=== PATIENT | female | born 1955 | race Caucasian/White ===

== ENCOUNTER → 2017-11-12 12:29 | Outpatient (CLI) | payer OTHER, SELFPAY ==
[2017-11-12 14:08] LABS: Absolute Lymphocyte Count 1.79 X10^3/ul (0.83-4.51); Absolute Neutrophil Count 2.6 X10^3/uL (2.0-7.7); Basophil# 0.02 X10^3/uL; Basophil% 0.4 % (0-1); Eosinophil# 0.19 X10^3/uL; Eosinophils% 3.8 % (0-5); Hematocrit 42.3 % (37-47); Lymphocyte # 1.79 X10^3/ul (4.0); Lymphocyte % 35.4 % (19-41); Mean Corp Hgb Conc 33.1 g/gl (32-36); Mean Corpuscular Hgb 29.4 pg (27.0-32.0); Mean Corpuscular Volume 88.9 fL (81-99); Mean Platelet Vol. 10.3 fl (6.2-12.0); Monocyte# 0.42 X10^3/uL; Monocyte% 8.3 % (0-10); Neutrophil # 2.63 X10^3/uL (2.7-7.7); Neutrophil % 51.9 % (47-70); Platelet Count 243 K/mm3 (150-450); RBC Distribution Width CV 13.2 % (11.6-14.6); RBC Distribution Width SD 42.7 fl (35.1-43.9); Red Blood Count 4.76 M/mm3 (4.2-5.4); White Blood Count 5.1 K/mm3 (4.4-11.0)
[2017-11-12 14:09] LABS: POSITIVE COUNT NO; POSITIVE DIFFERENTIAL NO; POSITIVE MORPHOLOGY NO
[2017-11-12 14:49] LABS: Vitamin B12 1153 pg/mL (211-911); Vitamin D,25 Hydroxy 43.6 ng/mL (29.95-100.01)
[2017-11-12 14:52] LABS: ALB/GLOB Ratio 0.9 RATIO (0.9-2.4); AST(SGOT) 24 U/L (15-37); Alanine Aminotransfer ALT/SGPT 39 U/L (13-56); Albumin, Serum 3.5 g/dL (3.2-5.0); Alkaline Phosphatase 79 U/L (45-117); Anion Gap 7 (5-15); BUN 12 mg/dL (7-18); BUN/Creat Ratio 19.6 RATIO (10-20); Calcium,Total 8.7 mg/dL (8.5-10.1); Chloride 105 mmol/L (98-107); Creatinine, Serum 0.61 mg/dL (0.55-1.02); EST Glomerular Filtration Rate 105 mL/min (>60); Est Glom Filt Rate - Afr Amer 127 mL/min (>60); Ferritin 27 ng/mL (8-252); Glucose 91 mg/dL (74-106); Iron 78 ug/dL (50-170); Protein, Total 7.5 g/dL (6.4-8.2); Sodium Level 140 mmol/L (136-145)
== END ==
PROVIDERS: Family Provider Family Medicine; PCP Family Medicine; Visit Provider Family Medicine
DX: R25.1 Tremor, unspecified (principal); E78.5 Hyperlipidemia, unspecified; E55.9 Vitamin D deficiency, unspecified; E53.8 Deficiency of other specified B group vitamins
CPT/HCPCS: 36415; 80053; 82306; 82607; 82728; 83540; 83735; 84443; 85025

== ENCOUNTER → 2018-02-25 13:51 | Outpatient (CLI) | payer OTHER, SELFPAY ==
[2018-02-25 15:14] LABS: Free T3 2.6 pg/mL (2.18-3.98); T4 Free Direct 0.87 ng/dL (0.76-1.46); T4 Total, Thyroxin 9.6 ug/dL (4.8-13.9); Thyroid Stim Hormone (TSH) 1.77 uIU/mL (0.358-3.74)
== END ==
PROVIDERS: Family Provider Family Medicine; PCP Family Medicine; Visit Provider Surgery
DX: R49.0 Dysphonia (principal); R68.89 Other general symptoms and signs
CPT/HCPCS: 36415; 84436; 84439; 84443; 84481

== ENCOUNTER 2018-03-16 10:18 | Day surgery (SDC) | payer OTHER, SELFPAY ==
[2018-03-16] VITALS (8 sets, daily range): BP systolic 130–156; BP diastolic 81–94; PULSE 58–76; RESP 16; TEMP 36.3–36.4; O2SAT 94–100; BMI 32.8
--- NOTE | 2018-03-16 | GASB_PTH ---
PATIENT: DOMINIC ARTEAGA LOC: EN U#:[id number] AGE/SX: 63/F ROOM: RE03/16/[address]: Dr. Yoni Shaw MD : 1955 BED: DIS: 03/16/2018 SPEC #: [id number] RECD: 03/16/18 14:21 STATUS: ANNETTE KAVITA #: [id number] CLAUDINE: 03/16/18 00:[address]: Yoni Shaw DEPT: SURGICAL PATHOLOGY RECD BY: Alexis Romero ENTERED: 03/16/18 14:21 SP TYPE: Gastric Bx OTHR DR: Dr. Demian Avila MD Tissues: A - Gastric mucous membrane B - Gastric mucous membrane Procedures: Special Stain Group II Surgery Specimen Level IV Alcian Blue/PAS (control) HEADER OPERATION: [place] DIAGNOSIS: History of esophagitis and voice hoarseness TISSUE SUBMITTED: A - Biopsy gastric antrum for H. pylori and path, B - Biopsy GE junction MICROSCOPIC DIAGNOSIS A. Gastric antrum, biopsy: Mild gastritis. B. GE junction, biopsy: Fragments of gastroesophageal mucosa with intestinal metaplasia (goblet cell metaplasia) consistent with Bhatti's esophagus. Indefinite for dysplasia. See comment. Chronic inflammation. SJ:rg 03/17/18 COMMENT A. The results of immunohistochemistry for Helicobacter pylori will be reported separately ([id number]). B. Alcian blue/PAS stain with matched control is used in the evaluation of the specimen. Immunohistochemistry ([id number]) supports the above diagnosis. Case has been reviewed in consultation with Dr. Albarado who concurs with the above diagnosis. IDC:AM MICROSCOPIC DESCRIPTION Slides are reviewed. A. The specimen shows fragments of gastric mucosa with chronic inflammatory cell infiltrates in the lamina propria consisting of lymphocytes and plasma cells, consistent with mild chronic gastritis. GROSS DESCRIPTION A - Received in fixative is one container labeled with the patient's name and designated gastric antrum. The specimen consists of two irregular fragments of light cruz soft tissue that in aggregate measure 0.5 x 0.3 x 0.1 cm. The specimen is totally submitted in one cassette. B - Received in fixative is one container labeled with the patient's name and designated [facility]. The specimen consists of two irregular fragments of light cruz soft tissue that in aggregate measure 0.6 x 0.6 x 0.1 cm. The specimen is totally submitted in one cassette. / AM:epi 03/16/18 TC:3 CPT: 80460 x2, 72435 ADDENDUM ADDENDUM ADDENDUM ADDENDUM ADDENDUM ADDENDUM ADDENDUM ADDENDUM ADDENDUM 03/26/2018 11:51 ADDENDUM 03/26/2018 11:51 ADDENDUM 03/26/2018 11:51 ADDENDUM 03/26/2018 11:51 ADDENDUM 03/26/2018 11:51 This addendum is added to incorporate a pathology consultation report. The case was examined at [facility] and the following diagnosis was rendered. B. Gastroesophageal junction biopsy: Bhatti's esophagus, negative for dysplasia. Please see complete above mentioned consultation report in EMR
--- NOTE | 2018-03-16 11:30 | IMM_PTH ---
PATIENT: DOMINIC ARTEAGA LOC: EN U#:[id number] AGE/SX: 63/F ROOM: RE03/16/[address]: Dr. Yoni Shaw MD : 1955 BED: DIS: 03/16/2018 SPEC #: [id number] RECD: 03/16/18 15:47 STATUS: ANNETTE REWhitney #: [id number] CLAUDINE: 03/16/18 11:[address]: Yoni Shaw DEPT: IMMUNOHISTOCHEMISTRY RECD BY: Aliyah Holder ENTERED: 03/16/18 15:47 SP TYPE: IMMUNO OTHR DR: Dr. Demian Avila MD Tissues: A - Stomach, NOS B - Esophageal mucous membrane Procedures: H Pylori (initial) P53 (initial) PHYSICIAN & INSTITUTION [place] [address] SPECIMEN INFORMATION: Tissue Source: A - Gastric antrum biopsy, B - GE junction biopsy Clinical Info: History of esophagitis and voice hoarseness Specimen Number: [id number] A & B CPT code: 43702 x2 METHODOLOGY: Deparaffinized sections of prefer/formalin-fixed tissue or PAP/DQ stained slides are incubated with monoclonal/polyclonal antibodies/oligonucleotide probes. Localization is made via biotin free immunoperoxidase method. Appropriate controls are performed and reacted as expected. Results on target cell population are indicated in the following table: RESULTS: ANTIBODY / CLONE RESULT Block A H Pylori (polyclonal) negative Block B P53 (DO-7) positive, rare cells, weak These tests were developed and their performance characteristics determined by [facility]. They may not have been cleared or approved by the U.S. Food and Drug Administration. The FDA has determined that such clearance or approval is not necessary. INTERPRETATION: A. Gastric antrum, biopsy: Negative for Helicobacter pylori organisms. B. GE junction, biopsy: Consistent with indefinite for dysplasia. SJ:epi 03/18/18 Case has been reviewed in consultation with Dr. Albarado who concurs with the above diagnosis. IDC:PINA
--- NOTE | 2018-03-16 11:44 | OP.ENDO_ITS ---
Patient Name: Jenn Paul Procedure Date: 03/16/2018 11:11 AM Date of : 1955 Age: 63 Procedure: Upper GI endoscopy Indications: Heartburn, Reflux esophagitis, voice hoarseness Providers: Yoni Shaw MD Referring MD: Yoni Shaw MD Medicines: Monitored Anesthesia Care Patient Profile: She is status post EGD three years ago. She had esophagitis, She is also having voice hoarseness. Complications: No immediate complications. Procedure: Pre-Anesthesia Assessment: - Prior to the procedure, a History and Physical was performed, and patient medications and allergies were reviewed. The patient's tolerance of previous anesthesia was also reviewed. The risks and benefits of the procedure and the sedation options and risks were discussed with the patient. All questions were answered, and informed consent was obtained. Prior Anticoagulants: The patient has taken no previous anticoagulant or antiplatelet agents. After reviewing the risks and benefits, the patient was deemed in satisfactory condition to undergo the procedure. After obtaining informed consent, the endoscope was passed under direct vision. Throughout the procedure, the patient's blood pressure, pulse, and oxygen saturations were monitored continuously. The gastroscope was introduced through the mouth, and advanced to the second part of duodenum. The upper GI endoscopy was accomplished without difficulty. The patient tolerated the procedure well. Scope In: 11:24:50 AM Scope Out: 11:31:06 AM Total Procedure Duration Time 0 hours 6 minutes 16 seconds Findings: Esophagitis with no bleeding was found. Biopsies were taken with a cold forceps for histology. Biopsies were taken with a cold forceps in the gastric antrum for Helicobacter pylori testing. The exam was otherwise without abnormality. The cardia and gastric fundus were normal on retroflexion. Impression: - Reflux esophagitis. Rule out Bhatti's esophagus. Biopsied. - The examination was otherwise normal. - Biopsies were taken with a cold forceps for Helicobacter pylori testing. Recommendation: - Await pathology results. - Continue present medications. Procedure Code(s): --- Professional --- 49187, Esophagogastroduodenoscopy, flexible, transoral; with biopsy, single or multiple Diagnosis Code(s): --- Professional --- K21.0, Gastro-esophageal reflux disease with esophagitis R12, Heartburn CPT copyright 2017 [employer]. All rights reserved. The codes documented in this report are preliminary and upon certified coder review may be revised to meet current compliance requirements. Yoni Shaw MD 03/16/2018 11:44:00 AM This report has been signed electronically. Number of Addenda: 0 Note Initiated On: 03/16/2018 11:11 AM
== END 2018-03-16 12:45 | disposition home or self-care (01) ==
LOC: EN 10:19 → AC 10:20
PROVIDERS: Family Provider Family Medicine; PCP Family Medicine; Visit Provider Surgery
PROC: 0DJ08ZZ Inspection of Upper Intestinal Tract, Via Natural or Artificial Opening Endoscopic (ICD-10-PCS; CPT 43235; principal; 2018-03-16 11:25)
DX: K21.0 Gastro-esophageal reflux disease with esophagitis (principal); K29.70 Gastritis, unspecified, without bleeding; R49.0 Dysphonia; E11.9 Type 2 diabetes mellitus without complications; H40.9 Unspecified glaucoma; F32.9 Major depressive disorder, single episode, unspecified; F41.9 Anxiety disorder, unspecified; Z79.84 Long term (current) use of oral hypoglycemic drugs; Z79.899 Other long term (current) drug therapy; Z78.0 Asymptomatic menopausal state
CPT/HCPCS: 43239; 88305; 88313; 88342; J7120

== ENCOUNTER → 2018-03-18 09:09 | Outpatient (CLI) | payer OTHER, SELFPAY ==
--- NOTE | 2018-03-18 09:12 | US_ITS ---
STUDY: THYROID ULTRASOUND REASON FOR EXAM: Female, 63 years old. Heat intolerance. TECHNIQUE: Ultrasound evaluation of the thyroid was performed with real-time and static jeronimo-scale imaging. COMPARISON: None. FINDINGS: RIGHT LOBE: The right lobe of the thyroid gland measures 4.9 x 1.6 x 1.3 cm. There is a homogeneous echotexture. There are no demonstrated solid, cystic or complex lesions. LEFT LOBE: The left lobe of the thyroid gland measures 4.2 x 1.7 x 1.3 cm. There is a homogeneous echotexture. There is a complex solid 7 mm nodule in the mid left lobe. ISTHMUS: The isthmus measures 3 mm . The regional lymph nodes are normal. US/Thyroid IMPRESSION: Subcentimeter nodule on the left. Otherwise negative. No definite follow-up or further evaluation indicated. Electronically Signed: Daryl Moser MD at 16:49 EDT , Service support ,
== END ==
PROVIDERS: Family Provider Family Medicine; PCP Family Medicine; Visit Provider Surgery
DX: R49.0 Dysphonia (principal); R68.89 Other general symptoms and signs
CPT/HCPCS: 76536

== ENCOUNTER 2018-05-12 06:54 | Day surgery (SDC) | payer OTHER, SELFPAY ==
[2018-05-12] VITALS (7 sets, daily range): BP systolic 128–152; BP diastolic 71–88; PULSE 63–77; RESP 14–16; TEMP 36.1–36.4; O2SAT 94–98; BMI 33.5
--- NOTE | 2018-05-12 | IMM_PTH ---
PATIENT: DOMINIC ARTEAGA LOC: EN U#:[id number] AGE/SX: 63/F ROOM: RE05/12/[address]: Dr. Yoni Shaw MD : 1955 BED: DIS: 05/12/2018 SPEC #: [id number] RECD: 05/13/18 14:26 STATUS: ANNETTE REWhitney #: [id number] CLAUDINE: 05/12/18 00:[address]: Yoni Shaw DEPT: IMMUNOHISTOCHEMISTRY RECD BY: Aliyah Holder ENTERED: 05/13/18 14:27 SP TYPE: IMMUNO OTHR DR: Dr. Demian Avila MD Tissues: Esophageal mucous membrane Procedures: P53 (initial) PHYSICIAN & INSTITUTION [place] [address] SPECIMEN INFORMATION: Tissue Source: Biopsy GE junction Clinical Info: Bhatti's esophagus Specimen Number: [id number] CPT code: 27478 METHODOLOGY: Deparaffinized sections of prefer/formalin-fixed tissue or PAP/DQ stained slides are incubated with monoclonal/polyclonal antibodies/oligonucleotide probes. Localization is made via biotin free immunoperoxidase method. Appropriate controls are performed and reacted as expected. Results on target cell population are indicated in the following table: RESULTS: ANTIBODY / CLONE RESULT P53 (DO-7) negative These tests were developed and their performance characteristics determined by [facility]. They may not have been cleared or approved by the U.S. Food and Drug Administration. The FDA has determined that such clearance or approval is not necessary. INTERPRETATION: GE junction, biopsy: Negative for dysplasia. SJ:epi 05/15/18
--- NOTE | 2018-05-12 07:57 | H&P.OPEN ---
History of Present Illness Date of Admission: 05/12/18 The patient is a 63 year old F who had an EGD back in February of this year. At that time the patient had Bhatti's esophagus with a diagnosis of indefinite for dysplasia. The patient reports that her GERD is controlled on her PPI. Past Medical/Surgical History - Planned Operation Planned Operative Procedure/s: EGD Date of Operative Procedure: 05/12/18 Permit Signed: No S.O.S: No Is This Patient Having a Total Joint: No - Previous Hospitalizations/Surgeries HX Hospitalizations: Yes HX of Surgeries: egd for foreign body 5 yrs ago. cervical fusion . appendectomy . right arm nerve and tendon repair . EGD 2018 Any Problems With Anesthesia: No You/Your Family Experience Fever (Hyperthermia) With Anes: No Cholinesterase deficiency: No - Cardiovascular Hx Chest Pain within Last 2 months: No Hx of Irregular Heartbeat and/or Afib: No Hx Heart Attack: No Hx Congestive Heart Failure: No Hx Rheumatic Fever: No Hx Hypertension: No Hx Internal Defibrillator: No Hx Pacemaker: No Hx Cardiac Catheterization: No Hx Cardiac Surgery/Stents/Etc.: No Hx Stress Test: Yes - 2017 and echo 2017 Hx Pain in Legs when Walking/Leg Cramps: No - Respiratory Chronic Cough: No HX of Shortness of Breath: No Hoarseness: No Hx Chronic Obstructive Pulmonary Disease (COPD): No Hx Asthma: No Hx Emphysema: No Hx Sleep Apnea: No Hx Respiratory Tract Infection/Cold (presently): No Do You Snore Loudly (louder than talking or can be heard): No Do You Often Feel Tired/ Fatigued/ Sleepy Dring Daytime?: No Has Anyone Observed You Stop Breathing During Sleep?: No Result (for STOP score): Negative Hx Smoking: No Smoking Status: Never smoker - Gastrointestinal Hx Gastroesophageal Reflux: Yes Controlled With Meds: No - better with prilosec Hx Gastrointestinal Disorders: No Hx Gastrointestinal Bleed: No Hx Ulcer: No Hx Hiatal Hernia: No Difficulty Chewing/Swallowing: No Special diet followed at home: No - . Hx Unplanned Weight Loss of 20#: No HX Unplanned Weight Gain of 20#: No - Neurological Hx Seizures: No HX Syncope/Blackout Spells/Unconsciousness: No Hx CVA/Stroke: No Hx Transient Ischemic Attacks (TIA): No Hx Multiple Sclerosis: No Hx Parkinson's Disease: No Hx Head/Neck Injury: Yes - cervical fusion Hx Headaches: No Hx Back Injury/Pain: No Recent Onset of Speech Difficulty: No Restless Legs: No Does patient have nerve stimulator: No - Blood Disorder Hx Leukemia: No Bleeding Tendencies: No Hx Deep Vein Thrombosis: No Hx High Cholesterol: No Blood Transmitted Disease: No Hx Hepatitis: No Hx Cirrhosis: No Hx Anemia: No Hx Blood Disorders: No - Reproduction Is Patient Lactating: No Hx Hysterectomy: No Hx Tubal Ligation: No Are You Post Menopause: Yes - Genitourinary Hx Renal Disease: No - Musculoskeletal Hx Arthritis: No Hx Rheumatoid Arthritis: No Hx Gout: No Recent Onset of an Orthopedic Problem: No - Endocrine Hx Diabetes: No Thyroid Disease: No Hx Steroid Therapy: No - Psycho/Social Hx Substance Use: No Hx Alcohol Use: No Hx Anxiety: Yes - on med Hx Depression: Yes - on med Mental Illness: No Hx Dementia: No - Miscellaneous Hx Cancer: No Recent Exposure to Contagious Disease: No Active MRSA: No Hx of C-Diff: No Any Loose Teeth: No Allergies No Known Allergies Allergy (Unverified 03/12/18 09:00) - Discharge Is Pt Admitted From a Custodial, or a Half-Way: No Who Depends On You At Home: lives - From the PAT History Number of Risk Factors: 2 - Physical Exam General: Alert, Oriented x3, Cooperative Neck: No JVD Lungs: Normal air movement Cardiovascular: Regular rate, Regular Rhythm Abdomen: Soft, Non Tender, Non-Distended Vital Signs Temp Pulse Resp BP Pulse Ox 97 F L 63 14 147/88 H 95 05/12/18 07:16 05/12/18 07:16 05/12/18 07:16 05/12/18 07:16 05/12/18 07:16 Oxygen Delivery Method Room Air Weight: 195 lb 12.328 oz Body Mass Index (BMI) 33.5 Assessment/Plan 63-year-old female with Bhatti's esophagus 1. Because the patient was indefinite for dysplasia I believe that this warrants more extensive biopsies of the GE junction. If the patient has any dysplasia I will refer her for ablation. 2. I explained endoscopy in detail to the patient. I explained the risks including but not limited to stroke or heart attack with anesthesia, perforation of the GI tract, bleeding, infection. I explained that any of these could necessitate further emergency surgery. The patient understands and all questions were answered sufficiently. The patient wishes to proceed with procedure. Yoni Shaw MD Pager: [facility] [address] [place] [address] [address] [place] [phone] Office: Surgery Risks - Colonoscopy Risks Include but are not Limited To: Risks include but are not limited to: Bleeding, perforation requiring further surgery, inability to complete colonoscopy requiring barium enema.
--- NOTE | 2018-05-12 08:00 | GASB_PTH ---
PATIENT: DOMINIC ARTEAGA LOC: EN U#:[id number] AGE/SX: 63/F ROOM: RE05/12/[address]: Dr. Yoni Shaw MD : 1955 BED: DIS: 05/12/2018 SPEC #: [id number] RECD: 05/12/18 11:40 STATUS: ANNETTE KAVITA #: [id number] CLAUDINE: 05/12/18 08:[address]: Yoni Shaw DEPT: SURGICAL PATHOLOGY RECD BY: Bertrand Em ENTERED: 05/12/18 12:35 SP TYPE: Gastric Bx OTHR DR: Dr. Demian Avila MD Tissues: Gastric mucous membrane Procedures: Special Stain Group II Surgery Specimen Level IV Alcian Blue/PAS (control) HEADER OPERATION: EGD ([facility] [place]) PRE-OP DIAGNOSIS: History Bhatti's esophagus TISSUE SUBMITTED: Biopsy GE junction MICROSCOPIC DIAGNOSIS GE junction, biopsy: Fragments of gastroesophageal mucosa with focal intestinal metaplasia (goblet cell metaplasia) consistent with Bhatti's esophagus. Negative for dysplasia. Chronic inflammation. See comment. SJ:epi 05/13/18 COMMENT Alcian blue/PAS stain with matched control is used in the evaluation of the specimen. Immunohistochemistry ([id number]) supports the above diagnosis. MICROSCOPIC DESCRIPTION Slides are reviewed. GROSS DESCRIPTION Received in fixative is one container labeled with the patient's name and designated GE junction. The specimen consists of multiple irregular fragments of light cruz soft tissue that in aggregate measure 2 x 0.5 x 0.1 cm. The specimen is totally submitted in one cassette. / GAIL:epi 05/12/18 TC:3 CPT: 33390, 35649
--- NOTE | 2018-05-12 08:15 | OP.ENDO_ITS ---
Patient Name: Jenn Paul Procedure Date: 05/12/2018 7:41 AM Date of : 1955 Age: 63 Procedure: Upper GI endoscopy Indications: Follow-up of Bhatti's esophagus Providers: Yoni Shaw MD Referring MD: Yoni Shaw MD Medicines: Monitored Anesthesia Care Patient Profile: This is a 63 year old female. Refer to note in patient chart for documentation of history and physical. Complications: No immediate complications. Estimated blood loss: Minimal. Procedure: Pre-Anesthesia Assessment: - Prior to the procedure, a History and Physical was performed, and patient medications and allergies were reviewed. The patient's tolerance of previous anesthesia was also reviewed. The risks and benefits of the procedure and the sedation options and risks were discussed with the patient. All questions were answered, and informed consent was obtained. Prior Anticoagulants: The patient has taken no previous anticoagulant or antiplatelet agents. After reviewing the risks and benefits, the patient was deemed in satisfactory condition to undergo the procedure. After obtaining informed consent, the endoscope was passed under direct vision. Throughout the procedure, the patient's blood pressure, pulse, and oxygen saturations were monitored continuously. The gastroscope was introduced through the mouth, and advanced to the second part of duodenum. The upper GI endoscopy was accomplished without difficulty. The patient tolerated the procedure well. Scope In: 8:05:13 AM Scope Out: 8:11:07 AM Total Procedure Duration Time 0 hours 5 minutes 54 seconds Findings: There were esophageal mucosal changes secondary to established short-segment Bhatti's disease present at the gastroesophageal junction. Mucosa was biopsied with a cold forceps for histology in 4 quadrants at intervals of 1 cm at the gastroesophageal junction. The exam was otherwise without abnormality. Impression: - Esophageal mucosal changes secondary to established short-segment Bhatti's disease. Biopsied. - The examination was otherwise normal. Recommendation: - Await pathology results. - Patient has a contact number available for emergencies. The signs and symptoms of potential delayed complications were discussed with the patient. Return to normal activities tomorrow. Written discharge instructions were provided to the patient. - Resume previous diet. - Continue present medications. - Repeat upper endoscopy in 3 years for surveillance. Procedure Code(s): --- Professional --- 95509, Esophagogastroduodenoscopy, flexible, transoral; with biopsy, single or multiple Diagnosis Code(s): --- Professional --- K22.70, Bhatti's esophagus without dysplasia CPT copyright 2017 [employer] [employer]. All rights reserved. The codes documented in this report are preliminary and upon senior quality engineer review may be revised to meet current compliance requirements. Yoni Shaw MD 05/12/2018 8:15:05 AM This report has been signed electronically. Number of Addenda: 0 Note Initiated On: 05/12/2018 7:41 AM
== END 2018-05-12 09:45 | disposition home or self-care (01) ==
LOC: EN 06:55 → AC 06:57
PROVIDERS: Family Provider Family Medicine; PCP Family Medicine; Referring Provider Surgery; Visit Provider Surgery
PROC: 0DJ08ZZ Inspection of Upper Intestinal Tract, Via Natural or Artificial Opening Endoscopic (ICD-10-PCS; CPT 43235; principal; 2018-05-12 07:55)
DX: K21.0 Gastro-esophageal reflux disease with esophagitis (principal); F32.9 Major depressive disorder, single episode, unspecified; F41.9 Anxiety disorder, unspecified; Z78.0 Asymptomatic menopausal state; Z79.899 Other long term (current) drug therapy
CPT/HCPCS: 43239; 88305; 88313; 88342; J7120

== ENCOUNTER → 2018-05-18 09:58 | Outpatient (CLI) | payer OTHER, SELFPAY ==
[2018-05-12 07:16] VITALS: BMI 33.5
[2018-05-18 12:10] LABS: Hematocrit 42.5 % (37-47); Hemoglobin 13.9 g/dl (12.0-15.0); Mean Corp Hgb Conc 32.7 g/gl (32-36); Mean Corpuscular Hgb 29.6 pg (27.0-32.0); Mean Corpuscular Volume 90.4 fL (81-99); Mean Platelet Vol. 10.4 fl (6.2-12.0); Platelet Count 226 K/mm3 (150-450); RBC Distribution Width CV 13.3 % (11.6-14.6); RBC Distribution Width SD 43.3 fl (35.1-43.9); White Blood Count 4.1 K/mm3 (4.4-11.0)
[2018-05-18 12:20] LABS: Scan Indicated on CBC? Y/N NO
[2018-05-18 12:45] LABS: Vitamin B12 1695 pg/mL (211-911); Vitamin D,25 Hydroxy 41.1 ng/mL (29.95-100.01)
[2018-05-18 12:58] LABS: ALB/GLOB Ratio 0.9 RATIO (0.9-2.4); AST(SGOT) 20 U/L (15-37); Alanine Aminotransfer ALT/SGPT 32 U/L (13-56); Albumin, Serum 3.5 g/dL (3.2-5.0); Alkaline Phosphatase 79 U/L (45-117); Anion Gap 8 (5-15); BUN 9 mg/dL (7-18); BUN/Creat Ratio 13.9 RATIO (10-20); Calcium,Total 8.5 mg/dL (8.5-10.1); Chloride 104 mmol/L (98-107); Cholesterol 210 mg/dL (200); Creatinine, Serum 0.65 mg/dL (0.55-1.02); EST Glomerular Filtration Rate 98 mL/min (>60); Est Glom Filt Rate - Afr Amer 119 mL/min (>60); Glucose 105 mg/dL (74-106); High Density Lipoprotein 40 mg/dL; Iron 102 ug/dL (50-170); Potassium 3.7 mmol/L (3.5-5.1); Protein, Total 7.5 g/dL (6.4-8.2); Sodium Level 137 mmol/L (136-145); T3 Uptake 32 % (30-39); T4 Free Direct 0.93 ng/dL (0.76-1.46); Thyroid Stim Hormone (TSH) 2.05 uIU/mL (0.358-3.74); Triglycerides 196 mg/dL; Very Low Density Lipoprotein 39 mg/dL (5-40)
== END ==
PROVIDERS: Family Provider Family Medicine; PCP Family Medicine; Visit Provider Family Medicine
DX: E78.5 Hyperlipidemia, unspecified (principal); R53.83 Other fatigue
CPT/HCPCS: 36415; 80053; 80061; 82306; 82607; 83540; 84439; 84443; 84479; 84481; 85027

== ENCOUNTER → 2018-11-11 11:03 | Outpatient (CLI) | payer OTHER, SELFPAY ==
[2018-05-12 07:16] VITALS: BMI 33.5
[2018-11-11 12:37] LABS: BUN 13 mg/dL (7-18); Creatinine, Serum 0.67 mg/dL (0.55-1.02); EST Glomerular Filtration Rate 95 mL/min (>60); Est Glom Filt Rate - Afr Amer 114 mL/min (>60)
== END ==
PROVIDERS: Family Provider Ophthalmology; PCP Family Medicine; Referring Provider Ophthalmology; Visit Provider Ophthalmology
DX: H53.483 Generalized contraction of visual field, bilateral (principal)
CPT/HCPCS: 36415; 82565; 84520

== ENCOUNTER → 2018-11-13 11:24 | Outpatient (CLI) | payer OTHER, SELFPAY ==
[2018-05-12 07:16] VITALS: BMI 33.5
[2018-11-13 14:02] LABS: Erythrocyte Sedimentation Rate 7 mm/hr (0-30)
[2018-11-13 14:06] LABS: Hematocrit 43.2 % (37-47); Mean Corp Hgb Conc 32.4 g/gl (32-36); Mean Corpuscular Hgb 28.7 pg (27.0-32.0); Mean Corpuscular Volume 88.7 fL (81-99); Mean Platelet Vol. 10.2 fl (6.2-12.0); Platelet Count 245 K/mm3 (150-450); RBC Distribution Width CV 13.2 % (11.6-14.6); RBC Distribution Width SD 42.6 fl (35.1-43.9); Red Blood Count 4.87 M/mm3 (4.2-5.4); Scan Indicated on CBC? Y/N NO; White Blood Count 5.5 K/mm3 (4.4-11.0)
[2018-11-13 14:21] LABS: ALB/GLOB Ratio 1.1 RATIO (0.9-2.4); AST(SGOT) 19 U/L (15-37); Alanine Aminotransfer ALT/SGPT 27 U/L (13-56); Albumin, Serum 3.7 g/dL (3.2-5.0); Alkaline Phosphatase 75 U/L (45-117); Anion Gap 6 (5-15); BUN 14 mg/dL (7-18); BUN/Creat Ratio 21.2 RATIO (10-20); Calcium,Total 8.6 mg/dL (8.5-10.1); Chloride 106 mmol/L (98-107); Creatinine, Serum 0.66 mg/dL (0.55-1.02); EST Glomerular Filtration Rate 96 mL/min (>60); Est Glom Filt Rate - Afr Amer 116 mL/min (>60); Globulin 3.3 g/dL (2.2-4.2); Glucose 95 mg/dL (74-106); Potassium 4.1 mmol/L (3.5-5.1); Sodium Level 139 mmol/L (136-145); Thyroid Stim Hormone (TSH) 1.35 uIU/mL (0.358-3.74)
[2018-11-13 14:29] LABS: Vitamin B12 439 pg/mL (211-911); Vitamin D,25 Hydroxy 55.4 ng/mL (29.95-100.01)
== END ==
PROVIDERS: Family Provider Family Medicine; PCP Family Medicine; Referring Provider Family Medicine; Visit Provider Family Medicine
DX: I10 Essential (primary) hypertension (principal); E53.8 Deficiency of other specified B group vitamins; R53.83 Other fatigue
CPT/HCPCS: 36415; 80053; 82306; 82607; 84443; 85027; 85652

== ENCOUNTER → 2018-12-01 09:39 | Outpatient (CLI) | payer OTHER, SELFPAY ==
[2018-05-12 07:16] VITALS: BMI 33.5
--- NOTE | 2018-12-01 09:42 | MRI_ITS ---
STUDY: MRI BRAIN WITH AND WITHOUT CONTRAST REASON FOR EXAM: Female, 63 years old. Vision loss TECHNIQUE: Standardized multiplanar fat and water weighted pulse sequences were obtained. 17 IV Dotarem was administered for the contrast portion of the examination. COMPARISON: None. FINDINGS: Normal size of the ventricles and extra-axial spaces for the patient's age. Normal white matter tracts of the supratentorial brain. There is no evidence for recent intracranial ischemia or other cause of cytotoxic edema on diffusion weighted imaging (DWI). Normal T2* images of the brain without demonstrated susceptibility artifact. There is no demonstrated hemosiderin stain. Normal bilateral basal ganglia. Normal thalami. There is no extra-axial fluid accumulation. Normal flow voids within the major intracranial circulation suggesting patency by spin echo criteria. Normal venous enhancement. There is no enhancing intra-axial or extra-axial abnormality. Normal sella turcica, pituitary gland, infundibular stalk, optic chiasm and hypothalamus. Normal tectal plate and pineal gland. Normal midbrain, koffi and medulla. Normal cerebellum. Normal basal cisterns. Normal bilateral temporal bones. Normal bilateral internal auditory canals. No demonstrated orbital abnormality, within the constraints of a routine brain study. Normal visualized paranasal sinuses. Normal calvarium and skull base. Normal visualized soft tissue structures. Normal visualized upper cervical spine. MRI/Brain W/WO Contrast IMPRESSION: Normal unenhanced and enhanced MRI of the brain. Electronically Signed: Bertrand Mccloud MD at 12:38 EDT Tel , Service support ,
== END ==
PROVIDERS: Family Provider Family Medicine; PCP Family Medicine; Referring Provider Ophthalmology; Visit Provider Ophthalmology
DX: H53.40 Unspecified visual field defects (principal)
CPT/HCPCS: 70553; A9575

== ENCOUNTER → 2019-02-18 14:14 | Outpatient (CLI) | payer MEDICARE, OTHER, SELFPAY ==
[2018-05-12 07:16] VITALS: BMI 33.5
--- NOTE | 2019-02-18 14:17 | RAD_ITS ---
STUDY: X-RAY - RIGHT SHOULDER REASON FOR EXAM: Female, 63 years old. right shoulder pain, no injury TECHNIQUE: For view(s) of the shoulder. COMPARISON: July 03, 2017 FINDINGS: Normal glenohumeral articulation. Normal acromioclavicular joint. Normal acromion. Normal humeral head and visualized proximal humerus. There is a object that projects superior to the humerus on the AP internal and external views but not seen on the Y view. This object appears man-made measuring approximately 7 mm in length by 3 mm in width. In the absence of the surgical intervention where this might represent a loose tack, it may relate to patient's clothing. It does appear that a bra is present. Normal visualized pulmonary apex. RAD/Shoulder min 2 Views IMPRESSION: No change in the appearance of the glenohumeral joint. There does appear small focal radiodensity as described above which may be outside of the patient but if there was intervening surgery, a loose tack cannot be excluded. Removal of the patient's bra may be helpful to further evaluate if the answer to this question is not clearly noted clinically. Electronically Signed: Dona Santiago MD at 15:06 EDT , Service support ,
--- NOTE | 2019-02-18 14:18 | RAD_ITS ---
STUDY: X-RAY - CERVICAL SPINE REASON FOR EXAM: Female, 63 years old. right shoulder pain neck surgery 30 years ago TECHNIQUE: 5 view(s) of the cervical spine were obtained. COMPARISON: None FINDINGS: There are degenerative changes of the anterior atlantoaxial articulation. Normal odontoid process. There is mild reversal the normal cervical lordosis. There is solid fusion of C5-C6 across the disc space. Disc height loss is noted at C4-5 and C6-7 and to a lesser extent at C3-4. At these levels there are anterior marginal osteophytes and there also appears posterior facet arthropathy. There is no evidence of significant neural foraminal osseous encroachment. The soft tissue structures are unremarkable. RAD/Cerv Spine 4 or 5 Views IMPRESSION: C5-6 fusion which I suspect is likely postsurgical. There is a mild reversal the normal cervical lordosis. There is diffuse degenerative spondylosis as described. Electronically Signed: Dona Santiago MD at 15:08 EDT , Service support ,
== END ==
PROVIDERS: Family Provider Family Medicine; PCP Family Medicine; Referring Provider Family Medicine; Visit Provider Family Medicine
DX: M25.511 Pain in right shoulder (principal); G89.29 Other chronic pain; M54.9 Dorsalgia, unspecified
CPT/HCPCS: 72050; 73030

== ENCOUNTER 2019-03-02 21:20 | Emergency (ER) | payer MEDICARE, OTHER, SELFPAY ==
[2018-05-12 07:16] VITALS: BMI 33.5
[2019-03-02 21:21] VITALS: BP 140/95; PULSE 80; PULSE 85; RESP 17; RESP 20; TEMP 37; O2SAT 95; O2SAT 99; BMI 33.7
--- NOTE | 2019-03-02 21:23 | ED.RN ---
CALLED FOR EKG PER RN REQUEST, NO OLD EKGS IN MUSE
--- NOTE | 2019-03-02 21:26 | EKG12_ITS ---
Test Reason : CP Blood Pressure : / mmHG Vent. Rate : 080 BPM Atrial Rate : 080 BPM P-R Int : 138 ms QRS Dur : 070 ms QT Int : 356 ms P-R-T Axes : 056 002 052 degrees QTc Int : 410 ms Normal sinus rhythm Nonspecific ST and T wave abnormality Abnormal ECG Confirmed by BREONNA ROSENTHAL ([id number]), image editor JOSHUA HEDRICK ([id number]) on 03/08/2019 2:10:23 PM Referred By: ARVIND Confirmed By:BREONNA ROSENTHAL
--- NOTE | 2019-03-02 21:35 | RAD_ITS ---
STUDY: X-RAY CHEST REASON FOR EXAM: Female, 64 years old. Chest pain TECHNIQUE: AP COMPARISON: None. FINDINGS: The lungs are clear and expanded. There is no demonstrated pleural abnormality. Normal size heart. Normal mediastinum and mary. Normal visualized pulmonary arteries. Normal visualized aortic arch and descending thoracic aorta. Dorsal spine demonstrates moderate spondylosis.. Normal visualized ribs, clavicles, and shoulders. There is no demonstrated abnormality of the visualized soft tissue structures of the upper abdomen. RAD/Chest 1 View (Portable) IMPRESSION: No acute cardiopulmonary pathology Electronically Signed: Edmund Rivera MD at 21:58 EDT , Service support ,
[2019-03-02 21:48] LABS: Absolute Lymphocyte Count 1.97 X10^3/uL (0.83-4.51); Absolute Neutrophil Count 3.4 X10^3/uL (2.0-7.7); Basophil# 0.05 X10^3/uL; Basophil% 0.8 % (0-1); Eosinophil# 0.24 X10^3/uL; Eosinophils% 3.7 % (0-5); Hematocrit 41.4 % (37-47); Hemoglobin 13.3 g/dL (12.0-15.0); Lymphocyte # 1.97 X10^3/ul (4.0); Lymphocyte % 30.6 % (19-41); Mean Corp Hgb Conc 32.1 g/dL (32-36); Mean Corpuscular Hgb 29.4 pg (27.0-32.0); Mean Corpuscular Volume 91.4 fL (81-99); Mean Platelet Vol. 9.6 fl (6.2-12.0); Monocyte# 0.72 X10^3/uL; Monocyte% 11.2 % (0-10); NRBC Flagged by Analyzer 0 % (0-5); Neutrophil # 3.44 X10^3/uL (2.7-7.7); Neutrophil % 53.4 % (47-70); Platelet Count 222 K/mm3 (150-450); RBC Distribution Width CV 13.2 % (11.6-14.6); RBC Distribution Width SD 44.8 fl (35.1-43.9); Red Blood Count 4.53 M/mm3 (4.2-5.4); White Blood Count 6.4 K/mm3 (4.4-11.0)
[2019-03-02 21:55] LABS: Anion Gap 6 (5-15); BUN 13 mg/dL (7-18); BUN/Creat Ratio 16.7 RATIO (10-20); Calcium,Total 8.8 mg/dL (8.5-10.1); Chloride 107 mmol/L (98-107); Creatinine, Serum 0.78 mg/dL (0.55-1.02); EST Glomerular Filtration Rate 79 mL/min (>60); Est Glom Filt Rate - Afr Amer 96 mL/min (>60); Estimated Creatinine Clearance 62.09 ml/min; Glucose 96 mg/dL (74-106); Potassium 4.1 mmol/L (3.5-5.1); Sodium Level 141 mmol/L (136-145)
[2019-03-02] MEDS: 0.9% Normal Saline 1,000 ML 999 ML IV (22:18)
[2019-03-02 22:20] VITALS: BP 138/92; PULSE 69; RESP 16; O2SAT 97
[2019-03-02 23:00] VITALS: BP 144/81; PULSE 65; RESP 20; O2SAT 99
[2019-03-02 23:18] LABS: Bacteria 0 SEEN /hpf (None Seen); Mucous, Urine 0 SEEN /hpf (<or=2+); Red Blood Cells-Urine 0 SEEN /hpf (0-5); White Blood Cells 0 SEEN /hpf (0-5)
[2019-03-02 23:21] LABS: Color, Urine Yellow (Yellow); Glucose, Dipstick Normal (Normal); Ketone-Dipstick Negative (Negative); Leukocyte Esterase-Dipstick Negative /ul (Negative); Nitrite-Dipstick Negative (Negative); Occult Blood-Urine Negative /ul (Negative); Protein-Dipstick Negative (Negative); Urine Bilirubin Dipstick Negative (Negative); Urine Clarity Sl. Cloudy (Clear); Urine Urobilinogen Normal (Normal)
[2019-03-02 23:28] LABS: Squamous Epithelial Cells - UA 0-5 SEEN /hpf (5-10)
--- NOTE | 2019-03-02 23:46 | ED.DCSUM_ITS ---
History of Present Illness Chief Complaint: Chest Pain Informant: Patient Onset: Days - 3 Context: Gradual Onset Timing: Continuous Current Severity: Mild Maximum Severity: Moderate Narrative: Patient is a 64-year-old female presenting from home with multiple complaints. Patient states she has been having chest pain across the center of her chest for the past 3 days. She denies any associated shortness of breath or difficulty breathing. She denies any aggravating or alleviating factors. She states that more mild right now but still present. It does not radiate. In addition while patient was mowing the lawn today on a riding lawnmower she was feeling unsteady. Patient states that both her arms and legs felt floppy. Patient's friend was also concerned because she was so tired and just lying in the bed. Her friend felt that she had a droop of her right lip earlier that is now resolved. Patient did not have any speech changes. Patient denies any numbness or tingling. In addition patient states that she is been feeling lightheaded for the past few weeks but not today. Patient denies any leg swelling. She did recently return from the [facility] which was a [address] Denies any history of blood clots, pulmonary embolism or DVT. She denies any swelling of her legs. She denies any GI or symptoms. Past Medical History - Allergies and Home Meds Allergies/Adverse Reactions: Allergies No Known Allergies Allergy (Verified 03/02/19 21:20) Past Medical History: - - Hypertension, depression, diabetes Surgical History: appendectomy, tonsillectomy Smoking Status: Never smoker Review of Systems All systems negative except as indicated General: Reports: Malaise. Denies: Sweats Cardiovascular: Reports: Chest pain Neurological: Reports: Weakness - In all extremities Physical Exam Vital Signs/Narrative: Vital Signs Temp Pulse Resp BP Pulse Ox 03/02/19 23:00 65 20 H 144/81 H 99 03/02/19 22:20 69 16 138/92 H 97 03/02/19 21:21 98.6 F 85 20 H 140/95 H 95 Inital Vital Signs reviewed: Yes General: Well nourished, Well developed, No Acute Distress Head: Normocephalic, Atraumatic Eyes: Perrl, EOMI ENT: Moist mucous membranes, No rhinorrhea Neck: Supple, Nontender Cardiovascular: Regular rate, Regular rhythm, No murmurs Respiratory: No distress, CTA bilaterally, Chest nontender Abdomen: Soft, Nontender, Nondistended, Normal bowel sounds Back: Nontender, Normal Inspection Extremities: Nontender, No edema. Negative for: Tenderness, Edema Skin: Normal color, No rash Neurological: Alert, Oriented x3, Cranial nerves II-XII grossly intact, Normal Strength, Normal Sensation, - - NIH 0 Psychological: Normal affect, Normal Mood Diagnostic/Tx/Re-eval Chest X-Ray - ED: 2 View, Read by ED Physician, Read by Radiologist, No Acute Disease Clinical Impression(s) from Imaging Studies Chest X-Ray 03/02/19 21:35 IMPRESSION: No acute cardiopulmonary pathology Electronically Signed: Edmund Rivera MD at 21:58 EDT , Service support , Laboratory Data 03/02/19 03/02/19 03/02/19 21:30 21:30 21:30 WBC 6.4 RBC 4.53 Hgb 13.3 Hct 41.4 MCV 91.4 MCH 29.4 MCHC 32.1 RDW Std Deviation 44.8 H RDW Coeff of Melissa 13.2 Plt Count 222 MPV 9.6 Immature Gran % (Auto) 0.300 Neut % (Auto) 53.4 Lymph % (Auto) 30.6 Karnes % (Auto) 11.2 H Eos % (Auto) 3.7 Baso % (Auto) 0.8 Absolute Neuts (auto) 3.4 Absolute Lymphs (auto) 1.97 Nucleated RBC % 0 D-Dimer Quant (PE/DVT) 0.30 Sodium 141 Potassium 4.1 Chloride 107 Carbon Dioxide 28.0 Anion Gap 6 BUN 13 Creatinine 0.78 Estim Creat Clear Calc 62.09 Est GFR (MDRD) Af Amer 96 Est GFR (MDRD) Non-Af 79 BUN/Creatinine Ratio 16.7 Glucose 96 Calcium 8.8 Troponin I < 0.015 Urine Color Urine Clarity Urine pH Ur Specific Buckeye Urine Protein Urine Glucose (UA) Urine Ketones Urine Occult Blood Urine Nitrite Urine Bilirubin Urine Urobilinogen Ur Leukocyte Esterase Urine RBC Urine WBC Ur Squamous Epith Cells Urine Bacteria Urine Mucus 03/02/19 23:12 WBC RBC Hgb Hct MCV MCH MCHC RDW Std Deviation RDW Coeff of Melissa Plt Count MPV Immature Gran % (Auto) Neut % (Auto) Lymph % (Auto) Karnes % (Auto) Eos % (Auto) Baso % (Auto) Absolute Neuts (auto) Absolute Lymphs (auto) Nucleated RBC % D-Dimer Quant (PE/DVT) Sodium Potassium Chloride Carbon Dioxide Anion Gap BUN Creatinine Estim Creat Clear Calc Est GFR (MDRD) Af Amer Est GFR (MDRD) Non-Af BUN/Creatinine Ratio Glucose Calcium Troponin I Urine Color Yellow Urine Clarity Sl. Cloudy Urine pH 7.0 Ur Specific Buckeye 1.010 Urine Protein Negative Urine Glucose (UA) Normal Urine Ketones Negative Urine Occult Blood Negative Urine Nitrite Negative Urine Bilirubin Negative Urine Urobilinogen Normal Ur Leukocyte Esterase Negative Urine RBC 0 SEEN Urine WBC 0 SEEN Ur Squamous Epith Cells 0-5 SEEN Urine Bacteria 0 SEEN Urine Mucus 0 SEEN Diagnostic Data Chest X-Ray 03/02/19 21:35 IMPRESSION: No acute cardiopulmonary pathology Electronically Signed: Edmund Rivera MD at 21:58 EDT , Service support , - Rhythm Strip Rhythm Strip: Sinus Rhythm Rate: 80 Ectopy: None - EKG Initial EKG Interpretation: Sinus Rhythm, - - Sinus rhythm at a rate of 80 AR interval 138 QRS 70 QT/QTc 356/[address] segments - Medical Decision Making Patient is evaluated for chest pain as well as unsteadiness and generalized weakness. She has normal neurologic exam. She is low risk per heart score. Troponin is negative and her EKG is normal. Patient's d-dimer is negative. Chest x-rays not show any acute process. The cause of her symptoms is not clear at this time. I suspect PE, ACS or other acute emergent process at this time. With patient's results and physical exam I feel like she is a good candidate for outpatient follow-up. I did talk to [facility] practice on-call, Dr. Duval, to arrange close follow-up. Patient is instructed to call her PCP tomorrow to set up an appointment. Patient is counseled on signs and symptoms requiring return to the emergency room. Patient verbalizes agreement and understand this plan. Patient discharged home in stable and improved condition. ED Disposition - Plan for ED Patient: Disposition: Home or Assisted Living Diagnosis: Chest pain, Weakness Instructions: CHEST PAIN, Uncertain Cause, WEAKNESS, Unk Cause Additional Instructions: Turn to the emergency room if you develop any worsening or new symptoms. It is very importantly follow-up with your primary care doctor.
[2019-03-02 23:50] VITALS: BP 154/88; PULSE 65; RESP 14; O2SAT 98
== END 2019-03-03 00:05 | disposition home or self-care (01) ==
PROVIDERS: Emergency Provider Emergency Medicine; Family Provider Family Medicine; PCP Family Medicine
DX: R07.9 Chest pain, unspecified (principal); R53.1 Weakness; E11.9 Type 2 diabetes mellitus without complications; I10 Essential (primary) hypertension; F32.9 Major depressive disorder, single episode, unspecified; Z79.84 Long term (current) use of oral hypoglycemic drugs; Z79.899 Other long term (current) drug therapy
CPT/HCPCS: 36415; 71045; 80048; 81001; 84484; 85025; 85379; 93005; 96360; 96361; 99284; J7030; A4216

== ENCOUNTER → 2019-08-09 09:59 | Outpatient (CLI) | payer MEDICARE, SELFPAY ==
[2019-08-09 12:44] LABS: Anion Gap 5 (5-15); BUN 14 mg/dL (7-18); BUN/Creat Ratio 16.8 RATIO (10-20); Chloride 108 mmol/L (98-107); Creatinine, Serum 0.83 mg/dL (0.55-1.02); EST Glomerular Filtration Rate 73 mL/min (>60); Est Glom Filt Rate - Afr Amer 88 mL/min (>60); Glucose 99 mg/dL (74-106); Sodium Level 141 mmol/L (136-145)
[2019-08-09 12:51] LABS: Vitamin D,25 Hydroxy 56.8 ng/mL (29.95-100.01)
[2019-08-09 13:17] LABS: Hemoglobin A1c 6.1 % (4.2-6.3)
== END ==
PROVIDERS: PCP Family Medicine; Referring Provider Family Medicine; Visit Provider Nurse Practitioner Family
DX: I10 Essential (primary) hypertension (principal); R73.01 Impaired fasting glucose; E55.9 Vitamin D deficiency, unspecified
CPT/HCPCS: 36415; 80048; 82306; 83036

== ENCOUNTER → 2019-12-09 12:39 | Outpatient (CLI) | payer MEDICARE, SELFPAY ==
[2019-12-09 15:23] LABS: Hematocrit 47.2 % (37-47); Hemoglobin 14.7 g/dL (12.0-15.0); Mean Corp Hgb Conc 31.1 g/dL (32-36); Mean Corpuscular Hgb 29.2 pg (27.0-32.0); Mean Corpuscular Volume 93.7 fL (81-99); Platelet Count 260 K/mm3 (150-450); RBC Distribution Width CV 14.2 % (11.6-14.6); RBC Distribution Width SD 48.3 fl (35.1-43.9); Red Blood Count 5.04 M/mm3 (4.2-5.4); White Blood Count 6.1 K/mm3 (4.4-11.0)
[2019-12-09 15:56] LABS: Erythrocyte Sedimentation Rate 19 mm/hr (0-30)
[2019-12-09 16:03] LABS: AST(SGOT) 23 U/L (15-37); Alanine Aminotransfer ALT/SGPT 37 U/L (13-56); Albumin, Serum 3.9 g/dL (3.2-5.0); Alkaline Phosphatase 82 U/L (45-117); Anion Gap 6 (5-15); BUN 11 mg/dL (7-18); BUN/Creat Ratio 16.1 RATIO (10-20); Calcium,Total 8.8 mg/dL (8.5-10.1); Chloride 103 mmol/L (98-107); Cholesterol 259 mg/dL (200); Creatinine, Serum 0.68 mg/dL (0.55-1.02); EST Glomerular Filtration Rate 92 mL/min (>60); Est Glom Filt Rate - Afr Amer 111 mL/min (>60); Glucose 101 mg/dL (74-106); High Density Lipoprotein 41 mg/dL; Iron 102 ug/dL (50-170); Magnesium 2.2 mg/dL (1.6-2.6); Potassium 3.6 mmol/L (3.5-5.1); Protein, Total 7.9 g/dL (6.4-8.2); Sodium Level 138 mmol/L (136-145); Thyroid Stim Hormone (TSH) 1.76 uIU/mL (0.358-3.74); Triglycerides 165 mg/dL; Very Low Density Lipoprotein 33 mg/dL (5-40); Vitamin B12 482 pg/mL (211-911)
== END ==
PROVIDERS: PCP Family Medicine; Referring Provider Family Medicine; Visit Provider Family Medicine
DX: I10 Essential (primary) hypertension (principal); R25.1 Tremor, unspecified; D50.9 Iron deficiency anemia, unspecified
CPT/HCPCS: 36415; 80053; 80061; 82607; 83540; 83735; 84443; 85027; 85652

== ENCOUNTER → 2020-01-26 16:44 | Outpatient (CLI) | payer MEDICARE, SELFPAY ==
--- NOTE | 2020-01-26 17:05 | EKG12_ITS ---
Test Reason : PRE OP Blood Pressure : / mmHG Vent. Rate : 085 BPM Atrial Rate : 085 BPM P-R Int : 134 ms QRS Dur : 066 ms QT Int : 354 ms P-R-T Axes : 053 -10 028 degrees QTc Int : 421 ms Normal sinus rhythm Normal ECG Confirmed by CHIVO KOCH, ISABELA ([id number]), editorial director FANY LIN ([id number]) on 01/31/2020 9:27:23 AM Referred By: Shaun Lynne Confirmed By:SIERRA WALDRON MD
--- NOTE | 2020-01-26 17:07 | CT_ITS ---
STUDY: CT ANKLE WITHOUT CONTRAST, LEFT REASON FOR EXAM: Female, 64 years old. F/U TO ANK FX, POSSIBLE PRE OP RADIATION DOSAGE (If Supplied By Facility): CTDIvol = ( 15.35 ) mGy, DLP = ( 395.98 ) mGycm. Individualized dose optimization techniques were used for this CT.? TECHNIQUE: Axial CT images of the [ left ] were performed without contrast followed by sagittal and coronal reconstructions. COMPARISON: None. FINDINGS: Comminuted nondisplaced fracture of the lateral malleolus. Small fracture of the posterior malleolus without displacement. Fracture of the tip of the medial malleolus without displacement. No ankle mortise widening. A 2 mm osteochondral defect is suspected along the medial aspect of the talar dome. Subtalar joints are intact. Diffuse soft tissue swelling without well-formed fluid collection or hematoma. CT/Extremity Lower without Contra IMPRESSION: Comminuted fracture of the lateral malleolus. Small fracture of the posterior malleolus. Fracture of the tip of the medial malleolus. Probable 2 mm osteochondral defect along the medial talar dome. Electronically Signed: Greg Celeste MD at 19:01 EDT Tel , Service support ,
[2020-01-26 17:14] LABS: Absolute Lymphocyte Count 1.96 X10^3/uL (0.83-4.51); Absolute Neutrophil Count 2.9 X10^3/uL (2.0-7.7); Basophil# 0.05 X10^3/uL; Basophil% 0.9 % (0-1); Eosinophil# 0.36 X10^3/uL; Eosinophils% 6.4 % (0-5); Hematocrit 42.9 % (37-47); Hemoglobin 13.8 g/dL (12.0-15.0); Lymphocyte # 1.96 X10^3/ul (4.0); Lymphocyte % 34.6 % (19-41); Mean Corp Hgb Conc 32.2 g/dL (32-36); Mean Corpuscular Hgb 29.6 pg (27.0-32.0); Mean Corpuscular Volume 91.9 fL (81-99); Mean Platelet Vol. 9.4 fl (6.2-12.0); Monocyte# 0.39 X10^3/uL; Monocyte% 6.9 % (0-10); NRBC Flagged by Analyzer 0 % (0-5); Neutrophil # 2.87 X10^3/uL (2.7-7.7); Neutrophil % 50.7 % (47-70); Platelet Count 259 K/mm3 (150-450); RBC Distribution Width CV 12.9 % (11.6-14.6); Red Blood Count 4.67 M/mm3 (4.2-5.4); White Blood Count 5.7 K/mm3 (4.4-11.0)
[2020-01-26 17:20] LABS: Prothrombin Time (Protime)PT. 12.5 SECONDS (11.7-14.9)
[2020-01-26 17:21] LABS: Partial Thromboplast Time 26.9 Seconds (24.1-36.2)
--- NOTE | 2020-01-26 17:25 | RAD_ITS ---
STUDY: X-RAY CHEST REASON FOR EXAM: Female, 64 years old. PRE OP TECHNIQUE: PA and lateral views of the chest. COMPARISON: 03/02/2019 FINDINGS: There is no new focal consolidation. Normal size heart. Normal mediastinum and mary. Normal visualized pulmonary arteries. Normal visualized aortic arch and descending thoracic aorta. There are diffuse degenerative changes of the visualized thoracic spine. Normal visualized ribs, clavicles, and shoulders. There is no demonstrated abnormality of the visualized soft tissue structures of the upper abdomen. RAD/Chest PA and Lateral IMPRESSION: No acute cardiopulmonary process. Electronically Signed: Fatimah Gray MD at 17:52 EDT Tel , Service support ,
[2020-01-26 17:27] LABS: Anion Gap 5 (5-15); BUN 13 mg/dL (7-18); BUN/Creat Ratio 18.2 RATIO (10-20); Calcium,Total 8.6 mg/dL (8.5-10.1); Chloride 103 mmol/L (98-107); Creatinine, Serum 0.71 mg/dL (0.55-1.02); EST Glomerular Filtration Rate 87 mL/min (>60); Est Glom Filt Rate - Afr Amer 105 mL/min (>60); Glucose 171 mg/dL (74-106); Potassium 4.2 mmol/L (3.5-5.1); Sodium Level 139 mmol/L (136-145)
[2020-01-26 17:29] LABS: Hemoglobin A1c 6.1 % (3.8-5.6)
== END ==
PROVIDERS: PCP Family Medicine; Referring Provider Podiatrist Foot & Ankle Surgery; Visit Provider Podiatrist Foot & Ankle Surgery
DX: Z01.818 Encounter for other preprocedural examination (principal); Z01.811 Encounter for preprocedural respiratory examination; E11.69 Type 2 diabetes mellitus with other specified complication; S82.852A Displaced trimalleolar fracture of left lower leg, initial encounter for closed fracture; X58.XXXA Exposure to other specified factors, initial encounter; Y93.9 Activity, unspecified; Y92.9 Unspecified place or not applicable; Y99.9 Unspecified external cause status; Z79.01 Long term (current) use of anticoagulants
CPT/HCPCS: 36415; 71046; 73700; 80048; 83036; 85025; 85610; 85730; 93005

== ENCOUNTER 2020-02-03 05:19 | Day surgery (SDC) | payer MEDICARE, SELFPAY ==
[2020-02-03] VITALS (15 sets, daily range): BP systolic 114–158; BP diastolic 68–105; PULSE 75–98; RESP 16–18; TEMP 36–37.3; O2SAT 91–99; BMI 34.0
[2020-02-03] MEDS: Lactated Ringers 1,000 ML 100 ML IV ×4 (06:00→14:45)
[2020-02-03] MEDS: Cefazolin 2 GM in 0.9% Normal Saline 100 ML IV (07:28)
--- NOTE | 2020-02-03 07:30 | RAD_ITS ---
STUDY: X-RAY - LEFT ANKLE REASON FOR EXAM: Female, 64 years old. ORIF ANKLE REPAIR TECHNIQUE: 3 view(s) of the ankle. COMPARISON: None. FINDINGS: Intraoperative imaging provided for open reduction and internal fixation of the distal fibular fracture utilizing screw and sideplate fixation device. RAD/Ankle min 3 Views IMPRESSION: Intraoperative imaging provided for open reduction and internal fixation of the distal fibular fracture utilizing screw and sideplate fixation device. Electronically Signed: Vaughn De Guzman, at 11:03 EDT , Service support ,
--- NOTE | 2020-02-03 09:55 | RAD_ITS ---
STUDY: X-RAY - LEFT ANKLE REASON FOR EXAM: Female, 64 years old. S/P ORIF LT ANKLE FX TECHNIQUE: 3 view(s) of the ankle. COMPARISON: Comparison is made with prior examination done earlier in the day. FINDINGS: The patient is status post open reduction and fixation of the distal fibula utilizing screw and sideplate fixation device. There is good alignment. Normal medial and lateral malleoli. Normal tibiotalar articulation and ankle mortise. Calcaneal spur. The visualized subtalar, talonavicular, calcaneocuboid and tarsal articulations are normal. Postoperative soft tissue changes. RAD/Ankle min 3 Views IMPRESSION: Status post open reduction internal fixation of the distal portion of the fibula. There is good alignment. Electronically Signed: Vaughn De Guzman, at 13:34 EDT , Service support ,
--- NOTE | 2020-02-03 09:58 | DCINST_ITS ---
Discharge Diet: No Restrictions Discharge Activity: May Not Drive, May Not Shower, Use Walker, Use Crutches Weight Bearing Status: No weight bearing Keep extremity elevated above heart level: Left Leg Additional Activity Instructions:: 1. Keep dressing to left foot/ankle/leg clean, dry, intact. Do not remove dressing. Do not get dressing wet. If get dressing wet, call office for further instruction. 2. Ice around the left knee 20 minutes on, 20 minutes off, every hour while you are awake until follow-up appointment. 3. Elevate left foot above the level of your heart as much as possible until further instructed. 4. No walking/standing/putting weight or pressure on left foot. Use crutches/knee scooter/walker/wheelchair for assistance. 5. Begin taking doxycycline (antibiotic) tomorrow, February 04, 2020 as instructed. 6. Begin taking aspirin tomorrow, February 04, 2020 as instructed. 7. Begin taking pain medication today, February 03, 2020 as needed. 8. Follow-up in 1 week at prescheduled appointment. 9. Call office with any questions or concerns. Call your doctor if your incision/area has: Sudden Increased Bleeding, Increased Pain/ Swelling Call your doctor if you observe: Fever of 101 or Higher, Shortness of breath, Chest pain, Increased palpitations (irregular heartbeat), Calf discomfort, Uncontrolled pain Cleanse incision/area with: Keep Dressing Clean & Dry Allergies/Adverse Reactions: Allergies No Known Allergies Allergy (Verified 02/03/20 05:47) Medications to take at Discharge venlafaxine 75 mg capsule,extended release 24 hr 225 mg PO DAILY 02/25/18 Ergocalciferol [Vitamin D] 50,000 unit PO Q7D 03/12/18 Latanoprost 0.005% [Xalatan Opthalmic] 1 drop EACH EYE QHS 03/12/18 Briscoe-3/Dha/Epa/Fish Oil [Fish Oil 1,400 mg Softgel] 4,200 mg PO TID 03/12/18 Protandim 1 tab PO DAILY 03/12/18 Omeprazole [Prilosec] 20 mg PO BID PRN 05/07/18 Aspirin E.C. [Ecotrin] 81 mg PO DAILY@0800 01/31/20 Oxycodone [Oxyir] 5 mg PO Q6H PRN 01/31/20 Primary Care Physician: Bakari Avila MD [Primary Care Provider] - Test Results: Test results from this visit will be discussed in further detail at your follow- up appointment, if applicable. Please Follow Up With: Elisa Talbert NP-C When: in one week at [place] Office at pre-scheduled appointment Proposed Discharge Date: 02/03/20
--- NOTE | 2020-02-03 10:01 | OP.PCM_ITS ---
Problem List (1) Fracture of ankle, trimalleolar, left, closed Status: Acute Qualifiers: Encounter type: initial encounter Qualified Code(s): S82.852A - Displaced trimalleolar fracture of left lower leg, initial encounter for closed fracture Report of Operation Date of Procedure: 02/03/20 Pre-Operative Diagnosis: 1. Left ankle trimalleolar fracture, closed, displaced. 2. Left ankle joint syndesmotic disruption. 3. Left talar osteochondral defect Post-Operative Diagnosis: Same as preoperative Surgery/Procedure Performed:: 1. Left ankle trimalleolar fracture and open reduction with internal fixation. 2. Left ankle syndesmosis open reduction with internal fixation. 3. Left ankle repair of osteochondral defect on talus. 4. Left ankle joint arthroscopy with arthroscopic debridement Description of Surgical Findings:: Consistent with diagnosis. Reduction of deformities achieved and held with internal fixation. Posterior malleoli are and medial malleoli are fractures were minute in nature and did not necessitate internal fixation. concrete inspector: Elisa Talbert Type of Anesthesia:: General Anesthesiologist: Tye Singh Special Medications: 2 grams ancef given preoperatively Specimen's removed: None Drains: None Estimated Blood Loss (mL): 40 Description of Procedure: Hemostasis: Pneumatic thigh tourniquet placed at the level of the left thigh at 300 mmHg for 20 minutes, deflated for a period of 10 minutes, and reinflated for another period of 80 minutes. Materials: #1. Arthrex tight rope. 2. Arthrex 5 hole left locking distal fibular plate. 3. Arthrex 3.5 x 12 mm cortical screw. 4. Arthrex 3.5 x 14 mm cortical screw x2. 5. Arthrex 3.5 x 22 mm cortical screw. 6. Arthrex 3.0 x 14 mm cancellus screw. 7. Arthrex 2.7 x 10 mm locking screw x2. 8. Arthrex 2.7 x 12 mm locking screw. 9. Arthrex 2.7 x 14 mm locking screw. 10. Size 2-0 Vicryl. 11. Size 3-0 Vicryl. 12. Size 3-0 nylon. Injectables: A popliteal and saphenous block will be given to the left lower extremity by anesthesia postoperatively. Complications: None Condition: Stable Indications: Patient is a 64-year-old female who presented to my office on January 26, 2020 with left ankle pain. After verbal questioning, patient relates that she was in [place], [place] for work on January 20, 2020. Unfortunately, patient fell down steps when she was walking. Patient suffered an ankle injury at that time. Patient presented to the local emergency department for further evaluation. She was diagnosed with a left ankle fracture. A closed reduction was performed in the emergency department at that time, and patient was placed in a posterior splint. She was instructed to remain nonweightbearing. Patient then presented to my office for further evaluation on January 26, 2020. At that time, patient had a disc for her post reduction x-rays. There was evidence of a lateral malleolus fracture along with medial gutter widening. Furthermore, I was suspicious of a posterior malleolar fracture. Patient did show me on her phone the prereduction x-rays, which showed a widening at the distal tibiofibular joint. I discussed with the patient at that time the significance of her injuries. I discussed the conservative and surgical interventions for this. Surgical intervention would include an open reduction with internal fix ation of the left ankle trimalleolar fracture. The risks and benefits of surgical intervention were discussed with the patient. Due to the nature of the injury that was present, I recommended surgical intervention. Patient was agreeable to surgical intervention. I did discuss with the patient that, due to the swelling, we would have to wait some time for the soft tissue edema to decrease. In the meantime, preoperative testing along with a CT scan of the left ankle was ordered. Patient then presented to my office after the CT scan for further evaluation of the swelling. Significant reduction of swelling was noted. Furthermore, a CT scan revealed the osteochondral defect in the medial shoulder of the talus. The CT scan also showed minimal avulsion fractures of the medial malleolus and the posterior malleolus. At that time, I discussed with the patient the surgery plan in detail, including open reduction with internal fixation of the lateral malleolus fracture, and of the syndesmosis. Furthermore, an ankle joint arthroscopy would be performed with repair of the osteochondral defect. I discussed all these terms in detail. I discussed the risks, benefits, possible outcomes, possible complications of the surgery. These include but not limited to delayed or nonhealing wounds, delayed or nonhealing bone, DVT, infection, decreased function of limb, continued pain, early onset arthritis, loss of limb, loss of life. All the patient's questions were answered to her satisfaction and all of her concerns were addressed. No guarantees were made as to the outcome of the procedure. Patient understood all aspects of the procedure, and was agreeable to surgical intervention. Surgical intervention was planned for today, February 03, 2020. Operative report: Before the patient was brought to the operating room, the risks, benefits, possible outcomes, possible complications of the procedure were discussed with the patient in detail once again. All the patient's questions were answered to her satisfaction and all of her concerns were addressed. No guarantees were made as to the outcome of the procedure. Patient understood all aspects of the procedure, and surgical consent was then signed by the patient. It was determined by the anesthesiology team that a popliteal and saphenous block would be given postoperatively. Patient was then brought to the operating room and placed on the operating table in a supine position. After timeout, general anesthesia was obtained by the anesthesia team and anesthesia to control the airway. Care was taken make sure that adequate padding was placed in all pressure points. Next, a well-padded pneumatic thigh tourniquet was placed the level of the left thigh. At this time, the left leg was then placed in the leg cheng for the arthroscopic debridement. Care was taken make sure that adequate padding was placed in the leg cheng to avoid any damage to the posterior musculature and neurovascular structures. The left foot, ankle, leg were then scrubbed, prepped, draped in the usual sterile manner. Attention was then directed the anterior aspect of the left ankle. At this time, the medial and lateral malleolus were identified and marked on the patient. Furthermore, the tibialis anterior tendon was marked on the patient as well, along with the ankle joint line. Next, the left foot, ankle, leg were then elevated and exsanguinated via Esmarch and inflation the pneumatic thigh tourniquet was performed to 300 mmHg. Attention was then directed to back to the anterior aspect of the left ankle. Next, 40 mL of normal sterile saline were injected into the ankle joint just medial to the tibialis anterior tendon. As the saline was passing into the ankle joint, dorsiflexion and eversion of the foot at the level of the ankle was noted. Once the syringe was removed, immediate backflow was noted as well. At this time, #15 blade was used to perform a stab incision at the medial aspect of the tibialis anterior tendon at the level of the ankle joint. Dissection was continued down deep utilizing blunt dissection to the level of the ankle joint capsule. Next, the trocar inserted into the cannula was placed into the anterior medial portal. The trocar was used to penetrate the ankle joint capsule. The trocar was then removed, and further backflow was noted through the cannula. The arthroscope was then inserted into the cannula, and visualization of the ankle joint was performed. At this time, hemorrhagic synovitic tissue was noted. Furthermore, the osteochondral defect on the medial shoulder of the talus was identified. Next, transillumination was then performed to determine the level of the anterior lateral portal. A stab incision was made at the anterior lateral aspect of the ankle at the level of the ankle joint line in the area void of neurovascular structures. Blunt dissection was continued down deep to the level of the ankle joint capsule, which was then penetrated. At this time, the arthroscopic shaver was placed into the anterior lateral portal. Triangulation was then performed, and debridement of the synovitic tissue was performed. Once adequate debridement was performed, the shaver and the arthroscope were removed from their portals and the arthroscope was then placed into the anterior lateral portal. A micro- pick was then placed in the anterior medial portal. Triangulation was then performed, and the osteochondral defect was identified. The osteochondral defect was then tested, the cartilage that was contained within the osteochondral defect was noted to be unstable. The cartilage was then removed from the site. At this time, micro-pick was used to drill underneath the cartilage to aid in the formation of fibrocartilage. The defect was noted to be approximately 2 mm, and it was determined that no synthetic bio cartilage would be used at this time. Once adequate picking of the osteochondral defect was performed, the micro-pick was then removed. Visualization of the ankle joint was then performed once again. The syndesmosis was visualized, and was noted to be disrupted. The deltoid ligament was visualized, and a minimal portion of the deep fibers were noted to be disrupted. The remaining deltoid ligament was noted to be intact. The arthroscope was then removed. At this time, the pneumatic thigh tourniquet was then released and a prompt hyperemic response was noted to the entirety of the left lower extremity. The leg was then removed from the leg cheng at this time. The subcutaneous tissues of the anterior medial and the anterior lateral surgical sites were reapproximated and coapted utilizing 3-0 Vicryl. The skin of the anterior medial and anterior lateral portal sites were reapproximated coapted utilizing 3-0 nylon in a simple interrupted fashion. At this time, radiograph evaluation was used to determine the level of the distal tip of the lateral malleolus, level of the fibular fracture, and lateral aspect of the distal one third of the fibula. These were then marked on the patient. Furthermore, the ankle joint line and a line approximately 1.5 cm proximal to the ankle joint line were marked on the patient as well. Next, the left foot, ankle, leg were then elevated and exsanguinated via Esmarch once again and inflation with pneumatic thigh tourniquet was performed to 300 mmHg. Attention was then directed back to the lateral aspect of the left ankle. At this time, #15 blade was used to perform a linear longitudinal incision starting on the distal aspect of the distal tip of the lateral malleolus extending proximally to the lateral aspect of the distal one third of the fibular shaft. This incision was deepened utilizing sharp and blunt dissection. Care was taken retract all vital neural and vascular structures. All bleeders were cauterized and ligated as necessary. Next, a linear periosteal incision was made in line with the original skin incision. The periosteal and capsular structures then reflected anteriorly and posteriorly, thus exposing the fibula and the fractures at the operative site. This time, the area connecting the AITFL to the fibula was noted to be avulsed off. It was determined that this would be fixated utilizing a screw after the fixation of the main fibular fracture. Next, a curette was used to remove any fibrous tissue contained within the fibular fracture site. The surgical site was irrigated with copious amounts normal sterile saline. The fibula fractures were reduced and held with temporary fixation. Radiographic evaluation was then performed. The fibula was noted to be out to length at this time. The ankle joint mortise was noted to be intact at this time. Next, an interfragmentary screw was inserted from a proximal anterior to distal posterior fashion as perpendicular to the main fibular fracture as possible. This was inserted in standard AO fixation. Of note during insertion of the screw was adequate compression of the fibular fracture. Furthermore, no shifting any of the fragments occurred during insertion of the screw. Once the screw was fully inserted, all temporary fixation was then removed. The interfragmentary screw was noted to hold the main fibula fracture in the corrected reduced position. At this time, the Arthrex 5 hole fibular plate was placed on the lateral aspect of the fibula and held via temporary fixation. Radiograph evaluation was then performed to determine the exact positioning of this plate. Once adequate positioning was had, this was held to the lateral aspect of the fibula via a mixture of locking and nonlocking screws. Of note during insertion of the screws was the adequate compression of the plate to the bone. Furthermore, no shifting any of the fragments occurred during insertion of the screws. Care was taken make sure that the screw hole for the syndesmosis fixation was left open. Once the other screws were fully inserted, radiograph evaluation was then performed. The fibula plate was noted to be in adequate position. The internal fixation was noted to hold the main fibular fracture in the corrected reduced position. At this time, temporary fixation was performed of the avulsed fragment on the anterior aspect of the fibula connected to the AITFL. At this time, an Arthrex cancellus screw was placed from anterior to posterior to hold this fracture in the reduced position. Of note during insertion of the screw was the adequate compression of the fracture fragment. Furthermore, no shifting of the fracture occurred during insertion of the screw. Once the screw was fully inserted, temporary fixation was then removed. Radiographic evaluation was then performed. All of the internal fixation was noted to hold all the fibular fractures in the corrected reduced position. The fibula was noted to be out the length at this time. The ankle joint mortise on the lateral aspect was noted to be back into a reduced position. At this time, a dental pick was used to perform the hook and cotton test under live radiographic evaluation. Widening of the syndesmosis and instability was noted. It was then determined that the Arthrex tight rope would be placed through the remaining hole in the fibula plate. This hole lined up to approximately 2 cm proximal to the ankle joint line. The most distal hole to the syndesmosis fixation hole was noted to pass through the interfragmentary screw. Thus, it was determined to go one hole proximal. At this time, the Arthrex tight rope was placed from lateral to medial and tightened down in standard fashion while a reduction of the syndesmosis was performed. Of note during tightening of the tight rope was the adequate reduction of the syndesmosis. Once the syndesmosis was adequately reduced, radiograph evaluation was then performed. There was an increase in the tibial fibular overlap noted when compared to preoperative assessment. Furthermore, the ankle joint mortise was noted to be back in anatomic position. At this time, live radiograph evaluation was used to assess the syndesmosis once again via the Hook and Cotton test. The syndesmosis was deemed intact at this time with no instability noted. Next, live radiograph evaluation was used to perform a forced eversion of the fibula to test the AITFL. The AITFL was deemed intact at this time with no instability noted. Radiograph evaluation was then performed once again. The fibula was noted to be out the length at this time and backed into to the reduced position. The syndesmosis was noted to be in the reduced position as well. The ankle joint mortise was noted to be intact. A decrease in the medial joint space clearing that was seen on preoperative assessment was reduced. The posterior and medial malleolar fractures are noted to be small and not dislocated, thus it was determined that internal fixation would not be needed. The surgical site on the lateral aspect of the leg was irrigated with copious amounts of normal sterile saline. The periosteal and capsular structures were reapproximated and coapted utilizing size 2-0 Vicryl. The subcutaneous tissue was reapproximated and coapted utilizing size 3-0 Vicryl. The skin was reapproximated and coapted utilizing size 3-0 nylon in a simple interrupted horizontal mattress fashion. The tourniquet was then released and a prompt hyperemic response noted to the entirety of the left lower extremity. Each surgical site was then dressed with Betadine soaked gauze, and a dry sterile dressing setting of 4 x 4 gauze, ABD pads, wrapped with Kerlix. The left foot and ankle were then wrapped with an Subhash bandage. Next a stockinette was placed over the left lower extremity. Cast padding was wrapped from the metatarsal heads extending proximally to the level just distal to the tibial tuberosity. Next, a posterior splint was fashioned to the left lower extremity and was adhered to the left lower extremity utilizing Subhash bandages. Care was taken make sure the foot and ankle were held in neutral position as the posterior splint dried. Neurovascular status was assessed at the end the application and deemed intact to left lower extremity. The patient tolerated the anesthesia and the procedure well and was transported to the PACU with vital signs stable and neurovascular status intact the left lower extremity. After period of postoperative monitoring, patient be disch arged home with written and oral instructions for wound care and follow-up. The electrician's assistant, the nurse practitioner, was utilized at the entire procedure. She helped with patient positioning, holding of limb, holding retractors. She helped with exposure throughout. She helped with bandage application, and cast application. Without the electrician's assistant, surgical time would have been increased and surgical outcome could have been less optimal. - Complications None - Admit VTE Documentation VTE Present on Admission: No VTE Mechan Device Prophylaxis: SCD's VTE Pharm Prophylaxis ordered?: Yes
[2020-02-03] MEDS: Bupivacaine Mpf 0.5% 30 ML VIAL (10:20)
[2020-02-03] MEDS: oxyCODONE 5 MG Tablet PO (15:40)
== END 2020-02-03 16:02 | disposition home or self-care (01) ==
LOC: SDC 05:20 → AC 05:22
PROVIDERS: PCP Family Medicine; Referring Provider Podiatrist Foot & Ankle Surgery; Visit Provider Podiatrist Foot & Ankle Surgery
PROC: (CPT 27792; principal; 2020-02-03 07:10)
DX: S82.852A Displaced trimalleolar fracture of left lower leg, initial encounter for closed fracture (principal); S93.432A Sprain of tibiofibular ligament of left ankle, initial encounter; M21.6X2 Other acquired deformities of left foot; W10.9XXA Fall (on) (from) unspecified stairs and steps, initial encounter; Y93.9 Activity, unspecified; Y92.9 Unspecified place or not applicable; Y99.9 Unspecified external cause status; I10 Essential (primary) hypertension; E78.00 Pure hypercholesterolemia, unspecified; K21.9 Gastro-esophageal reflux disease without esophagitis; F32.9 Major depressive disorder, single episode, unspecified; F41.9 Anxiety disorder, unspecified; E66.9 Obesity, unspecified; Z68.34 Body mass index [BMI] 34.0-34.9, adult; Z78.0 Asymptomatic menopausal state
CPT/HCPCS: 01480; 27792; 27829; 29897; 64445; 76942; 73610; 76000; C1713; J7120; J2310; J2405

== ENCOUNTER → 2020-03-23 11:57 | Outpatient (CLI) | payer MEDICARE, SELFPAY ==
[2020-02-03 05:49] VITALS: BMI 34.0
[2020-03-23 15:11] LABS: ALB/GLOB Ratio 0.9 RATIO (0.9-2.4); AST(SGOT) 21 U/L (15-37); Alanine Aminotransfer ALT/SGPT 43 U/L (13-56); Albumin, Serum 3.5 g/dL (3.2-5.0); Alkaline Phosphatase 91 U/L (45-117); Anion Gap 5 (5-15); BUN 11 mg/dL (7-18); BUN/Creat Ratio 16.5 RATIO (10-20); Chloride 106 mmol/L (98-107); Cholesterol 217 mg/dL (200); Creatinine, Serum 0.67 mg/dL (0.55-1.02); EST Glomerular Filtration Rate 94 mL/min (>60); Est Glom Filt Rate - Afr Amer 114 mL/min (>60); Globulin 3.9 g/dL (2.2-4.2); Glucose 113 mg/dL (74-106); High Density Lipoprotein 40 mg/dL; Potassium 3.8 mmol/L (3.5-5.1); Protein, Total 7.4 g/dL (6.4-8.2); Sodium Level 139 mmol/L (136-145); Triglycerides 250 mg/dL; Very Low Density Lipoprotein 50 mg/dL (5-40)
== END ==
PROVIDERS: PCP Family Medicine; Referring Provider Family Medicine; Visit Provider Family Medicine
DX: E78.5 Hyperlipidemia, unspecified (principal)
CPT/HCPCS: 36415; 80053; 80061

== ENCOUNTER → 2020-05-29 08:23 | Outpatient (CLI) | payer MEDICARE, SELFPAY ==
[2020-02-03 05:49] VITALS: BMI 34.0
--- NOTE | 2020-05-29 08:30 | US_ITS ---
STUDY: THYROID ULTRASOUND REASON FOR EXAM: Female, 65 years old. Thyroid nodule TECHNIQUE: Ultrasound evaluation of the thyroid was performed with real-time and static jeronimo-scale imaging. COMPARISON: Comparison is made with prior sonogram dated 03/18/2018. FINDINGS: RIGHT LOBE: The right lobe of the thyroid gland measures 4.9 cm x 1.7 cm x 1.2 cm. There is a homogeneous echotexture. There are no demonstrated solid, cystic or complex lesions. LEFT LOBE: The left lobe of the thyroid gland measures 3.7 cm x 1.5 cm x 1.5 cm. There is a homogeneous echotexture. There are no demonstrated solid, cystic or complex lesions. ISTHMUS: The isthmus measures 2 mm. 2 benign-appearing lymph nodes are seen in the right cervical region. The larger measures 0.6 cm x 0.5 cm x 0.5 cm. There is a 1.5 cm x 0.7 cm x 0.4 cm well-defined hypoechoic lymph node in the left cervical region. US/Thyroid IMPRESSION: Normal ultrasound examination of the thyroid. Benign appearing small bilateral cervical nodes. Electronically Signed: Vaughn De Guzman, at 12:43 EST , Service support ,
== END ==
PROVIDERS: PCP Family Medicine; Referring Provider Family Medicine; Visit Provider Family Medicine
DX: E04.1 Nontoxic single thyroid nodule (principal)
CPT/HCPCS: 76536

== ENCOUNTER → 2020-07-04 12:13 | Outpatient (CLI) | payer MEDICARE, SELFPAY ==
[2020-02-03 05:49] VITALS: BMI 34.0
[2020-07-04 16:52] LABS: Amylase 42 U/L (25-115); Anion Gap 7 (5-15); BUN 13 mg/dL (7-18); BUN/Creat Ratio 16.9 RATIO (10-20); Chloride 104 mmol/L (98-107); Creatinine, Serum 0.77 mg/dL (0.55-1.02); EST Glomerular Filtration Rate 80 mL/min (>60); Est Glom Filt Rate - Afr Amer 96 mL/min (>60); Glucose 94 mg/dL (74-106); Lipase 112 U/L (73-393); Sodium Level 138 mmol/L (136-145)
== END ==
PROVIDERS: PCP Family Medicine; Referring Provider Registered Nurse; Visit Provider Registered Nurse
DX: R10.9 Unspecified abdominal pain (principal)
CPT/HCPCS: 36415; 80048; 82150; 83690

== ENCOUNTER → 2020-07-10 08:26 | Outpatient (CLI) | payer MEDICARE, SELFPAY ==
[2020-02-03 05:49] VITALS: BMI 34.0
--- NOTE | 2020-07-10 08:28 | US_ITS ---
STUDY: ABDOMINAL ULTRASOUND REASON FOR EXAM: Female, 65 years old. INTERMITTENT N/V, DIARRHEA, BACK PAIN, RT TENDERNESS TECHNIQUE: Transabdominal ultrasound was performed with real-time and static jeronimo scale imaging. TECHNICAL QUALITY: Adequate. COMPARISON: None. FINDINGS: Liver: The liver measures 16.6 cm. There is increased echogenicity consistent with fatty infiltration. The bile ducts are within normal limits. There is hepatic color flow. The direction of portal flow is hepatopetal. There is no demonstrated mass lesion. Portal vein measurement: Gallbladder: Normal distended gallbladder. The gallbladder wall measures 2.3 mm. There is a negative sonographic Hampton''s sign. There is no pericholecystic fluid. There are no gallstones. Common Bile Duct (C.B.D.): The common bile duct measures 3.7 mm. Pancreas: Normal size of the head, body and tail of the pancreas. There is increased echogenicity of the pancreas. There is no demonstrated pancreatic mass or cyst. Spleen: Normal size of the spleen. The spleen measures 10.3 cm x 4.7 cm x 4.3 cm. Right Kidney: Normal size of the right kidney. The right kidney measures 10.4 cm x 4.7 cm x 5 cm. Normal renal cortex. The right cortex measures 1.4 cm. There is no demonstrated renal mass or cyst. There is no right hydronephrosis. Left Kidney: Normal size of the left kidney. The left kidney measures 11.4 cm x 5 cm x 5.5 cm. Normal renal cortex. The left cortex measures 1.5 cm. There is no demonstrated renal mass or cyst. There is no left hydronephrosis. Aorta: Unremarkable I.V.C.: The IVC is patent. There is no ascites. US/Abdomen Complete IMPRESSION: Fatty infiltration of the liver. Electronically Signed: Vaughn De Guzman MD at 10:47 EST , Service support ,
== END ==
PROVIDERS: PCP Family Medicine; Referring Provider Registered Nurse; Visit Provider Registered Nurse
DX: R10.9 Unspecified abdominal pain (principal); R19.7 Diarrhea, unspecified
CPT/HCPCS: 76700

== ENCOUNTER 2020-12-29 06:53 | Day surgery (SDC) | payer MEDICARE, OTHER, SELFPAY ==
[2020-11-15 09:10] VITALS: BMI 34.0
[2020-12-29] VITALS (10 sets, daily range): BP systolic 115–152; BP diastolic 64–102; PULSE 63–70; RESP 16–18; TEMP 35.9–36.3; O2SAT 95–100; BMI 32.0
[2020-12-29] MEDS: Lactated Ringers 1,000 ML 100 ML IV (07:10)
--- NOTE | 2020-12-29 07:33 | H&P.OPEN ---
HPI - General HPI Narrative DOMINIC ARTEAGA, is a 65 F who reports that she has been having some lower abdominal pain for the past month or 2. She says over the last 3 weeks she has had several episodes of blood in her stool. She says the blood is mixed in with her stool and it is bright red. She reports no pain with defecation. She has never had a GI bleed in the past. She does have a history of Bhatti's esophagus and her last EGD was 3 years ago and she is due this year for surveillance EGD. PENDING SALE TO [facility] Medical History (Updated 12/29/20 @ 07:[address] Yoni Shaw MD) Abdominal pain Anxiety Bhatti's esophagus without dysplasia Blood in stool Depression Diabetes Fatigue GERD (gastroesophageal reflux disease) Glaucoma History of stress test Hypertension Nausea Numbness and tingling Post-menopausal Wears glasses Wears partial dentures Home Medications venlafaxine 75 mg capsule,extended release 24 hr 225 mg PO DAILY 02/25/18 [History Last Taken 02/03/20 05:35] ergocalciferol (vitamin D2) [Vitamin D] 50,000 unit PO Q7D 03/12/18 [History Last Taken Unknown] omega 3-pnh-nuz-fish oil [Fish Oil 1,400 mg Softgel] 4,200 mg PO TID 03/12/18 [History Last Taken Unknown] Protandim 5 tab PO DAILY 11/15/20 [History Last Taken Unknown] losartan 100 mg tablet 100 mg PO DAILY tab 11/15/20 [History Last Taken 12/29/20 06:00] prazosin 2 mg capsule 2 mg PO QHS cap 11/15/20 [History Last Taken Unknown] Allergy/AdvReac Type Severity Reaction Status Date / Time lisinopril AdvReac Mild cough Verified 12/29/20 07:16 Family History (Updated 11/15/20 @ 09:03 by Homa Mueller) Mother Heart disease CVA (cerebral vascular accident) Skin cancer Hypertension Father Pancreatic cancer Heart disease Diabetes Surgical History (Updated 11/15/20 @ 09:01 by Homa Mueller) H/O neck surgery History of esophagogastroduodenoscopy (EGD) History of eye surgery History of foot surgery History of surgery on arm S/P appendectomy S/P colonoscopy Social History (Updated 05/26/21 @ 09:04 by Homa Mueller) Smoking Status: Never smoker second hand exposure: No alcohol intake: never substance use type: does not use caffeine: No what type of physical activity do you participate in: none frequency: does not exercise Past Medical/Surgical History Planned Operation Planned Operative Procedure/s: EGD, COLONOSCOPY S.O.S: No Previous Hospitalizations/Surgeries HX Hospitalizations: No HX of Surgeries: egd for foreign body 5 yrs ago cervical fusion appendectomy right arm nerve and tendon repair EGD 2018 Any Problems With Anesthesia: Yes (WAKES UP SLOW) You/Your Family Experience Fever (Hyperthermia) With Anes: No Cholinesterase deficiency: No Cardiovascular Hx Chest Pain within Last 2 months: Yes (stabbing pain 1-2 sec. 4 times in last 2 months) Hx of Irregular Heartbeat and/or Afib: No Hx Heart Attack: No Hx Congestive Heart Failure: No Hx Rheumatic Fever: No Hx Hypertension: Yes Hx Internal Defibrillator: No Hx Pacemaker: No Hx Cardiac Catheterization: No Hx Cardiac Surgery/Stents/Etc.: No Hx Stress Test: Yes (2017 and echo 2017) Hx Pain in Legs when Walking/Leg Cramps: No Respiratory Chronic Cough: No HX of Shortness of Breath: Yes (slightly sob with 2 flights of stairs) Hoarseness: No Hx Chronic Obstructive Pulmonary Disease (COPD): No Hx Asthma: No Hx Emphysema: No Hx Sleep Apnea: No Hx Respiratory Tract Infection/Cold (presently): No Do You Snore Loudly (louder than talking or can be heard): No Do You Often Feel Tired/ Fatigued/ Sleepy Dring Daytime?: No Has Anyone Observed You Stop Breathing During Sleep?: No Result (for STOP score): Negative Hx Smoking: No Smoking Status: Never smoker Gastrointestinal Hx Gastroesophageal Reflux: Yes Controlled With Meds: No (prn prilosec) Hx Gastrointestinal Disorders: No Hx Gastrointestinal Bleed: No Hx Ulcer: No Hx Hiatal Hernia: No Difficulty Chewing/Swallowing: No Special diet followed at home: No (.) Hx Unplanned Weight Loss of 20#: No HX Unplanned Weight Gain of 20#: No Neurological Hx Seizures: No HX Syncope/Blackout Spells/Unconsciousness: No Hx Transient Ischemic Attacks (TIA): No (.) Hx Multiple Sclerosis: No Hx Parkinson's Disease: No Hx Head/Neck Injury: Yes (cervical fusion/denies limited rom) Hx Headaches: Yes (recently having headaches) Hx Back Injury/Pain: No Recent Onset of Speech Difficulty: No Restless Legs: No Does patient have nerve stimulator: No Blood Disorder Hx Leukemia: No Bleeding Tendencies: No Hx Deep Vein Thrombosis: No Hx High Cholesterol: Yes (borderline) Blood Transmitted Disease: No Hx Hepatitis: No Hx Cirrhosis: No Hx Anemia: No Hx Blood Disorders: No Reproduction : No Is Patient Lactating: No Hx Hysterectomy: No Hx Tubal Ligation: No Are You Post Menopause: Yes Genitourinary Hx Renal Disease: No Musculoskeletal Hx Arthritis: No Hx Rheumatoid Arthritis: No Hx Gout: No Recent Onset of an Orthopedic Problem: Yes (left ankle fx) Endocrine Hx Diabetes: No Thyroid Disease: No Hx Steroid Therapy: No Psycho/Social Hx Substance Use: No Hx Alcohol Use: No Hx Anxiety: Yes (on med) Hx Depression: Yes (on med) Mental Illness: No Hx Dementia: No Miscellaneous Hx Cancer: No Recent Exposure to Contagious Disease: No Hx of C-Diff: No Any Loose Teeth: No Allergies lisinopril Adverse Reaction (Mild, Verified 12/29/20 07:16) cough Discharge Is Pt Admitted From a [facility], or a Long Term: No Who Could Help: After D/C, Where Do you Plan to Go: Return Home From the PAT History Number of Risk Factors: 2 Vital Signs Vital Signs Vital Signs: 12/29/20 07:10 Temperature 97.1 F L Temperature Source Temporal Pulse Rate 69 Respiratory Rate 18 Respiratory Pattern Normal Blood Pressure 152/75 H Blood Pressure Mean 100 Blood Pressure Source Monitor Blood Pressure Position Sitting Blood Pressure Location Left Arm Pulse Ox 95 Oxygen Delivery Method Room Air Weight Weight: 186 lb 11.704 oz Body Mass Index (BMI) 32.0 Physical Exam Const alert and oriented x3 Resp normal respiratory effort and normal air movement Cardio regular rate and regular rhythm GI soft to palpation, non-tender and non-distended Assessment & Plan Assessment/Plan (1) Barretts esophagus: QUALIFIERS: Bhatti's esophagus type: without dysplasia Qualified Code(s): K22.70 - Bhatti's esophagus without dysplasia (2) Blood in stool: (3) Abdominal pain: QUALIFIERS: Abdominal location: lower abdomen, unspecified Qualified Code(s): R10.30 - Lower abdominal pain, unspecified PLAN: Plan for EGD/colonoscopy I explained endoscopy in detail to the patient. I explained the risks including but not limited to stroke or heart attack with anesthesia, perforation of the GI tract, bleeding, infection. I explained that any of these could necessitate further emergency surgery. The patient understands and all questions were answered sufficiently. The patient wishes to proceed with procedure. Yoni Shaw MD Pager: [facility] [address] [place] [address] [address] [place] [address] Office: Surgery Risks - Colonoscopy Risks Include but are not Limited To: Risks include but are not limited to: Bleeding, perforation requiring further surgery, inability to complete colonoscopy requiring barium enema.
--- NOTE | 2020-12-29 08:00 | COLBX_PTH ---
PATIENT: DOMINIC ARTEAGA LOC: EN U#:[id number] AGE/SX: 65/F ROOM: RE12/29/[address]: Dr. Yoni Shaw MD : 1955 BED: DIS: 12/29/2020 SPEC #: [id number] RECD: 12/29/20 10:02 STATUS: ANNETTE OWENWhitney #: [id number] CLAUDINE: 12/29/20 08:[address]: Yoni Shaw DEPT: SURGICAL PATHOLOGY RECD BY: Emerita Camarillo ENTERED: 12/29/20 13:30 SP TYPE: COLON BX OTHR DR: Dr. Demian Avila MD Tissues: Gastric mucous membrane Procedures: Special Stain Group II Surgery Specimen Level IV Alcian Blue/PAS (control) HEADER OPERATION: Colonoscopy, EGD ([facility] [place]) PRE-OP DIAGNOSIS: Bhatti?s esophagus; blood in stool; abdominal pain TISSUE SUBMITTED: GE junction biopsy MICROSCOPIC DIAGNOSIS Gastroesophageal junction, biopsy: Focal changes consistent with reflux esophagitis. Gastroesophageal junction mucosa with mild chronic inflammation. No evidence of goblet cell metaplasia. See comment. AM:epi 01/01/2021 COMMENT Alcian blue/PAS stain with matched control supports the above diagnosis. MICROSCOPIC DESCRIPTION Slides are reviewed. GROSS DESCRIPTION Received in fixative is one container labeled with the patient's name and designated GE junction biopsy. The specimen consists of two irregular fragments of light cruz soft tissue that in aggregate measure 0.5 x 0.5 x 0.1 cm. The specimen is totally submitted in one cassette. / AM:epi 12/29/20 TC:3 CPT: 53322, 68578
--- NOTE | 2020-12-29 08:17 | OP.EGD_ITS ---
Patient Name: Jenn Paul Procedure Date: 12/29/2020 7:39 AM Date of : 1955 Age: 65 Procedure: Upper GI endoscopy Indications: Hematochezia, Follow-up of Bhatti's esophagus Providers: Yoni Shaw MD Referring MD: Bakari Avila Medicines: Monitored Anesthesia Care Patient Profile: This is a 65 year old female. Refer to note in patient chart for documentation of history and physical. Complications: No immediate complications. Estimated blood loss: Minimal. Procedure: Pre-Anesthesia Assessment: - Prior to the procedure, a History and Physical was performed, and patient medications and allergies were reviewed. The patient's tolerance of previous anesthesia was also reviewed. The risks and benefits of the procedure and the sedation options and risks were discussed with the patient. All questions were answered, and informed consent was obtained. Prior Anticoagulants: The patient has taken no previous anticoagulant or antiplatelet agents. After reviewing the risks and benefits, the patient was deemed in satisfactory condition to undergo the procedure. After obtaining informed consent, the endoscope was passed under direct vision. Throughout the procedure, the patient's blood pressure, pulse, and oxygen saturations were monitored continuously. The gastroscope was introduced through the mouth, and advanced to the third part of duodenum. The upper GI endoscopy was accomplished without difficulty. The patient tolerated the procedure well. Scope In: 7:50:01 AM Scope Out: 7:52:58 AM Total Procedure Duration Time 0 hours 2 minutes 57 seconds Findings: The esophagus was normal. The stomach was normal. The examined duodenum was normal. Mucosa was biopsied with a cold forceps for histology at the gastroesophageal junction. One specimen bottle was sent to pathology. Impression: - Normal esophagus. - Normal stomach. - Normal examined duodenum. - Mucosa was biopsied at the gastroesophageal junction for evaluation of Bhatti's esophagus. Recommendation: - Discharge patient to home. - Resume previous diet. - Continue present medications. Procedure Code(s): --- Professional --- 36665, Esophagogastroduodenoscopy, flexible, transoral; with biopsy, single or multiple Diagnosis Code(s): --- Professional --- K22.70, Bhatti's esophagus without dysplasia K92.1, Melena (includes Hematochezia) CPT copyright 2017 [employer]. All rights reserved. The codes documented in this report are preliminary and upon associate civil engineer review may be revised to meet current compliance requirements. Yoni Shaw MD 12/29/2020 8:17:25 AM This report has been signed electronically. Number of Addenda: 0 Note Initiated On: 12/29/2020 7:39 AM
--- NOTE | 2020-12-29 08:18 | OP.CCLET_ITS ---
12/29/2020 Bakari Avila [address] [place] [address] Re : Upper GI endoscopy procedure for Jenn Harpertt Dear Dr. Avila This procedure was performed on Tuesday, December 29, 2020. My impressions and recommendations are as follows: Impressions : - Normal esophagus. - Normal stomach. - Normal examined duodenum. - Mucosa was biopsied at the gastroesophageal junction for evaluation of Bhatti's esophagus. Recommendations : - Discharge patient to home. - Resume previous diet. - Continue present medications. My findings are described in the full procedure note, which is enclosed. If I can be of further assistance, please feel free to contact me at Doctor phone number(s): , Work: . Sincerely, Yoni Shaw MD 12/29/2020 8:17:25 AM This report has been signed electronically.
--- NOTE | 2020-12-29 08:22 | OP.CCLET_ITS ---
12/29/2020 Bakari Avila [address] [place] [address] Re : Colonoscopy procedure for Jenn Paul Dear Dr. Avila This procedure was performed on Tuesday, December 29, 2020. My impressions and recommendations are as follows: Impressions : - The entire examined colon is normal on direct and retroflexion views. - No specimens collected. Recommendations : - Discharge patient to home. - Resume previous diet. - Continue present medications. - Repeat colonoscopy in 10 years for screening purposes. - Refer to a flask handler at appointment to be scheduled. My findings are described in the full procedure note, which is enclosed. If I can be of further assistance, please feel free to contact me at Doctor phone number(s): , Work: . Sincerely, Yoni Shaw MD 12/29/2020 8:21:50 AM This report has been signed electronically.
--- NOTE | 2020-12-29 08:22 | OP.COLON_ITS ---
Patient Name: Jenn Paul Procedure Date: 12/29/2020 7:55 AM Date of : 1955 Age: 65 Procedure: Colonoscopy Indications: Hematochezia Providers: Yoni Shaw MD Referring MD: Bakari Avila Medicines: Monitored Anesthesia Care Patient Profile: This is a 65 year old female. Refer to note in patient chart for documentation of history and physical. Last Colonoscopy: several years ago. Complications: No immediate complications. Procedure: Pre-Anesthesia Assessment: - Prior to the procedure, a History and Physical was performed, and patient medications and allergies were reviewed. The patient's tolerance of previous anesthesia was also reviewed. The risks and benefits of the procedure and the sedation options and risks were discussed with the patient. All questions were answered, and informed consent was obtained. Prior Anticoagulants: The patient has taken no previous anticoagulant or antiplatelet agents. After reviewing the risks and benefits, the patient was deemed in satisfactory condition to undergo the procedure. After I obtained informed consent, the scope was passed under direct vision. Throughout the procedure, the patient's blood pressure, pulse, and oxygen saturations were monitored continuously. The colonoscope was introduced through the anus and advanced to the cecum, identified by appendiceal orifice and ileocecal valve. The colonoscopy was performed without difficulty. The patient tolerated the procedure well. The quality of the bowel preparation was good. Scope In: 7:56:06 AM Scope Withdrawal Time 0 hours 3 minutes 53 seconds Scope Out: 8:13:00 AM Total Procedure Duration Time 0 hours 16 minutes 54 seconds Findings: The entire examined colon appeared normal on direct and retroflexion views. Impression: - The entire examined colon is normal on direct and retroflexion views. - No specimens collected. Recommendation: - Discharge patient to home. - Resume previous diet. - Continue present medications. - Repeat colonoscopy in 10 years for screening purposes. - Refer to a flag signalman at appointment to be scheduled. Procedure Code(s): --- Professional --- 53103, Colonoscopy, flexible; diagnostic, including collection of specimen(s) by brushing or washing, when performed (separate procedure) Diagnosis Code(s): --- Professional --- K92.1, Melena (includes Hematochezia) CPT copyright 2017 [place] [employer]. All rights reserved. The codes documented in this report are preliminary and upon color repairer review may be revised to meet current compliance requirements. Yoni Shaw MD 12/29/2020 8:21:50 AM This report has been signed electronically. Number of Addenda: 0 Note Initiated On: 12/29/2020 7:55 AM
== END 2020-12-29 09:28 ==
LOC: EN 06:54 → AC 06:55
PROVIDERS: PCP Family Medicine; Referring Provider Family Medicine; Visit Provider Surgery
PROC: 0DJD8ZZ Inspection of Lower Intestinal Tract, Via Natural or Artificial Opening Endoscopic (ICD-10-PCS; CPT 45378; principal; 2020-12-29 07:55)
DX: K92.1 Melena (principal); K22.70 Barrett's esophagus without dysplasia; R10.30 Lower abdominal pain, unspecified; K21.9 Gastro-esophageal reflux disease without esophagitis; E11.9 Type 2 diabetes mellitus without complications; I10 Essential (primary) hypertension; H40.9 Unspecified glaucoma; F32.9 Major depressive disorder, single episode, unspecified; F41.9 Anxiety disorder, unspecified; Z78.0 Asymptomatic menopausal state; Z79.899 Other long term (current) drug therapy
CPT/HCPCS: 43239; 45378; 88305; 88313; J7120; J2405

== ENCOUNTER 2021-08-24 12:11 | Outpatient (CLI) | payer MEDICARE, OTHER, SELFPAY ==
--- NOTE | 2021-08-24 12:15 | RAD_ITS ---
STUDY: X-RAY - RIGHT ELBOW REASON FOR EXAM: Female, 66 years old. RIGHT ELBOW PAIN TECHNIQUE: 3 view(s) of the elbow. COMPARISON: None. FINDINGS: Normal visualized humerus, radius and ulna. Normal radiocapitellar and ulnotrochlear articulations. The soft tissue structures are unremarkable. RAD/Elbow min 3 Views IMPRESSION: Normal x-ray examination of the elbow. Electronically Signed: Med Rich MD at 13:14 EST ,
== END 2021-08-24 23:59 | disposition home or self-care (01) ==
LOC: MTRAD 12:13
PROVIDERS: PCP Family Medicine; Referring Provider Family Medicine; Visit Provider Family Medicine
DX: M25.521 Pain in right elbow (principal)
CPT/HCPCS: 73080

== ENCOUNTER → 2021-11-07 | Outpatient (CLI) | payer MEDICARE, OTHER, SELFPAY ==
[2021-11-07 16:37] LABS: Hepatitis C Antibody Non-Reactive (Nonreactive)
== END | disposition home or self-care (01) ==
LOC: MTLAB 12:38
PROVIDERS: PCP Family Medicine; Referring Provider Family Medicine; Visit Provider Family Medicine
DX: I10 Essential (primary) hypertension (principal); Z11.59 Encounter for screening for other viral diseases
CPT/HCPCS: 36415; 82043; 86803

== ENCOUNTER → 2021-11-09 | Outpatient (CLI) | payer MEDICARE, OTHER, SELFPAY ==
[2021-11-09 10:33] LABS: Hematocrit 44.3 % (37-47); Hemoglobin 14.4 g/dL (12.0-15.0); Mean Corp Hgb Conc 32.5 g/dL (32-36); Mean Corpuscular Hgb 30.1 pg (27.0-32.0); Mean Corpuscular Volume 92.7 fL (81-99); Mean Platelet Vol. 9.6 fl (6.2-12.0); Platelet Count 260 K/mm3 (150-450); RBC Distribution Width SD 44.5 fl (35.1-43.9); Red Blood Count 4.78 M/mm3 (4.2-5.4); White Blood Count 6.2 K/mm3 (4.4-11.0)
[2021-11-09 11:07] LABS: Vitamin D,25 Hydroxy 60.3 ng/mL
[2021-11-09 11:27] LABS: Anion Gap 7 (5-15); BUN 13 mg/dL (7-18); BUN/Creat Ratio 17.1 RATIO (10-20); Calcium,Total 9.1 mg/dL (8.5-10.1); Chloride 103 mmol/L (98-107); Cholesterol 230 mg/dL (200); Creatinine, Serum 0.76 mg/dL (0.55-1.02); EST Glomerular Filtration Rate 80 mL/min (>60); Est Glom Filt Rate - Afr Amer 97 mL/min (>60); Glucose 137 mg/dL (74-106); High Density Lipoprotein 40 mg/dL; Sodium Level 135 mmol/L (136-145); Thyroid Stim Hormone (TSH) 2.95 uIU/mL (0.358-3.74); Triglycerides 200 mg/dL; Very Low Density Lipoprotein 40 mg/dL (5-40)
== END | disposition home or self-care (01) ==
LOC: MFPLAB 08:31
PROVIDERS: PCP Family Medicine; Referring Provider Family Medicine; Visit Provider Family Medicine
DX: F41.9 Anxiety disorder, unspecified (principal); I10 Essential (primary) hypertension
CPT/HCPCS: 36415; 80048; 80061; 82306; 84443; 85027

== ENCOUNTER → 2022-01-08 | Outpatient (CLI) | payer MEDICARE, OTHER, SELFPAY ==
--- NOTE | 2022-01-08 15:10 | BI_ITS ---
MAMMOGRAPHY - BILATERAL SCREENING REASON FOR EXAM: Female, 66 years old. Routine annual screening examination. PERTINENT HISTORY: Non-contributory. TECHNIQUE: Digital bilateral breast ilya (3D mammographic acquisition) in the CC and MLO projections. 2-D mediolateral oblique (MLO) and craniocaudad (CC) views of both breasts were obtained. CAD: Full Field Digital Mammography with Computer Added Detection was performed. COMPARISON: Comparison is made with prior examination dated 02/20/2017. FINDINGS: Breast Composition: There are scattered areas of fibroglandular density. There are no dominant masses or suspicious calcifications. Stable small benign appearing bilateral axillary lymph nodes. No other significant abnormalities are identified. There has been no significant change since the prior study. BI/SCRN MAMM (CAD)W/ILYA BILAT IMPRESSION: Stable bilateral screening mammogram. Yearly follow-up mammogram recommended. (A) ASSESSMENT CATEGORY: BIRADS Category 2: Benign. A letter regarding these results will be sent to the patient by the facility within 30 days. Approximately 10% of breast cancers are not detected by mammography. A normal mammogram should not delay biopsy of a clinically suspicious abnormality. [id number] Electronically Signed: Vaughn De uGzman MD at 8:55 EDT ,
--- NOTE | 2022-01-08 15:12 | BD_ITS ---
STUDY: DUAL ENERGY X-RAY ABSORPTIOMETRY / DXA REASON FOR EXAM: Female, 66 years old. Z780. Patient is postmenopausal. TECHNIQUE: Bone Mineral Density (BMD) measurements of lumbar spine and bilateral hips were obtained. COMPARISON: None. FINDINGS: Lumbar Spine (L1-L4): g/cm2 (0.976) / T-score (-0.6) / Z-score (1.3) Findings are suggestive of normal bone density with a low fracture risk. Left Femur Total: g/cm2 (0.925) / T-score (-0.1) / Z-score (1.2) Left Femoral Neck: g/cm2 (0.722) / T-score (-1.1) / Z-score (0.5) Right Femur Total: g/cm2 (0.949) / T-score (0.1) / Z-score (1.4) Right Femoral Neck: g/cm2 (0.790) / T-score (-0.5) / Z-score (1.1) BD/Dexa Bone Density Study IMPRESSION: The patient is considered osteopenic as outlined below according to World Tony Organization (WHO) criteria with a low fracture risk. Reference Information: The T-score is the number of standard deviations above or below the standard which is normal for young adults at their peak bone mineral density. The World Health Organization (WHO) interprets the T-scores as follows: Above -1 Normal bone density Between -1 and -2.5 Osteopenia Equal to / or below -2.5 Osteoporosis As a practical clinical guideline, osteopenia may be graded as follows: Mild -1 through -1.5 Moderate -1.6 through -2.0 Severe -2.1 through -2.4 The Z-score is the number of standard deviations above or below age-matched controls. A Z-score of less than -1.5 would be considered abnormal. References: 1. NIH Osteoporosis and Related Bone Diseases www osteo.org 2. International Society for Clinical Densitometry www iscd.org 3. National Osteoporosis Foundation www nof.org Electronically Signed: Vaughn De Guzman MD at 15:39 EDT ,
== END | disposition home or self-care (01) ==
LOC: OPBD 15:08
PROVIDERS: PCP Family Medicine; Referring Provider Family Medicine; Visit Provider Family Medicine
DX: Z12.31 Encounter for screening mammogram for malignant neoplasm of breast (principal); M85.80 Other specified disorders of bone density and structure, unspecified site; Z78.0 Asymptomatic menopausal state
CPT/HCPCS: 77063; 77067; 77080

== ENCOUNTER → 2022-04-01 | Outpatient (CLI) | payer MEDICARE, OTHER, SELFPAY ==
[2022-04-01 10:27] LABS: Erythrocyte Sedimentation Rate 10 mm/hr (0-30)
[2022-04-01 10:29] LABS: Absolute Lymphocyte Count 2.19 X10^3/uL (0.83-4.51); Absolute Neutrophil Count 2.5 X10^3/uL (2.0-7.7); Basophil# 0.07 X10^3/uL; Basophil% 1.3 % (0-1); Eosinophil# 0.31 X10^3/uL; Eosinophils% 5.5 % (0-5); Hematocrit 43.4 % (37-47); Hemoglobin 13.8 g/dL (12.0-15.0); Lymphocyte # 2.19 X10^3/ul (0.83-4.51); Lymphocyte % 39.1 % (19-41); Mean Corp Hgb Conc 31.8 g/dL (32-36); Mean Corpuscular Hgb 29.9 pg (27.0-32.0); Mean Corpuscular Volume 94.1 fL (81-99); Mean Platelet Vol. 9.9 fl (6.2-12.0); Monocyte# 0.53 X10^3/uL; Monocyte% 9.5 % (0-10); NRBC Flagged by Analyzer 0 % (0-5); Neutrophil # 2.49 X10^3/uL (2.7-7.7); Neutrophil % 44.4 % (47-70); Platelet Count 276 K/mm3 (150-450); RBC Distribution Width CV 12.6 % (11.6-14.6); RBC Distribution Width SD 43.7 fl (35.1-43.9); Red Blood Count 4.61 M/mm3 (4.2-5.4); White Blood Count 5.6 K/mm3 (4.4-11.0)
[2022-04-01 11:10] LABS: Free T3 2.8 pg/mL (2.18-3.98); Thyroid Stim Hormone (TSH) 4.13 uIU/mL (0.358-3.74)
== END | disposition home or self-care (01) ==
LOC: MTLAB 08:00
PROVIDERS: PCP Family Medicine; Referring Provider Family Medicine; Visit Provider Family Medicine
DX: M79.10 Myalgia, unspecified site (principal); R68.89 Other general symptoms and signs
CPT/HCPCS: 36415; 82306; 82533; 84439; 84443; 84481; 85025; 85652

== ENCOUNTER → 2022-05-20 | Outpatient (CLI) | payer MEDICARE, OTHER, SELFPAY ==
--- NOTE | 2022-05-20 16:20 | RAD_ITS ---
STUDY: X-RAY - CERVICAL SPINE REASON FOR EXAM: Female, 67 years old. Worsening bilateral upper extremity radiculopathy over 2 months. Intermittent numbness and tingling for 25 to 30 years after neck surgery. History of cadaveric bone fusion. TECHNIQUE: 5 view(s) of the cervical spine were obtained. COMPARISON: February 18, 2019. FINDINGS: There are degenerative changes of the anterior atlantoaxial articulation. Normal odontoid process. There is straightening of the normal cervical lordosis. C5-6 fusion. There is endplate spondylosis and disc space narrowing at the remaining levels neural foraminal narrowing bilaterally at C6-7. The soft tissue structures are unremarkable. RAD/Cerv Spine 4 or 5 Views IMPRESSION: 1. C5-6 fusion. 2. Degenerative changes of the cervical spine. There is no major interval change when compared to February 18, 2019. Electronically Signed: Vini Reid DO at 17:57 EST ,
== END | disposition home or self-care (01) ==
LOC: MTRAD 16:16
PROVIDERS: PCP Family Medicine; Referring Provider Family Medicine; Visit Provider Family Medicine
DX: M50.30 Other cervical disc degeneration, unspecified cervical region (principal)
CPT/HCPCS: 72050

== ENCOUNTER → 2022-08-05 | Outpatient (CLI) | payer MEDICARE, OTHER, SELFPAY ==
[2022-08-05 18:10] LABS: Absolute Lymphocyte Count 1.42 X10^3/uL (0.83-4.51); Absolute Neutrophil Count 2.4 X10^3/uL (2.0-7.7); Basophil# 0.05 X10^3/uL; Basophil% 1.1 % (0-1); Eosinophil# 0.28 X10^3/uL; Eosinophils% 5.9 % (0-5); Hematocrit 43.5 % (37-47); Hemoglobin 13.7 g/dL (12.0-15.0); Lymphocyte # 1.42 X10^3/ul (0.83-4.51); Lymphocyte % 30.1 % (19-41); Mean Corp Hgb Conc 31.5 g/dL (32-36); Mean Corpuscular Hgb 29.7 pg (27.0-32.0); Mean Corpuscular Volume 94.4 fL (81-99); Mean Platelet Vol. 9.8 fl (6.2-12.0); Monocyte# 0.56 X10^3/uL; Monocyte% 11.9 % (0-10); NRBC Flagged by Analyzer 0 % (0-5); Neutrophil # 2.39 X10^3/uL (2.7-7.7); Neutrophil % 50.6 % (47-70); Platelet Count 241 K/mm3 (150-450); RBC Distribution Width CV 12.6 % (11.6-14.6); RBC Distribution Width SD 43.6 fl (35.1-43.9); Red Blood Count 4.61 M/mm3 (4.2-5.4); White Blood Count 4.7 K/mm3 (4.4-11.0)
[2022-08-05 18:16] LABS: Erythrocyte Sedimentation Rate 12 mm/hr (0-30)
[2022-08-05 18:32] LABS: ALB/GLOB Ratio 0.9 RATIO (0.9-2.4); AST(SGOT) 26 U/L (15-37); Alanine Aminotransfer ALT/SGPT 34 U/L (13-56); Albumin, Serum 3.4 g/dL (3.2-5.0); Alkaline Phosphatase 74 U/L (45-117); Amylase 42 U/L (25-115); Anion Gap 5 (5-15); BUN 19 mg/dL (7-18); BUN/Creat Ratio 26.6 RATIO (10-20); CRP 4.36 mg/L (0.0-3.0); Calcium,Total 9.4 mg/dL (8.5-10.1); Chloride 105 mmol/L (98-107); Creatinine, Serum 0.72 mg/dL (0.55-1.02); EST Glomerular Filtration Rate 86 mL/min (>60); Est Glom Filt Rate - Afr Amer 104 mL/min (>60); Globulin 3.7 g/dL (2.2-4.2); Glucose 78 mg/dL (74-106); Lipase 143 U/L (73-393); Potassium 3.9 mmol/L (3.5-5.1); Protein, Total 7.1 g/dL (6.4-8.2); Sodium Level 137 mmol/L (136-145); Thyroid Stim Hormone (TSH) 0.93 uIU/mL (0.358-3.74)
[2022-08-07 15:08] LABS: Endomysial Antibody IgA Negative (Negative)
[2022-08-09 19:04] LABS: Immunoglobulin A 214 mg/dL (87-352); t-Transglutaminase IgA <2 U/mL (0-3)
== END | disposition home or self-care (01) ==
LOC: MFPLAB 14:38
PROVIDERS: PCP Family Medicine; Visit Provider Family Medicine
DX: R10.9 Unspecified abdominal pain (principal); R19.7 Diarrhea, unspecified
CPT/HCPCS: 36415; 80053; 82150; 82784; 83516; 83690; 84443; 85025; 85652; 86140; 86255

== ENCOUNTER → 2022-08-08 | Outpatient (CLI) | payer MEDICARE, OTHER, SELFPAY ==
[2022-08-11 15:38] LABS: H. PYLORI STOOL AG Negative (Negative)
== END | disposition home or self-care (01) ==
LOC: LABSPEC 14:18
PROVIDERS: PCP Family Medicine; Referring Provider Family Medicine; Visit Provider Family Medicine
DX: R10.9 Unspecified abdominal pain (principal); R19.7 Diarrhea, unspecified
CPT/HCPCS: 82274; 83630; 87177; 87209; 87338; 87493

== ENCOUNTER → 2022-10-22 | Outpatient (CLI) | payer MEDICARE, OTHER, SELFPAY ==
[2022-10-22 17:52] LABS: Erythrocyte Sedimentation Rate 9 mm/hr (0-30)
[2022-10-22 17:54] LABS: Absolute Lymphocyte Count 1.68 X10^3/uL (0.83-4.51); Absolute Neutrophil Count 2.7 X10^3/uL (2.0-7.7); Basophil# 0.07 X10^3/uL; Basophil% 1.3 % (0-1); Eosinophil# 0.28 X10^3/uL; Eosinophils% 5.2 % (0-5); Hematocrit 45.5 % (37-47); Hemoglobin 14.4 g/dL (12.0-15.0); Lymphocyte # 1.68 X10^3/ul (0.83-4.51); Lymphocyte % 31.5 % (19-41); Mean Corp Hgb Conc 31.6 g/dL (32-36); Mean Corpuscular Hgb 29.8 pg (27.0-32.0); Mean Platelet Vol. 9.6 fl (6.2-12.0); Monocyte% 11.2 % (0-10); NRBC Flagged by Analyzer 0 % (0-5); Neutrophil # 2.68 X10^3/uL (2.7-7.7); Neutrophil % 50.2 % (47-70); Platelet Count 246 K/mm3 (150-450); RBC Distribution Width CV 13.1 % (11.6-14.6); RBC Distribution Width SD 45.1 fl (35.1-43.9); Red Blood Count 4.84 M/mm3 (4.2-5.4); White Blood Count 5.3 K/mm3 (4.4-11.0)
[2022-10-22 18:30] LABS: Vitamin B12 294 pg/mL (211-911); Vitamin D,25 Hydroxy 59.8 ng/mL
[2022-10-22 18:40] LABS: ALB/GLOB Ratio 0.9 RATIO (0.9-2.4); AST(SGOT) 22 U/L (15-37); Alanine Aminotransfer ALT/SGPT 31 U/L (13-56); Albumin, Serum 3.6 g/dL (3.2-5.0); Alkaline Phosphatase 75 U/L (45-117); Anion Gap 7 (5-15); BUN 16 mg/dL (7-18); BUN/Creat Ratio 21.1 RATIO (10-20); CRP < 2.90 mg/L (0.0-3.0); Calcium,Total 9.1 mg/dL (8.5-10.1); Chloride 107 mmol/L (98-107); Creatinine, Serum 0.76 mg/dL (0.55-1.02); EST Glomerular Filtration Rate 81 mL/min (>60); Est Glom Filt Rate - Afr Amer 98 mL/min (>60); Follicle Stimulating Hormone 56.8 mIU/mL; Globulin 3.8 g/dL (2.2-4.2); Glucose 76 mg/dL (74-106); Luteinizing Hormone 40.3 mIU/mL; Potassium 3.7 mmol/L (3.5-5.1); Protein, Total 7.4 g/dL (6.4-8.2); Sodium Level 141 mmol/L (136-145); T4 Free Direct 0.82 ng/dL (0.76-1.46); Thyroid Stim Hormone (TSH) 1.02 uIU/mL (0.358-3.74)
== END | disposition home or self-care (01) ==
LOC: MFPLAB 15:44
PROVIDERS: PCP Family Medicine; Visit Provider Family Medicine
DX: L74.9 Eccrine sweat disorder, unspecified (principal); E03.8 Other specified hypothyroidism; F41.9 Anxiety disorder, unspecified; E55.9 Vitamin D deficiency, unspecified
CPT/HCPCS: 36415; 80053; 82306; 82533; 82607; 83001; 83002; 84403; 84439; 84443; 85025; 85652; 86140

== ENCOUNTER → 2022-11-05 | Outpatient (CLI) | payer MEDICARE, OTHER, SELFPAY ==
--- NOTE | 2022-11-05 08:52 | RAD_ITS ---
STUDY: X-RAY - ESOPHAGUS (BARIUM SWALLOW) WITH FLUOROSCOPY REASON FOR EXAM: Female, 67 years old. GERD TECHNIQUE: 20 view(s) of the esophagus were obtained following swallowing of barium. FLUOROSCOPY TIME (if supplied): (33 seconds) minutes/seconds. 20.67 mGy COMPARISON: None. FINDINGS: There is no demonstrated esophageal foreign body. There is no demonstrated stricture or mucosal abnormality. Normal gastroesophageal junction, without a demonstrated hiatal hernia. The patient ingested a 12 mm tablet of barium without any difficulty. There is atherosclerotic calcification of the aortic arch with tortuosity of the descending aorta. Normal visualized pulmonary parenchyma. There are diffuse degenerative changes of the visualized thoracic spine. RAD/Esophagus Dual Contrast IMPRESSION: Normal plain film x-ray examination (barium swallow) of the esophagus. Electronically Signed: Vaughn De Guzman MD at 15:32 EDT ,
== END | disposition home or self-care (01) ==
LOC: RAD 08:46
PROVIDERS: PCP Family Medicine; Referring Provider Family Medicine; Visit Provider Family Medicine
DX: K21.9 Gastro-esophageal reflux disease without esophagitis (principal)
CPT/HCPCS: 74221

== ENCOUNTER → 2022-12-17 | Outpatient (CLI) | payer MEDICARE, OTHER, SELFPAY ==
[2022-12-17 09:22] LABS: Erythrocyte Sedimentation Rate 8 mm/hr (0-30)
[2022-12-17 09:24] LABS: Platelet Count 251 K/mm3 (150-450); RET-HE 32.9 pg (30-35); Reticulocyte Count 2.15 % (0.5-1.5)
[2022-12-17 10:01] LABS: Amylase 42 U/L (25-115); CRP 2.97 mg/L (0.0-3.0); Ferritin 34 ng/mL (8-252); Iron 83 ug/dL (50-170); Iron Binding Capacity,Total 327 ug/dL (250-450); LDH 164 U/L (84-246); Lipase 50 U/L (13-75)
[2022-12-17 10:15] LABS: Thyroid Stim Hormone (TSH) 1.88 uIU/mL (0.358-3.74)
[2022-12-20 13:08] LABS: Albumin 3.6 g/dL (2.9-4.4); Alpha-1-Globulins 0.2 g/dL (0.0-0.4); Alpha-2-Globulins 0.7 g/dL (0.4-1.0); Anti-Centromere B Ab <0.2 AI (0.0-0.9); Anti-Chromatin <0.2 AI (0.0-0.9); Anti-Jo <0.2 AI (0.0-0.9); Anti-Scleroderma-70 AB <0.2 AI (0.0-0.9); Anti-dsDNA Ab <1 IU/mL (0-9); Beef <0.10 kU/L (Class 0); Chocolate <0.10 kU/L (Class 0); Clam <0.10 kU/L (Class 0); Codfish <0.10 kU/L (Class 0); Corn <0.10 kU/L (Class 0); Cytoplasmic Ab (C-ANCA) <1:20 titer (Neg:<1:20); Egg, White <0.10 kU/L (Class 0); Egg, Whole <0.10 kU/L (Class 0); Gamma Globulin 0.9 g/dL (0.4-1.8); Gastrin, Serum < 10 pg/mL (0-115); Immunoglobulin A 181 mg/dL (87-352); Immunoglobulin E 31 IU/mL (6-495); Immunoglobulin G 943 mg/dL (586-1602); Immunoglobulin M 25 mg/dL (26-217); Milk (Cow) <0.10 kU/L (Class 0); PROEL- TOTAL PROTEIN 6.6 g/dL (6.0-8.5); Peanut <0.10 kU/L (Class 0); Perinuclear Ab (P-ANCA) <1:20 titer (Neg:<1:20); Pork <0.10 kU/L (Class 0); RNP Ab <0.2 AI (0.0-0.9); SCALLOP <0.10 kU/L (Class 0); SESAME SEED <0.10 kU/L (Class 0); SJOGREN'S Anti-SS-A test < 0.2 AI (0.0-0.9); SJOGREN'S Anti-SS-B test < 0.2 AI (0.0-0.9); Shrimp <0.10 kU/L (Class 0); Smith Ab <0.2 AI (0.0-0.9); Soybean <0.10 kU/L (Class 0); Walnut, (Food) <0.10 kU/L (Class 0); Wheat <0.10 kU/L (Class 0)
[2022-12-21 03:07] LABS: Pancreatic Elastase, Fecal 175 (>200)
[2022-12-22 20:08] LABS: Calprotectin, Stool 9 ug/g (0-120); Fats, Neutral Normal (.); Fats, Total Increased (.)
== END | disposition home or self-care (01) ==
LOC: LAB 08:24
PROVIDERS: PCP Family Medicine; Referring Provider Internal Medicine Gastroenterology; Visit Provider Internal Medicine Gastroenterology
DX: E03.8 Other specified hypothyroidism (principal); R10.9 Unspecified abdominal pain; R11.0 Nausea; K92.1 Melena; K58.9 Irritable bowel syndrome, unspecified
CPT/HCPCS: 36415; 82150; 82274; 82653; 82705; 82728; 82784; 82785; 82941; 83540; 83550; 83615; 83630; 83690; 83993; 84165; 84443; 85045; 85652; 86003; 86005; 86140; 86225; 86235; 86256; 86334; 87177; 87209; 87329; 87506

== ENCOUNTER 2022-12-30 08:06 | Day surgery (SDC) | payer MEDICARE, OTHER, SELFPAY ==
--- NOTE | 2022-12-30 08:14 | PCM.HP.BLA ---
History and Physical Date of Admission: 12/30/22 DOMINIC ARTEAGA, is a 67 F who presents to the office today for initial consult. 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 Pathology of esophagus noting reflux esophagitis without meta/dysplasia.? Colonoscopy advanced to cecum with normal visualization. No specimens? PCP OV 5 for chronic f/u. Notes GERD with PPI maintenance that is ineffective with feeling of need to vomit frequently.? ? Exam Const General: cooperative and comfortable Nutritional Appearance: average body habitus and well nourished HENMT Head: normal to inspection Ears: hearing grossly normal bilaterally Nose: external nose normal Face and sinus: normal facial exam Mouth: oral mucosae normal Throat: posterior oropharynx normal Eyes General: appearance normal, both eyes and all related structures Neck Neck: normal visual inspection Chest Chest palpation & inspection: normal inspection of the chest and normal palpation of entire chest wall Resp Effort & Inspection: normal respiratory effort Auscultation: Bilateral: Clear to Auscultation Cardio Palpation: normal PMI Rate: regular rate Rhythm: regular rhythm GI Inspection: normal to inspection Auscultation: normal bowel sounds Percussion: normal to percussion Palpation: no hepatosplenomegaly Skin General: no rashes or lesions noted Neuro General: patient alert Extrem General: normal to inspection Psych Affect: normal affect Quality Reporting Tobacco Screening ([facility] 138) Smoking Status: Never smoker Assessment and Plan Assessment and Plan (1) Nausea: Status: Acute Plan: The differential diagnosis for her nausea does include bile induced reflux gastritis and esophagitis. When I look back at her upper endoscopy when she had an evaluation of her upper GI tract back in 2020 there was a lot of present in her pictures of her duodenum and I suspect that is the same bile this causing the issue in her esophagus and possibly leading to her nausea. It sounds like she has a functional motility disorder. She will need a gastric emptying study and possibly evaluation for small bacterial overgrowth with bile the conjugation of pancreatic enzymes and digestive enzymes. I think this is also leading to her accelerated gastrocolic reflex. She will also undergo repeat upper endoscopy to evaluate upper GI tract so we can evaluate the motility and contraction of her stomach to see if she has any chronic inflammation in her stomach secondary to bile. (2) Abdominal pain: Status: Acute Qualifiers: Abdominal location: lower abdomen, unspecified Qualified Code(s): R10.30 - Lower abdominal pain, unspecified Plan: Differential diagnosis for abdominal pain does include duodenal gastric reflux, IBS, exocrine pancreatic insufficiency, bile gastritis. She will get stool studies, CRP, ESR, gastrin level. After a full work-up hopefully we able to make recommendations regarding her GI issues. Orders: Orders Amylase Today R10.9 - Unspecified abdominal pain, R11.0 - Nausea CRP Today R10.9 - Unspecified abdominal pain, R11.0 - Nausea Iron Today K92.1 - Melena, R10.9 - Unspecified abdominal pain, R11.0 - Nausea Ferritin Today K92.1 - Melena, R10.9 - Unspecified abdominal pain, R11.0 - Nausea LDH Today R10.9 - Unspecified abdominal pain, R11.0 - Nausea Lipase Today R10.9 - Unspecified abdominal pain, R11.0 - Nausea Iron Binding Capacity,Total Today K92.1 - Melena, R10.9 - Unspecified abdominal pain, R11.0 - Nausea Retic Panel Count Today R10.9 - Unspecified abdominal pain, R11.0 - Nausea Erythrocyte Sed Rate Today R10.9 - Unspecified abdominal pain, R11.0 - Nausea Allergen, Food Profile Today R10.9 - Unspecified abdominal pain, R11.0 - Nausea MERRILL Comprehensive Panel Today R10.9 - Unspecified abdominal pain, R11.0 - Nausea Calprotectin, Stool Today R10.9 - Unspecified abdominal pain, R11.0 - Nausea Fecal Fat, Qualitative Today R10.9 - Unspecified abdominal pain, R11.0 - Nausea OVA+PARA w/Giardia EIA [id number] Today R10.9 - Unspecified abdominal pain, R11.0 - Nausea ENTERIC PATHOGEN PANEL STOOL Today K58.9 - Irritable bowel syndrome without diarrhea, K92.1 - Melena, R10.9 - Unspecified abdominal pain, R11.0 - Nausea Stool Occult Blood iFOB Today R10.9 - Unspecified abdominal pain, R11.0 - Nausea Stool Lactoferrin/WBC Today K58.9 - Irritable bowel syndrome without diarrhea, R10.9 - Unspecified abdominal pain, R11.0 - Nausea ANCA Today R10.9 - Unspecified abdominal pain, R11.0 - Nausea Immunoglobulin A Today R10.9 - Unspecified abdominal pain, R11.0 - Nausea Immunoglobulin E Today R10.9 - Unspecified abdominal pain, R11.0 - Nausea WILL + Protein Elect, Serum Today R10.9 - Unspecified abdominal pain, R11.0 - Nausea Immunoglobulin G Today R10.9 - Unspecified abdominal pain, R11.0 - Nausea Immunoglobulin M Today R10.9 - Unspecified abdominal pain, R11.0 - Nausea Pancreatic Elastase, Fecal Today R10.9 - Unspecified abdominal pain, R11.0 - Nausea Allergen, Rast Food Profile Today R10.9 - Unspecified abdominal pain, R11.0 - Nausea Gastric Emptying Study Today R10.9 - Unspecified abdominal pain, R11.0 - Nausea, R14.0 - Abdominal distension (gaseous) I have examined the patient and the H&P has been reviewed. There are no clinical changes since date of exam.
[2022-12-30 08:33] VITALS: BP 150/87; PULSE 64; RESP 18; TEMP 36.3; O2SAT 95; BMI 33.0
[2022-12-30] MEDS: Lactated Ringers 1,000 ML 15 ML IV (08:45)
--- NOTE | 2022-12-30 09:15 | EGD_PTH ---
PATIENT: DOMINIC ARTEAGA LOC: EN U#:[id number] AGE/SX: 67/F ROOM: RE12/30/[address]: Dr. Tommie Avelar DO : 1955 BED: DIS: 12/30/2022 SPEC #: [id number] RECD: 12/30/22 10:55 STATUS: ANNETTE KAVITA #: [id number] CLAUDINE: 12/30/22 09:[address]: Tommie Avelar DEPT: SURGICAL PATHOLOGY RECD BY: Emerita Camarillo ENTERED: 12/30/22 11:43 SP TYPE: EGD BIOPSY KIEL DR: Dr. Demian Avila MD Tissues: Esophagus, NOS Procedures: Special Stain Group II Surgery Specimen Level IV Alcian Blue/PAS (control) HEADER OPERATION: EGD biopsy PRE-OP DIAGNOSIS: Nausea, abdominal pain TISSUE SUBMITTED: Distal esophagus biopsy MICROSCOPIC DIAGNOSIS Distal esophagus, biopsy: Gastro esophageal junction with chronic and focal acute inflammation. No evidence of goblet cell metaplasia. See Comment. AM/am 12/31/22 COMMENT Alcian blue with matched control supports the diagnosis. MICROSCOPIC DESCRIPTION Slides are reviewed. GROSS DESCRIPTION Received is one container labeled with the patient name and designated distal esophagus. The specimen consists of multiple irregular fragments of light cruz soft tissue that in aggregate measure 1.5 x 0.3 x 0.1 cm. The specimen is totally submitted in one cassette. SJ: 12/31/22 TC 2 CPT:77255,97249
[2022-12-30 09:45] VITALS: BP 146/88; BP 150/87; PULSE 81; RESP 16; TEMP 36.4; O2SAT 94
[2022-12-30 09:50] VITALS: BP 126/89; BP 150/87; PULSE 78; RESP 16; O2SAT 94
--- NOTE | 2022-12-30 09:50 | OP.EGD_ITS ---
Patient Name: Jenn Paul Procedure Date: 12/30/2022 9:23 AM Date of : 1955 Age: 67 Procedure: Upper GI endoscopy Indications: Follow-up of Bhatti's esophagus Providers: Tommie Avelar DO Medicines: Monitored Anesthesia Care Patient Profile: This is a 67 year old female. Refer to note in patient chart for documentation of history and physical. Patient has symptoms of chronic heartburn. Complications: No immediate complications. Procedure: Pre-Anesthesia Assessment: - Prior to the procedure, a History and Physical was performed, and patient medications and allergies were reviewed. The patient is competent. The risks and benefits of the procedure and the sedation options and risks were discussed with the patient. All questions were answered and informed consent was obtained. Patient identification and proposed procedure were verified by the physician. Mental Status Examination: normal. Respiratory Examination: clear to auscultation. Prophylactic Antibiotics: The patient does not require prophylactic antibiotics. Prior Anticoagulants: The patient has taken no previous anticoagulant or antiplatelet agents. After reviewing the risks and benefits, the patient was deemed in satisfactory condition to undergo the procedure. The anesthesia plan was to use monitored anesthesia care (MAC). Immediately prior to administration of medications, the patient was re-assessed for adequacy to receive sedatives. The heart rate, respiratory rate, oxygen saturations, blood pressure, adequacy of pulmonary ventilation, and response to care were monitored throughout the procedure. The physical status of the patient was re-assessed after the procedure. After obtaining informed consent, the endoscope was passed under direct vision. Throughout the procedure, the patient's blood pressure, pulse, and oxygen saturations were monitored continuously. The gastroscope was introduced through the mouth, and advanced to the second part of duodenum. The upper GI endoscopy was accomplished without difficulty. The patient tolerated the procedure well. Scope In: 9:35:39 AM Scope Out: 9:40:06 AM Total Procedure Duration Time 0 hours 4 minutes 27 seconds Findings: The esophagus and gastroesophageal junction were examined with white light and narrow band imaging (NBI) from a forward view and retroflexed position. There were esophageal mucosal changes secondary to established short-segment Bhatti's disease. These changes involved the mucosa along an irregular Z-line (37 cm from the incisors). Farnam-colored mucosa was present. The maximum longitudinal extent of these esophageal mucosal changes was 3 cm in length. Mucosa was biopsied with a cold forceps for histology in a targeted manner at intervals of 1 cm in the lower third of the esophagus. One specimen bottle was sent to pathology. No gross lesions were noted in the entire examined stomach. The duodenal bulb was normal. Impression: - Esophageal mucosal changes secondary to established short-segment Bhatti's disease. Biopsied. - No gross lesions in the stomach. - Normal duodenal bulb. Recommendation: - Await pathology results. - Repeat upper endoscopy in 1 year for surveillance based on pathology results. - Stop omeprazole and start pantoprazole 40 mg p.o. twice a day - Continue present medications. Procedure Code(s): --- Professional --- 15722, Esophagogastroduodenoscopy, flexible, transoral; with biopsy, single or multiple CPT copyright 2017 [employer]. All rights reserved. The codes documented in this report are preliminary and upon revenue cycle administrator review may be revised to meet current compliance requirements. Tommie Avelar DO 12/30/2022 9:50:30 AM This report has been signed electronically. Number of Addenda: 0 Note Initiated On: 12/30/2022 9:23 AM
--- NOTE | 2022-12-30 09:51 | OP.CCLET_ITS ---
12/30/2022 Bakari Avila [address] [place] [address] Re : Upper GI endoscopy procedure for Jenn Paul Dear Dr. Avila This procedure was performed on Friday, December 30, 2022. My impressions and recommendations are as follows: Impressions : - Esophageal mucosal changes secondary to established short-segment Bhatti's disease. Biopsied. - No gross lesions in the stomach. - Normal duodenal bulb. Recommendations : - Await pathology results. - Repeat upper endoscopy in 1 year for surveillance based on pathology results. - Stop omeprazole and start pantoprazole 40 mg p.o. twice a day - Continue present medications. My findings are described in the full procedure note, which is enclosed. If I can be of further assistance, please feel free to contact me at . Sincerely, Tommie Avelar, 12/30/2022 9:50:30 AM This report has been signed electronically.
[2022-12-30 09:55] VITALS: BP 141/69; BP 150/87; PULSE 77; RESP 16; O2SAT 94
[2022-12-30 10:00] VITALS: BP 143/73; BP 150/87; PULSE 73; RESP 16; TEMP 36.5; O2SAT 92
[2022-12-30 10:16] VITALS: BP 150/87
== END 2022-12-30 10:35 | disposition home or self-care (01) ==
LOC: EN 08:06 → AC 08:08
PROVIDERS: PCP Family Medicine; Referring Provider Internal Medicine Gastroenterology; Visit Provider Internal Medicine Gastroenterology
PROC: 0DJ08ZZ Inspection of Upper Intestinal Tract, Via Natural or Artificial Opening Endoscopic (ICD-10-PCS; CPT 43235; principal; 2022-12-30 09:10)
DX: K22.70 Barrett's esophagus without dysplasia (principal); Z79.899 Other long term (current) drug therapy; I10 Essential (primary) hypertension; K92.1 Melena
CPT/HCPCS: 43239; 88305; 88313; J7120; J2405

== ENCOUNTER → 2023-01-07 | Outpatient (CLI) | payer MEDICARE, OTHER, SELFPAY ==
--- NOTE | 2023-01-07 11:37 | NM_ITS ---
CLINICAL: 67-year-old female with history of abdominal pain, bloating and nausea. SEMI-SOLID PHASE 99m Tc SULFUR COLLOID GASTRIC EMPTYING STUDY COMPARISON: None available FINDINGS: The patient was administered 1.0 mCi of 99m Tc sulfur colloid mixed with oatmeal and consumed per os. Image acquisitions in the anterior-posterior projections were obtained for 60 minutes. There is prompt visualization of the stomach. There is no gastroesophageal reflux identified. The T ? linear fit was calculated to be 52.39 minutes, (Normal: 12-56 minutes). NM/Gastric Emptying Study IMPRESSION: 1. NORMAL 99m Tc sulfur colloid semi-solid phase (oatmeal) gastric emptying imaging examination. A. There is upper limits of normal and preserved semi-solid phase gastric emptying compared to normal controls. (Jaqueline et al, J Nucl Med Tech 38: 186, 2010). Electronically Signed: Bertrand Rodriguez, at 20:16 EDT ,
== END | disposition home or self-care (01) ==
LOC: NM 11:37
PROVIDERS: PCP Family Medicine; Referring Provider Internal Medicine Gastroenterology; Visit Provider Internal Medicine Gastroenterology
DX: R14.0 Abdominal distension (gaseous) (principal); R10.9 Unspecified abdominal pain; R11.0 Nausea
CPT/HCPCS: 78264; A9541

== ENCOUNTER → 2023-01-17 | Outpatient (CLI) | payer MEDICARE, OTHER, SELFPAY ==
--- NOTE | 2023-01-17 12:13 | BI_ITS ---
MAMMOGRAPHY - BILATERAL SCREENING REASON FOR EXAM: Female, 67 years old. Routine annual screening examination. PERTINENT HISTORY: Non-contributory. TECHNIQUE: Digital bilateral breast ilya (3D mammographic acquisition) in the CC and MLO projections. 2-D mediolateral oblique (MLO) and craniocaudad (CC) views of both breasts were obtained. CAD: Full Field Digital Mammography with Computer Added Detection was performed. COMPARISON: Comparison is made with prior study dated January 08, 2022. FINDINGS: Breast Composition: There are scattered areas of fibroglandular density. There are no dominant masses or suspicious calcifications. Stable small benign-appearing bilateral axillary lymph nodes. No other significant abnormalities are identified. There has been no significant change since the prior study. BI/SCRN MAMM (CAD)W/ILYA BILAT IMPRESSION: Stable bilateral screening mammogram. Yearly follow-up mammogram recommended. (A) ASSESSMENT CATEGORY: BIRADS Category 2: Benign. A letter regarding these results will be sent to the patient by the facility within 30 days. Approximately 10% of breast cancers are not detected by mammography. A normal mammogram should not delay biopsy of a clinically suspicious abnormality. [id number] Electronically Signed: Vaughn De Guzman MD at 13:19 EDT ,
== END | disposition home or self-care (01) ==
LOC: OPBI 12:12
PROVIDERS: PCP Family Medicine; Referring Provider Nurse Practitioner Family; Visit Provider Nurse Practitioner Family
DX: Z12.31 Encounter for screening mammogram for malignant neoplasm of breast (principal)
CPT/HCPCS: 77063; 77067

== ENCOUNTER → 2023-01-27 | Outpatient (CLI) | payer MEDICARE, OTHER, SELFPAY ==
[2023-01-27 09:07] LABS: Glucose GTT- Fasting 137 mg/dL (74-106)
[2023-01-27 09:16] LABS: Glucose GTT-30 minutes 210 mg/dL (110-170)
[2023-01-27 09:50] LABS: Glucose GTT- 1 Hour 217 mg/dL (120-170)
[2023-01-27 11:01] LABS: Glucose GTT- 2 Hour 89 mg/dL (70-120)
[2023-01-27 11:45] LABS: Glucose GTT- 3 Hour 119 mg/dL (74-106)
[2023-01-27 12:44] LABS: Glucose GTT- 4 Hour 58 mg/dL (74-106)
[2023-01-27 13:54] LABS: Glucose GTT- 5 Hour 92 mg/dL (74-106)
== END | disposition home or self-care (01) ==
LOC: LAB 07:00
PROVIDERS: PCP Family Medicine; Referring Provider Family Medicine; Visit Provider Family Medicine
DX: R45.0 Nervousness (principal)
CPT/HCPCS: 36415; 82951; 82952

== ENCOUNTER → 2023-03-17 | Outpatient (CLI) | payer MEDICARE, OTHER, SELFPAY ==
[2023-03-17 18:44] LABS: Vitamin B12 460 pg/mL (211-911)
== END | disposition home or self-care (01) ==
LOC: MFPLAB 15:26
PROVIDERS: PCP Family Medicine; Visit Provider Family Medicine
DX: E53.8 Deficiency of other specified B group vitamins (principal)
CPT/HCPCS: 36415; 82607

== ENCOUNTER → 2023-06-09 | Outpatient (CLI) | payer MEDICARE, OTHER, SELFPAY ==
--- NOTE | 2023-06-09 09:45 | MRI_ITS ---
EXAM: MR brain without contrast. HISTORY: TREMOR TECHNIQUE: MR Brain W/O Contrast COMPARISON: MR brain December 01, 2018. LIMITATIONS: None. BRAIN: No diffusion abnormalities. Very mild white matter changes are likely secondary to chronic microvascular ischemia. VENTRICLES: No hydrocephalus. EXTRA-AXIAL SPACES: No hemorrhages, fluid collections, or masses. CALVARIUM/SKULL BASE: Normal. FACE/SINUSES: Visualized portions normal. SOFT TISSUES: Normal. OTHER: None. CONCLUSION: No acute intracranial abnormality. Electronically Signed: Alexandre Lange MD at 23:39 EST , MRI/Brain without Contrast IMPRESSION: undefined
== END | disposition home or self-care (01) ==
PROVIDERS: PCP Family Medicine; Referring Provider Family Medicine; Visit Provider Family Medicine
DX: R25.1 Tremor, unspecified (principal)
CPT/HCPCS: 70551

== ENCOUNTER → 2023-06-30 | Outpatient (CLI) | payer MEDICARE, OTHER, SELFPAY ==
--- OUTSIDE RECORDS SUMMARY | 2023-06-30 12:15 | XMS RPT_ITS | CCD ---
Author Name Unknown Address [address] [place] [address] Organization [facility] Care Team Providers Care Garment Sorter Name Role Phone CHESTER ROCHA Unavailable Unavailable CHESTER ROCHA Unavailable Unavailable NO REFERRING Unavailable Unavailable CHESTER ROCHA Unavailable Unavailable CHESTER ROCHA Unavailable Unavailable Mai KILPATRICK, Laura Hanna Unavailable [phone] Francis Spring Unavailable Unavailable PROVIDER, UNKNOWN Attending Unavailable PROVIDER, UNKNOWN Admitting Unavailable KAYLI MARIA Referring Unavailab Demian Mao Attending Unavail able Allergies Allergy Classification Reported Allergen(s) Allergy Type Date of Onset Reaction(s) Facility (1 source) Lisinopril; Translations: [LISINOPRIL] Drug Allergy 03-05-2019 [facility] Medications Completed/Discontinued Medications Medication Drug Class(es) Dates Sig (Normalized) Sig (Original) acetaminophen 325 mg / HYDROcodone bitartrate 10 mg oral tablet (1 source) Opioid Agonist Start: 04-01-2017 NORCO 10-325 MG TABS as directed HYDROCODONE-ACETAMI NOPHEN [id number] Augusto Rosenberg MD acyclovir 800 mg oral tablet (1 source) Herpesvirus Nucleoside Analog DNA Polymerase Inhibitor, Herpes Simplex Virus Nucleoside Analog DNA Polymerase Inhibitor, Herpes Zoster Virus Nucleoside Analog DNA Polymerase Inhibitor Start: 04-01-2017 take 1 tablet by mouth five times daily ACYCLOVIR 800 MG TABS One tablet by mouth five times daily x 10 days ACYCLOVIR [id number] Augusto Rosenberg MD aspirin 81 mg oral tablet (1 source) Platelet Aggregation Inhibitor, Nonsteroidal Anti-inflammatory Drug Start: 04-01-2017 take 1 tablet by mouth once daily ASPIRIN 81 MG TABS One tablet by mouth daily ASPIRIN [id number] Augusto Rosenberg MD ergocalciferol 74167 unt oral capsule (2 sources) Provitamin D2 Compound Start: 03-31-2017 take 1 tablet by mouth every week ERGOCALCIFEROL 34304 UNIT CAPS 1 tablet by mouth weekly ERGOCALCIFEROL [id number] Laura Oneill RN fenofibrate 120 mg oral tablet (2 sources) Peroxisome Proliferator Receptor alpha Agonist Start: 03-31-2017 take 1 tablet by mouth once daily FENOFIBRATE 120 MG TABS One tablet by mouth daily FENOFIBRATE [id number] Laura Oneill RN Fish Oils (3 sources) Start: 03-31-2017 take 1 tablet by mouth three times daily FISH OIL CAPS One tablet by mouth three times daily OMEGA-3 FATTY ACIDS CAPS [id number] Augusto Rosenberg MD Problems Active Problems Problem Classification Problem Date Documented Da te Episodic/Chronic Anxiety disorders (2 sources) Anxiety disorder; Translations: [Anxiety disorder, unspecified] 2010 Chronic Coronary atherosclerosis and other heart disease (2 sources) Angina pectoris; Translations: [Chest pain, unspecified] Onset: 03-31-2017 03-31-2017 Chronic Disorders of lipid metabolism (5 sources) Hyperlipidemia; Translations: [Hyperlipidemia, unspecified] Onset: 05-01-2022 2010 Chronic Other nutritional; endocrine; and metabolic disorders (1 source) Body mass index (BMI) 33.0-33.9, adult; Translations: [Body mass index (BMI) 33.0-33.9, adult] Onset: 04-01-2017 04-01-2017 Chronic Past or Other Problems Problem Classification Problem Date Documented Da te Episodic/Chronic Allergic reactions (2 sources) Contact dermatitis due to Genus Toxicodendron; Translations: [Allergic contact dermatitis due to plants, except food] Onset: 2010 2010 Episodic Other lower respiratory disease (2 sources) Dyspnea; Translations: [Shortness of breath] Onset: 03-31-2017 03-31-2017 Episodic Unclassified (3 sources) Encounter for screening mammogram for malignant neoplasm of breast; Translations: [ENC SCR MAMMO MALIG NEOP] Onset: 02-20-2017 Episodic Results Test Name Value Interpretation Reference Range Facil ity Vital Signs Date Time Vital Sign Value Performing Clinician Faci lity 04-01-2017 15:47-0400 Heart rate 91 /min Francis Spring [facility] Work Phone: 2010 09:37-0400 Body Temperature 97.7 [degF] Laura Oneill RN [facility] Work Phone: 2010 09:37-0400 BP Diastolic 82 mm[Hg] Laura Oneill RN [facility] Work Phone: 2010 09:37-0400 BP Systolic 120 mm[Hg] Laura Onelil RN [facility] Work Phone: 2010 09:37-0400 Height 162.56 cm Laura Oneill RN [facility] Work Phone: 2010 09:37-0400 Pulse (Heart Rate) 80 /min [facility] Work Phone: 2010 09:37-0400 Respiratory Rate 20 /min [facility] Work Phone: 2010 09:37-0400 Weight 86.18 kg Laura Oneill RN [facility] Work Phone: Encounters Encounter Date Encounter Type Care Provider Facility Start: 05-01-2022 ambulatory Demian Avila Facility:[id number] Start: 08-23-2019 End: 08-23-2019 ambulatory [facility] Facility:[facility] Start: 02-20-2017 End: 2017 Ambulatory CHESTER ROCHA Facility:[facility] Procedures Date Procedure Procedure Detail Performing Clinician Start: 04-01-2017 End: 04-01-2017 Ecg routine ecg w/least 12 lds w/i&r Augusto Rosenberg MD Start: 04-01-2017 End: 04-01-2017 Follow Up Appt 6 weeks Augusto Rosenberg MD Start: 04-01-2017 End: 04-01-2017 MMM Augusto Rosenberg MD Plan of Treatment Date Care Activity Detail Author Start: 05-14-2017 End: 05-14-2017 Appointment Appointment [facility] Work Phone: Start: 04-01-2017 End: 04-01-2017 Appointment Appointment [facility] [place] Work Phone: Start: 04-01-2017 End: 04-01-2017 Echocardiography Echocardiogram (complete) [facility] [place] Work Phone: Start: 04-01-2017 End: 04-01-2017 Follow Up Appt 6 weeks Follow Up Appt 6 weeks [facility] [place] Work Phone: Start: 04-01-2017 End: 04-01-2017 MMM MMM [facility] [place] Work Phone: Start: 04-01-2017 End: 04-01-2017 Nuclear stress test -exercise Nuclear stress test -exercise [facility] [place] Work Phone: Payers Date Payer Category Payer Medicare [id number] 1955 Unknown [id number] 1955 Unknown [id number] Unknown [id number] Unknown [id number] Summary Purpose Family History No Family History Records FoundNo Family History Records FoundNo Family History Records FoundNo Family History Records FoundNo Family History Records FoundNo Family History Records Found Advance Directives No Advanced Directives Records FoundNo Advanced Directives Records FoundNo Advanced Directives Records FoundNo Advanced Directives Records FoundNo Advanced Directives Records FoundNo Advanced Directives Records Found Additional Source Comments INFORMATION SOURCE (unrecogn ized section and content) DATE CREATED AUTHOR AUTHOR'S ORGANIZ ATION 12/17/2017 [facility] DATE CREATED AUTHOR AUTHOR'S ORGANIZ ATION 06/01/2018 [facility] DATE CREATED AUTHOR AUTHOR'S ORGANIZ ATION 01/10/2020 [facility] DATE CREATED AUTHOR AUTHOR'S ORGANIZ ATION 07/18/2021 [facility] DATE CREATED AUTHOR AUTHOR'S ORGANIZ ATION 05/04/2022 [facility] FOR RECORDS PERTAINING TO PATIENTS WHO ARE OR HAVE BEEN ENROLLED IN A CHEMICAL DEPENDENCY/SUBSTANCEABUSE PROGRAM, SOME INFORMATION MAY BE OMITTED. This clinical summary was aggregated from multiple sources. Caution should be exercised in using it in the provision of clinical care. This summary normalizes information from multiple sources, and as a consequence, information in this document may materially change the coding, format and clinical context of patient data. In addition, data may be omitted in some cases. CLINICAL DECISIONS SHOULD BE BASED ON THE PRIMARY CLINICAL RECORDS. [employer] provides no warranty or guarantee of the accuracy or completeness of information in this document.
[2023-06-30 15:39] LABS: Hematocrit 45.7 % (37-47); Hemoglobin 14.2 g/dL (12.0-15.0); Mean Corp Hgb Conc 31.1 g/dL (32-36); Mean Corpuscular Hgb 29.2 pg (27.0-32.0); Mean Platelet Vol. 9.6 fl (6.2-12.0); Platelet Count 245 K/mm3 (150-450); RBC Distribution Width CV 12.6 % (11.6-14.6); RBC Distribution Width SD 44.2 fl (35.1-43.9); Red Blood Count 4.86 M/mm3 (4.2-5.4)
[2023-06-30 16:11] LABS: ALB/GLOB Ratio 0.9 RATIO (0.9-2.4); AST(SGOT) 25 U/L (15-37); Alanine Aminotransfer ALT/SGPT 30 U/L (13-56); Albumin, Serum 3.4 g/dL (3.2-5.0); Alkaline Phosphatase 72 U/L (45-117); Anion Gap 7 (5-15); BUN 15 mg/dL (7-18); BUN/Creat Ratio 21.3 RATIO (10-20); Calcium,Total 8.4 mg/dL (8.5-10.1); Chloride 107 mmol/L (98-107); Cholesterol 169 mg/dL (200); EST Glomerular Filtration Rate 88 mL/min (>60); Est Glom Filt Rate - Afr Amer 106 mL/min (>60); Globulin 3.9 g/dL (2.2-4.2); Glucose 106 mg/dL (74-106); High Density Lipoprotein 34 mg/dL; Potassium 3.7 mmol/L (3.5-5.1); Protein, Total 7.3 g/dL (6.4-8.2); Sodium Level 140 mmol/L (136-145); Thyroid Stim Hormone (TSH) 1.42 uIU/mL (0.358-3.74); Triglycerides 138 mg/dL; Very Low Density Lipoprotein 28 mg/dL (5-40)
== END | disposition home or self-care (01) ==
LOC: MFPLAB 11:42
PROVIDERS: PCP Family Medicine; Visit Provider Family Medicine
DX: F41.9 Anxiety disorder, unspecified (principal); R73.01 Impaired fasting glucose; R07.9 Chest pain, unspecified
CPT/HCPCS: 36415; 80053; 80061; 83036; 84443; 85027

== ENCOUNTER → 2023-07-16 | Outpatient (CLI) | payer MEDICARE, OTHER, SELFPAY ==
--- OUTSIDE RECORDS SUMMARY | 2023-07-16 06:37 | XMS RPT_ITS | CCD ---
Author Name Unknown Address [address] [place] [address] Organization [facility] Care Team Providers Care Cell Tester Name Role Phone CHESTER ROCHA Unavailable Unavailable CHESTER ROCHA Unavailable Unavailable NO REFERRING Unavailable Unavailable CHESTER ROCHA Unavailable Unavailable CHESTER ROCHA Unavailable Unavailable Mai KILPATRICK, Laura Hanna Unavailable Francis Spring Unavailable Unavailable PROVIDER, UNKNOWN Attending Unavailable PROVIDER, UNKNOWN Admitting Unavailable KAYLI MARIA Referring Unavailab Demian Mao Attending Unavail able Allergies Allergy Classification Reported Allergen(s) Allergy Type Date of Onset Reaction(s) Facility (1 source) Lisinopril; Translations: [LISINOPRIL] Drug Allergy 03-05-2019 [facility] Medications Completed/Discontinued Medications Medication Drug Class(es) Dates Sig (Normalized) Sig (Original) acetaminophen 325 mg / HYDROcodone bitartrate 10 mg oral tablet (1 source) Opioid Agonist Start: 04-01-2017 NORCO 10-325 MG TABS as directed HYDROCODONE-ACETAMI NOPHEN [id number] Augusto Rosenberg MD acyclovir 800 mg oral tablet (1 source) Herpesvirus Nucleoside Analog DNA Polymerase Inhibitor, Herpes Simplex Virus Nucleoside Analog DNA Polymerase Inhibitor, Herpes Zoster Virus Nucleoside Analog DNA Polymerase Inhibitor Start: 04-01-2017 take 1 tablet by mouth five times daily ACYCLOVIR 800 MG TABS One tablet by mouth five times daily x 10 days ACYCLOVIR [id number] Augusto Rosenberg MD aspirin 81 mg oral tablet (1 source) Platelet Aggregation Inhibitor, Nonsteroidal Anti-inflammatory Drug Start: 04-01-2017 take 1 tablet by mouth once daily ASPIRIN 81 MG TABS One tablet by mouth daily ASPIRIN [id number] Augusto Rosenberg MD ergocalciferol 02106 unt oral capsule (2 sources) Provitamin D2 Compound Start: 03-31-2017 take 1 tablet by mouth every week ERGOCALCIFEROL 21056 UNIT CAPS 1 tablet by mouth weekly ERGOCALCIFEROL [id number] Laura Oneill RN fenofibrate 120 mg oral tablet (2 sources) Peroxisome Proliferator Receptor alpha Agonist Start: 03-31-2017 take 1 tablet by mouth once daily FENOFIBRATE 120 MG TABS One tablet by mouth daily FENOFIBRATE 27718802964 Laura Oneill RN Fish Oils (3 sources) Start: 03-31-2017 take 1 tablet by mouth three times daily FISH OIL CAPS One tablet by mouth three times daily OMEGA-3 FATTY ACIDS CAPS [id number] Augusto Rosenberg MD Problems Active Problems Problem [...] Body Temperature 97.7 [degF] Laura Oneill RN [facility] Work Phone: 2010 09:37-0400 BP Diastolic 82 mm[Hg] Laura Oneill RN [facility] Work Phone: 2010 09:37-0400 BP Systolic 120 mm[Hg] Laura Oneill RN [facility] Work Phone: 2010 09:37-0400 Height 162.56 cm Laura Oneill RN [facility] Work Phone: 2010 09:37-0400 Pulse (Heart Rate) 80 /min [facility] Work Phone: 2010 09:37-0400 Respiratory Rate 20 /min [facility] Work Phone: 2010 09:37-0400 Weight 86.18 kg Laura Oneill RN [facility] Work Phone: Encounters Encounter Date Encounter Type Care Provider Facility Start: 05-01-2022 ambulatory Demian Avila Facility:[id number] Start: 08-23-2019 End: 08-23-2019 ambulatory [facility] Facility[facility] Start: 02-20-2017 End: 2017 Ambulatory CHESTER ROCHA Facility:[facility] Procedures Date Procedure Procedure Detail Performing Clinician Start: 04-01-2017 End: 04-01-2017 Ecg routine ecg w/least 12 lds w/i&r Augusto Rosenberg MD Start: 04-01-2017 End: 04-01-2017 Follow Up Appt 6 weeks Augusto Rosenberg MD Start: 04-01-2017 End: 04-01-2017 MMM Augusto Rosenberg MD Plan of Treatment Date Care Activity Detail Author Start: 05-14-2017 End: 05-14-2017 Appointment Appointment [facility] Work Phone: Start: 04-01-2017 End: 04-01-2017 Appointment Appointment [facility] Work Phone: Start: 04-01-2017 End: 04-01-2017 Echocardiography Echocardiogram (complete) [facility] Work Phone: Start: 04-01-2017 End: 04-01-2017 Follow Up Appt 6 weeks Follow Up Appt 6 weeks [facility] Work Phone: Start: 04-01-2017 End: 04-01-2017 MMM MMM [facility] Work Phone: Start: 04-01-2017 End: 04-01-2017 Nuclear stress test -exercise Nuclear stress test -exercise [facility] Work Phone: Payers Date Payer Category Payer Medicare [id number] 1955 Unknown [id number] 1955 Unknown [id number] [id number]. [id number] Unknown [id number] Unknown [id number] Summary Purpose Family History No Family History [...] DATE CREATED AUTHOR AUTHOR'S ORGANIZ ATION 12/17/2017 [facility] DATE CREATED AUTHOR AUTHOR'S ORGANIZ ATION 06/01/2018 [facility] DATE CREATED AUTHOR AUTHOR'S ORGANIZ ATION 01/10/2020 [facility] DATE CREATED AUTHOR AUTHOR'S ORGANIZ ATION 07/18/2021 [facility] DATE CREATED AUTHOR AUTHOR'S ORGANIZ ATION [...] BE BASED ON THE PRIMARY CLINICAL RECORDS. [employer] provides no warranty or guarantee of the accuracy or completeness of information in this document.
--- NOTE | 2023-07-16 18:21 | STRESSREP ---
Stress Test Report Exercise myocardial perfusion stress test. 68-year-old lady with a history of chest pain Stress protocol: Resting EKG demonstrates normal sinus rhythm with a rate of 67 bpm resting blood pressure is 140/88 mmHg. The patient exercised according to the regular [facility] protocol for a total duration of 5 minutes and 10 seconds attaining a maximum heart rate of 141 bpm which was 93% of maximum predicted heart rate; the maximum workload was 7 metabolic equivalents. At rest there were no ST or T wave changes noted to suggest ischemia and at peak exercise upsloping ST changes only were noted which did not meet the criteria for ischemia. No clinical angina was noted the test was terminated due to the target heart rate being achieved/fatigue. The peak blood pressure was 212/84 mmHg. Rate-pressure product was 29,900. Myocardial perfusion protocol. 12 mCi of technetium 99m sestamibi was injected at rest. The patient exercised according to regular [facility] protocol for total duration of 5 minutes and 10 seconds and at peak exercise 35 mCi of technetium 99m sestamibi was injected stress images were obtained stress and rest images were reconstructed in comparing the short axis vertical long and horizontal long axis. Gated images were also obtained. Perfusion SPECT analysis: Review of the stress images demonstrate normal uptake of tracer noted in all areas of the myocardium. The resting images similarly demonstrate normal uptake of tracer noted in all areas of the myocardium. No areas of reversibility are noted to suggest ischemia no previous infarct was noted. Gated SPECT analysis: The gated ejection fraction is 75%. Conclusion: Normal exercise myocardial perfusion stress test at a moderate workload Preserved ejection fraction.
== END | disposition home or self-care (01) ==
LOC: CVS 06:31
PROVIDERS: PCP Family Medicine; Referring Provider Family Medicine; Visit Provider Family Medicine
DX: R07.9 Chest pain, unspecified (principal)
CPT/HCPCS: 78452; 93017; A9500; A4216

== ENCOUNTER → 2023-08-28 | Outpatient (CLI) | payer MEDICARE, OTHER, SELFPAY ==
[2023-08-28 10:08] LABS: Absolute Lymphocyte Count 1.24 X10^3/uL (0.83-4.51); Absolute Neutrophil Count 2.7 X10^3/uL (2.0-7.7); Basophil# 0.08 X10^3/uL; Basophil% 1.6 % (0-1); Eosinophil# 0.35 X10^3/uL; Eosinophils% 7.2 % (0-5); Hematocrit 43.9 % (37-47); Hemoglobin 13.6 g/dL (12.0-15.0); Lymphocyte # 1.24 X10^3/ul (0.83-4.51); Lymphocyte % 25.4 % (19-41); Mean Corpuscular Hgb 28.9 pg (27.0-32.0); Mean Corpuscular Volume 93.2 fL (81-99); Mean Platelet Vol. 9.5 fl (6.2-12.0); Monocyte# 0.46 X10^3/uL; Monocyte% 9.4 % (0-10); NRBC Flagged by Analyzer 0 % (0-5); Neutrophil # 2.74 X10^3/uL (2.7-7.7); Platelet Count 266 K/mm3 (150-450); RBC Distribution Width CV 13.2 % (11.6-14.6); RBC Distribution Width SD 44.8 fl (35.1-43.9); Red Blood Count 4.71 M/mm3 (4.2-5.4); White Blood Count 4.9 K/mm3 (4.4-11.0)
--- OUTSIDE RECORDS SUMMARY | 2023-08-28 10:13 | XMS RPT_ITS | CCD ---
Author Name Unknown Address [address] [place] [address] Organization [facility] Care Team Providers Care Brush And Broom Clipper Name Role Phone CHESTER ROCHA Unavailable Unavailable CHESTER ROCHA Unavailable Unavailable NO REFERRING Unavailable Unavailable CHESTER ROCHA Unavailable Unavailable CHESTER ROCHA Unavailable Unavailable Mai KILPATRICK, Laura Hanna Unavailable [phone] Francis Spring Unavailable Unavailable PROVIDER, UNKNOWN Attending Unavailable PROVIDER, UNKNOWN Admitting Unavailable KAYLI MARIA Referring Unavailab Demian Mao Attending Unavail able Allergies Allergy Classification Reported Allergen(s) Allergy Type Date of Onset Reaction(s) Facility (1 source) Lisinopril; Translations: [LISINOPRIL] Drug Allergy 03-05-2019 [facility] Medications Completed/Discontinued Medications Medication Drug Class(es) Dates Sig (Normalized) Sig (Original) acetaminophen 325 mg / HYDROcodone bitartrate 10 mg oral tablet (1 source) Opioid Agonist Start: 04-01-2017 NORCO 10-325 MG TABS as directed HYDROCODONE-ACETAMI NOPHEN [id number] Augusto Rosenberg MD acyclovir 800 mg oral tablet (1 source) Herpesvirus Nucleoside Analog DNA Polymerase Inhibitor, Herpes Simplex Virus Nucleoside Analog DNA Polymerase Inhibitor, Herpes Zoster Virus Nucleoside Analog DNA Polymerase Inhibitor Start: 04-01-2017 take 1 tablet by mouth five times daily ACYCLOVIR 800 MG TABS One tablet by mouth five times daily x 10 days ACYCLOVIR 26581948559 Augusto Rosenberg MD aspirin 81 mg oral tablet (1 source) Platelet Aggregation Inhibitor, Nonsteroidal Anti-inflammatory Drug Start: 04-01-2017 take 1 tablet by mouth once daily ASPIRIN 81 MG TABS One tablet by mouth daily ASPIRIN 76389222567 Augusto Rosenberg MD ergocalciferol 84190 unt oral capsule (2 sources) Provitamin D2 Compound Start: 03-31-2017 take 1 tablet by mouth every week ERGOCALCIFEROL 20560 UNIT CAPS 1 tablet by mouth weekly ERGOCALCIFEROL 97894270669 Laura Oneill RN fenofibrate 120 mg oral tablet (2 sources) Peroxisome Proliferator Receptor alpha Agonist Start: 03-31-2017 take 1 tablet by mouth once daily FENOFIBRATE 120 MG TABS One tablet by mouth daily FENOFIBRATE 79629016991 Laura Oneill RN Fish Oils (3 sources) Start: 03-31-2017 take 1 tablet by mouth three times daily FISH OIL CAPS One tablet by mouth three times daily OMEGA-3 FATTY ACIDS CAPS 72105546541 Augusto Rosenberg MD Problems Active Problems Problem [...] 15:47-0400 Heart rate 91 /min Francis Spring [facility] Work Phone: 2010 09:37-0400 Body Temperature 97.7 [degF] Laura Oneill RN [facility] Work Phone: 2010 09:37-0400 BP Diastolic 82 mm[Hg] Laura Oneill RN [facility] Work Phone: 2010 09:37-0400 BP Systolic 120 mm[Hg] Laura Oneill RN [facility] Work Phone: 2010 09:37-0400 Height 162.56 cm Laura Oneill RN [facility] Work Phone: 2010 09:37-0400 Pulse (Heart Rate) 80 /min [facility] Work Phone: 2010 09:37-0400 Respiratory Rate 20 /min [facility] Work Phone: 2010 09:37-0400 Weight 86.18 kg Laura Oneill RN [facility] Work Phone: Encounters Encounter Date Encounter Type Care Provider Facility Start: 05-01-2022 ambulatory Demian Avila Facility:[id number] Start: 08-23-2019 End: 08-23-2019 ambulatory [facility] PROVID[facility] Facility:[facility] Start: 02-20-2017 End: 2017 Ambulatory CHESTER ROCHA Facility:[facility] Procedures Date Procedure Procedure Detail Performing Clinician Start: 04-01-2017 End: 04-01-2017 Ecg routine ecg w/least 12 lds w/i&r Augusto Rosenberg MD Start: 04-01-2017 End: 04-01-2017 Follow Up Appt 6 weeks Augusto Rosenberg MD Start: 04-01-2017 End: 04-01-2017 MMM Augusto Rosenberg MD Plan of Treatment Date Care Activity Detail Author Start: 05-14-2017 End: 05-14-2017 Appointment [facility]ointment [facility] Work Phone: Start: 04-01-2017 End: 04-01-2017 Appointment Appointment [facility] Work Phone: Start: 04-01-2017 End: 04-01-2017 Echocardiography Echocardiogram (complete) [facility] Work Phone: Start: 04-01-2017 End: 04-01-2017 Follow Up Appt 6 weeks Follow Up Appt 6 weeks [facility] Work Phone: Start: 04-01-2017 End: 04-01-2017 MMM MMM [facility] Work Phone: Start: 04-01-2017 End: 04-01-2017 Nuclear stress test -exercise Nuclear stress test -exercise [facility] Work Phone: Payers Date Payer Category Payer Medicare [id number] 1955 Unknown [id number] [id number]. [id number] 1955 Unknown [id number]. [id number] Unknown [id number] Unknown [id number] Summary Purpose Family History No Family History [...] DATE CREATED AUTHOR AUTHOR'S ORGANIZ ATION 12/17/2017 [facility] DATE CREATED AUTHOR AUTHOR'S ORGANIZ ATION 06/01/2018 [facility] DATE CREATED AUTHOR AUTHOR'S ORGANIZ ATION 01/10/2020 [facility] DATE CREATED AUTHOR AUTHOR'S ORGANIZ ATION 07/18/2021 [facility] DATE CREATED AUTHOR AUTHOR'S ORGANIZ ATION 05/04/2022 [facility] FOR RECORDS PERTAINING TO PATIENTS WHO [...] BE BASED ON THE PRIMARY CLINICAL RECORDS. [employer] provides no warranty or guarantee of the accuracy or completeness of information in this document.
[2023-08-28 10:54] LABS: Vitamin B12 395 pg/mL (211-911); Vitamin D,25 Hydroxy 62.7 ng/mL
[2023-08-28 11:16] LABS: ALB/GLOB Ratio 0.9 RATIO (0.9-2.4); AST(SGOT) 16 U/L (15-37); Alanine Aminotransfer ALT/SGPT 22 U/L (13-56); Albumin, Serum 3.5 g/dL (3.2-5.0); Alkaline Phosphatase 74 U/L (45-117); Anion Gap 9 (5-15); BUN 18 mg/dL (7-18); BUN/Creat Ratio 21.7 RATIO (10-20); Calcium,Total 8.9 mg/dL (8.5-10.1); Chloride 108 mmol/L (98-107); Creatinine, Serum 0.83 mg/dL (0.55-1.02); EST Glomerular Filtration Rate 72 mL/min (>60); Est Glom Filt Rate - Afr Amer 88 mL/min (>60); Globulin 3.8 g/dL (2.2-4.2); Glucose 105 mg/dL (74-106); Potassium 4.1 mmol/L (3.5-5.1); Protein, Total 7.3 g/dL (6.4-8.2); Sodium Level 142 mmol/L (136-145); Thyroid Stim Hormone (TSH) 1.42 uIU/mL (0.358-3.74)
[2023-08-28 12:14] LABS: Color, Urine Yellow (Yellow); Glucose, Dipstick Normal (Normal); Ketone-Dipstick Negative (Negative); Leukocyte Esterase-Dipstick 100 /ul (Negative); Nitrite-Dipstick Negative (Negative); Occult Blood-Urine Negative /ul (Negative); Protein-Dipstick 15 mg/dl (Negative); Urine Bilirubin Dipstick Negative (Negative); Urine Clarity Sl. Cloudy (Clear); Urine Urobilinogen Normal (Normal)
[2023-08-28 12:23] LABS: Bacteria 1+ /hpf (None Seen); Mucous, Urine 1+ /hpf (<or=2+); Red Blood Cells-Urine 0-5 SEEN /hpf (0-5); Squamous Epithelial Cells - UA 10-25 SEEN /hpf (5-10); White Blood Cells 0-5 SEEN /hpf (0-5)
[2023-08-29 15:08] LABS: PROEL- A/G Ratio 1.2 (0.7-1.7); PROEL- Albumin 3.6 g/dL (2.9-4.4); PROEL- Alpha-1 Globulin 0.2 g/dL (0.0-0.4); PROEL- Alpha-2 Globulin 0.7 g/dL (0.4-1.0); PROEL- Beta Globulin 1.1 g/dL (0.7-1.3); PROEL- Gamma Globulin 0.9 g/dL (0.4-1.8); PROEL- TOTAL PROTEIN 6.6 g/dL (6.0-8.5); PROEL-M-Spike Not Observed g/dL (Not Observed)
== END | disposition home or self-care (01) ==
LOC: MFPLAB 09:22
PROVIDERS: PCP Family Medicine; Visit Provider Family Medicine
DX: R42 Dizziness and giddiness (principal); K21.9 Gastro-esophageal reflux disease without esophagitis
CPT/HCPCS: 36415; 80053; 81001; 82306; 82533; 82607; 84165; 84443; 85025

== ENCOUNTER → 2023-10-09 | Outpatient (CLI) | payer MEDICARE, OTHER, SELFPAY ==
--- NOTE | 2023-10-09 08:57 | CDU_ITS ---
Reason For Study: Dizziness Rt. Velocities/BP Lt. Velocities/BP Prox CCA 64.5/11.6 cm/sec. Prox CCA 70.7/15.7 cm/sec. Mid CCA 78.7/14.5 cm/sec. Mid CCA 76.2/16.8 cm/sec. Dist CCA 78.7/18.2 cm/sec. Dist CCA 66.3/16.8 cm/sec. Prox ICA 57.5/10.2 cm/sec. Prox ICA 46.6/15.4 cm/sec. Mid ICA 74/20.1 cm/sec. Mid ICA 67.4/23.9 cm/sec. Dist ICA 71.8/21.2 cm/sec. Dist ICA 83.8/18 cm/sec. Rt. ICA/CCA = 0.94. Lt. ICA/CCA = 1.10. Prox ECA 92.7/15.7 cm/sec. Prox ECA 63.6/10.7 cm/sec. Rt. Vert. 69.6/20.1 cm/sec. Lt. Vert. 65.2/13.5 cm/sec. Right Extracranial There is intimal thickening but no significant atherosclerotic plaque noted in the right common carotid artery. There is intimal thickening but no significant atherosclerotic plaque noted in the right internal carotid artery. There is intimal thickening but no significant atherosclerotic plaque noted in the right external carotid artery. Antegrade flow is noted in the right vertebral artery. Left Extracranial There is homogeneous, smooth atherosclerotic plaque noted in the left common carotid artery. There is intimal thickening but no significant atherosclerotic plaque noted in the left internal carotid artery. There is intimal thickening but no significant atherosclerotic plaque noted in the left external carotid artery. Antegrade flow is noted in the left vertebral artery. Procedure Carotid Duplex [id number]. This is a Carotid Duplex examination using B-mode, color flow and specral Doppler. Exam performed in department. VL/Carotid Duplex Ultrasound Interpretation Summary Normal right extracranial internal carotid. Normal left extracranial internal carotid. Patent and antegrade vertebrals bilaterally. Ordering Physician: Demian Avila Referring Physician: Demian Avila Performed By: Stacey Perdomo RVT
== END | disposition home or self-care (01) ==
LOC: CVS 08:53
PROVIDERS: PCP Family Medicine; Referring Provider Family Medicine; Visit Provider Family Medicine
DX: R42 Dizziness and giddiness (principal)
CPT/HCPCS: 93880

== ENCOUNTER → 2023-10-14 | Outpatient (CLI) | payer MEDICARE, OTHER, SELFPAY ==
--- NOTE | 2023-10-14 08:40 | EKG12_ITS ---
Test Reason : PRE-OP Blood Pressure : / mmHG Vent. Rate : 064 BPM Atrial Rate : 064 BPM P-R Int : 132 ms QRS Dur : 068 ms QT Int : 394 ms P-R-T Axes : 053 -11 040 degrees QTc Int : 406 ms Normal sinus rhythm Normal ECG Confirmed by CHIVO KOCH, ISABELA ([id number]), subeditor FANY LIN ([id number]) on 10/20/2023 1:31:46 PM Referred By: Joseph Ferreira Confirmed By:SIERRA WALDRON MD
[2023-10-14 08:58] LABS: Hematocrit 45.3 % (37-47); Hemoglobin 14.3 g/dL (12.0-15.0); Mean Corp Hgb Conc 31.6 g/dL (32-36); Mean Corpuscular Hgb 29.8 pg (27.0-32.0); Mean Corpuscular Volume 94.4 fL (81-99); Mean Platelet Vol. 9.2 fl (6.2-12.0); Platelet Count 253 K/mm3 (150-450); RBC Distribution Width CV 13.2 % (11.6-14.6); RBC Distribution Width SD 46.4 fl (35.1-43.9); White Blood Count 5.5 K/mm3 (4.4-11.0)
[2023-10-14 09:42] LABS: Anion Gap 4 (5-15); BUN 13 mg/dL (7-18); BUN/Creat Ratio 14.4 RATIO (10-20); Calcium,Total 8.7 mg/dL (8.5-10.1); Chloride 108 mmol/L (98-107); EST Glomerular Filtration Rate 66 mL/min (>60); Est Glom Filt Rate - Afr Amer 80 mL/min (>60); Glucose 134 mg/dL (74-106); Potassium 4.9 mmol/L (3.5-5.1); Sodium Level 139 mmol/L (136-145)
== END | disposition home or self-care (01) ==
LOC: PSN 08:30
PROVIDERS: PCP Family Medicine; Referring Provider Otolaryngology; Visit Provider Otolaryngology
DX: Z01.818 Encounter for other preprocedural examination (principal)
CPT/HCPCS: 36415; 80048; 85027; 93005

== ENCOUNTER → 2023-12-01 | Outpatient (CLI) | payer MEDICARE, OTHER, SELFPAY ==
--- NOTE | 2023-12-01 10:30 | NASAL_PTH ---
PATIENT: DOMINIC ARTEAGA [facility] U#:[id number] AGE/SX: 68/F ROOM: RE12/01/[address]: Dr. Joseph Ferreira MD : 1955 BED: DIS: 12/01/2023 SPEC #: [id number] RECD: 12/02/23 10:01 STATUS: ANNETTE KAVITA #: [id number] CLAUDINE: 12/01/23 10:[address]: Joseph Ferreira DEPT: SURGICAL PATHOLOGY RECD BY: Emerita Camarillo ENTERED: 12/02/23 10:02 SP TYPE: NASAL SPEC OTHR DR: Dr. Demian Avila MD [facility] Tissues: Nasal septum, NOS Procedures: Decalcification bone/plaque Surgery Specimen Level III HEADER OPERATION: Septoplasty, submucous resection of inferior turbinates PRE-OP DIAGNOSIS: Nasal congestion, hypertrophy of nasal turbinates, deviated nasal septum TISSUE SUBMITTED: Nasal septum MICROSCOPIC DIAGNOSIS Nasal septum, septoplasty: Fragments of hyaline cartilage and bone that are reparative and reactive in change (clinically deviated septum). PINA/ 12/05/2023 MICROSCOPIC DESCRIPTION Slides are reviewed. GROSS DESCRIPTION Received is one container labeled with the patient's name and not further designated. The specimen consists of multiple fragments of cartilage and bone measuring in aggregate 4.0 x 3.0 x 0.3cm. The entire tissue is submitted in one cassette after decalcification. GAIL/ 12/02/2023 TC:5 CPT:[id number]
== END | disposition home or self-care (01) ==
LOC: LABSPEC 15:35
PROVIDERS: PCP Family Medicine; Referring Provider Otolaryngology; Visit Provider Otolaryngology
DX: J34.2 Deviated nasal septum (principal); R09.81 Nasal congestion; J34.3 Hypertrophy of nasal turbinates
CPT/HCPCS: 88304; 88311

== ENCOUNTER 2023-12-16 15:27 | Inpatient (IN) | payer MEDICARE, OTHER, SELFPAY ==
[2023-12-16] VITALS (13 sets, daily range): BP systolic 146–205; BP diastolic 73–100; PULSE 71–84; RESP 14–29; TEMP 36.6–37.1; O2SAT 90–100; BMI 34.0
--- NOTE | 2023-12-16 16:27 | EKG12_ITS ---
Test Reason : DIZZY Blood Pressure : / mmHG Vent. Rate : 071 BPM Atrial Rate : 071 BPM P-R Int : 130 ms QRS Dur : 072 ms QT Int : 388 ms P-R-T Axes : 050 014 014 degrees QTc Int : 421 ms Normal sinus rhythm Normal ECG Confirmed by Carlos Ivy ([id number]), editorial clerk ARNOL ELLIOTT ([id number]) on 12/17/2023 9:21:38 AM Referred By: Confirmed By:Carlos Ivy
--- NOTE | 2023-12-16 16:27 | CT_ITS ---
INDICATION: Right ear pain EXAMINATION: CT BRAIN - CT Head or Brain W/O Contrast Injection TECHNIQUE: Multiple axial images were obtained of the head without intravenous contrast. A radiation dose optimization technique was used for this scan. IV Contrast dosage and agent: None. COMPARISON: None. FINDINGS: BRAIN PARENCHYMA: No intra- or extra-axial hemorrhage. No evidence of acute infarct. No intracranial mass or mass effect. There is preservation of the jeronimo/white matter interface. Posterior fossa structures are unremarkable. CSF SPACES: Appropriate for age. No hydrocephalus. Basal cisterns are patent. CALVARIUM, SKULL BASE, PARANASAL SINUSES AND MASTOID AIR CELLS: Scattered mucoperiosteal thickening. No discrete lytic or blastic abnormalities. ORBITS: Both globes, extraocular muscles, optic nerves and retrobulbar fat appear unremarkable. CT/Brain/Head without Contrast IMPRESSION: No acute intracranial findings. Electronically Signed: Rhys Lind MD at 17:28 EDT ,
[2023-12-16 16:43] LABS: Absolute Lymphocyte Count 1.41 X10^3/uL (0.83-4.51); Absolute Neutrophil Count 9.1 X10^3/uL (2.0-7.7); Basophil# 0.09 X10^3/uL; Basophil% 0.8 % (0-1); Eosinophils% 1.7 % (0-5); Hemoglobin 14.4 g/dL (12.0-15.0); Lymphocyte # 1.41 X10^3/ul (0.83-4.51); Lymphocyte % 12.2 % (19-41); Mean Corp Hgb Conc 32.7 g/dL (32-36); Mean Corpuscular Hgb 29.5 pg (27.0-32.0); Mean Corpuscular Volume 90.2 fL (81-99); Mean Platelet Vol. 9.9 fl (6.2-12.0); Monocyte# 0.69 X10^3/uL; NRBC Flagged by Analyzer 0 % (0-5); Neutrophil # 9.07 X10^3/uL (2.7-7.7); Neutrophil % 78.7 % (47-70); Platelet Count 304 K/mm3 (150-450); RBC Distribution Width CV 12.5 % (11.6-14.6); Red Blood Count 4.88 M/mm3 (4.2-5.4); White Blood Count 11.5 K/mm3 (4.4-11.0)
--- NOTE | 2023-12-16 16:50 | RAD_ITS ---
INDICATION: Neuro deficit, acute, stroke suspected EXAMINATION/TECHNIQUE: X-RAY - portable supine AP chest x-ray COMPARISON: 01/26/2020 FINDINGS: LINES/DEVICES: None. LUNGS: No consolidation, edema or effusion. No pneumothorax. MEDIASTINUM AND CARDIOVASCULAR STRUCTURES: Cardiac silhouette not enlarged. Central airways and mediastinal contour are unremarkable. BONES AND SOFT TISSUES: No acute changes. RAD/Chest 1 View IMPRESSION: No radiographic evidence of acute cardiopulmonary disease. Electronically Signed: Rhys Lind MD at 17:23 EDT ,
[2023-12-16 16:55] LABS: Bedside Glucose 97 mg/dL (74-106)
[2023-12-16] MEDS: Ondansetron 4 MG/2 ML Vial IV (17:03)
[2023-12-16] MEDS: Morphine 4 MG/ML Syringe IV (17:03)
[2023-12-16 17:05] LABS: Anion Gap 9 (5-15); BUN 13 mg/dL (7-18); BUN/Creat Ratio 15.5 RATIO (10-20); Calcium,Total 9.5 mg/dL (8.5-10.1); Chloride 104 mmol/L (98-107); Creatinine, Serum 0.84 mg/dL (0.55-1.02); EST Glomerular Filtration Rate 71 mL/min (>60); Est Glom Filt Rate - Afr Amer 86 mL/min (>60); Estimated Creatinine Clearance 68.59 ml/min; Glucose 110 mg/dL (74-106); Potassium 3.6 mmol/L (3.5-5.1); Sodium Level 137 mmol/L (136-145); Troponin-I HS 6 pg/mL (3.0-54.0)
[2023-12-16 17:07] LABS: International Normalized Ratio 1.1; Partial Thromboplast Time 26.2 Seconds (24.1-36.2); Prothrombin Time (Protime)PT. 13.7 SECONDS (11.7-14.9)
--- NOTE | 2023-12-16 18:22 | ED.RN ---
per Dr. Lazo, darenay to discontinue NIHSS
--- NOTE | 2023-12-16 19:53 | EDS_ITS ---
HPI History of Present Illness Chief Complaint: Other, Pain/Inj Detail of Chief Complaint: Severe right-sided neck pain with dizziness. Informant: patient Onset/Context/Timing Onset: Yesterday (Intermittent neck pain yesterday constant starting today at noon) and Days (The vertigo has been present for couple of days.) Context: Sudden Onset Timing: Continuous (Neck pain has been continuous since 12 noon) and Intermittent (Vertigo has been intermittent for the past 2 to 3 days) Quality: Sense of moving when she is not Location: The neck pain is predominately on the right side, postauricular area and he Current Severity: Severe Maximum Severity: Severe Worsened by: Movement Relieved by: Nothing Associated Symptoms Associated Symptoms: No constitutional symptoms. No paresthesia, anesthesia or motor weakness. Narrative Narrative: Patient is a 68-year-old woman. She had septoplasty done by Dr. Walker earlier this month. She presents by ambulance because of severe pain right side of her neck. She had pain yesterday that was intermittent. Pain became constant at noon today and is unbearable. Movement makes the pain worse. She does complain of pain radiating to the right arm but not in a radicular or dermatomal pattern. She denies weakness of her hand. She states she has been checked by her doctor and told she does not have an ear infection. She may have slight muffling of the hearing on the right. There is no ringing or ears. She has had mild nasal congestion. She denies change in voice. Denies difficulty swallowing. Patient describes a motion sensation. This has been intermittent over the last 3 days. It is not positional. It is not associated with double vision or loss of vision. She does not complain of instability when she walks. She had this sensation several months ago and was asked by her doctor if this is vertigo. She did not think it was vertigo. That lasted for 1 to 2 months. Prior similar symptoms: Yes Recent Illness/Hospitalization: No PFSH PFSH Medical History Blister History of steroid therapy Injury of head and neck Non-smoker Shortness of breath on exertion Leg cramps Cardiology follow-up encounter Anemia Wears glasses Wears partial dentures Post-menopausal History of stress test Bhatti's esophagus without dysplasia Blood in stool Nausea Abdominal pain Anxiety Hypertension Numbness and tingling Fatigue GERD (gastroesophageal reflux disease) Glaucoma Diabetes Depression Home Medications ?Medication ?Instructions ?Recorded ?Last Taken ?Type venlafaxine 75 mg capsule,extended 225 mg PO DAILY mood 02/25/18 02/03/20 05:35 History release 24 hr ergocalciferol (vitamin D2) 1,250 50,000 unit PO QWEEK supplement 03/12/18 Unknown History mcg (50,000 unit) capsule (Vitamin D2) omega 9-poy-mnr-fish oil 900 4,200 mg PO DAILY supplement 03/12/18 Unknown History mg-1,400 mg capsule,delayed release (Fish Oil) losartan 100 mg tablet 100 mg PO DAILY 11/15/20 12/29/20 06:00 History buspirone 5 mg tablet 5 mg PO BID 10/24/22 Unknown History oxycodone-acetaminophen 5 mg-325 1 tab PO Q4H PRN PRN pain 12/16/23 Unknown H istory mg tablet Allergy/AdvReac Type Severity Reaction Status Date / Time hydroxyzine Allergy Intermediate Other Verified 02/26/23 14:12 lisinopril AdvReac Mild cough Verified 02/26/23 14:12 Family History Mother Heart disease CVA (cerebral vascular accident) Skin cancer Hypertension Father Pancreatic cancer Heart disease Diabetes Surgical History S/P nasal septoplasty History of foot surgery History of eye surgery History of surgery on arm S/P appendectomy H/O neck surgery S/P colonoscopy History of esophagogastroduodenoscopy (EGD) Social History Smoking Status: Never smoker second hand exposure: No alcohol intake: never substance use type: does not use caffeine: No what type of physical activity do you participate in: none frequency: does not exercise ROS ROS ED Constitutional Constitutional ED: Denies chills, fever(s), subjective, sweats or weight loss Eyes Eyes: Denies blurry vision, change in vision or diplopia ENT ENT ED: Denies ear pain, rhinorrhea or sore throat Cardiovascular Cardiovascular: Denies chest pain, palpitations or racing heartbeat Respiratory/Chest Respiratory/Chest: Denies cough, dyspnea or dyspnea on exertion Gastrointestinal Gastrointestinal: Denies abdominal pain, constipation, diarrhea, melena, nausea or vomiting Genitourinary Genitourinary ED: Denies dysuria, hematuria or urinary frequency Musculoskeletal Musculoskeletal: Denies arthralgias, myalgias or neck pain Integumentary Denies abscess, Abrasions or rash Neurologic Neurologic: Denies headache(s), paresthesias or weakness Psychiatric Psychiatric: Denies anxiety Hematologic/Lymphatic Hematologic/Lymphatic: Reports systems reviewed and no addt'l complaints, except as documented EXAM Physical Exam Const Vital Signs: 12/16/23 15:28 12/16/23 15:28 12/16/23 16:27 Temperature 98.7 F Temperature Source Oral Pulse Rate 73 72 Respiratory Rate 18 29 H Respiratory Effort Normal Respiratory Pattern Normal Blood Pressure 205/98 H 188/83 H Blood Pressure Mean 133 118 Pulse Ox 100 100 Oxygen Delivery Method Room Air Room Air 12/16/23 16:39 12/16/23 16:57 12/16/23 17:27 Temperature Temperature Source Pulse Rate 74 78 Respiratory Rate 15 18 Respiratory Effort Respiratory Pattern Blood Pressure 166/83 H 172/87 H Blood Pressure Mean 110 115 Pulse Ox 100 99 96 Oxygen Delivery Method Room Air Room Air Room Air 12/16/23 17:28 12/16/23 17:30 12/16/23 18:00 Temperature Temperature Source Pulse Rate 77 71 84 Respiratory Rate 16 14 16 Respiratory Effort Respiratory Pattern Blood Pressure 177/86 H 179/81 H 179/86 H Blood Pressure Mean 116 113 117 Pulse Ox 99 97 98 Oxygen Delivery Method Room Air Room Air Room Air 12/16/23 19:00 12/16/23 21:00 Temperature Temperature Source Pulse Rate 79 77 Respiratory Rate 14 20 H Respiratory Effort Respiratory Pattern Blood Pressure 174/83 H 146/73 H Blood Pressure Mean 113 97 Pulse Ox 96 90 Oxygen Delivery Method Room Air Room Air Positive well nourished and well developed Constitutional Narrative: BMI is 34. Patient is in obvious discomfort. General Appearance ED: well developed; Negative for cyanotic, diaphoretic, NAD or pallor HEENT Reports TM's clear and moist mucous membranes HEENT Narrative: Head is atraumatic normocephalic. Ears normal. External auditory canal normal. TMs are normal. Nares are patent. Posterior pharynx unremarkable. Uvula is m idline. There is no deviation with protrusion. Patient has pain outpatient to right side of neck greater than left. There is no dermatologic lesions noted. She has a prior scar from fusion of C5-6. There is no carotid bruits. There is no cervical lymphadenopathy. Unable to assess for nuchal rigidity. Tympanic Membrane ED: Yes TM's clear Eyes PERRL and EOMs intact bilaterally General Eye ED: Negative for pale conjunctiva or scleral icterus Neck no lymphadenopathy, supple and no JVD Chest Wall inspection of chest normal and palpation of chest normal Resp normal respiratory effort and clear to auscultation bilaterally Cardio regular rate, regular rhythm, S1 normal heart sound, S2 normal heart sound and no murmurs GI normal to inspection, nondistended, normoactive bowel sounds, non-tender, non- distended and no masses; Negative for hepatosplenomegaly Extremity normal to inspection General Extremety ED: Negative for edema or tenderness General Extremity: Negative for edema Neuro oriented x3, CN's II-XII intact bilaterally and no sensory deficits noted Sensorium / Orientation: alert Motor Exam: strength 5/5 throughout Psych mental status grossly normal Skin no rashes or lesions noted, no wounds and skin turgor normal General Skin Exam: Negative for jaundice or pallor MDM MDM MDM Narrative Medical decision making narrative: Differential diagnosis is central versus peripheral vertigo also need to consider possible subarachnoid hemorrhage. This may be musculoskeletal. Stroke workup was undertaken because she is complaining of vertiginous symptoms. Vertiginous symptoms occur when she is supine that is not associated with movement. But gets better when she closes her eyes and resolves. She Lab Data Attestation: I reviewed the patient's lab results. Lab results narrative: White count is slightly elevated with slight shift which is nonspecific. Electrolyte panel is normal. Troponin is normal. Labs: Laboratory Results - last 24 hr 12/16/23 12/16/23 15:30 16:37 WBC 11.5 H RBC 4.88 Hgb 14.4 Hct 44.0 MCV 90.2 MCH 29.5 MCHC 32.7 RDW Std Deviation 41.0 RDW Coeff of Melissa 12.5 Plt Count 304 MPV 9.9 Immature Gran % (Auto) 0.600 Neut % (Auto) 78.7 H Lymph % (Auto) 12.2 L [place] % (Auto) 6.0 Eos % (Auto) 1.7 Baso % (Auto) 0.8 Absolute Neuts (auto) 9.1 H Absolute Lymphs (auto) 1.41 Nucleated RBC % 0 PT 13.7 INR 1.1 APTT 26.2 Sodium 137 Potassium 3.6 Chloride 104 Carbon Dioxide 24.0 Anion Gap 9 BUN 13 Creatinine 0.84 Estim Creat Clear Calc 68.59 Est GFR (MDRD) Af Amer 86 Est GFR (MDRD) Non-Af 71 BUN/Creatinine Ratio 15.5 Glucose 110 H Calcium 9.5 Troponin I High Sens 6 POC Glucose 97 Radiography Chest X-Ray - ED: 1 View, Read by ED Physician, Normal, Heart, Lungs, Mediastinum, Bony Structures and No Acute Disease Diagnostic Testing: Clinical Impression(s) from Imaging Studies Brain CT 12/16/23 16:27 IMPRESSION: No acute intracranial findings. Electronically Signed: Rhys Lind MD at 17:28 EDT , Chest X-Ray 12/16/23 16:50 IMPRESSION: No radiographic evidence of acute cardiopulmonary disease. 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 Multilevel degenerative changes worse at C3-C4 and C4-C5. Electronically Signed: Aleks Padilla DO at 21:29 EDT , CT per my review reveals no acute process will wait for formal read by radiologist. CT of the cervical spine reveals a fusion of C5-6 from prior surgery. She has multilevel degenerative changes worse at C3-4 and C4-5. Treatment and Re-Evaluation :: I was informed by nursing staff that she is still complaining of significant pain and would like more pain medicine. Comments:: Patient was reassessed at [id number]. She is still in significant discomfort. In light of this hospitalist been paged for admission for pain management possible MRI and consult with spine. Discharge Plan Dx/Rx/DC Orders Clinical Impression: Vertigo, Hypertension, Barretts esophagus, Acute neck pain Disposition Disposition: Acute Care Hospital [facility]
--- NOTE | 2023-12-16 20:02 | CT_ITS ---
EXAM: CT CERVICAL SPINE WITHOUT INTRAVENOUS CONTRAST CLINICAL INDICATION: Excruciating right-sided neck pain TECHNIQUE: Helically acquired images were obtained of the cervical spine without intravenous contrast. 2D reformatted images were reviewed. This CT exam was performed using one or more of the following dose reduction techniques: automated exposure control, adjustment of the mA and/or kV according to patient size, and/or use of iterative reconstruction technique. COMPARISON: CT head on the same date. Cervical spine radiographs, 02/18/2019. FINDINGS: VERTEBRAE: Straightening of the expected cervical lordosis. Multilevel facet, uncovertebral joint, and endplate osteophytosis. No fracture. No traumatic subluxation. No discrete lytic or blastic abnormality. Aside from degenerative changes, normal craniocervical junction and cervicothoracic junction. DISCS/SPINAL CANAL/NEURAL FORAMINA: Mild to moderate multilevel spinal canal stenosis. Neural foraminal stenosis is worst at C3-C4 and C4-C5 bilaterally. Spinal canal stenosis is worst at C4-C5. 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 Multilevel intervertebral disc height loss. Mild to moderate multilevel neural foraminal narrowing. SOFT TISSUES: No significant abnormality. No prevertebral soft tissue swelling. VASCULATURE: Vascular calcifications. LYMPH NODES: No significant abnormality. No cervical adenopathy. LUNG APICES: Normal as visualized. Clear. 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 Multilevel degenerative changes worse at C3-C4 and C4-C5. Electronically Signed: Aleks Padilla DO at 21:29 EDT ,
[2023-12-16] MEDS: HYDROmorphone 0.5 MG/0.5 ML SYRINGE IV (20:18)
--- NOTE | 2023-12-16 22:41 | HP.PCM.HOS_ITS ---
HPI - General General Date of Admission: 12/16/23 Date of Service: 12/16/23 Chief Complaint: Acute on chronic cervical neck pain, vertigo. HPI Narrative The patient is a 68 y/o F w/ PMHx: GERD w/ history of Bhatti's esophagus without dysplasia, Functional motility disorder, Exocrine mild pancreatic insufficiency, Anxiety and Depression, Chronic anemia, Pre-Diabetes, Obesity who presents to the [facility] ED on 12/16/23 with history of significant vertiginous symptoms initially with ear pain following recent septoplasty ~ 1.5 week prior with worsening R ear pain, noting mildly muffled hearing in addition to intermittent ongoing vertigo primarily when she is supine not associated with movement but does improve when she closes her eyes and appears to resolved at that time in addition to headache BL occiptal region (constant with intermittent waves of worsening discomfort) as well as severe cervical neck discomfort with history of previous chronic neck pain status post cervical fusion surgery intervention prompting eventual ED evaluation. She denies any radicular pain. She denies any paresthesias. She has generalized weakness but no focal pain. Patient unable to have DHM assessment secondary to neck pain. Family notes this pain presentation is similar to the pain she had prior to her cervical surgery prior. She rates her constant neck pain dull aching throbbing 7-8/10 in severity and the sharp more severe bursts of pain 10/10. She does report more discomfort to the right neck and has more pain with palpation of the muscles to the right neck region. Workup in the ED included T90.7, heart rate 73, BP 205/98, respiratory rate 18, 100% on room air with most recent repeat vital signs heart rate 77, BP 146/73, respiratory rate 20, 90% on room air, CBC with WBC 11.5, human 14.4, platelet 304 with left shift, unremarkable coags, BMP with glucose 110 otherwise unremarkable, troponin 6, CT head without contrast with no acute intracranial finding, CT cervical spine with chronic bony fusion of C5 and 6 likely postoperative with multilevel degenerative changes worse at C3-C4 and C4- C5, chest x-ray with no acute cardiopulmonary findings. In the ED patient ministered Zofran 4 mg IV x 1, labetalol 20 mg IV x 1, morphine 4 mg IV x 1 and eventually Dilaudid 0.5 mg IV x 1. [facility] Medical History Blister History of steroid therapy Injury of head and neck Non-smoker Shortness of breath on exertion Leg cramps Cardiology follow-up encounter Anemia Wears glasses Wears partial dentures Post-menopausal History of stress test Bhatti's esophagus without dysplasia Blood in stool Nausea Abdominal pain Anxiety Hypertension Numbness and tingling Fatigue GERD (gastroesophageal reflux disease) Glaucoma Diabetes Depression Home Medications ?Medication ?Instructions ?Recorded ?Last Taken ?Type venlafaxine 75 mg capsule,extended 225 mg PO DAILY mood 02/25/18 02/03/20 05:35 History release 24 hr ergocalciferol (vitamin D2) 1,250 50,000 unit PO QWEEK supplement 03/12/18 Unknown History mcg (50,000 unit) capsule (Vitamin D2) omega 6-mdh-avg-fish oil 900 4,200 mg PO DAILY supplement 03/12/18 Unknown History mg-1,400 mg capsule,delayed release (Fish Oil) losartan 100 mg tablet 100 mg PO DAILY 11/15/20 12/29/20 06:00 History buspirone 5 mg tablet 5 mg PO BID 10/24/22 Unknown History oxycodone-acetaminophen 5 mg-325 1 tab PO Q4H PRN PRN pain 12/16/23 Unknown History mg tablet Allergy/AdvReac Type Severity Reaction Status Date / Time hydroxyzine Allergy Intermediate Other Verified 02/26/23 14:12 lisinopril AdvReac Mild cough Verified 02/26/23 14:12 Family History Mother Heart disease CVA (cerebral vascular accident) Skin cancer Hypertension Father Pancreatic cancer Heart disease Diabetes Surgical History S/P nasal septoplasty History of foot surgery History of eye surgery History of surgery on arm S/P appendectomy H/O neck surgery S/P colonoscopy History of esophagogastroduodenoscopy (EGD) Social History Smoking Status: Never smoker second hand exposure: No alcohol intake: never substance use type: does not use caffeine: No what type of physical activity do you participate in: none frequency: does not exercise ROS ROS Narrative Admission Review of Systems: CONSTITUTIONAL: No weight loss, fever, chills, + weakness or fatigue. HEENT: + Neck pain, strain, vertigo. Eyes: No visual loss, blurred vision, double vision or yellow sclerae. Ears, Nose, Throat: No hearing loss, sneezing, congestion, runny nose or sore throat. SKIN: No rash or itching, lesions, wounds. CARDIOVASCULAR: No chest pain, chest pressure or chest discomfort, palpitations, edema, orthopnea, syncopal events. RESPIRATORY: No shortness of breath, cough or sputum, wheezing, hemoptysis. GASTROINTESTINAL: No anorexia, nausea, vomiting or diarrhea, abdominal pain, melena, BRBPR. GENITOURINARY: No dysuria, frequency, urgency or retention. NEUROLOGICAL: + Headache, neck strain/pain, vertigo/dizziness. No syncope, paralysis, ataxia, numbness or tingling in the extremities, focal weakness, change in bowel or bladder control, seizure. MUSCULOSKELETAL: + muscle, back pain, joint pain or stiffness. HEMATOLOGIC: + History of anemia. No current marked history of bleeding or bruising. LYMPHATICS: No enlarged nodes. No history of splenectomy. PSYCHIATRIC: + History of anxiety and depression. ENDOCRINOLOGIC: No reports of sweating, cold or heat intolerance. No polyuria or polydipsia. ALLERGIES: No history of asthma, hives, eczema or rhinitis. Vital Signs Vital Signs Vital Signs: 12/16/23 15:28 12/16/23 15:28 12/16/23 16:27 Temperature 98.7 F Temperature Source Oral Pulse Rate 73 72 Respiratory Rate 18 29 H Respiratory Effort Normal Respiratory Pattern Normal Blood Pressure 205/98 H 188/83 H Blood Pressure Mean 133 118 Pulse Ox 100 100 Oxygen Delivery Method Room Air Room Air 12/16/23 16:39 12/16/23 16:57 12/16/23 17:27 Temperature Temperature Source Pulse Rate 74 78 Respiratory Rate 15 18 Respiratory Effort Respiratory Pattern Blood Pressure 166/83 H 172/87 H Blood Pressure Mean 110 115 Pulse Ox 100 99 96 Oxygen Delivery Method Room Air Room Air Room Air 12/16/23 17:28 12/16/23 17:30 12/16/23 18:00 Temperature Temperature Source Pulse Rate 77 71 84 Respiratory Rate 16 14 16 Respiratory Effort Respiratory Pattern Blood Pressure 177/86 H 179/81 H 179/86 H Blood Pressure Mean 116 113 117 Pulse Ox 99 97 98 Oxygen Delivery Method Room Air Room Air Room Air 12/16/23 19:00 12/16/23 21:00 Temperature Temperature Source Pulse Rate 79 77 Respiratory Rate 14 20 H Respiratory Effort Respiratory Pattern Blood Pressure 174/83 H 146/73 H Blood Pressure Mean 113 97 Pulse Ox 96 90 Oxygen Delivery Method Room Air Room Air Weight Weight: 197 lb 15.602 oz Body Mass Index (BMI) 34.0 Physical Exam Narrative Physical Examination: General: Awake, alert, oriented x 3 and cooperative, laying in the ED bed, fatigued and uncomfortable appearing however she is very talkative and does move her arms well during evaluation while she is talking. Skin: Normal color, normal turgor, no icterus, no cyanosis. HEENT: AT/NC, EOMI, PERRLA, dry MM, no carotid bruits or JVD noted, tenderness to palpation of the right neck musculature, no evidence of any nystagmus. Lungs: Mildly diminished, greater bases, proper effort, no rales, ronchi or wheezing. Heart: Regular rate and rhythm; no gallop, rub audible. Abdomen: Soft, obese, NTTP, ND, mildly hyperactive BS, no appreciated HSM. Extremities: No cyanosis, clubbing, or edema. Neurological: Patient awake, alert, oriented as noted, cognitive function intact; pupils equally reactive to light and accommodation, cranial nerves grossly normal, moving all 4 extremities, no specifically noted focal deficits although exam difficult given intractable neck pain, strength severely globally decreased because of neck pain however patient able to move upper and lower extremities with no drift, sensation intact, finger-nose and [id number] appropriate but again difficult evaluation given neck pain, negative Babinski. Psychiatric: Affect appears fatigued, uncomfortable, no acute evidence of depressive or anxiety feelings but does have underlying history. Results Lab / Micro Data 12/16/23 15:30 12/16/23 15:30 Labs: Laboratory Results - last 24 hr 12/16/23 15:30: WBC 11.5 H, RBC 4.88, Hgb 14.4, Hct 44.0, MCV 90.2, MCH 29.5, MCHC 32.7, RDW Std Deviation 41.0, RDW Coeff of Eml[place] 12.5, Plt Count 304, MPV 9.9, Immature Gran % (Auto) 0.600, Neut % (Auto) 78.7 H, Lymph % (Auto) 12.2 L, [place] % (Auto) 6.0, Eos % (Auto) 1.7, Baso % (Auto) 0.8, Absolute Neuts (auto) 9.1 H, Absolute Lymphs (auto) 1.41, Nucleated RBC % 0, PT 13.7, INR 1.1, APTT 26.2, Sodium 137, Potassium 3.6, Chloride 104, Carbon Dioxide 24.0, Anion Gap 9, BUN 13, Creatinine 0.84, Estim Creat Clear Calc 68.59, Est GFR (MDRD) Af Amer 86, Est GFR (MDRD) Non-Af 71, BUN/Creatinine Ratio 15.5, Glucose 110 H, Calcium 9.5, Troponin I High Sens 6 12/16/23 16:37: POC Glucose 97 Imaging Radiology Impression Brain CT 12/16/23 16:27 IMPRESSION: No acute intracranial findings. Electronically Signed: Rhys Lind MD at 17:28 EDT , Chest X-Ray 12/16/23 16:50 IMPRESSION: No radiographic evidence of acute cardiopulmonary disease. 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 Multilevel degenerative changes worse at C3-C4 and C4-C5. Electronically Signed: Aleks Padilla DO at 21:29 EDT , Assessment & Plan Assessment/Plan (1) Acute neck pain: (2) Vertigo: PLAN: Plan The patient is a 68 y/o F w/ PMHx: GERD w/ history of Bhatti's esophagus without dysplasia, Functional motility disorder, Exocrine mild pancreatic insufficiency, Anxiety and Depression, Chronic anemia, Pre-Diabetes, Obesity who presents to the [facility] ED on 12/16/23 with history of significant vertiginous symptoms initially with ear pain following recent septoplasty ~ 1.5 week prior with worsening R ear pain, noting mildly muffled hearing in addition to intermittent ongoing vertigo primarily when she is supine not associated with movement but does improve when she closes her eyes and appears to resolved at that time in addition to headache BL occiptal region (constant with intermittent waves of worsening discomfort) as well as severe cervical neck discomfort with history of previous chronic neck pain status post cervical fusion surgery intervention prompting eventual ED evaluation. #1. Recent Septoplasty with then onset R ear pain, Atypical Vertigo, Unclear etiology, Possible CVA (lower suspicion) versus Vertigo complicated by #2: Although suspect likely secondary to recent surgery and inner ear etiology very atypical and difficult to evaluate given her intractable cervical pain thus to be cautious will admit to PCU, will obtain MRI Brain/MRA head and neck, ECHO, PT/OT/Speech/Nutrition evaluation per protocol. Will allow permissive HTN, maintain on asa, fall precautions. Mag, TSH, FLP, HgbA1c requested. Maintain on fall and aspiration precautions. Will have meclizine PRN. #2. Acute Intractable Cervical Back Pain: Will maintain on fall precautions, frequent positioning, given #1 evaluation will avoid NSAIDs at this time to be cautious although low suspicion as noted above, initiate lidoacine patches, low- dose tizanidine, medrol dose pack, low dose gabapentin, po/IV narcotic pain regimen, anti-emetics, bowel regimen. Will plan MRI of the cervical spine with and without contrast. Pending image findings may necessitate involvement of orthospine. PT and OT consulted as noted. #3. Exocrine mild pancreatic insufficiency: Following with gastroenterology, per most recent note 08/04/2023 decision to defer pancreatic enzymes with ongoing diet and lifestyle changes with encourage continued weight loss and appropriate protein intake, encourage continued outpatient follow-up. #4. GERD with history of Bhatti's esophagus without dysplasia, functional motility disorder: Patient per most recent GI note with decision to avoid PPIs following previous EGD with history of bile induced reflux gastritis and esophagitis with high suspicion for possibly functional motility disorder with gastric emptying study upper limit of normal with decision to initiate treatment with gastroparesis type diet with plan follow-up repeat emptying study in 3 months. Encourage continued outpatient follow-up. #5. Hypertension: Again low suspicion but given atypical vertiginous presentation we will maintain on permissive hypertension with. Agents per stroke protocol until further evaluated. #6. Anxiety and depression: We will continue patient home venlafaxine regimen as well as buspirone. Given current presentation if necessary may hold for sedation. #7. Prediabetes: Most recent hemoglobin A1c noted 06/30/2023 6.0% and previous to this 01/26/2020 had been 6.1%, encourage continued diet and lifestyle changes, will request repeat hemoglobin A1c to assure this is not are rising given planned usage of steroid regimen as noted, maintain on ADA diet, maintain on Accu-Cheks with insulin sliding scale given is again noted steroid usage planned. Nutrition consulted per stroke protocol as noted above. #8. Obesity: Weight loss and lifestyle changes encouraged. #9. DVT prophylaxis: Lovenox. Charges/Coding Visit Charges Inpatient E&M: 49966 Init Hosp L3
[2023-12-16 23:15] LABS: Magnesium 2.1 mg/dL (1.6-2.6)
[2023-12-16] MEDS: Morphine 2 MG/ML Syringe IV (23:23)
--- NOTE | 2023-12-16 23:53 | ECHOD_ITS ---
Reason For Study: TIA/CVA Procedure This was a 2D Doppler, Color Flow transthoracic echocardiogram. Exam performed portable in patient room. Left Ventricle Normal LV size. Mild concentric left ventricular hypertrophy. The left ventricular ejection fraction is 60 %. Normal diastology for age. Right Ventricle Normal right ventricle. Atria The left and right atria are normal. Bubble contrast study is negative for PFO/ASD. Mitral Valve Trivial mitral valve insufficiency. Tricuspid Valve Trivial tricuspid valve insufficiency. Normal pulmonary artery pressure. Aortic Valve Trisinus/trileaflet aortic valve. Pulmonic Valve The pulmonic valve is not well visualized. Great Vessels Normal sized aortic root. Pericardium/Pleural No pericardial effusion. Medication Performed a rapid injection of agitated mix of 9 cc saline and 1cc air to assess for atrial septal defect. MMode/2D Measurements & Calculations LVIDd: 4.1 cm IVSd: 1.4 cm LVOT diam: 2.0 cm LVIDs: 2.2 cm LVPWd: 1.1 cm RVDd: 3.5 cm FS: 45.4 % LVOT area: 3.0 cm2 Ao root diam: 3.2 cm LAV(MOD-bp): 49.7 ml LVAd ap4: 17.2 cm2 LAV(MOD-bp) Indexed: 25.7 ml/m2 LVLd ap4: 6.8 cm LAV(MOD-sp2): 43.7 ml EDV(MOD-sp4): 37.1 ml LAV(MOD-sp4): 51.8 ml EDV(sp4-el): 36.9 ml LVAs ap4: 9.1 cm2 LVLs ap4: 5.4 cm ESV(MOD-sp4): 12.8 ml ESV(sp4-el): 13.0 ml EF(MOD-sp4): 65.5 % EF(sp4-el): 64.9 % LVAd ap2: 16.6 cm2 SV(MOD-sp4): 24.3 ml SV(MOD-sp2): 21.8 ml LVLd ap2: 6.5 cm EDV(MOD-sp2): 34.8 ml EDV(sp2-el): 35.9 ml LVAs ap2: 9.1 cm2 LVLs ap2: 5.4 cm ESV(MOD-sp2): 13.0 ml ESV(sp2-el): 13.0 ml EF(MOD-sp2): 62.7 % SV(sp4-el): 23.9 ml LA dimension(2D): 3.8 cm LA A4 area: 18.2 cm2 RA A4 area: 12.1 cm2 TAPSE: 1.9 cm Time Measurements MV dec time: 0.21 sec Doppler Measurements & Calculations MV E max timoteo: 84.0 cm/sec Lat Peak E' Timoteo: 11.4 cm/sec Med Peak E' Timoteo: 7.6 cm/sec MV A max timoteo: 80.7 cm/sec E/E' lat: 7.4 E/E' med: 11.1 MV E/A: 1.0 Ao V2 max: 141.9 cm/sec LV V1 max: 112.3 cm/sec MV dec slope: 393.4 cm/sec2 Ao max P.0 mmHg LV V1 max P.0 mmHg Ao V2 mean: 90.3 cm/sec LV V1 mean P.4 mmHg Ao mean P.8 mmHg LV V1 mean: 70.6 cm/sec Ao V2 VTI: 29.1 cm LV V1 VTI: 20.6 cm AV (velocity ratio): 0.71 JENNIFER(I,D): 2.1 cm2 JENNIFER(V,D): 2.4 cm2 SV(LVOT): 62.1 ml PA V2 max: 82.7 cm/sec TR max timoteo: 204.1 cm/sec PA max PG (full): 1.1 mmHg TR max P.7 mmHg ECHO/Echo Complete Interpretation Summary Mild concentric left ventricular hypertrophy. The left ventricular ejection fraction is 60 %. Bubble contrast study is negative for PFO/ASD. Ordering Physician: Lorraine Mosley Referring Physician: Demian Avila MD Performed By: Monik Chavez RDCS
[2023-12-17] VITALS (15 sets, daily range): BP systolic 96–118; BP diastolic 51–80; PULSE 67–80; RESP 16–18; TEMP 36.7; O2SAT 90–99; BMI 33.5
[2023-12-17] MEDS: 0.9% Normal Saline (1000mL) 1,000 ML 100 ML IV (00:15)
[2023-12-17] MEDS: Meclizine 12.5 MG Tablet PO (00:26)
[2023-12-17] MEDS: HYDROmorphone 0.5 MG/0.5 ML SYRINGE IV ×2 (00:26→14:41)
[2023-12-17] MEDS: Lidocaine 5% Patch 2 PATCH TOPICAL ×2 (00:31→20:49)
[2023-12-17] MEDS: tiZANidine HCl 2 MG Tablet PO (00:32)
[2023-12-17] MEDS: Pantoprazole Sodium 20 MG Tablet PO ×3 (00:32→20:48)
[2023-12-17] MEDS: Gabapentin 100 MG Capsule PO ×4 (00:35→18:40)
[2023-12-17 00:39] LABS: Bedside Glucose 115 mg/dL (74-106)
[2023-12-17 06:38] LABS: Bedside Glucose 97 mg/dL (74-106)
[2023-12-17 07:06] LABS: Absolute Lymphocyte Count 1.34 X10^3/uL (0.83-4.51); Absolute Neutrophil Count 5.3 X10^3/uL (2.0-7.7); Basophil# 0.05 X10^3/uL; Basophil% 0.6 % (0-1); Eosinophil# 0.18 X10^3/uL; Eosinophils% 2.3 % (0-5); Hematocrit 40.3 % (37-47); Hemoglobin 12.7 g/dL (12.0-15.0); Lymphocyte # 1.34 X10^3/ul (0.83-4.51); Lymphocyte % 16.9 % (19-41); Mean Corp Hgb Conc 31.5 g/dL (32-36); Mean Corpuscular Hgb 29.7 pg (27.0-32.0); Mean Corpuscular Volume 94.2 fL (81-99); Monocyte# 1.01 X10^3/uL; Monocyte% 12.7 % (0-10); NRBC Flagged by Analyzer 0 % (0-5); Neutrophil # 5.31 X10^3/uL (2.7-7.7); Platelet Count 223 K/mm3 (150-450); RBC Distribution Width SD 44.4 fl (35.1-43.9); Red Blood Count 4.28 M/mm3 (4.2-5.4); White Blood Count 7.9 K/mm3 (4.4-11.0)
[2023-12-17 07:58] LABS: ALB/GLOB Ratio 0.9 RATIO (0.9-2.4); AST(SGOT) 13 U/L (15-37); Alanine Aminotransfer ALT/SGPT 19 U/L (13-56); Alkaline Phosphatase 81 U/L (45-117); Anion Gap 4 (5-15); BUN 14 mg/dL (7-18); BUN/Creat Ratio 11.3 RATIO (10-20); Calcium,Total 8.5 mg/dL (8.5-10.1); Chloride 106 mmol/L (98-107); Cholesterol 189 mg/dL (200); Creatinine, Serum 1.24 mg/dL (0.55-1.02); EST Glomerular Filtration Rate 46 mL/min (>60); Est Glom Filt Rate - Afr Amer 55 mL/min (>60); Estimated Creatinine Clearance 46.11 ml/min; Globulin 3.4 g/dL (2.2-4.2); Glucose 131 mg/dL (74-106); High Density Lipoprotein 41 mg/dL; Potassium 4.1 mmol/L (3.5-5.1); Protein, Total 6.4 g/dL (6.4-8.2); Sodium Level 135 mmol/L (136-145); Triglycerides 169 mg/dL; Very Low Density Lipoprotein 34 mg/dL (5-40)
[2023-12-17] MEDS: oxyCODONE 5 MG Tablet PO ×3 (08:11→20:48)
[2023-12-17] MEDS: Aspirin 81 MG TAB.CHEW PO (08:12)
[2023-12-17 09:30] LABS: Hemoglobin A1c 6.2 % (3.8-5.6)
[2023-12-17] MEDS: Venlafaxine XR 75 MG Capsule 225 MG PO (11:06)
[2023-12-17] MEDS: busPIRone 5 MG Tablet PO ×2 (11:07→20:48)
[2023-12-17] MEDS: Enoxaparin 40 MG/0.4 ML Syringe SC (11:08)
--- NOTE | 2023-12-17 11:48 | PCM.PN.HOSP ---
Reason for Visit Reason for Visit: Diagnoses Cervicalgia (12/16/23) Dizziness and giddiness (12/16/23) Subjective Subjective Saw patient at bedside this morning, several family members present. Patient was mildly uncomfortable appearing due to ongoing neck pain and discomfort. She reported that the pain this morning similar to on admission last night. She denies any significant vertigo currently while sitting in bed. States that the pain medications have only been somewhat helpful for her. She does report a mild headache as well. She otherwise denies any new concerns this morning. Objective Data Objective Data Vital Signs: Vital Signs Temp Pulse Resp BP Pulse Ox O2 Del Method O2 Flow Rate 98.1 F 67 16 96/51 L 99 Nasal Cannula 2 12/17/23 09:45 12/17/23 09:45 12/17/23 09:45 12/17/23 09:45 12/17/23 09:45 12/17/23 09:45 12/17/23 09:45 Oxygen Flow Rate (L/min) 2 Oxygen Delivery Method Nasal Cannula Weight: 88.5 kg Body Mass Index (BMI) 33.5 Intake & Output: Intake and Output for Last 24 Hours 12/15/23 12/16/23 12/17/23 23:59 23:59 23:59 Intake Total 1000 / 1000 Balance 1000 / 1000 Lab / Micro Data 12/17/23 06:56 12/17/23 06:56 Labs: Laboratory Results - last 24 hr 12/16/23 15:30: WBC 11.5 H, RBC 4.88, Hgb 14.4, Hct 44.0, MCV 90.2, MCH 29.5, MCHC 32.7, RDW Std Deviation 41.0, RDW Coeff of Melissa 12.5, Plt Count 304, MPV 9.9, Immature Gran % (Auto) 0.600, Neut % (Auto) 78.7 H, Lymph % (Auto) 12.2 L, [place] % (Auto) 6.0, Eos % (Auto) 1.7, Baso % (Auto) 0.8, Absolute Neuts (auto) 9.1 H, Absolute Lymphs (auto) 1.41, Nucleated RBC % 0, PT 13.7, INR 1.1, APTT 26.2, Sodium 137, Potassium 3.6, Chloride 104, Carbon Dioxide 24.0, Anion Gap 9, BUN 13, Creatinine 0.84, Estim Creat Clear Calc 68.59, Est GFR (MDRD) Af Amer 86, Est GFR (MDRD) Non-Af 71, BUN/Creatinine Ratio 15.5, Glucose 110 H, Calcium 9.5, Magnesium 2.1, Troponin I High Sens 6 12/16/23 16:37: POC Glucose 97 12/17/23 00:00: POC Glucose 115 H 12/17/23 06:16: POC Glucose 97 12/17/23 06:56: WBC 7.9, RBC 4.28, Hgb 12.7, Hct 40.3, MCV 94.2, MCH 29.7, MCHC 31.5 L, RDW Std Deviation 44.4 H, RDW Coeff of Melissa 13.0, Plt Count 223, MPV 9.0, Immature Gran % (Auto) 0.500, Neut % (Auto) 67.0, Lymph % (Auto) 16.9 L, [place] % (Auto) 12.7 H, Eos % (Auto) 2.3, Baso % (Auto) 0.6, Absolute Neuts (auto) 5.3, Absolute Lymphs (auto) 1.34, Nucleated RBC % 0, Sodium 135 L, Potassium 4.1, Chloride 106, Carbon Dioxide 25.0, Anion Gap 4 L, BUN 14, Creatinine 1.24 H, Estim Creat Clear Calc 46.11, Est GFR (MDRD) Af Amer 55 L, Est GFR (MDRD) Non-Af 46 L, BUN/Creatinine Ratio 11.3, Glucose 131 H, Hemoglobin A1c 6.2 H, Calcium 8.5, Total Bilirubin 0.70, AST 13 L, ALT 19, Alkaline Phosphatase 81, Total Protein 6.4, Albumin 3.0 L, Globulin 3.4, Albumin/Globulin Ratio 0.9, Triglycerides 169, Cholesterol 189, LDL Cholesterol 114, VLDL Cholesterol 34, HDL Cholesterol 41, TSH 1.90 Radiography Diagnostic Testing: Radiology Impression Brain CT 12/16/23 16:27 IMPRESSION: No acute intracranial findings. Electronically Signed: Rhys Lind MD at 17:28 EDT , Chest X-Ray 12/16/23 16:50 IMPRESSION: No radiographic evidence of acute cardiopulmonary disease. 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 Multilevel degenerative changes worse at C3-C4 and C4-C5. Electronically Signed: Aleks BrownFabian Padilla DO at 21:29 EDT , Physical Exam Const alert and oriented x3 Constitutional Narrative: Elderly female, obese, mildly uncomfortable appearing due to ongoing neck discomfort, otherwise conversing normally, in no acute distress. General Appearance: cooperative HEENT normocephalic, head/scalp atraumatic, hearing grossly normal bilaterally and nasal mucous membranes and turbinates normal Eyes PERRL, EOMs intact bilaterally and conjunctivae normal Neck Neck Narrative: Mild tenderness to palpation diffusely. Decreased range of motion in multiple planes. Chest inspection of chest normal Resp normal respiratory effort, normal air movement, no use of accessory muscles and clear to auscultation bilaterally Cardio regular rate, regular rhythm, no murmurs and peripheral pulses 2+ throughout GI normal to inspection, nondistended, normoactive bowel sounds, soft to palpation, non-tender and non-distended Back/Spine normal ROM Extremity normal to inspection, full ROM and no pedal edema Skin no rashes or lesions noted Neuro no focal motor deficits and no sensory deficits noted Speech: speech normal Psych mental status grossly normal Mood & Affect: anxious Assessment & Plan Assessment/Plan (1) Acute neck pain: (2) Vertigo: PLAN: Plan Patient is a 68-year-old female who presented [facility] ED on 12/16/2023 with worsening neck pain and vertigo. 1. Acute intractable cervical neck pain; history of remote cervical fusion procedure ? Unclear etiology for acute intractable pain. CT head and neck imaging on admit showed chronic degenerative changes, no acute changes. MRA head/neck completed on afternoon of 12/16, read pending. If no acute changes are found on MRI, would recommend consulting pain management for further evaluation. Current pain control with oxycodone, IV Dilaudid, tizanidine as needed and Medrol Dosepak. 2. Recent nasal septoplasty with intermittent vertigo symptoms postoperatively ? Unclear etiology of vertigo symptoms. Has intermittent right ear pain after septoplasty as well. Given ongoing vertigo symptoms on admission, stroke protocol was ordered. CT head imaging on admit unremarkable. Echo on 12/16 with normal EF, no PFO. MRI brain without contrast completed on afternoon of 12/16, read pending. Can consider neurology involvement as needed. Continue meclizine as needed. Continue aspirin for now. Recommend continued outpatient follow-up with ENT on discharge. Chronic medical conditions: ? Obesity: BMI 33 on admit. Complicates hospital course, care and prognosis. ? GERD with history of Bhatti's esophagus, functional motility disorder: Not on home PPI given previous EGD with history of bile induced reflux gastritis and esophagitis with functional motility disorder. Continue outpatient GI follow-up. ? Anxiety/depression: Stable. Continue home venlafaxine and BuSpar. ? Hypertension: Holding home losartan for now, restart as needed. DVT prophylaxis: Lovenox CODE STATUS: Full code, verified Expected disposition: Home, 1 to 2 days Total clinical time spent by myself addressing the patient's medical issues, reviewing all the data, and collaborating with patient's care team: 35 minutes. Charges/Coding Visit Charges Inpatient E&M: 75302 Subs Hosp L2
[2023-12-17 12:33] LABS: Bedside Glucose 105 mg/dL (74-106)
[2023-12-17] MEDS: Acetaminophen 325 MG Tablet 650 MG PO (12:36)
--- NOTE | 2023-12-17 14:00 | MRI_ITS ---
STUDY: MRA NECK WITHOUT CONTRAST REASON FOR EXAM: Female, 68 years old. Vertigo/CVA , RECENT SEPTOPLASTY, RT EAR PAIN, PATIENT HAD BRAIN AND MRA HEAD WELL... BEST POSSIBLE PATIENT UNABLE TO STAY AWAKE AND SNORING TECHNIQUE: Source images were obtained, MIPs were performed. The study was performed unenhanced. COMPARISON: None. FINDINGS: RIGHT CAROTID ARTERIES: Normal right common carotid artery (CCA). Normal right common carotid bulb. Normal origin of the right internal carotid (ICA) artery without a hemodynamically significant stenosis. Normal visualized cervical portion of the right internal carotid artery. Normal origin of the right external carotid artery (ECA). LEFT CAROTID ARTERIES: Normal left common carotid artery (CCA). Normal left common carotid bulb. Normal origin of the left internal carotid (ICA) artery without a hemodynamically significant stenosis. Normal visualized cervical portion of the left internal carotid artery. Normal origin of the left external carotid artery (ECA). VERTEBRAL ARTERIES: Normal antegrade flow within the bilateral vertebral artery without a hemodynamically significant stenosis. MRI/MRA Neck without Contrast IMPRESSION: Motion limited exam otherwise grossly Normal bilateral cervical carotid and vertebral arteries. Electronically Signed: Joseph Douglas MD at 17:13 EDT ,
--- NOTE | 2023-12-17 14:00 | MRI_ITS ---
STUDY: MRI BRAIN WITHOUT CONTRAST REASON FOR EXAM: Female, 68 years old. Vertigo/CVA RECENT SEPTOPLASTY, RT EAR PAIN, PATIENT HAD BRAIN AND MRA HEAD WELL... BEST POSSIBLE PATIENT UNABLE TO STAY AWAKE AND SNORING TECHNIQUE: Standardized multiplanar fat and water weighted pulse sequences were obtained. COMPARISON: CT brain December 16, 2023. MR brain June 09, 2023. FINDINGS: There is mild cerebral atrophy with widening of the extra-axial spaces and ventricular dilatation. There are a limited number of small white matter hyperintensities, distributed throughout the deep white matter tracts of the cerebral hemispheres, consistent with mild chronic white matter ischemic changes. There is no evidence for recent intracranial ischemia or other cause of cytotoxic edema on diffusion weighted imaging (DWI). Normal bilateral basal ganglia. Normal thalami. There is no extra-axial fluid accumulation. Normal flow voids within the major intracranial circulation suggesting patency by spin echo criteria. Normal sella turcica, pituitary gland, infundibular stalk, optic chiasm and hypothalamus. Normal tectal plate and pineal gland. Normal midbrain, koffi and medulla. Normal cerebellum. Normal basal cisterns. Normal bilateral temporal bones. Normal bilateral internal auditory canals. No demonstrated orbital abnormality, within the constraints of a routine brain study. Normal visualized paranasal sinuses. Normal calvarium and skull base. Normal visualized soft tissue structures. Normal visualized upper cervical spine. MRI/Brain without Contrast IMPRESSION: Normal unenhanced MRI of the brain. Electronically Signed: Joseph Douglas MD at 17:18 EDT ,
--- NOTE | 2023-12-17 14:00 | MRI_ITS ---
STUDY: MRI CERVICAL SPINE WITH AND WITHOUT CONTRAST REASON FOR EXAM: Female, 68 years old. Intractable neck pain Vertigo/CVA, RECENT SEPTOPLASTY, RT EAR PAIN TECHNIQUE: Standardized fat and water weighted pulse sequences were obtained in the sagittal and axial following administration of IV 18ML CLARISCAN. COMPARISON: CT cervical spine December 16, 2023 FINDINGS: Normal foramen magnum and brainstem-cervical cord junction. Normal craniovertebral junction. Normal anterior atlantoaxial articulation. Normal odontoid process. There is reversal of the normal cervical lordosis. Bony ankylosis/segmentation anomaly C5-6. C2-3: Normal endplates. Normal disc height, signal and morphology. Normal central canal and intervertebral neural foramina. C3-4: Normal endplates. Normal disc height, signal and morphology. Normal central canal and narrowed bilateral intervertebral neural foramina. C4-5: Normal endplates. Normal disc height, signal and morphology. Normal central canal and intervertebral neural foramina. C5-6: Normal endplates. Bony fusion. Normal central canal and intervertebral neural foramina. C6-7: Normal endplates. Decreased disc height, signal and morphology. Normal central canal and bilateral narrowing intervertebral neural foramina. C7-T1: Normal endplates. Normal disc height, signal and morphology. Normal central canal and intervertebral neural foramina. Normal cervical cord. Normal visualized soft tissue structures. MRI/Spine Cervical W/WO Contrast IMPRESSION: Segmentation anomaly/fusion C5-6. Multilevel bilateral neural foraminal narrowing. Electronically Signed: Joseph Douglas MD at 18:14 EDT ,
--- NOTE | 2023-12-17 14:00 | MRI_ITS ---
STUDY: MRA OF THE HEAD WITHOUT CONTRAST REASON FOR EXAM: Female, 68 years old. Vertigo/CVA, RECENT SEPTOPLASTY, RT EAR PAIN TECHNIQUE: 3-D [id number] (TOF) imaging was performed with MIPs. The study was performed unenhanced. COMPARISON: MR brain from today. FINDINGS: Normal bilateral petrous carotid arteries. Normal right cavernous carotid artery with a normal supraclinoid bifurcation. Normal left cavernous carotid artery with a normal supraclinoid bifurcation. Normal right A1 segments of the anterior cerebral artery. Normal left A1 segments of the anterior cerebral artery. There is non-visualization of the anterior communicating artery (ACOM). Normal bilateral A2 segments of the anterior cerebral arteries. Normal right M1 and M2 segments of the middle cerebral arteries, with a normal M1 bifurcation. Normal left M1 and M2 segments of the middle cerebral arteries, with a normal M1 bifurcation. Normal right posterior communicating artery (PCOM). 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 Normal bilateral vertebral arteries. Normal basilar artery with a normal basilar bifurcation. The visualized bilateral superior cerebellar (SCA) arteries are normal. Normal bilateral P1, P2 and visualized P3 segments of the posterior cerebral arteries. There is no demonstrated aneurysm of the ak chin of Beníte[place]. There is no major vessel occlusion or hemodynamically significant stenosis. There is no demonstrated abnormality of the visualized brain. MRI/MRA Head ONLY without Contrast IMPRESSION: Normal MRA of the head Electronically Signed: Joseph Douglas MD at 18:05 EDT ,
[2023-12-17] MEDS: 0.9% Saline Lock 10 ML Syringe IV ×2 (14:32→14:42)
[2023-12-17] MEDS: LORazepam 2 MG/ML Syringe 0.5 MG IV (14:42)
[2023-12-17 17:18] LABS: Bedside Glucose 90 mg/dL (74-106)
[2023-12-17 21:21] LABS: Bedside Glucose 111 mg/dL (74-106)
[2023-12-18] MEDS: MethylPREDNISolone DosePak 4 MG BOX PO ×5 (00:28→21:04)
[2023-12-18] MEDS: oxyCODONE 5 MG Tablet PO ×4 (00:58→21:03)
[2023-12-18 03:58] VITALS: BMI 33.6
[2023-12-18] MEDS: HYDROmorphone 0.5 MG/0.5 ML SYRINGE IV ×2 (04:07→09:04)
[2023-12-18 04:11] VITALS: BP 112/63; PULSE 78; RESP 18; TEMP 36.2; O2SAT 94
[2023-12-18 05:40] LABS: Anion Gap 4 (5-15); BUN 18 mg/dL (7-18); BUN/Creat Ratio 18.4 RATIO (10-20); Calcium,Total 8.8 mg/dL (8.5-10.1); Chloride 105 mmol/L (98-107); Creatinine, Serum 0.98 mg/dL (0.55-1.02); EST Glomerular Filtration Rate 60 mL/min (>60); Est Glom Filt Rate - Afr Amer 72 mL/min (>60); Estimated Creatinine Clearance 58.49 ml/min; Glucose 175 mg/dL (74-106); Potassium 5.2 mmol/L (3.5-5.1); Sodium Level 135 mmol/L (136-145)
[2023-12-18] MEDS: Insulin Lispro 100 UNIT/ML INSULN.PEN SC ×4 (06:29→21:12)
[2023-12-18 06:42] LABS: Bedside Glucose 171 mg/dL (74-106)
[2023-12-18 07:09] VITALS: O2SAT 93
--- NOTE | 2023-12-18 08:02 | PN.HOSP_ITS ---
Reason for Visit Reason for Visit: Diagnoses Cervicalgia (12/17/23) Dizziness and giddiness (12/17/23) Objective Data Objective Data Vital Signs: Vital Signs Temp Pulse Resp BP Pulse Ox O2 Del Method O2 Flow Rate 97.1 F L 78 18 112/63 93 Nasal Cannula 2 12/18/23 04:11 12/18/23 04:11 12/18/23 04:11 12/18/23 04:11 12/18/23 07:09 12/18/23 07:09 12/18/23 07:09 Oxygen Flow Rate (L/min) 2 Oxygen Delivery Method Nasal Cannula Weight: 195 lb 15.855 oz Body Mass Index (BMI) 33.6 Intake & Output: Intake and Output for Last 24 Hours 12/16/23 12/17/23 12/18/23 23:59 23:59 23:59 Intake Total 1000 / 1800 800 / 800 Output Total 200 / 200 Balance 1000 / 1600 600 / 600 Lab / Micro Data 12/17/23 06:56 12/18/23 04:57 Labs: Laboratory Results - last 24 hr 12/17/23 06:56: Hemoglobin A1c 6.2 H 12/17/23 12:11: POC Glucose 105 12/17/23 17:00: POC Glucose 90 12/17/23 20:54: POC Glucose 111 H 12/18/23 04:57: Sodium 135 L, Potassium 5.2 H, Chloride 105, Carbon Dioxide 26.0, Anion Gap 4 L, BUN 18, Creatinine 0.98, Estim Creat Clear Calc 58.49, Est GFR (MDRD) Af Amer 72, Est GFR (MDRD) Non-Af 60, BUN/Creatinine Ratio 18.4, G lucose 175 H, Calcium 8.8 12/18/23 06:23: POC Glucose 171 H Radiography Diagnostic Testing: Radiology Impression Echocardiogram 12/16/23 23:53 Interpretation Summary Mild concentric left ventricular hypertrophy. The left ventricular ejection fraction is 60 %. Bubble contrast study is negative for PFO/ASD. Ordering Physician: Lorraine Mosley Referring Physician: Demian Avila MD Performed By: Monik Chavez RDCS Brain MRI 12/17/23 14:00 IMPRESSION: Normal unenhanced MRI of the brain. Electronically Signed: Joseph Douglas MD at 17:18 EDT , Cervical Spine MRI 12/17/23 14:00 IMPRESSION: Segmentation anomaly/fusion C5-6. Multilevel bilateral neural foraminal narrowing. Electronically Signed: Joseph Douglas MD at 18:14 EDT Reading Location ID and State: [address] / [place] Tel , Service support , Head MRA 12/17/23 14:00 IMPRESSION: Normal MRA of the head Electronically Signed: Joseph Douglas MD at 18:05 EDT Reading Location ID and State: [address] / [place] Tel , Service support , Neck MRA 12/17/23 14:00 IMPRESSION: Motion limited exam otherwise grossly Normal bilateral cervical carotid and vertebral arteries. Electronically Signed: Joseph Douglas MD at 17:13 EDT , Physical Exam Narrative Seen and examined. Complain of severe pain or middle of neck with radiation to bilateral upper shoulder. It also radiates towards head. Patient had C5-C6 fusion that she recalls, surgery in late 80s. Denies any muscle weakness Presents with dizziness. Physical exam General: Alert, Oriented x3, Cooperative. BMI 33.6 kg 0.2 square obesity grade 1 HEENT: Atraumatic, PERRLA, EOMI, Normocephalic Oral: No Gingival or Mucosal Lesions/ Ulcerations Neck: Supple, No JVD, Negative Carotid Bruits Chest wall/Lungs: Air entry diminished in bilateral lung bases. No crepitation/rhonchi Cardiovascular: Regular rate, Regular Rhythm, Normal S1, Normal S2, No M/G/R Abdomen: Bowel Sounds Present, Soft, Non Tender, Non-Distended : No dysuria. No renal angle tenderness. No suprapubic tenderness. Extremities: No edema, Capillary Refill Less than 3 Seconds Skin: No rashes, No breakdown Musculoskeletal: Muscle strength 5/5 at bilateral shoulder, elbow joints. No Tenderness to Palpation of Joints or Extremities Spine: Tenderness present over C-spine. Paraspinal. Muscle tenderness present. ROM restricted over C-spine Neurological: Cranial nerves II-XII grossly intact, DTR 2+/4. No acute focal neurological deficit. Psych/Mental Status: flat affect Assessment & Plan Assessment/Plan (1) Acute neck pain: (2) Vertigo: PLAN: Plan Patient is a 68-year-old female who presented [facility] ED on 12/16/2023 with worsening neck pain and vertigo. 1. Acute intractable cervical neck pain; history of remote cervical fusion procedure ? Unclear etiology for acute intractable pain. CT head and neck imaging on admit showed chronic degenerative changes, no acute changes. MRA head/neck completed on afternoon of 12/16, 12/17: MRA head and neck reported no acute abnormality. MRI C-spine shows chronic changes with segmental fusion of C5/C6. Multilevel bilateral neural foraminal narrowing. Pain management consulted. She is traveling to [place] on Friday. She still complain of pain 8-10/10 intensity exacerbated on changing position. Muscle relaxant was increased. On Medrol Dosepak. Not candidate for NSAIDs because of Bhatti's and acid flux. 2. Recent nasal septoplasty with intermittent vertigo symptoms postoperatively ? Unclear etiology of vertigo symptoms. Has intermittent right ear pain after septoplasty as well. Given ongoing vertigo symptoms on admission, stroke protocol was ordered. CT head imaging on admit unremarkable. Echo on 12/16 with normal EF, no PFO. Continue meclizine as needed. Continue aspirin for now. Recommend continued outpatient follow-up with ENT on discharge. Chronic medical conditions: ? Obesity: BMI 33 on admit. Complicates hospital course, care and prognosis. ? GERD with history of Bhatti's esophagus, functional motility disorder: Not on home PPI given previous EGD with history of bile induced reflux gastritis and esophagitis with functional motility disorder. Continue outpatient GI follow- up. ? Anxiety/depression: Stable. Continue home venlafaxine and BuSpar. ? Hypertension: Holding home losartan for now, restart as needed. DVT prophylaxis: Lovenox CODE STATUS: Full code, verified Charges/Coding Visit Charges Inpatient E&M: 84838 Subs Hosp L2
[2023-12-18 08:44] VITALS: BP 131/67; PULSE 74; RESP 12; TEMP 36.6; O2SAT 91
[2023-12-18] MEDS: Gabapentin 100 MG Capsule PO ×3 (08:48→17:38)
[2023-12-18] MEDS: Venlafaxine XR 75 MG Capsule 225 MG PO (08:48)
[2023-12-18] MEDS: Pantoprazole Sodium 20 MG Tablet PO ×2 (08:48→21:04)
[2023-12-18] MEDS: Enoxaparin 40 MG/0.4 ML Syringe SC (08:48)
[2023-12-18] MEDS: busPIRone 5 MG Tablet PO ×2 (08:49→21:04)
[2023-12-18] MEDS: Aspirin 81 MG TAB.CHEW PO (08:49)
[2023-12-18] MEDS: 0.9% Saline Lock 10 ML Syringe IV (09:03)
[2023-12-18] MEDS: tiZANidine HCl 2 MG Tablet PO ×2 (12:09→21:08)
--- NOTE | 2023-12-18 12:26 | CON.PCM_ITS ---
Assessment & Plan Assessment/Plan (1) Acute neck pain: PLAN: Plan Patient is a 68-year-old female who presented [facility] ED on 12/16/2023 with worsening neck pain and vertigo. Acute intractable cervical neck pain; history of remote cervical fusion procedure ? Etiology of pain is not the most clear. There does however appear to be some component of muscle spasms along with some neuritis/cervical radiculopathy. In particular she has pain radiating to the right upper extremity shoulder/upper arm, along with intermittent tingling of the right hand. She also notes some similarities to the type of pain she had previously on the left side that resulted in her prior cervical spine surgery. CT head and neck imaging on admit showed chronic degenerative changes, no acute changes. -Cervical MRI: Cervical Spine MRI 12/17/23 14:00 IMPRESSION: Segmentation anomaly/fusion C5-6. Multilevel bilateral neural foraminal narrowing. -Current pain control with tylenol, oxycodone, IV Dilaudid, tizanidine as needed and Medrol Dosepak. -Has seen some improvement, but still 12/30. -She is traveling to [place] Friday. -Would consider increasing the muscle relaxant and stopping the IV opioids as she is starting to have some improvement, likely related to the medrol dose pack. -I offered C7-T1 MORRIS to help with the cervical radicular symptomology that appears to be contributing to her debility and hospitalization. She would like to discuss this with her daughter. -Prophylactic LOVENOX WILL NEED TO BE HELD 12 HOURS BEFORE SUCH AN INJECTION. -Avoiding NSAIDS: history of barrets and Acid reflux. -On venlafaxine -Follow up as outpatient in our clinic after discharge. HPI Consult Data Date of Consult: 12/18/23 HPI Narrative Reason for Consultation: Neck pain HPI Narrative: DOMINIC ARTEAGA, is a 68 F who presents with pmh of C5-C6 cervical fusion in . She was hospitalized for severe debilitating neck pain with extension to the right upper extremity. It has been around for a few months, but mild and intermittent until last Friday. No clear inciting event. Pain became severe, sharp in nature. She was unable to function and perform IDLS due to the pain and went to the hospital. She says it extends to the right lateral aspect of her face around the ear and to the shoulder/upper arm, but not past the elbow. She does however note some intermittent tingling in the right hand during the past week as well. She has been taking tylenol, oxycodone, hydromorphone, tizanidine and medrol dose pack. She does not some improvement in her pain and ROM, but it is still 7/10. [facility] Medical History Blister History of steroid therapy Injury of head and neck Non-smoker Shortness of breath on exertion Leg cramps Cardiology follow-up encounter Anemia Wears glasses Wears partial dentures Post-menopausal History of stress test Bhatti's esophagus without dysplasia Blood in stool Nausea Abdominal pain Anxiety Hypertension Numbness and tingling Fatigue GERD (gastroesophageal reflux disease) Glaucoma Diabetes Depression Home Medications ?Medication ?Instructions ?Recorded ?Last Taken ?Type venlafaxine 75 mg capsule,extended 225 mg PO DAILY mood 02/25/18 02/03/20 05:35 History release 24 hr ergocalciferol (vitamin D2) 1,250 50,000 unit PO QWEEK supplement 03/12/18 Unknown History mcg (50,000 unit) capsule (Vitamin D2) omega 1-rqg-evd-fish oil 900 4,200 mg PO DAILY supplement 03/12/18 Unknown History mg-1,400 mg capsule,delayed release (Fish Oil) losartan 100 mg tablet 100 mg PO DAILY 11/15/20 12/29/20 06:00 History buspirone 5 mg tablet 5 mg PO BID 10/24/22 Unknown History oxycodone-acetaminophen 5 mg-325 1 tab PO Q4H PRN PRN pain 12/16/23 Unknown History mg tablet Allergy/AdvReac Type Severity Reaction Status Date / Time hydroxyzine Allergy Intermediate Other Verified 02/26/23 14:12 lisinopril AdvReac Mild cough Verified 02/26/23 14:12 Family History Mother Heart disease CVA (cerebral vascular accident) Skin cancer Hypertension Father Pancreatic cancer Heart disease Diabetes Surgical History S/P nasal septoplasty History of foot surgery History of eye surgery History of surgery on arm S/P appendectomy H/O neck surgery S/P colonoscopy History of esophagogastroduodenoscopy (EGD) Social History Smoking Status: Never smoker second hand exposure: No alcohol intake: never substance use type: does not use caffeine: No what type of physical activity do you participate in: none frequency: does not exercise ROS ROS Narrative Admission Review of Systems: CONSTITUTIONAL: No weight loss, fever, chills, + weakness or fatigue. HEENT: + Neck pain, strain, vertigo. Eyes: No visual loss, blurred vision, double vision or yellow sclerae. Ears, Nose, Throat: No hearing loss, sneezing, congestion, runny nose or sore throat. SKIN: No rash or itching, lesions, wounds. CARDIOVASCULAR: No chest pain, chest pressure or chest discomfort, palpitations, edema, orthopnea, syncopal events. RESPIRATORY: No shortness of breath, cough or sputum, wheezing, hemoptysis. GASTROINTESTINAL: No anorexia, nausea, vomiting or diarrhea, abdominal pain, melena, BRBPR. GENITOURINARY: No dysuria, frequency, urgency or retention. NEUROLOGICAL: + Headache, neck strain/pain, vertigo/dizziness. No syncope, paralysis, ataxia, numbness or tingling in the extremities, focal weakness, change in bowel or bladder control, seizure. MUSCULOSKELETAL: + muscle, back pain, joint pain or stiffness. HEMATOLOGIC: + History of anemia. No current marked history of bleeding or bruising. LYMPHATICS: No enlarged nodes. No history of splenectomy. PSYCHIATRIC: + History of anxiety and depression. ENDOCRINOLOGIC: No reports of sweating, cold or heat intolerance. No polyuria or polydipsia. ALLERGIES: No history of asthma, hives, eczema or rhinitis. Constitutional Constitutional: Denies chills, fever(s) or weight loss Eyes Eyes: Denies blurry vision, change in vision or diplopia ENT HEENT: Denies ear pain, rhinorrhea or sore throat Cardiovascular Cardiovascular: Denies chest pain, palpitations or racing heartbeat Respiratory/Chest Respiratory/Chest: Denies cough, dyspnea or dyspnea on exertion Gastrointestinal Gastrointestinal: Denies abdominal pain, constipation, diarrhea, melena, nausea or vomiting Genitourinary Genitourinary: Denies dysuria, hematuria or urinary frequency Musculoskeletal Musculoskeletal: Denies arthralgias, myalgias or neck pain Integumentary Integumentary: Denies rash Neurologic Neurologic: Denies headache(s), paresthesias or weakness Psychiatric Psychiatric: Denies anxiety Hematologic/Lymphatic Hematologic/Lymphatic: Reports systems reviewed and no addt'l complaints, except as documented Physical Exam Narrative Neck: Reduced ROM with pain on right side. Right paraspinal pain. Right facet pain +. Facet load +. Spurlings difficult to assess due to significant guarding. Hoffmans negative. UE: 5/5 strength. Physiologic DTR. Neuro: Normal sensation. Psych: normal affect. Talkative. Const alert and oriented x3 HEENT normocephalic Lab / Micro Data 12/17/23 06:56 12/18/23 04:57 Labs: Laboratory Results - last 24 hr 12/17/23 12:11: POC Glucose 105 12/17/23 17:00: POC Glucose 90 12/17/23 20:54: POC Glucose 111 H 12/18/23 04:57: Sodium 135 L, Potassium 5.2 H, Chloride 105, Carbon Dioxide 26.0, Anion Gap 4 L, BUN 18, Creatinine 0.98, Estim Creat Clear Calc 58.49, Est GFR (MDRD) Af Amer 72, Est GFR (MDRD) Non-Af 60, BUN/Creatinine Ratio 18.4, G lucose 175 H, Calcium 8.8 12/18/23 06:23: POC Glucose 171 H Imaging Radiology Impression Echocardiogram 12/16/23 23:53 Interpretation Summary Mild concentric left ventricular hypertrophy. The left ventricular ejection fraction is 60 %. Bubble contrast study is negative for PFO/ASD. Ordering Physician: Lorraine Mosley Referring Physician: Demian Avila MD Performed By: Monik Chavez RDCS Brain MRI 12/17/23 14:00 IMPRESSION: Normal unenhanced MRI of the brain. Electronically Signed: Joseph Douglas MD at 17:18 EDT , Cervical Spine MRI 12/17/23 14:00 IMPRESSION: Segmentation anomaly/fusion C5-6. Multilevel bilateral neural foraminal narrowing. Electronically Signed: Joseph Douglas MD at 18:14 EDT Reading Location ID and State: [facility] / [place] Tel , Service support , Head MRA 12/17/23 14:00 IMPRESSION: Normal MRA of the head Electronically Signed: Joseph Douglas MD at 18:05 EDT Reading Location ID and State: [facility] / [place] Tel , Service support , Neck MRA 12/17/23 14:00 IMPRESSION: Motion limited exam otherwise grossly Normal bilateral cervical carotid and vertebral arteries. Electronically Signed: Joseph Doulgas MD at 17:13 EDT ,
--- NOTE | 2023-12-18 14:00 | CASEMGMT ---
RN CM Face to Face with patient for initial transition planning/care coordination assessment. RN CM introduced self and role at [facility]. Patient lying in bed, alert and oriented, daughter at bedside. Patient willing to participate in assessment and is able to answer all questions appropriately. Care providers, pharmacy, and demographics verified. PCP: Margarita Specialists: Friend [facility] Insurance: [employer] Prescription Benefit: yes Living Will/HPOA: yes, Bertrand Paul LNOK: , daughter Living Arrangements: Patient lives with in a 2 story home. Patient is independent and able to ambulate stairs. Transportation: self, DME/HHC: Patient denies DME in the home. No previous HHC or SNF Patient wishes to discharge home, denies need for home health at this time. Patient states he has no further needs or concerns at this time. CM to follow for discharge planning needs that may arise. Disposition Plan: Patient to discharge home with family support and follow-up plans in place. Stacey WEEKS, RN, CM
[2023-12-18 14:33] VITALS: BP 117/63; PULSE 71; RESP 14; TEMP 36.9; O2SAT 92
[2023-12-18 17:01] LABS: Bedside Glucose 179 mg/dL (74-106)
[2023-12-18 17:28] LABS: Bedside Glucose 177 mg/dL (74-106)
[2023-12-18 21:00] VITALS: BP 136/67; PULSE 76; RESP 18; TEMP 36.2; O2SAT 98
[2023-12-18] MEDS: Lidocaine 5% Patch 2 PATCH TOPICAL (21:06)
[2023-12-18 23:01] LABS: Bedside Glucose 254 mg/dL (74-106)
[2023-12-19 03:00] VITALS: BP 110/67; PULSE 74; RESP 18; TEMP 35.7; O2SAT 96
[2023-12-19 05:21] VITALS: BMI 34.0
[2023-12-19] MEDS: oxyCODONE 5 MG Tablet PO ×3 (06:04→14:24)
[2023-12-19] MEDS: Insulin Lispro 100 UNIT/ML INSULN.PEN SC (06:07)
[2023-12-19 06:43] LABS: Bedside Glucose 244 mg/dL (74-106)
[2023-12-19] MEDS: MethylPREDNISolone DosePak 4 MG BOX PO ×2 (08:41→12:26)
[2023-12-19] MEDS: Aspirin 81 MG TAB.CHEW PO (08:43)
[2023-12-19] MEDS: tiZANidine HCl 2 MG Tablet PO (08:50)
[2023-12-19] MEDS: Gabapentin 100 MG Capsule PO ×2 (08:50→12:26)
[2023-12-19 09:59] VITALS: BP 95/73; PULSE 62; RESP 16; TEMP 36; O2SAT 94
[2023-12-19] MEDS: Pantoprazole Sodium 20 MG Tablet PO (10:14)
[2023-12-19] MEDS: Venlafaxine XR 75 MG Capsule 225 MG PO (10:14)
[2023-12-19] MEDS: busPIRone 5 MG Tablet PO (10:15)
[2023-12-19 12:47] LABS: Bedside Glucose 149 mg/dL (74-106)
--- NOTE | 2023-12-19 13:02 | PCM.DC ---
Discharge Instructions Diet Discharge Diet: No restrictions Activity Discharge Activity: Return to Normal Activity Weight Bearing Status: Weight bearing as tolerated Dressing / Incision Call your doctor if you observe: Fever of 101 or Higher, Coldness, Increased Pain, Numbness or Tingling, Change in Color, Inability to urinate, Inability to have a bowel movement, Shortness of breath, Dizziness, Fainting spells, Swelling in the ankles, Chest pain, Prolonged hiccupping, Increased palpitations (irregular heartbeat) and Calf discomfort Follow Up Care When: IN 2 WEEKS Test Results: Test results from this visit will be discussed in further detail at your follow-up appointment, if applicable. Discharge Plan Admission Admit Date/Time: 12/17/23 14:45 Primary Reason for Your Visit: Acute neck pain and spasm with history of chronic cervical fusion surgery Attending Provider: Oliver Cannon Primary Care Provider: Demian Avila Consulting Providers: Lorraine Mosley; Adolph Blakely; Elmer Maya Discharge Orders/Prescriptions Prescriptions: New methylprednisolone 4 mg Tablets,Dose Pack 4 mg PO 0800,1200,1700,2200 Qty: 8 0RF Rx Instructions: As scheduled. tizanidine 2 mg Tablet 2 mg PO Q8H PRN PRN (Reason: muscle spasm/strain) 10 Days Qty: 30 0RF sennosides-docusate sodium [Stool Softener-Stimulant Laxat] 8.6-50 mg Tablet 2 tab PO BID PRN PRN (Reason: Constipation) Qty: 0 0RF oxycodone 5 mg Tablet 2.5 mg PO Q4H PRN PRN (Reason: Pain Score 4-10) 3 Days Qty: 10 0RF Rx Instructions: Half to 1 tablet for moderate to severe pain respectively. Continued venlafaxine 75 mg capsule,extended release 24hr 225 mg PO DAILY losartan 100 mg tablet 100 mg PO DAILY Patient Comments: TAKE 1 TABLET BY MOUTH EVERY DAY buspirone 5 mg tablet 5 mg PO BID Patient Comments: Pt states she takes 1-2 tablets at a time twice per day, but does not exceed 3 tablets per day. ergocalciferol (vitamin D2) [Vitamin D2] 50,000 UNIT capsule 50,000 unit PO QWEEK Fish Oil 1 EACH capsule,delayed release(DR/EC) 4,200 mg PO DAILY oxycodone-acetaminophen 5-325 mg tablet 1 tab PO Q4H PRN PRN (Reason: pain) Referrals / Follow Up: Demian Avila MD [Primary Care Provider] - Elmer Maya MD [Med Staff - Active Staff] - Within 2 Weeks Disposition Disposition (needs filled in before D/C Order can be placed): Home, Self Care
--- NOTE | 2023-12-19 13:14 | PCM.DC.SUM ---
Providers Date of Admission: 12/17/23 Date of Discharge: 12/19/23 Primary Care Physician: Dr. Demian Avila MD Consultations 12/18/23 09:12 Consult: Pain Management Routine Consulting Provider: Elmer Maya Reason for Consult: cervical neck intactable pain EMERGENT Consult: No MD Notified: Yes Date Notified: 12/18/23 Time Notified: 09:12 Method of Notification: Text Reason For Visit: INTRACTABLE NECK PAIN, VERTIGO Diagnosis Discharge Diagnosis (1) Acute neck pain: Status: Acute Code(s): M54.2 - Cervicalgia (2) Vertigo: Status: Acute Code(s): R42 - Dizziness and giddiness Plan Patient is a 68-year-old female who presented [facility] ED on 12/16/2023 with worsening neck pain and vertigo. 1. Acute intractable cervical neck pain; history of remote cervical fusion procedure ? Unclear etiology for acute intractable pain. CT head and neck imaging on admit showed chronic degenerative changes, no acute changes. MRA head/neck completed on afternoon of 12/16, 12/17: MRA head and neck reported no acute abnormality. MRI C-spine shows chronic changes with segmental fusion of C5/C6. Multilevel bilateral neural foraminal narrowing. Pain management consulted. She is traveling to [place] on Friday. She still complain of pain 8-10/10 intensity exacerbated on changing position. Muscle relaxant was increased. On Medrol Dosepak. Not candidate for NSAIDs because of Bhatti's and acid flux. 12/18: Patient was unclear about getting epidural injection or go home on Solu-Medrol Dosepak. She already had Solu-Medrol since beginning and is due to finish on 12/22/2023 therefore remaining dose to finish. Prescription also given for oxycodone 5 mg tablet, half to 1 tablet every 4 hourly as needed for moderate to severe pain total 10 tablets given. OARRS report checked. Overdose risk score is less than 70. Prescription also given for tizanidine. Advised follow-up pain management Dr. Maya in 2 weeks. Earlier she declined for epidural injection. 2. Recent nasal septoplasty with intermittent vertigo symptoms postoperatively ? Unclear etiology of vertigo symptoms. Has intermittent right ear pain after septoplasty as well. Given ongoing vertigo symptoms on admission, stroke protocol was ordered. CT head imaging on admit unremarkable. Echo on 12/16 with normal EF, no PFO. Continue meclizine as needed. Recommend continued outpatient follow-up with ENT on discharge. 12/18: MRI was done and acute stroke ruled out therefore no need for baby aspirin. Follow-up with ENT. Chronic medical conditions: ? Obesity: BMI 33 on admit. Complicates hospital course, care and prognosis. ? GERD with history of Bhatti's esophagus, functional motility disorder: Not on home PPI given previous EGD with history of bile induced reflux gastritis and esophagitis with functional motility disorder. Continue outpatient GI follow-up. ? Anxiety/depression: Stable. Continue home venlafaxine and BuSpar. ? Hypertension: Holding home losartan for now, restart as needed. DVT prophylaxis: Lovenox CODE STATUS: Full code, verified Discharge medication reconciliation done. Discharge follow-up instructions completed. Discharge process discussed with the patient and all questions were answered to patient's satisfaction. Follow with PCP in 1 to 2 weeks Total time spent, exact 35 minutes on discharge meds reconciliation, examination, coordination of care with nurses and ancillary staff, review of imaging and blood test and discussion with the patient on follow-up instructions. Medications at Discharge Home Medications venlafaxine 75 mg capsule,extended release 24 hr 225 mg PO DAILY mood 02/25/18 ergocalciferol (vitamin D2) 1,250 mcg (50,000 unit) capsule (Vitamin D2) 50,000 unit PO QWEEK supplement 03/12/18 omega 2-dxo-xdd-fish oil 900 mg-1,400 mg capsule,delayed release (Fish Oil) 4,200 mg PO DAILY supplement 03/12/18 losartan 100 mg tablet 100 mg PO DAILY 11/15/20 buspirone 5 mg tablet 5 mg PO BID 10/24/22 oxycodone-acetaminophen 5 mg-325 mg tablet 1 tab PO Q4H PRN PRN pain 12/16/23 methylprednisolone 4 mg tablets in a dose pack 4 mg PO 0800,1200,1700,2200 #8 tabs 12/19/23 oxycodone 5 mg tablet 2.5 mg (1/2 x 5 mg) PO Q4H PRN PRN Pain Score 4-10 3 days #10 tabs 12/19/23 pantoprazole 40 mg tablet,delayed release (Protonix) 40 mg PO DAILY #30 tabs 12/19/23 sennosides 8.6 mg-docusate sodium 50 mg tablet (Stool Softener-Stimulant Laxative) 2 tab PO BID PRN PRN Constipation #0 tabs 12/19/23 tizanidine 2 mg tablet 2 mg PO Q8H PRN PRN muscle spasm/strain 10 days #30 tabs 12/19/23 Physical Exam Narrative Seen and examined. Her neck pain is much better. Patient seems little loopy or slurring probably from the opioid. Patient was unclear about the epidural injection or continuing Solu-Medrol. This was communicated to Dr. Elmer Maya who came and saw the patient and ultimately she does not want for epidural injection. Physical exam General: Alert, Oriented x3, Cooperative. BMI 33.6 kg 0.2 square obesity grade 1 HEENT: Atraumatic, PERRLA, EOMI, Normocephalic Oral: No Gingival or Mucosal Lesions/ Ulcerations Neck: Supple, No JVD, Negative Carotid Bruits Chest wall/Lungs: Air entry diminished in bilateral lung bases. No crepitation/rhonchi Cardiovascular: Regular rate, Regular Rhythm, Normal S1, Normal S2, No M/G/R Abdomen: Bowel Sounds Present, Soft, Non Tender, Non-Distended : No dysuria. No renal angle tenderness. No suprapubic tenderness. Extremities: No edema, Capillary Refill Less than 3 Seconds Skin: No rashes, No breakdown Musculoskeletal: Muscle strength 5/5 at bilateral shoulder, elbow joints. No Tenderness to Palpation of Joints or Extremities Spine: Tenderness present over C-spine. Paraspinal. Muscle tenderness present. ROM restricted over C-spine Neurological: Cranial nerves II-XII grossly intact, DTR 2+/4. No acute focal neurological deficit. Psych/Mental Status: flat affect Weight / BMI Weight Weight: 198 lb 6.656 oz Body Mass Index (BMI) 34.0 ABG / Lab / Microbiology Data 12/17/23 06:56 12/18/23 04:57 Laboratory: Laboratory Results - last 24 hr 12/18/23 12:05: POC Glucose 179 H 12/18/23 17:10: POC Glucose 177 H 12/18/23 21:10: POC Glucose 254 H 12/19/23 06:07: POC Glucose 244 H 12/19/23 12:26: POC Glucose 149 H D/C Instructions Discharge Diet: No restrictions Weight Bearing Status: Weight bearing as tolerated Call your doctor if you observe: Fever of 101 or Higher, Coldness, Increased Pain, Numbness or Tingling, Change in Color, Inability to urinate, Inability to have a bowel movement, Shortness of breath, Dizziness, Fainting spells, Swelling in the ankles, Chest pain, Prolonged hiccupping, Increased palpitations (irregular heartbeat) and Calf discomfort When: IN 2 WEEKS Meaningful Use Info Meaningful Use Meaningful Use Diagnoses (Choose all that apply): None applicable Ischemic Stroke Statin Dosing Therapy Reference: STATIN DOSE THERAPY REFERENCE: * Patients > 75 years receive moderate or high dose statin therapy. * Patients 75 years or YOUNGER should receive HIGH intensity statin dose unless contraindicated. You will be required to document reason for non-treatment if statin daily dose does not meet guidelines. HIGH DOSE STATIN THERAPY DAILY Atorvastatin > than or = to 40 mg Rosuvastatin > than or = to 20 mg Amlodipine + Atorvastatin > than or = to 2.5/40 mg Ezetimibe + Simvastatin 10/80 mg Simvastatin 80mg Discharge Plan Admission Admit Date/Time: 12/17/23 14:45 Primary Reason for Your Visit: Acute neck pain and spasm with history of chronic cervical fusion surgery Attending Provider: Oliver Cannon Primary Care Provider: Demian Avila Consulting Providers: Lorraine Mosley; Adolph Blakely; Elmer Maya Discharge Orders/Prescriptions Prescriptions: New methylprednisolone 4 mg Tablets,Dose Pack 4 mg PO 0800,1200,1700,2200 Qty: 8 0RF Rx Instructions: As scheduled. tizanidine 2 mg Tablet 2 mg PO Q8H PRN PRN (Reason: muscle spasm/strain) 10 Days Qty: 30 0RF sennosides-docusate sodium [Stool Softener-Stimulant Laxat] 8.6-50 mg Tablet 2 tab PO BID PRN PRN (Reason: Constipation) Qty: 0 0RF oxycodone 5 mg Tablet 2.5 mg PO Q4H PRN PRN (Reason: Pain Score 4-10) 3 Days Qty: 10 0RF Rx Instructions: Half to 1 tablet for moderate to severe pain respectively. pantoprazole [Protonix] 40 mg tablet,delayed release (DR/EC) 40 mg PO DAILY Qty: 30 0RF Continued venlafaxine 75 mg capsule,extended release 24hr 225 mg PO DAILY losartan 100 mg tablet 100 mg PO DAILY Patient Comments: TAKE 1 TABLET BY MOUTH EVERY DAY buspirone 5 mg tablet 5 mg PO BID Patient Comments: Pt states she takes 1-2 tablets at a time twice per day, but does not exceed 3 tablets per day. ergocalciferol (vitamin D2) [Vitamin D2] 50,000 UNIT capsule 50,000 unit PO QWEEK Fish Oil 1 EACH capsule,delayed release(DR/EC) 4,200 mg PO DAILY oxycodone-acetaminophen 5-325 mg tablet 1 tab PO Q4H PRN PRN (Reason: pain) Referrals / Follow Up: Demian Avila MD [Primary Care Provider] - Elmer Maya MD [Med Staff - Active Staff] - Within 2 Weeks Joseph Ferreira MD [Med Staff - Active Staff] - Within 1 Month Disposition Disposition (needs filled in before D/C Order can be placed): Home, Self Care Charges/Coding Visit Charges Inpatient E&M: 12052 Disch Hosp >30min
--- NOTE | 2023-12-19 13:34 | CASEMGMT ---
Patient has order for discharge. RN CM in to discuss needs at discharge, daughter at bedside. Patient denies needs or help at discharge and states she has access to cane at home. Patient had no further questions or concerns.
== END 2023-12-19 15:36 | disposition home or self-care (01) | DRG 552 ==
LOC: ED 22:25 → PCU 12-17 03:53
PROVIDERS: Hospitalist; Admitting Provider Family Medicine; Emergency Provider Emergency Medicine; PCP Family Medicine; Visit Provider Internal Medicine
DX: M47.22 Other spondylosis with radiculopathy, cervical region (principal); K86.81 Exocrine pancreatic insufficiency; I10 Essential (primary) hypertension; F32.A Depression, unspecified; M54.2 Cervicalgia; M48.02 Spinal stenosis, cervical region; F41.9 Anxiety disorder, unspecified; K21.9 Gastro-esophageal reflux disease without esophagitis; M62.838 Other muscle spasm; E66.9 Obesity, unspecified; G89.29 Other chronic pain; R42 Dizziness and giddiness; Z68.33 Body mass index [BMI] 33.0-33.9, adult; Z79.899 Other long term (current) drug therapy; Z98.1 Arthrodesis status; R73.03 Prediabetes
CPT/HCPCS: 36415; 70450; 70544; 70547; 70551; 71045; 72125; 72156; 80048; 80053; 80061; 82962; 83036; 83735; 84443; 84484; 85025; 85610; 85730; 93005; 93306; 94762; 97110; 97116; 97162; 97166; 97535; 97802; 99285; A9575; J7030; A4216; J2405

== ENCOUNTER → 2024-01-15 | Outpatient (CLI) | payer MEDICARE, OTHER, SELFPAY ==
--- NOTE | 2024-01-16 08:59 | PCM.TILTTABL ---
Staff Staff: Sahara Dumont and Camila De La O Summary Pre Test Resting HR: 77 Pre Test Resting BP: 158/77 Minimum Test HR: 77 Maximum Test HR: 90 Minimum Test BP: 126/95 Maximum Test BP: 161/101 Reason for Test Termination: Reached Maximum Test Time Physician Tilt Table Report Patient's Physicians Primary Care Physician: Demian Avila Indications/Diagnosis: Dizziness Procedure Comments: The patient was brought to the noninvasive lab in the postabsorptive nonsedated state. Informed consent was obtained. Initial heart rate was noted to be 71 bpm with a blood pressure 158/77 mmHg. The patient was then placed in the 70 degree head upright tilt position. Continuous EKG monitoring and blood pressure measurements were obtained. The patient exhibited no symptoms throughout the test of significance. At the end of the test the patient was then placed in the recumbent position. Summary: Head upright tilt table test with no symptoms noted. Resting hypertension present.
[2024-01-16 09:03] VITALS: BP 126/95; BP 158/77; BP 161/101
== END | disposition home or self-care (01) ==
LOC: CVS 09:13
PROVIDERS: PCP Family Medicine; Referring Provider Family Medicine; Visit Provider Family Medicine
DX: R42 Dizziness and giddiness (principal)
CPT/HCPCS: 93660; J7040; A4216

== ENCOUNTER → 2024-10-27 | Outpatient (CLI) | payer MEDICARE, OTHER, SELFPAY ==
[2024-10-27 13:46] LABS: ALB/GLOB Ratio 1.5 RATIO (0.9-2.4); AST(SGOT) 21 U/L (<=31); Alanine Aminotransfer ALT/SGPT 15 U/L (<=34); Albumin, Serum 4.1 g/dL (3.4-4.8); Alkaline Phosphatase 75 U/L (35-104); Anion Gap 9 (5-15); BUN 20 mg/dL (4-19); BUN/Creat Ratio 22.1 RATIO (10-20); Calcium,Total 9.3 mg/dL (7.6-11.0); Carbon Dioxide 27.6 mmol/L (21.0-32.0); Chloride 103 mmol/L (98-108); Cholesterol 240 mg/dL (<=200); Creatinine, Serum 0.89 mg/dL (0.70-1.20); EST Glomerular Filtration Rate 69 (>60); Globulin 2.8 g/dL (2.2-4.2); Glucose 137 mg/dL (70-99); High Density Lipoprotein 47 mg/dL; Low Density Lipoprotein Calc. 158 mg/dL; Potassium 4.4 mmol/L (3.3-5.1); Protein, Total 6.9 g/dL (5.9-8.4); Sodium Level 140 mmol/L (133-145); Total Bilirubin 0.44 mg/dL (0.00-1.30); Triglycerides 176 mg/dL; Very Low Density Lipoprotein 35 mg/dL (5-40); cholesterol:hdl ratio screen 5.11
[2024-10-27 13:59] LABS: Vitamin D,25 Hydroxy 38.8 ng/mL (30-100)
== END | disposition home or self-care (01) ==
LOC: MFPLAB 11:01
PROVIDERS: PCP Family Medicine; Referring Provider Family Medicine; Visit Provider Family Medicine
DX: E78.5 Hyperlipidemia, unspecified (principal); E55.9 Vitamin D deficiency, unspecified
CPT/HCPCS: 36415; 80053; 80061; 82306

== ENCOUNTER → 2024-11-05 | Outpatient (CLI) | payer MEDICARE, OTHER, SELFPAY ==
[2024-11-05 10:58] LABS: Erythrocyte Sedimentation Rate 12 mm/hr (0-30)
[2024-11-05 11:18] LABS: Cholesterol 242 mg/dL (<=200); Estradiol 10.6 pg/mL; Follicle Stimulating Hormone 55.1 mIU/mL; High Density Lipoprotein 55 mg/dL; Low Density Lipoprotein Calc. 165 mg/dL; Luteinizing Hormone 49.7 mIU/mL; Triglycerides 113 mg/dL; Very Low Density Lipoprotein 23 mg/dL (5-40); Vitamin D,25 Hydroxy 38.3 ng/mL (30-100); cholesterol:hdl ratio screen 4.42
[2024-11-05 11:21] LABS: Absolute Lymphocyte Count 1.34 X10^3/uL (0.83-4.51); Absolute Neutrophil Count 3.1 X10^3/uL (2.0-7.7); Basophil# 0.06 X10^3/uL; Basophil% 1.1 % (0-1); Eosinophil# 0.22 X10^3/uL; Eosinophils% 4.2 % (0-5); Hematocrit 44.8 % (37-47); Hemoglobin 14.4 g/dL (12.0-15.0); Lymphocyte # 1.34 X10^3/ul (0.83-4.51); Lymphocyte % 25.4 % (19-41); Mean Corp Hgb Conc 32.1 g/dL (32-36); Mean Corpuscular Hgb 30.2 pg (27.0-32.0); Mean Corpuscular Volume 93.9 fL (81-99); Mean Platelet Vol. 9.5 fl (6.2-12.0); Monocyte# 0.52 X10^3/uL; Monocyte% 9.8 % (0-10); NRBC Flagged by Analyzer 0 % (0-5); Neutrophil # 3.13 X10^3/uL (2.7-7.7); Neutrophil % 59.3 % (47-70); Platelet Count 299 K/mm3 (150-450); RBC Distribution Width CV 13.4 % (11.6-14.6); RBC Distribution Width SD 45.8 fl (35.1-43.9); Red Blood Count 4.77 M/mm3 (4.2-5.4); White Blood Count 5.3 K/mm3 (4.4-11.0)
[2024-11-06 04:07] LABS: DHEA Sulfate 52.8 ug/dL (20.4-186.6)
== END | disposition home or self-care (01) ==
LOC: MFPLAB 09:10
PROVIDERS: PCP Family Medicine; Referring Provider Family Medicine; Visit Provider Family Medicine
DX: E78.5 Hyperlipidemia, unspecified (principal); E55.9 Vitamin D deficiency, unspecified; L74.4 Anhidrosis
CPT/HCPCS: 36415; 80061; 82306; 82533; 82627; 82670; 83001; 83002; 84403; 84439; 84443; 85025; 85652; 82626

== ENCOUNTER → 2024-11-18 | Outpatient (CLI) | payer MEDICARE, OTHER, SELFPAY ==
--- NOTE | 2024-11-18 16:33 | RAD_ITS ---
PROCEDURE: KNEE 4 OR MORE VIEWS 11/18/2024 REASON FOR EXAM: R KNEE. FALL ONTO KNEE. PATELLAR PAIN TECHNIQUE: 4 view(s) of the right knee COMPARISON: None available FINDINGS: No fracture, dislocation or joint effusion. The joint spaces appear within limits. RAD/Knee 4 or More Views IMPRESSION: No fracture, dislocation or joint effusion. If concern for possible internal j oint derangement, may follow-up with MRI as warranted. Reading Location: [id number]
== END | disposition home or self-care (01) ==
LOC: MTRAD 16:32
PROVIDERS: PCP Family Medicine; Referring Provider Family Medicine; Visit Provider Family Medicine
DX: M25.561 Pain in right knee (principal); W19.XXXA Unspecified fall, initial encounter
CPT/HCPCS: 73564

== ENCOUNTER → 2024-11-19 | Outpatient (CLI) | payer MEDICARE, OTHER, SELFPAY ==
--- NOTE | 2024-11-19 10:55 | CT_ITS ---
PROCEDURE: BRAIN/HEAD WITHOUT CONTRAST 11/19/2024 REASON FOR EXAM: FALL, L FRONTAL HEAD TRAUMA. POST-CONCUSSIVE SYMPTOMS TECHNIQUE: Head CT without intravenous contrast. Coronal and Sagittal reconstruction series were provided. One or more dose reduction techniques were used (e.g., Automated exposure control, adjustment of the mA and/or kV according to patient size, use of iterative reconstruction technique. RADIATION DOSE SUMMARY: CTDlvol: 44.99 mGy DLP: 779.24 mGycm COMPARISON: Prior study dated December 16, 2023. FINDINGS: Brain: Within normal limits for age CSF Spaces: Mild generalized cerebral atrophy Sinuses/Mastoids: Clear at visualized levels Bones: Hyperostosis frontalis interna. CT/Brain/Head without Contrast IMPRESSION: NO ACUTE FINDINGS Reading Location: [place] [id number]
== END | disposition home or self-care (01) ==
LOC: CT 10:53
PROVIDERS: PCP Family Medicine; Referring Provider Family Medicine; Visit Provider Family Medicine
DX: S09.90XA Unspecified injury of head, initial encounter (principal); W19.XXXA Unspecified fall, initial encounter
CPT/HCPCS: 70450

== ENCOUNTER 2025-02-14 13:05 | Observation (INO) | payer MEDICARE, OTHER, SELFPAY ==
[2025-02-14] VITALS (10 sets, daily range): BP systolic 136–187; BP diastolic 77–108; PULSE 52–80; RESP 15–18; TEMP 36.6–37; O2SAT 96–100; BMI 36.9; BMI 34.4
--- NOTE | 2025-02-14 14:08 | EKG12_ITS ---
Test Reason : SYNCOPE Blood Pressure : */* mmHG Vent. Rate : 54 BPM Atrial Rate : 54 BPM P-R Int : 134 ms QRS Dur : 74 ms QT Int : 438 ms P-R-T Axes : 47 -4 31 degrees QTcB Int : 415 ms Sinus bradycardia Nonspecific T wave abnormality Abnormal ECG Confirmed by MIGUELINA DEE ([id number]), editor book FANY LIN ([id number]) on 02/15/2025 1:06:23 PM Referred By: Confirmed By: MIGUELINA DEE
--- NOTE | 2025-02-14 14:08 | CT_ITS ---
PROCEDURE: STROKE BRAIN/HEAD WITHOUT CONT 02/14/2025 REASON FOR EXAM: NEURO DEFICIT, ACUTE, STROKE SUSPECTED TECHNIQUE: STROKE BRAIN/HEAD WITHOUT CONT Coronal and Sagittal reconstruction series were provided. One or more dose reduction techniques were used (e.g., Automated exposure control, adjustment of the mA and/or kV according to patient size, use of iterative reconstruction technique. RADIATION DOSE SUMMARY: CTDlvol: 44.99 mGy DLP: 812.98 mGycm COMPARISON: Prior study dated February 14, 2025. FINDINGS: Brain: Within normal limits for age CSF Spaces: Mild generalized cerebral atrophy Sinuses/Mastoids: Clear at visualized levels Bones: Hyperostosis frontalis interna CT/STROKE Brain/Head without Cont IMPRESSION: NO ACUTE FINDINGS Red Alert: Nothing acute The critical information above was relayed directly by me by telephone to Meri Verma on 02/14/2025 at 2:35 pm with readback verification. Reading Location: [id number]
--- NOTE | 2025-02-14 14:09 | CT_ITS ---
PROCEDURE: STROKE CTA HEAD AND NECK W/CON 02/14/2025 REASON FOR EXAM: NEURO DEFICIT, ACUTE, STROKE SUSPECTED TECHNIQUE: STROKE CTA HEAD AND NECK W/CON Multiplanar Sagittal and Coronal images were obtained. 3D post processing was performed CONTRAST: Isovue 370 VOLUME: 100 mL One or more dose reduction techniques were used (e.g., Automated exposure control, adjustment of the mA and/or kV according to patient size, use of iterative reconstruction technique). RADIATION DOSE SUMMARY: CTDlvol: 23.4 mGy DLP: 784.64 mGycm COMPARISON: None FINDINGS: Aortic Arch: Normal size and branching pattern. Mild atherosclerotic plaque. Brachiocephalic and Subclavians: Mild atherosclerotic plaque without significant stenosis. RIGHT Carotid: Right CCA: Unremarkable. Right ICA: Unremarkable. Maximum stenosis (NASCET): 0 % Right ECA: Unremarkable. LEFT Carotid: Left CCA: Unremarkable. Left ICA: Unremarkable. Maximum stenosis (NASCET): 0 % Left ECA: Unremarkable. Vertebrals: Codominant. Arise from the subclavians. Both vertebrals form the basilar. RIGHT Vertebral: Unremarkable. LEFT Vertebral: Unremarkable. Anatomy: [place] anatomy is normal. Aneurysm or avm: No intracranial aneurysms or large vascular malformations are identified. Anterior cerebral arteries: Unremarkable: Middle cerebral arteries: Unremarkable. Basilar artery: Unremarkable. Posterior cerebral arteries: Unremarkable. Other major branches of the posterior circulation: Unremarkable. Major venous structures: Unremarkable. Other findings: Neck: No lymphadenopathy. Lungs: Lung apices are clear. Bones: Bones are unremarkable. CT/STROKE CTA Head AND Neck W/Con IMPRESSION: No abnormality is seen. Reading Location: [id number]
--- NOTE | 2025-02-14 14:10 | EX.ED.DYSGE1 ---
HPI History of Present Illness Chief Complaint: Syncope Informant: patient and spouse/S.O. Narrative Narrative: Presents by EMS at home reporting syncopal episode. Patient states around noon with downstairs felt fine standing at the kitchen when she felt like she was going to pass out. Apparently she did pass out reported caught by her daughter and lowered down. She felt fine prior to this. No prodromal chest pains or shortness of breath. No vomiting or diarrhea. No urinary symptoms. States after coming around had headache patient speech was off. Significant other in the room while talking or she is stuttering he states this is not normal for her. She feels weak generalized. She does not walk with a walker or any cane. No stroke history. No hemiparesis. No blood thinners. Denies any increasing stress here recently. The mother states he was in the barn when this occurred and he came up. EMS noted dry mucosal membrane she was given fluids. She states she is drinking fluids. She reports a nonproductive cough for 2 weeks. She reports burning in her legs. Prior similar symptoms: No PFSH PFSH Medical History Blister History of steroid therapy Injury of head and neck Non-smoker Shortness of breath on exertion Leg cramps Cardiology follow-up encounter Anemia Wears glasses Wears partial dentures Post-menopausal History of stress test Bhatti's esophagus without dysplasia Blood in stool Nausea Abdominal pain Anxiety Hypertension Numbness and tingling Fatigue GERD (gastroesophageal reflux disease) Glaucoma Diabetes Depression Home Medications ?Medication ?Instructions ?Recorded ?Last Taken ?Type venlafaxine 75 mg capsule,extended 225 mg PO DAILY mood 02/25/18 02/03/20 05:35 History release 24 hr ergocalciferol (vitamin D2) 1,250 50,000 unit PO QWEEK supplement 03/12/18 Unknown History mcg (50,000 unit) capsule (Vitamin D2) omega 0-wyr-wst-fish oil 900 4,200 mg PO DAILY supplement 03/12/18 Unknown History mg-1,400 mg capsule,delayed release (Fish Oil) losartan 100 mg tablet 100 mg PO DAILY blood pressure 11/15/20 12/29/20 06:00 History buspirone 5 mg tablet 5 mg PO BID anxiety 10/24/22 Unknown History oxycodone-acetaminophen 5 mg-325 1 tab PO Q4H PRN PRN pain 12/16/23 Unknown History mg tablet oxycodone 5 mg tablet 2.5 mg (1/2 x 5 mg) PO Q4H PRN PRN 12/19/23 Unknown Rx Pain Score 4-10 3 days #10 tabs pantoprazole 40 mg tablet,delayed 40 mg PO DAILY heart burn #30 tabs 12/19/23 Unknown Rx release (Protonix) sennosides 8.6 mg-docusate sodium 2 tab PO BID PRN PRN Constipation 12/19/23 Unknown Rx 50 mg tablet (Stool #0 tabs Softener-Stimulant Laxative) tizanidine 2 mg tablet 2 mg PO Q8H PRN PRN muscle 12/19/23 Unknown Rx spasm/strain 10 days #30 tabs cholecalciferol (vitamin D3) 50 50 mcg PO DAILY vitamin 02/14/25 Unknown History mcg (2,000 unit) tablet latanoprost 0.005 % eye drops 1 drp ophthalmic (eye) QHS eye 02/14/25 Unknown History drops venlafaxine 150 mg 150 mg PO DAILY antidepressant 02/14/25 Unknown History capsule,extended release 24 hr Allergy/AdvReac Type Severity Reaction Status Date / Time hydroxyzine Allergy Intermediate Other Verified 02/26/23 14:12 lisinopril AdvReac Mild cough Verified 02/26/23 14:12 Family History Mother Heart disease CVA (cerebral vascular accident) Skin cancer Hypertension Father Pancreatic cancer Heart disease Diabetes Surgical History S/P nasal septoplasty History of foot surgery History of eye surgery History of surgery on arm S/P appendectomy H/O neck surgery S/P colonoscopy History of esophagogastroduodenoscopy (EGD) Social History Smoking Status: Never smoker second hand exposure: No alcohol intake: never substance use type: does not use caffeine: No what type of physical activity do you participate in: none frequency: does not exercise ROS ROS ED Constitutional Constitutional ED: Denies chills, fever(s) or sweats Eyes Eyes: Denies blurry vision, change in vision or diplopia ENT ENT ED: Denies sore throat Cardiovascular Cardiovascular: Denies chest pain, leg edema, palpitations or racing heartbeat Respiratory/Chest Respiratory/Chest: Reports cough; Denies dyspnea or dyspnea on exertion Gastrointestinal Gastrointestinal: Denies abdominal pain, diarrhea, nausea or vomiting Genitourinary Genitourinary ED: Denies dysuria, hematuria or urinary frequency Musculoskeletal Musculoskeletal: Denies back pain, extremity pain or neck pain Integumentary Denies rash or wounds Neurologic Neurologic: Reports headache(s), weakness and other Details: Stuttering of speech. ; Denies paresthesias EXAM Physical Exam Const Vital Signs: 02/14/25 13:07 02/14/25 13:13 02/14/25 14:08 Temperature 97.9 F Temperature Source Oral Pulse Rate 52 L Respiratory Rate 16 Respiratory Effort Normal Non-Labored Respiratory Pattern Normal Blood Pressure 174/77 H Blood Pressure Mean 109 Pulse Ox 100 Oxygen Delivery Method Room Air Room Air 02/14/25 14:38 02/14/25 14:45 02/14/25 15:08 Temperature Temperature Source Pulse Rate 57 L 62 59 L Respiratory Rate 15 16 18 Respiratory Effort Respiratory Pattern Blood Pressure 187/97 H 136/89 H 166/88 H Blood Pressure Mean 127 104 114 Pulse Ox 100 99 99 Oxygen Delivery Method Room Air 02/14/25 17:42 02/14/25 17:45 02/14/25 19:00 Temperature 98.6 F Temperature Source Pulse Rate 59 L 80 63 Respiratory Rate 18 18 Respiratory Effort Respiratory Pattern Blood Pressure 166/88 H 167/88 H 173/99 H Blood Pressure Mean 114 114 123 Pulse Ox 99 98 99 Oxygen Delivery Method Positive well nourished and well developed General Appearance ED: well developed and NAD HEENT HEENT Narrative: Mild dry normocephalic and atraumatic Eyes General Eye ED: Yes normal appearance of both eyes Neck full ROM Chest Wall Chest: Negative for tenderness Resp normal respiratory effort and normal air movement Effort and Inspection: symmetric chest movement; Negative for respiratory distress Cardio regular rhythm and no murmurs Rate: bradycardia Peripheral Pulses: pulses 2+ throughout GI normal to inspection, nondistended, normoactive bowel sounds and non-tender Palpation: Negative for guarding or rebound tenderness present Extremity normal to inspection General Extremety ED: Negative for edema or tenderness General Extremity: Negative for edema Neuro oriented x3 and no sensory deficits noted Neuro Narrative: NIH of 7 for both legs dropping to the bed along with dysphasia, with stuttering speech. Sensorium / Orientation: awake and alert Skin no rashes or lesions noted and no wounds NIHSS NIHSS Initial: 1a Level of Consciousness: 0 1b LOC Questions (Score 2 if aphasic/stupor): 0 1c LOC Commands (Only score 1st attempt): 0 2 Best Gaze (If aphasic, use reflexive mvmts.): 0 3 Visual: 0 4 Facial Palsy: 0 5 Motor Arm Right (UN = amputation/fusion): 0 5 Motor Arm Left: 0 6 Motor Leg Right: 3 6 Motor Leg Left: 3 7 Limb ataxia (Only + if out of proportion): 0 8 Sensory (Aphasia/stupor=0 or 1, coma=2): 0 9 Best Language: 1 10 Dysarthria (mute, coma=2, intubated=UN): 0 11 Extinction and Inattention (only scored if +): 0 Total Score: 7 MDM MDM MDM Narrative Medical decision making narrative: Interventions / MDM: Differential diagnosis: Dysphagia, transient weakness, TIA Diagnosis considered but do not suspect: N/A My EKG interpretation: Sinus rate of 54, no ST changes. Imaging independently reviewed and interpreted by myself: CT brain: No acute process. CT angiogram head: No acute process in discussion with radiology. And neck External documents reviewed: N/A Test considered but not ordered:N/A ED course: Syncopal episodes like tremulous membranes with a cough. However new stuttering of speech along with both legs not holding up against gravity. No new neurological deficits onset of noon. Stroke team initiated for evaluation and will get neurology assistance for atypical symptoms. 1439: Spoke with stroke neurologist Dr. Miller, he was unable to see on the monitor however evaluated by nursing improving symptoms in the legs. Current NIH of 3 with dysphagia and both legs slight drifting however holding it up. He reviewed his dry CT which was negative for bleeds he cannot CT angiogram, with rapid improvement of symptoms not a candidate for TNK at this time. However agrees your neurologic deficits will need workup in the hospital. If CT angiogram is negative can keep your for further workup. 1442: discussed with radiologist both CT brain and CT angiogram shows no acute process. 1515: Reevaluation speech is improving. Awaiting for chest x-ray and lab results. 1615: NIH down to 2 stutter speech has improved. Still slightly drifting. 1715: Labs stable. On reevaluation symptoms resolved. Current NIH of 0. I spoke with Dr. Javier for admission. Re-evaluation: stable Disposition discussed with patient/family/significant other: Patient and significant other Case discussed with consulting clinician: Hospitalist This note was generated with [employer] dictation software. It may contain incorrect words, spelling, and punctuation that were not noted in checking the note before signing. Lab Data Attestation: I reviewed the patient's lab results. Labs: Laboratory Results - last 24 hr 02/14/25 02/14/25 15:19 16:14 WBC 6.5 RBC 4.55 Hgb 14.0 Hct 42.3 MCV 93.0 MCH 30.8 MCHC 33.1 RDW Std Deviation 43.0 RDW Coeff of Melissa 12.5 Plt Count 229 MPV 9.5 Immature Gran % (Auto) 0.300 Neut % (Auto) 67.8 Lymph % (Auto) 20.1 [place] % (Auto) 7.9 Eos % (Auto) 2.8 Baso % (Auto) 1.1 H Absolute Neuts (auto) 4.4 Absolute Lymphs (auto) 1.30 Nucleated RBC % 0 PT 13.4 INR 1.0 APTT 23.3 L Sodium 137 Potassium 4.0 Chloride 104 Carbon Dioxide 22.0 Anion Gap 11 BUN 14 Creatinine 0.79 Estim Creat Clear Calc 74.27 Est GFR (MDRD) Non-Af 80 BUN/Creatinine Ratio 17.2 Glucose 99 Calcium 8.5 Troponin T High Sens 8 Troponin T Hi Sens 2 Hr 8 Radiography Diagnostic Testing: Clinical Impression(s) from Imaging Studies Brain CT 02/14/25 14:08 IMPRESSION: NO ACUTE FINDINGS Red Alert: Nothing acute The critical information above was relayed directly by me by telephone to Rancho Verma on 02/14/2025 at 2:35 pm with readback verification. Reading Location: [facility] Head/Neck CTA 02/14/25 14:09 IMPRESSION: No abnormality is seen. Reading Location: [id number] Chest X-Ray 02/14/25 14:12 IMPRESSION: Lungs are hypoinflated, and examination is further limited by AP portable technique, body habitus, and some patient motion. Subtle increased density in the medial right lung base most likely represents atelectasis, but cannot exclude the presence of pneumonitis. No evidence of pulmonary edema. No pleural effusion or pneumothorax is seen. The cardiomediastinal silhouette is stable, without evidence of cardiomegaly. A partially calcified aorta is noted. No acute osseous change is seen. Reading Location: [facility] Discharge Plan Dx/Rx/DC Orders Clinical Impression: Dysphasia, Transient leg weakness, Brain TIA Disposition Disposition: Acute Care Hospital [facility] Discharge Date/Time: 02/14/25 19:54
--- NOTE | 2025-02-14 14:12 | RAD_ITS ---
PROCEDURE: CHEST 1 VIEW (PORTABLE) 02/14/2025 REASON FOR EXAM: COUGH TECHNIQUE: Frontal view of the chest. COMPARISON: AP chest of 12/16/2023. RAD/Chest 1 View (Portable) IMPRESSION: Lungs are hypoinflated, and examination is further limited by AP portable techn ique, body habitus, and some patient motion. Subtle increased density in the medial right lung base most likely represents a telectasis, but cannot exclude the presence of pneumonitis. No evidence of pulmonary edema. No pleural effusion or pneumothorax is seen. The cardiomediastinal silhouette is stable, without evidence of cardiomegaly. A partially calcified aorta is noted. No acute osseous change is seen. Reading Location: [place] [id number]
--- NOTE | 2025-02-14 15:15 | CM.ED ---
Social Work Reason for visit: Stroke Alert SW spoke with patients while patient was out of the room. states that patient was standing at the sink when she fainted and their daughter caught her and lowered her to the ground. states patient seemed fine prior to , that she was planning on heading out the barn to help him work this morning. Emotional support provided, no further needs identified at this time. Johanne Streeter, [employer], [employer]
[2025-02-14 15:49] LABS: Hematocrit 42.3 % (37-47); Hemoglobin 14.0 g/dL (12.0-15.0); Immature Granulocytes Count 0.020 X10^3/uL (0.0-0.0); Mean Corp Hgb Conc 33.1 g/dL (32-36); Mean Corpuscular Volume 93.0 fL (81-99); Mean Platelet Vol. 9.5 fl (6.2-12.0); NRBC Flagged by Analyzer 0 % (0-5); Platelet Count 229 K/mm3 (150-450); RBC Distribution Width CV 12.5 % (11.6-14.6); RBC Distribution Width SD 43.0 fl (35.1-43.9); Red Blood Count 4.55 M/mm3 (4.2-5.4); White Blood Count 6.5 K/mm3 (4.4-11.0)
[2025-02-14 16:03] LABS: Prothrombin Time (Protime)PT. 13.4 SECONDS (11.7-14.9)
[2025-02-14 16:04] LABS: Partial Thromboplast Time 23.3 Seconds (24.1-36.2)
[2025-02-14 16:25] LABS: Anion Gap 11 (5-15); BUN 14 mg/dL (4-19); BUN/Creat Ratio 17.2 RATIO (10-20); Calcium,Total 8.5 mg/dL (7.6-11.0); Carbon Dioxide 22.0 mmol/L (21.0-32.0); Chloride 104 mmol/L (98-108); Estimated Creatinine Clearance 74.27 ml/min (50-250); Glucose 99 mg/dL (70-99); Potassium 4.0 mmol/L (3.3-5.1); Troponin T High Sensitivity 8 ng/L (<=14)
[2025-02-14 16:44] LABS: Troponin T High Sens 2 HR 8 ng/L (<=14)
--- NOTE | 2025-02-14 19:45 | HP.PCM.HOS_ITS ---
HPI - General General Date of Admission: 02/14/25 Date of Service: 02/14/25 Chief Complaint: loss of consciousness and difficulty moving limbs HPI Narrative DOMINIC ARTEAGA, is a 69-year-old female history of depression, GERD, glaucoma who presented [facility] ED 02/14/2025 with a syncopal episode. Reportedly had been in her usual health and then was standing in the kitchen and had a syncopal episode, she was caught by her daughter but afterwards was having difficulty moving her limbs and speaking. She was a stroke call in the ED with an initial NIH of 7, teleneurology was unable to see patient on the monitor but beamed in and patient had improving symptoms and an NIH of 3 and was not felt to be a TNK candidate given rapid improvement of symptoms. Imaging with no acute process and NIH was 0 but given patient's symptoms hospitalist contacted for admission for stroke rule out. Patient evaluated at bedside with daughter present. Reportedly she had been in her usual health as above and went down to the kitchen, she then became nauseous and felt unwell, denied any chest pain or palpitations at that time, no shortness of breath, lightheadedness, or headache and then had syncopal episode, daughter caught her and notes her eyes were closed and she was completely unresponsive for a couple of seconds but then when she came to she was still out of it, was not making sense when she was talking and was saying she could not swallow and was having a hard time lifting her limbs. Patient reports now she is feeling much better but not quite back to baseline, did have a little bit of a headache earlier and also had a jaw and ear ache on the left side and noted at 1 point she had some pain over her left breast but all of that has resolved, no palpitations. Feels some generalized weakness but is doing better with no focal weakness. Notes she intermittently will get a little bit of lower abdominal cramping and has problems with constipation but not presently having any abdominal pain, no more nausea. Only other complaint is that she has a painful itchy area on back of right arm which she gets intermittently and has for a long time, follows with dermatology for this and reports she was never told what it was, this particular incident has been present since this a.m. No other new or acute complaints at time of exam [facility] Medical History Blister History of steroid therapy Injury of head and neck Non-smoker Shortness of breath on exertion Leg cramps Cardiology follow-up encounter Anemia Wears glasses Wears partial dentures Post-menopausal History of stress test Bhatti's esophagus without dysplasia Blood in stool Nausea Abdominal pain Anxiety Hypertension Numbness and tingling Fatigue GERD (gastroesophageal reflux disease) Glaucoma Diabetes Depression Home Medications ?Medication ?Instructions ?Recorded ?Last Taken ?Type venlafaxine 75 mg capsule,extended 225 mg PO DAILY moo d 02/25/18 02/03/20 05:35 History release 24 hr ergocalciferol (vitamin D2) 1,250 50,000 unit PO QWEEK supplement 03/12/18 Unknown History mcg (50,000 unit) capsule (Vitamin D2) omega 6-qvj-ejp-fish oil 900 4,200 mg PO DAILY supplem ent 03/12/18 Unknown History mg-1,400 mg capsule,delayed release (Fish Oil) losartan 100 mg tablet 100 mg PO DAILY blood pressu re 11/15/20 12/29/20 06:00 History buspirone 5 mg tablet 5 mg PO BID anxiety 10/24/22 Unknown History oxycodone-acetaminophen 5 mg-325 1 tab PO Q4H PRN PRN pain 12/16/23 Unknown History mg tablet oxycodone 5 mg tablet 2.5 mg (1/2 x 5 mg) PO Q4H P RN PRN 12/19/23 Unknown Rx Pain Score 4-10 3 days #10 tabs pantoprazole 40 mg tablet,delayed 40 mg PO DAILY heart burn #30 tabs 12/19/23 Unknown Rx release (Protonix) sennosides 8.6 mg-docusate sodium 2 tab PO BID PRN PRN Constipation 12/19/23 Unknown Rx 50 mg tablet (Stool #0 tabs Softener-Stimulant Laxative) tizanidine 2 mg tablet 2 mg PO Q8H PRN PRN muscle 0 12/19/23 Unknown Rx spasm/strain 10 days #30 tabs cholecalciferol (vitamin D3) 50 50 mcg PO DAILY vitami n 02/14/25 Unknown History mcg (2,000 unit) tablet latanoprost 0.005 % eye drops 1 drp ophthalmic (eye) Q HS eye 02/14/25 Unknown History drops venlafaxine 150 mg 150 mg PO DAILY antidepressa nt 02/14/25 Unknown History capsule,extended release 24 hr Allergy/AdvReac Type Severity Reaction Status Date / Time hydroxyzine Allergy Intermediate Other Verified 02/26/23 14:12 lisinopril AdvReac Mild cough Verified 02/26/23 14:12 Family History Mother Heart disease CVA (cerebral vascular accident) Skin cancer Hypertension Father Pancreatic cancer Heart disease Diabetes Surgical History S/P nasal septoplasty History of foot surgery History of eye surgery History of surgery on arm S/P appendectomy H/O neck surgery S/P colonoscopy History of esophagogastroduodenoscopy (EGD) Social History Smoking Status: Never smoker second hand exposure: No alcohol intake: never substance use type: does not use caffeine: No what type of physical activity do you participate in: none frequency: does not exercise ROS ROS Narrative General: Denies fever/chills HENT: Headache resolved, denies stuffy nose, denies sore throat EYES: Denies changes in vision Resp: Denies cough, denies shortness of breath Cardiac: Denies chest pain at this time, had a little bit of pain over left breast earlier GI: Denies abdominal pain, denies changes in bowel but has had problems with chronic constipation, had some nausea earlier that is resolved : Denies changes in urination Extremity: Denies swelling MSK: Some generalized weakness with resolved focal weakness Neuro: Denies any numbness/tingling Heme: Denies any bleeding or bruising Skin: Does have an itchy painful area on back of right arm Psychiatric: No complaints voiced Vital Signs Vital Signs Vital Signs: 02/14/25 13:07 02/14/25 13:13 02/14/25 14:08 Temperature 97.9 F Temperature Source Oral Pulse Rate 52 L Respiratory Rate 16 Respiratory Effort Normal Non-Labored Respiratory Pattern Normal Blood Pressure 174/77 H Blood Pressure Mean 109 Pulse Ox 100 Oxygen Delivery Method Room Air Room Air 02/14/25 14:38 02/14/25 14:45 02/14/25 15:08 Temperature Temperature Source Pulse Rate 57 L 62 59 L Respiratory Rate 15 16 18 Respiratory Effort Respiratory Pattern Blood Pressure 187/97 H 136/89 H 166/88 H Blood Pressure Mean 127 104 114 Pulse Ox 100 99 99 Oxygen Delivery Method Room Air 02/14/25 17:42 02/14/25 17:45 02/14/25 19:00 Temperature 98.6 F Temperature Source Pulse Rate 59 L 80 63 Respiratory Rate 18 18 Respiratory Effort Respiratory Pattern Blood Pressure 166/88 H 167/88 H 173/99 H Blood Pressure Mean 114 114 123 Pulse Ox 99 98 99 Oxygen Delivery Method Weight Weight: 97.7 kg Body Mass Index (BMI) 36.9 Physical Exam Narrative General: Alert, oriented, no apparent distress HEENT: Atraumatic, normocephalic Eyes: Anicteric, normal conjunctiva, extraocular movements intact, pupils equal Neck: Supple Respiratory: Clear to auscultation bilaterally, normal respiratory effort Cardiovascular: Regular rate and rhythm GI: Soft, nontender, nondistended Extremities: No edema Musculoskeletal: Strength 5 out of 5 in right upper extremity, 5 out of 5 left upper extremity, 5 out of 5 right lower extremity, 5 out of 5 left lower extremity Neuro: No overt focal neurological deficits, cranial nerves II through XII intact, [id number] without significant difficulty bilaterally Skin: Slightly erythematous area above elbow posteriorly on right arm Psych: Cooperative Results Lab / Micro Data 02/14/25 15:19 02/14/25 15:19 Labs: Laboratory Results - last 24 hr 02/14/25 15:19: WBC 6.5, RBC 4.55, Hgb 14.0, Hct 42.3, MCV 93.0, MCH 30.8, MCHC 33.1, RDW Std Deviation 43.0, RDW Coeff of Melissa 12.5, Plt Count 229, MPV 9.5, Immature Gran % (Auto) 0.300, Neut % (Auto) 67.8, Lymph % (Auto) 20.1, [place] % (Auto) 7.9, Eos % (Auto) 2.8, Baso % (Auto) 1.1 H, Absolute Neuts (auto) 4.4, Absolute Lymphs (auto) 1.30, Nucleated RBC % 0, PT 13.4, INR 1.0, APTT 23.3 L, Sodium 137, Potassium 4.0, Chloride 104, Carbon Dioxide 22.0, Anion Gap 11, BUN 14, Creatinine 0.79, Estim Creat Clear Calc 74.27, Est GFR (MDRD) Non-Af 80, BUN/Creatinine Ratio 17.2, Glucose 99, Calcium 8.5, Troponin T High Sens 8 02/14/25 16:14: Troponin T Hi Sens 2 Hr 8 Imaging Radiology Impression Brain CT 02/14/25 14:08 IMPRESSION: NO ACUTE FINDINGS Red Alert: Nothing acute The critical information above was relayed directly by me by telephone to Luci Rancho on 02/14/2025 at 2:35 pm with readback verification. Reading Location: [id number] Head/Neck CTA 02/14/25 14:09 IMPRESSION: No abnormality is seen. Reading Location: [id number] Chest X-Ray 02/14/25 14:12 IMPRESSION: Lungs are hypoinflated, and examination is further limited by AP portable technique, body habitus, and some patient motion. Subtle increased density in the medial right lung base most likely represents atelectasis, but cannot exclude the presence of pneumonitis. No evidence of pulmonary edema. No pleural effusion or pneumothorax is seen. The cardiomediastinal silhouette is stable, without evidence of cardiomegaly. A partially calcified aorta is noted. No acute osseous change is seen. Reading Location: [facility] Assessment & Plan Assessment/Plan (1) Loss of consciousness: PLAN: Plan # Difficulty moving limbs and swallowing with loss of consciousness -Symptoms have resolved at this point -Admit to tele -CT head w/ no acute process -CTA head and neck with no LVO -MRI ordered -NIH q4hr -asa, statin -Echo -PT/OT/Speech eval -Teleneuro consult ordered -Hold BP medications to allow for permissive hypertension for 24 hours unless SBP greater than 220 or DBP greater than 120 or until stroke is ruled out #Hypertension - Patient reports she has been unable to locate her losartan at home over the past couple of weeks and has not been able to refill it because it is too early so has not been taking any medication for blood pressure but notes in the ED it is much higher than usual -After 24 hours we will need to adjust for better blood pressure control #GERD -Continue PPI #Depression/anxiety -Continue home medications #DVT ppx: SCDs Yudi Javier MD Charges/Coding Visit Charges Inpatient E&M: 10854 Init Hosp L2
--- NOTE | 2025-02-14 20:05 | ECHOD_ITS ---
Reason For Study Reason For Study: TIA/Stroke Procedure This was a 2D Doppler, Color Flow transthoracic echocardiogram. Exam performed portable in patient room. Left Ventricle Normal LV size. Left ventricular systolic function is normal. The estimated ejection fraction is 60 %. Normal diastology for age. No regional wall motion abnormalities noted. Right Ventricle Normal RV size. Normal systolic function. Atria Normal left atrium. Normal right atrium. Mitral Valve The mitral valve is structurally normal. No prolapse or stenosis seen. Trivial mitral valve insufficiency. Tricuspid Valve Normal tricuspid valve. Mild (1+) tricuspid valve insufficiency. Pulmonary artery systolic pressure is 28 mmHg. Aortic Valve Trisinus/trileaflet aortic valve. Pulmonic Valve Normal pulmonic valve. Trivial pulmonic valve insufficiency. Great Vessels Normal sized aortic root. Pericardium/Pleural No pericardial effusion. MMode/2D Measurements & Calculations LVIDd: 4.5 cm IVSd: 0.92 cm Ao root diam: 3.3 cm LVIDs: 2.7 cm LVPWd: 0.89 cm RVDd: 2.6 cm FS: 40.1 % LAV(MOD-bp): 41.1 ml LVAd ap4: 15.6 cm2 SV(MOD-sp4): 19.0 ml LAV(MOD-bp) Indexed: 21.0 ml/m2 LVLd ap4: 6.7 cm SI(MOD-sp4): 9.7 ml/m2 LAV(MOD-sp2): 28.4 ml EDV(MOD-sp4): 30.2 ml LAV(MOD-sp4): 46.9 ml EDV(sp4-el): 31.1 ml LVAs ap4: 8.0 cm2 LVLs ap4: 4.7 cm ESV(MOD-sp4): 11.2 ml ESV(sp4-el): 11.7 ml EF(MOD-sp4): 62.9 % EF(sp4-el): 62.5 % SV(sp4-el): 19.4 ml LA A4 area: 18.7 cm2 LA dimension(2D): 3.7 cm RA A4 area: 8.8 cm2 Time Measurements MV dec time: 0.20 sec Doppler Measurements & Calculations MV E max timoteo: 65.3 cm/sec Lat Peak E' Timoteo: 9.0 cm/sec Med Peak E' Timoteo: 5.8 cm/sec MV A max timoteo: 81.3 cm/sec E/E' lat: 7.3 E/E' med: 11.3 MV E/A: 0.80 Ao V2 max: 123.5 cm/sec LV V1 max: 91.2 cm/sec MV dec slope: 322.4 cm/sec2 Ao max P.1 mmHg LV V1 max P.3 mmHg Ao V2 mean: 92.9 cm/sec LV V1 mean P.8 mmHg Ao mean P.6 mmHg LV V1 mean: 61.9 cm/sec Ao V2 VTI: 31.6 cm LV V1 VTI: 23.7 cm AV (velocity ratio): 0.75 PA V2 max: 71.4 cm/sec TR max timoteo: 251.1 cm/sec TR max P.2 mmHg ECHO/Echo Complete Interpretation Summary The estimated ejection fraction is 60 %. Mild (1+) tricuspid valve insufficiency. No significant change in comparison to previous echocardiogram. Compared to prior study, there is no significant change. Ordering Physician: Yudi Javier Referring Physician: Demian Avila Performed By: Camila Pastor RDCS, RVT
--- OUTSIDE RECORDS SUMMARY | 2025-02-14 20:21 | XMS RPT_ITS | CCD ---
Author Organization [facility] Care Team Providers Care Ethylbenzene Oxidizer Name Role Phone CHESTER ROCHA Unavailable Unavailable AJ, CHESTER Lamas Unavailable Unavailable NO REFERRING Unavailable Unavailable CHESTER ROCHA Unavailable Unavailable AJ, CHESTER TIJERINA Unavailable Unavailable Mai RN, Laura Hanna Unavailable [phone] Francis Spring Unavailable Unavailable PROVIDER, UNKNOWN Attending Unavailable PROVIDER, UNKNOWN Admitting Unavailable KAYLI MARIA Referring Unavailab Chaim Mao Attending Unavail able Dr. Bakari Avila Primary Care Provider [phone] Dr. Bakari Avila Referring Provider FriendDr. Reilly Attending Provider [phone] Tommie Avelar Referring Provider [phone] FriendDr[address] Reilly Other Provider Dr. Bakari Avila Primary Care Provider [phone] Dr. Bakari Avila Referring Provider FriendDr. Reilly Attending Provider [phone] Bakari Avila Primary Care Provider [phone] Dr. Bakari Avila Referring Provider Dr. Bakari Avila Other Provider [phone] John Grimes Attending Provider Dr. Bakari Avila Primary Care Provider Dr. Bakari Avila Referring Provider Dr. Bakari Avila Other Provider [phone] John Grimes Attending Provider Friend, Dr. Reilly Attending Provider Dr. Chaim Avila Primary Care Provider [phone] Dr. Chaim Avila Referring Provider Dr. Chaim Avila Other Provider [phone] Dr. Kamlesh Cole Attending Provider [phone] Wiggers DO, Domingo B Primary Care Provider [phone] Unavailable Primary Care Provider Unavailabl e O'COLLIN, IRINA Attending Unavailable QUEENER, NIKKI Referring Unavailable WIGGERS, DOMINGO B Primary Care Unavailable QUEENER, NIKKI Attending Unavailable WIGGERS, DOMINGO B Primary Care Unavailable QUEENER, NIKKI Referring Unavailable WIGGERS, DOMINGO B Primary Care Unavailable LISBETH RAMÍREZ Attending Unavailable WIGGERS, DOIMNGO B Primary Care Unavailable O'COLLIN, IRINA Attending Unavailable QUEENER, NIKKI Referring Unavailable Margarita OKCH, Dr. Arciniega Primary Care Provider Dr. Chaim Avila MD Attending Provider [phone] Dr. Chaim Avila MD Referring Provider Chaim Avila Primary Care Unavailable Chaim Avila Attending Unavailable Chaim Avila Referring Unavailable Margarita, Chaim Primary Care Unavailable Chaim Avila Attending Unavailable Chaim Avila Referring Unavailable Chaim Avila Attending Unavailable Chaim Avila Referring Unavailable Margarita, Chaim Primary Care Unavailable Chaim Avila Attending Unavailable Chaim Avila Referring Unavailable Margarita, Chaim Primary Care Unavailable Margarita, Chaim Primary Care Unavailable McMorrow TABLE ASSEMBLERThai Attending Unavailable McMorrow TABLE ASSEMBLER Thai Referring Unavailable Chaim Avila Primary Care Unavailable Chaim Avila Attending Unavailable Chaim Avila Referring Unavailable Allergies Allergy Classification Reported Allergen(s) Allergy Type Date of Onset Reaction(s) Facility (20 sources) Lisinopril; Translations: [LISINOPRIL] Drug Allergy 03-05-2019 [facility] hydrOXYzine Drug Allergy 10-24-2022 Other [facility] (1 source) hydrOXYzine Drug Allergy 02-26-2023 [facility] Repository Medications Current Medications Medication Drug Class(es) Dates Sig (Normalized) Sig (Original) acetaminophen 325 mg / oxyCODONE hydrochloride 5 mg oral tablet (3 sources) Opioid Agonist Start: 12-16-2023 Oxycodone-Acetamin ophen 5-325 mg tablet Active 1 {tbl} PO EVERY 4 HOURS NEEDED as needed for pain December 16, 2023 12:00am atorvastatin 20 mg oral tablet (7 sources) HMG-CoA Reductase Inhibitor Start: 12-10-2019 atorvastatin (LIPITOR) 20 mg tablet 12/10/2019 Active busPIRone hydrochloride 5 mg oral tablet (20 sources) Start: 10-24-2022 take 1 tablet by mouth twice daily Buspirone 5 mg tablet Active 5 mg PO TWICE A DAY October 24, 2022 12:00am take 1 tablet by mouth three margoth es daily busPIRone (BUSPAR) 5 mg tablet Take 5 mg by mouth three times a day. Active nule-A8-vzmpbz-P9-Nq-We-bo an 250 mg-400 unit -40 mg-5 mg tab (6 sources) take 1 tablet by mouth once daily rxem-J8-kfngap-H3-Ir-Tj-lizeth 250 mg-400 unit -40 mg-5 mg tab Take 250 mg by mouth once daily. Active take 1 tablet by mar th once daily zggh-H5-adblyh-R6-Wc-Ne-lizeth 250 mg-40 0 unit -40 mg-5 mg tab Take 250 mg by mouth once daily. 0 Active cholecalciferol 0.05 mg oral capsule (7 sources) Vitamin D Cholecalciferol, Vitamin D3, 50 mcg (2,000 unit) cap Take by mouth. Active docusate sodium 50 mg / sennosides, long term 8.6 mg oral tablet (3 sources) Start: 2023 Sennosides-Docusate Sodium (Stool Softener-Stimulant Laxat) 8.6-50 mg Tablet Active 2 {tbl} PO TWICE DAILY NEEDED as needed for Constipation 0 December 19, 2023 12:00am ergocalciferol 1.25 mg oral capsule (20 sources) Provitamin D2 Compound Start: 2016 Ergocalciferol (Vitamin D2) (Vitamin D2) 50,000 UNIT capsule Active 77902 U PO EVERY WEEK March 12, 2018 12:00am latanoprost 0.05 mg/ml ophthalmic solution (13 sources) Prostaglandin Analog Start: 2017 take 1 drop(s) into the eye(s) once daily at bedtime latanoprost (XALATAN) 0.005 % ophthalmic solution Use 1 Drop in both eyes daily at bedtime. 03/12/2018 Active losartan potassium 100 mg oral tablet (20 sources) Angiotensin 2 Receptor Joey Start: 2020 take 1 tablet by mouth once daily Losartan 100 mg tablet Active 100 mg PO DAILY November 15, 2020 12:00am meclizine hydrochloride 25 mg oral tablet (6 sources) Antiemetic take 1 tablet by mouth every eight hours as needed meclizine (ANTIVERT) 25 mg tab Take 25 mg by mouth three times a day as needed (dizziness). Active methylPREDNISolone 4 mg oral tablet (3 sources) Corticosteroid Start: 2023 Methylprednisolone 4 mg Tablets,Dose Pack Active 4 mg PO 0800,1200,1700,2200 8 December 19, 2023 12:00am As scheduled. [place] 8-Pgg-Arb-Fish Oil (Fish Oil 1,400 Mg Softgel) 1 EACH capsule,delayed release(DR/EC) (17 sources) Start: 2017 take 1 capsule by mouth three times daily [place] 4-Dgw-Elb-Fish Oil (Fish Oil 1,400 Mg Softgel) 1 EACH capsule,delayed release(DR/EC) Active 4200 MG PO THREE TIMES A DAY March 12, 2018 9:00am Start: 03-12-2018 take 1 capsule by [facility] once daily [place] 0-Egt-Fjr-Fish Oil (Fish Oil 1,400 Mg Softgel) 1 EACH capsule,delayed release(DR/EC) Active 4200 MG PO DAILY March 11, 2018 11:00pm Start: 03-12-2018 take 1 capsule by [facility] once daily [place] 4-Tes-Ajf-Fish Oil (Fish Oil 1,400 Mg Softgel) 1 EACH capsule,delayed release(DR/EC) Active 4200 MG PO DAILY March 12, 2018 12:00am Start: 03-12-2018 take 1 capsule by [facility] three times daily [place] 0-Mqc-Esf-Fish Oil (Fish Oil 1,400 Mg Softgel) 1 EACH capsule,delayed release(DR/EC) Active 4200 MG PO THREE TIMES A DAY March 11, 2018 11:00pm Start: 03-12-2018 take 1 capsule by [facility] three times daily [place] 2-Vta-Icd-Fish Oil (Fish Oil 1,400 Mg Softgel) 1 EACH capsule,delayed release(DR/EC) Active 4200 MG PO THREE TIMES A DAY March 12, 2018 12:00am [place] 5-All-Oyh-Fish Oil (Fish Oil) 1 EACH capsule,delayed release(DR/EC) (3 sources) Start: 03-12-2018 take 1 capsule by mouth once daily [place] 7-Erb-Dka-Fish Oil (Fish Oil) 1 EACH capsule,delayed release(DR/EC) Active 4200 mg PO DAILY March 12, 2018 12:00am omega 6-bic-idh-fish oil (FISH OIL) 100-160-1,000 mg cap (7 sources) omega 3-dha-epa- fish oil (FISH OIL) 100-160-1,000 mg cap Take by mouth. Active omega 3-dha-epa- fish oil (FISH OIL) 100-160-1,000 mg cap Take by mouth. 0 Active ondansetron 4 mg oral tablet (3 sources) Serotonin-3 Receptor Antagonist Start: 04-27-2024 take 1 tablet by mouth once daily as needed for nausea ondansetron (ZOFRAN) 4 mg tablet Take 1 tablet by mouth once daily as needed for nausea/vomiting. 30 tablet 2 04/27/2024 Active oxyCODONE hydrochloride 5 mg oral tablet (20 sources) Opioid Agonist Start: 12-19-2023 take 0.5-1 tablets by mouth every four hours as needed for pain Oxycodone 5 mg Tablet Active 2.5 mg PO EVERY 4 HOURS NEEDED as needed for Pain Score 4-10 10 3 December 19, 2023 Half to 1 tablet for moderate to severe pain respectively. Start: 01-31-2020 End: 11-15-2020 take 1 tablet by mouth every six hours as needed for pain Oxycodone 5 MG tablet Discontinued 5 mg PO EVERY 6 HOURS as needed for Pain Or Fever January 31, 2020 12:00am November 15, 2020 9:06am pantoprazole 40 mg delayed release oral tablet (15 sources) Proton Pump Inhibitor Start: 12-19-2023 take 1 tablet by mouth once daily Pantoprazole (Protonix) 40 mg tablet,delayed release (DR/EC) Active 40 mg PO DAILY December 19, 2023 12:00am Start: 12-30-2022 End: 12-16-2023 take 1 tablet by mouth every twelve hours Pantoprazole 40 mg tablet,delayed release (DR/EC) Discontinued 40 mg PO Q12H 60 December 30, 2022 12:00am December 16, 2023 5:54pm tiZANidine 2 mg oral tablet (3 sources) Central alpha-2 Adrenergic Agonist Start: 12-19-2023 take 1 tablet by mouth every eight hours as needed for muscle spasms Tizanidine 2 mg Tablet Active 2 mg PO EVERY 8 HOURS NEEDED as needed for muscle spasm/strain 21 04December 19, 2023 12:00am 24 hr venlafaxine 75 mg extended release oral capsule (20 sources) Serotonin and Norepinephrine Reuptake Inhibitor Start: 02-25-2018 take 1 capsule by mouth once daily Venlafaxine 75 mg capsule,extended release 24hr Active 225 mg PO DAILY February 25, 2018 12:00am Start: 02-25-2018 take 225 mg by mouth once michael y Venlafaxine Active 225 MG PO DAILY February 25, 2018 12:00am Start: 2010 take 1 tablet by mar th once daily EFFEXOR XR 150 MG [id number] One tablet by mouth daily VENLAFAXINE HCL [id number] Harry Johansen MS,PA-C Start: 2010 take 1 tablet by mar th once daily EFFEXOR XR 75 MG [id number] One tablet by mouth daily VENLAFAXINE HCL [id number] Laura Oneill RN take 1 tablet by mar th three times daily venlafaxine (EFFEXOR) 75 mg tablet Take 75 mg by mouth three times a day. Active Completed/Discontinued Medications Medication Drug Class(es) Dates Sig (Normalized) Sig (Original) acetaminophen 325 mg / HYDROcodone bitartrate 10 mg oral tablet (1 source) Opioid Agonist Start: 04-01-2017 NORCO 10-325 MG TABS as directed HYDROCODONE-ACETAM INOPHEN [id number] Augusto Rosenberg MD acyclovir 800 mg oral tablet (1 source) Herpesvirus Nucleoside Analog DNA Polymerase Inhibitor, Herpes Simplex Virus Nucleoside Analog DNA Polymerase Inhibitor, Herpes Zoster Virus Nucleoside Analog DNA Polymerase Inhibitor Start: 04-01-2017 take 1 tablet by mouth five times daily ACYCLOVIR 800 MG TABS One tablet by mouth five times daily x 10 days ACYCLOVIR [id number] Augusto Rosenberg MD aspirin 81 mg delayed release oral tablet (20 sources) Platelet Aggregation Inhibitor, Nonsteroidal Anti-inflammatory Drug Start: 01-31-2020 End: 11-15-2020 take 1 tablet by mouth once daily Aspirin 81 MG tablet Discontinued 81 mg PO DAILY@0800 January 31, 2020 12:00am November 15, 2020 9:06am Start: 04-01-2017 take 1 tablet by mar th once daily ASPIRIN 81 MG TABS One tablet by mouth daily ASPIRIN [id number] Augusto Rosenberg MD fenofibrate 120 mg oral tablet (2 sources) Peroxisome Proliferator Receptor alpha Agonist Start: 03-31-2017 take 1 tablet by mouth once daily FENOFIBRATE 120 MG TABS One tablet by mouth daily FENOFIBRATE [id number] Laura Oneill RN Fish Oils (3 sources) Start: 03-31-2017 take 1 tablet by mouth three times daily FISH OIL CAPS One tablet by mouth three times daily OMEGA-3 FATTY ACIDS CAPS [id number] Augusto Rosenberg MD Start: 03-31-2017 take 1 tablet by mar th once daily FISH OIL CAPS One tablet by mouth daily OMEGA-3 FATTY ACIDS CAPS [id number] Laura Oneill RN metFORMIN hydrochloride 500 mg oral tablet (2 sources) Biguanide Start: 03-31-2017 take 1 tablet by mouth twice daily METFORMIN HCL 500 MG TABS One half tablet by mouth twice daily METFORMIN HCL [id number] Laura Oneill RN omeprazole 40 mg delayed release oral capsule (20 sources) Proton Pump Inhibitor Start: 08-10-2019 End: 12-30-2022 take 1 capsule by mouth once daily Omeprazole 40 mg capsule,delayed release(DR/EC) Discontinued 40 mg PO DAILY October 24, 2022 12:00am December 30, 2022 9:49am Start: 05-07-2018 End: 11-15-2020 take 1 capsule by mouth twice daily as needed Omeprazole 20 MG capsule Discontinued 20 mg PO TWICE A DAY as needed for Indigestion May 07, 2018 1:00am November 15, 2020 9:06am Start: 03-31-2017 take 1 tablet by mar once daily OMEPRAZOLE 20 MG CPDR One tablet by mouth daily OMEPRAZOLE [id number] Laura Oneill RN prazosin 2 mg oral capsule (20 sources) alpha-Adrenergic Joey Start: 11-15-2020 End: 10-24-2022 take 1 capsule by mouth at bedtime Prazosin 2 mg capsule Discontinued 2 mg PO AT BEDTIME November 15, 2020 12:00am October 24, 2022 10:00am predniSONE 10 mg oral tablet (4 sources) Start: 2010 End: 03-31-2017 PREDNISONE 10 MG TABS take 4 tabs daily x 3 days, 3 tabs daily x 3 days, 2 tabs daily x 3 days, 1 tab daily x 3 days, take PC PREDNISONE [id number] Laura Oneill RN Protandim (20 sources) Start: 11-15-2020 End: 10-24-2022 Protandim Discontinued 5 {tbl} PO DAILY November 15, 2020 9:09am October 24, 2022 10:00am Start: 11-15-2020 End: 10-24-2022 take 5 tablets by mouth once daily Protandim Discontinued 5 TABLET PO DAILY November 15, 2020 8:09am October 24, 2022 9:00am Start: 11-15-2020 End: 10-24-2022 take 5 tablets by mouth once daily Protandim Discontinued 5 TABLET PO DAILY November 15, 2020 9:09am October 24, 2022 10:00am Start: 11-15-2020 take 5 tablets by mo uth once daily Protandim Active 5 TABLET PO DAILY November 15, 2020 8:09am Start: 11-15-2020 take 5 tablets by mo uth once daily Protandim Active 5 TABLET PO DAILY November 15, 2020 9:09am Start: 03-12-2018 End: 11-15-2020 take 1 tablet by mouth once daily Protandim Discontinued 1 TABLET PO DAILY March 12, 2018 9:00am November 15, 2020 9:09am Start: 03-12-2018 End: 11-15-2020 Protandim Discontinued 1 {tb l} PO DAILY March 12, 2018 12:00am November 15, 2020 9:09am Start: 03-12-2018 End: 11-15-2020 take 1 tablet by mouth once daily Protandim Discontinued 1 TABLET PO DAILY March 11, 2018 11:00pm November 15, 2020 8:09am Start: 03-12-2018 End: 11-15-2020 take 1 tablet by mouth once daily Protandim Discontinued 1 TABLET PO DAILY March 12, 2018 12:00am November 15, 2020 9:09am vitamin b 12 1 mg oral tablet (3 sources) Vitamin B12 Start: 03-31-2017 take 1 tablet by mouth once daily VITAMIN B-12 1000 MCG TABS One tablet by mouth daily CYANOCOBALAMIN [id number] Augusto Rosenberg MD Start: 03-31-2017 take 1 tablet by mar twice daily VITAMIN B-12 1000 MCG TABS One tablet by mouth twice daily CYANOCOBALAMIN [id number] Laura Oneill RN Problems Active Problems Problem Classification Problem Date Documented Da te Episodic/Chronic Abdominal pain (20 sources) Abdominal pain; Translations: [Unspecified abdominal pain] 12-29-2020 Episodic Anxiety disorders (20 sources) Anxiety disorder; Translations: [Anxiety] 2010 Chronic Comment on above: ON MEDS Conditions associated with dizziness or vertigo (13 sources) Dizziness; Translations: [Dizziness and giddiness] Onset: 02-03-2024 02-03-2024 Episodic Coronary atherosclerosis and other heart disease (2 sources) Angina pectoris; Translations: [Chest pain, unspecified] Onset: 03-31-2017 03-31-2017 Chronic Deficiency and other anemia (20 sources) Anemia; Translations: [Anemia, unspecified] 12-29-2020 Episodic Disorders of lipid metabolism (7 sources) Hyperlipidemia; Translations: [Hyperlipidemia, unspecified] Onset: 05-01-2022 2010 Chronic Esophageal disorders (20 sources) Bhatti's esophagus; Translations: [Bhatti's esophagus without dysplasia] 12-29-2020 Chronic Essential hypertension (20 sources) Hypertensive disorder; Translations: [Essential (primary) hypertension] 12-27-2020 Chronic Comment on above: CONTROLLED WITH MED Fracture of lower limb (20 sources) Closed trimalleolar fracture; Translations: [Displaced trimalleolar fracture of left lower leg, initial encounter for closed fracture] 02-03-2020 Episodic Gastrointestinal hemorrhage (20 sources) Hematochezia; Translations: [Melena] 11-15-2020 Episodic Headache; including migraine (2 sources) Migraine variants; Translations: [Other migraine, not intractable, without status migrainosus] Onset: 02-03-2024 02-03-2024 Chronic Headache; including migraine (1 source) Headache; Translations: [Worsening headaches] 02-03-2024 Episodic Malaise and fatigue (20 sources) Fatigue; Translations: [Other fatigue] 11-15-2020 Episodic Nausea and vomiting (20 sources) Nausea; Translations: [Nausea] 11-15-2020 Episodic Nonspecific chest pain (20 sources) Chest pain; Translations: [Chest pain, unspecified] 03-04-2019 Episodic Other connective tissue disease (3 sources) Spasm; Translations: [Cramp and spasm] 12-27-2023 Episodic Comment on above: See above Other injuries and conditions due to external causes (1 source) Unspecified injury of head, initial encounter; Translations: [Unspecified injury of head, initial encounter] Onset: 11-23-2024 Episodic Other nervous system disorders (20 sources) Numbness and tingling sensation of skin; Translations: [Anesthesia of skin] 11-15-2020 Episodic Other nervous system disorders (1 source) Tremor; Translations: [Tremor, unspecified] 02-03-2024 Episodic Other non-traumatic joint disorders (1 source) Pain in right knee; Translations: [Pain in right knee] Onset: 11-23-2024 Episodic Other nutritional; endocrine; and metabolic disorders (1 source) Body mass index (BMI) 33.0-33.9, adult; Translations: [Body mass index (BMI) 33.0-33.9, adult] Onset: 04-01-2017 04-01-2017 Chronic Pancreatic disorders (not diabetes) (13 sources) Exocrine pancreatic insufficiency; Translations: [Exocrine pancreatic insufficiency] 02-26-2023 Episodic Residual codes; unclassified (20 sources) History of operative procedure on foot; Translations: [Other specified postprocedural states] 11-15-2020 Episodic Residual codes; unclassified (9 sources) History of eye AND/OR adnexa surgery; Translations: [Other specified postprocedural states] 11-15-2020 Episodic Comment on above: Left eye Spondylosis; intervertebral disc disorders; other back problems (8 sources) Spinal stenosis in cervical region; Translations: [Spinal stenosis, cervical region] Onset: 02-03-2024 02-03-2024 Episodic Comment on above: See above Unclassified (1 source) Worsening headaches; Translations: [Worsening headaches] Onset: 02-03-2024 Past or Other Problems Problem Classification Problem Date Documented Da te Episodic/Chronic Allergic reactions (2 sources) Contact dermatitis due to Genus Toxicodendron; Translations: [Allergic contact dermatitis due to plants, except food] Onset: 2010 2010 Episodic Other lower respiratory disease (2 sources) Dyspnea; Translations: [Shortness of breath] Onset: 03-31-2017 03-31-2017 Episodic Other nervous system disorders (1 source) Tremor, unspecified; Translations: [Tremor] Onset: 02-03-2024 Episodic Unclassified (4 sources) Encounter for screening mammogram for malignant neoplasm of breast; Translations: [ENC SCR MAMMO MALIG NEOP] Onset: 02-20-2017 Episodic Results Test Name Value Interpretation Reference Range Facility Brain/Head without Contrasto n 11-19-2024 Brain/Head without Contrast [facility] Imaging Services [address] [place] [id number] Brain/Head without Contrast MR#: [id number] Acct: [id number] Name: DOMINIC ARTEAGA VARSHA Rep #: [id number] : 1955 F 69 From: Vaughn cotto MD PCP: Dr. Chaim Avila MD Status: REG CLI Study: Brain/Head without Contrast Date of Exam: 10/23 Exam# [id number] Ordering Dr: Chaim Avila PROCEDURE: BRAIN/HEAD WITHOUT CONTRAST 11/19/2024 REASON FOR EXAM: FALL, L FRONTAL HEAD TRAUMA. POST-CONCUSSIVE SYMPTOMS TECHNIQUE: Head CT without intravenous contrast. Coronal and Sagittal reconstruction series were provided. One or more dose reduction techniques were used (e.g., Automated exposure control, adjustment of the mA and/or kV according to patient size, use of iterative reconstruction technique. RADIATION DOSE SUMMARY: CTDlvol: 44.99 mGy DLP: 779.24 mGycm COMPARISON: Prior study dated December 16, 2023. FINDINGS: Brain: Within normal limits for age CSF Spaces: Mild generalized cerebral atrophy Sinuses/Mastoids: Clear at visualized levels Bones: Hyperostosis frontalis interna. CT/Brain/Head without Contrast IMPRESSION: NO ACUTE FINDINGS Reading Location: [place] [address] CC: Dr. Chaim Avila MD Take Away Attendant: Signed Normal [facility] Knee 4 or More Viewson 11-18 Knee 4 or More Views [facility] Imaging Services [address] [place] [address] Knee 4 or More Views MR#: [id number] Acct: [id number] Name: DOMINIC ARTEAGA Rep #: [id number] : 1955 F 69 From: Shar Pegn MD PCP: Dr. Chaim Avila MD Status: REG CLI Study: Knee 4 or More Views Date of Exam: 11/18/24 Exam# [id number] Ordering Dr: Chaim Avila PROCEDURE: KNEE 4 OR MORE VIEWS 11/18/2024 REASON FOR EXAM: R KNEE. FALL ONTO KNEE. PATELLAR PAIN TECHNIQUE: 4 view(s) of the right knee COMPARISON: None available FINDINGS: No fracture, dislocation or joint effusion. The joint spaces appear within limits. RAD/Knee 4 or More Views IMPRESSION: No fracture, dislocation or joint effusion. If concern for possible internal joint derangement, may follow-up with MRI as warranted. Reading Location: [facility] CC: Dr. Chaim Avila MD Take Away Attendant: Signed Normal [facility] DHEA Sulfateon 11-06-2024 DHEA SULFATE 52.8 ug/dL Normal 20.4-186.6 [facility] Comment on above: Order Comment: Order Date: 11/02/24 Order Info: [id number] - DHEA-S N Result Comment: Perf ormed at: [facility] [id number] Payment Specialist: Nicolas Fung PhD, Phone: [phone] Performed By: #### L 3300.1500, L3100.5055, L101.9900, L100.0100, L501.9520, L506.0400 #### [facility] [address] [place], [address] Absolute lymphocyte countOrd ered By: Chaim Avila on 11-05-2024 Lymphocytes Auto (Unsp spec) [#/Vol] 1.34 10*3/uL 0.83-4.51 [facility] Absolute neutrophil countOrd ered By: Chaim Avila on 11-05-2024 Neutrophils (Bld) [#/Vol] 3.1 10*3/uL 2.0-7.7 [facility] Automated lymphocyte count a s percentage of total leukocytesOrdered By: Chaim Avila on 11-05-2024 Lymphocytes/100 WBC Auto (Unsp spec) 25.4 % 19-41 [facility] Basophil percentageOrdered B y: Chaim Avila on 11-05-2024 Basophils/100 WBC (Bld) 1.1 % High 0-1 [facility] CBC W/Diff, Automatedon 10-21 Absolute Lymph 1.34 X10 3/uL Normal 0.83-4.51 [facility] Comment on above: Order Comment: Order Date: 11/02/24 Order Info: [id number] - CBCD Order Info: [id number] - SED Performed By: #### L 3300.1500, L3100.5055, L101.9900, L100.0100, L501.9520, L506.0400 #### [facility] [address] [place], [address] Absolute Neut 3.1 X10 3/uL Normal 2.0-7.7 [facility] Comment on above: Order Comment: Order Date: 11/02/24 Order Info: [id number]- - CBCD Order Info: [id number] - SED Performed By: #### L 3300.1500, L3100.5055, L101.9900, L100.0100, L501.9520, L506.0400 #### [facility] [address] [place], [address] Basophils/100 WBC (Bld) 1.1 % High 0-1 [facility] Comment on above: Order Comment: Order Date: 11/02/24 Order Info: [id number]- - CBCD Order Info: [id number] - SED Performed By: #### L 3300.1500, L3100.5055, L101.9900, L100.0100, L501.9520, L506.0400 #### [facility] [address] [place], [place], [address] ([phone] Eosinophils/100 WBC (Bld) 4.2 % Normal 0-5 [facility] Comment on above: Order Comment: Order Date: 11/02/24 Order Info: [id number]- - CBCD Order Info: [id number] - SED Performed By: #### L 3300.1500, L3100.5055, L101.9900, L100.0100, L501.9520, L506.0400 #### [facility] [address] [place], [place], [address] [phone] Erythrocyte distribution width (RBC) [Ratio] 13.4 % Normal 11.6-14.6 [facility] [facility] Comment on above: Order Comment: Order Date: 11/02/24 Order Info: [id number]- - CBCD Order Info: [id number] - SED Performed By: #### L 3300.1500, L3100.5055, L101.9900, L100.0100, L501.9520, L506.0400 #### [facility] [address] [place], [address] Hematocrit (Bld) [Volume fraction] 44.8 % Normal 37-47 [facility] Comment on above: Order Comment: Order Date: 11/02/24 Order Info: [id number] - CBCD Order Info: [id number] - SED Performed By: #### L 3300.1500, L3100.5055, L101.9900, L100.0100, L501.9520, L506.0400 #### [facility] [address] [place], [address] Hemoglobin (Bld) [Mass/Vol] 14.4 g/dL Normal 12.0-15.0 [facility] Comment on above: Order Comment: Order Date: 11/02/24 Order Info: [id number] - CBCD Order Info: - SED Performed By: #### L 3300.1500, L3100.5055, L101.9900, L100.0100, L501.9520, L506.0400 #### [facility] [address] [place], [address] IG% 0.200 Normal 0.0-0.9 [facility] Comment on above: Order Comment: Order Date: 11/02/24 Order Info: [id number] - CBCD Order Info: [id number] - SED Result Comment: IG% - Immature Granulocytes (promyelocytes, myelocytes and metamyelocytes) > 1% indicates that a LEFT SHIFT is Present. Performed By: #### L 3300.1500, L3100.5055, L101.9900, L100.0100, L501.9520, L506.0400 #### [facility] [address] [place], [address] Lymphocytes/100 WBC (Bld) 25.4 % Normal 19-41 [facility] Comment on above: Order Comment: Order Date: 11/02/24 Order Info: 018- - CBCD Order Info: [id number] - SED Performed By: #### L 3300.1500, L3100.5055, L101.9900, L100.0100, L501.9520, L506.0400 #### [facility] [address] [place], [address] MCH (RBC) [Entitic mass] 30.2 pg Normal 27.0-32.0 [facility] Comment on above: Order Comment: Order Date: 11/02/24 Order Info: [id number] - CBCD Order Info: [id number] - SED Performed By: #### L 3300.1500, L3100.5055, L101.9900, L100.0100, L501.9520, L506.0400 #### [facility] [address] [place], [address] MCHC (RBC) [Mass/Vol] 32.1 g/dL Normal 32-36 [facility] Comment on above: Order Comment: Order Date: 11/02/24 Order Info: [id number] - CBCD Order Info: [id number] - SED Performed By: #### L 3300.1500, L3100.5055, L101.9900, L100.0100, L501.9520, L506.0400 #### [facility] [address] [place], [address] MCV (RBC) [Entitic vol] 93.9 fL Normal 81-99 [facility] Comment on above: Order Comment: Order Date: 11/02/24 Order Info: [id number]- - CBCD Order Info: [id number] - SED Performed By: #### L 3300.1500, L3100.5055, L101.9900, L100.0100, L501.9520, L506.0400 #### [facility] [address] [place], [address] Monocytes/100 WBC (Bld) 9.8 % Normal 0-10 [facility] Comment on above: Order Comment: Order Date: 11/02/24 Order Info: 0184- - CBCD Order Info: [id number] - SED Performed By: #### L 3300.1500, L3100.5055, L101.9900, L100.0100, L501.9520, L506.0400 #### [facility] [address] [place], [address] Neutrophils/100 WBC (Bld) 59.3 % Normal 47-70 [facility] Comment on above: Order Comment: Order Date: 11/02/24 Order Info: [id number] - CBCD Order Info: [id number] - SED Performed By: #### L 3300.1500, L3100.5055, L101.9900, L100.0100, L501.9520, L506.0400 #### [facility] [address] [place], [address] Nucleated RBC (Bld) [#/Vol] 0 10*3/uL Normal 0-5 [facility] Comment on above: Order Comment: Order Date: 11/02/24 Order Info: [id number] - CBCD Order Info: [id number] - SED Performed By: #### L 3300.1500, L3100.5055, L101.9900, L100.0100, L501.9520, L506.0400 #### [facility] [address] [place], [address] Platelet mean volume (Bld) [Entitic vol] 9.5 fL Normal 6.2-12.0 [facility] Comment on above: Order Comment: Order Date: 11/02/24 Order Info: [id number] - CBCD Order Info: [id number] - SED Performed By: #### L 3300.1500, L3100.5055, L101.9900, L100.0100, L501.9520, L506.0400 #### [facility] [address] [place], [address] Platelets (Bld) [#/Vol] 299 10*3/uL Normal 150-450 [facility] Comment on above: Order Comment: Order Date: 11/02/24 Order Info: 018- - CBCD Order Info: [id number] - SED Performed By: #### L 3300.1500, L3100.5055, L101.9900, L100.0100, L501.9520, L506.0400 #### [facility] [address] [place], [address] RBC (Bld) [#/Vol] 4.77 10*6/uL Normal 4.2-5.4 [facility] Comment on above: Order Comment: Order Date: 11/02/24 Order Info: [id number] - CBCD Order Info: [id number] - SED Performed By: #### L 3300.1500, L3100.5055, L101.9900, L100.0100, L501.9520, L506.0400 #### [facility] [address] [place], [place], [id number] RDW SD 45.8 fl High 35.1-43.9 [facility] Comment on above: Order Comment: Order Date: 11/02/24 Order Info: [id number] - CBCD Order Info: [id number] - SED Performed By: #### L 3300.1500, L3100.5055, L101.9900, L100.0100, L501.9520, L506.0400 #### [facility] [address] [place], [address] WBC (Bld) [#/Vol] 5.3 10*3/uL Normal 4.4-11.0 [facility] Comment on above: Order Comment: Order Date: 11/02/24 Order Info: [id number] - CBCD Order Info: [id number] - SED Performed By: #### L 3300.1500, L3100.5055, L101.9900, L100.0100, L501.9520, L506.0400 #### [facility] [address] [place], [place], [id number] Calculated very low density lipoprotein (VLDL) cholesterol measurementOrdered By: Chaim Avila on 11-05-2024 Calculated very low density lipoprotein (VLDL) cholesterol measurement 23 mg/dL 5-40 [facility] Eosinophil percentageOrdered By: Chaim Avila on 11-05-2024 Eosinophils/100 WBC (Bld) 4.2 % 0-5 [facility] Erythrocyte Sed Rateon 11-05 SED RATE 12 mm/hr Normal 0-30 [facility] Comment on above: Order Comment: Order Date: 11/02/24 Order Info: [id number] - CBCD Order Info: [id number] - SED Performed By: #### L 3300.1500, L3100.5055, L101.9900, L100.0100, L501.9520, L506.0400 #### [facility] [address] [place], [address] Erythrocyte distribution wid th ratioOrdered By: Chaim Avila on 11-05-2024 Erythrocyte distribution width (RBC) [Ratio] 13.4 % 11.6-14.6 [facility] Erythrocyte distribution wid th standard deviationOrdered By: Chaim Avila on 11-05-2024 Erythrocyte distribution width (RBC) [Ratio] 45.8 fl High 35.1-43.9 [facility] Erythrocyte sedimentation ra teOrdered By: Chaim Avila on 11-05-2024 ESR (Bld) [Velocity] 12 mm/h 0-30 [facility] Estradiolon 11-05-2024 ESTRADIOL 10.6 pg/mL Normal [facility] Comment on above: Order Comment: Order Date: 08/09/24 Order Info: [id number] - CMP Order Info: [id number] - LIPID Result Comment: FEMA LES ADULT FEMALE: Premenopausal: 15-350 pg/mL(E2 levels vary widely through the menstrual cycle) Postmenopausal: <10 pg/mL PETR STAGES MEAN AGE REFERENCE RANGES Stage I(>14 days and prepubertal) 7.1 years Undetectable-20 pg/mLL Stage II 10.5 years Undetectable-24 pg/mL Stage III 11.6 years Undetectable-60 pg/mL Stage IV 12.3 years 15-85 pg/mL Stage V 14.5 years 15-350 pg/mL Puberty onset (transition from Petr stage I to Petr stage II) occurs for girls at a median age of 10.5 (/- 2) years. There is evidence that it may occur up to 1 year earlier in obese girls and in girls. Progression through Petr stages is variable. Petr stage V (adult) should be reached by age 18. Performed By: #### L 500.4100, L500.4050 #### [facility] [address] [place], [place], [address] FSH and LHon 11-05-2024 FSH 55.1 mIU/mL Normal [facility] Comment on above: Order Comment: Order Date: 11/01/24 Order Info: [id number] - LIPID Order Date: 11/02/24 Order Info: [id number] - TSH Order Info: [id number] - T4F Order Info: [id number] - FSHLH Result Comment: FEMA LE: Follicular: 1.4 - 18.1 mIU/mL Midcycle: 3.4 - 33.4 mIU/mL Luteal: 1.5 - 9.1 mIU/mL Post Menopause: 23.0 - 116.3 mIU/mL MALE: 1.4 - 18.1 mIU/mL NORMAL REFERENCE RANGES FEMALE FOLLICULAR 2.3 - 12.6 mIU/mL MID-CYCLE PEAK 5.2 - 17.5 mIU/mL LUTEAL 1.7 - 12.9 mIU/mL POST-MENOPAUSAL ON MHT 5.9 - 72.8 mIU/mL NOT ON MHT 12.7 - 132.2 mlU/mL MALE 0.7 - 10.8 mIU/mL Performed By: #### L 3300.1500, L3100.5055, L101.9900, L100.0100, L501.9520, L506.0400 #### [facility] [address] [place], [place], [address] LH 49.7 mIU/mL Normal [facility] Comment on above: Order Comment: Order Date: 11/01/24 Order Info: [id number] - LIPID Order Date: 11/02/24 Order Info: [id number] - TSH Order Info: [id number] - T4F Order Info: [id number] - FSHLH Result Comment: FEMA LE: Follicular: 1.9-12.5 mIU/mL Midcycle: 8.7-76.3 mIU/mL Luteal: 0.5-16.9 mIU/mL Post Menopause: 15.9-54.0 mIU/mL MALE: 20-70 Years: 1.5-9.3 mIU/mL >70 Years: 3.1-34.6 mIU/mL Performed By: #### L 3300.1500, L3100.5055, L101.9900, L100.0100, L501.9520, L506.0400 #### [facility] [address] [place], [place], [id number] Hematocrit Auto (Bld) [Volum e fraction]Ordered By: Chaim Avila on 11-05-2024 Hematocrit (Bld) [Volume fraction] 44.8 % 37-47 [facility] Hemoglobin measurementOrdere d By: Chaim Avila on 11-05-2024 Hemoglobin (Bld) [Mass/Vol] 14.4 g/dL 12.0-15.0 [facility] Immature granulocytes/100 WB C Auto (Bld)Ordered By: Chaim Avila on 11-05-2024 Immature granulocytes/100 WBC (Bld) 0.200 % 0.0-0.9 [facility] Comment on above: IG% - Immature Granu locytes (promyelocytes, myelocytes and metamyelocytes) > 1% indicates that a LEFT SHIFT is Present. L509.3001on 11-05-2024 Testosterone [Mass/Vol] 17.70 ng/dL Normal 5-32 [facility] Comment on above: Order Comment: Order Date: 08/09/24 Order Info: [id number] - CMP Order Info: [id number] - LIPID Performed By: #### L 500.4100, L500.4050 #### [facility] [address] [place], [place], [id number] L509.6001on 11-05-2024 CORTISOL 13.50 ug/dL Normal 6.02-18.40 [facility] Comment on above: Order Comment: Order Date: 08/09/24 Order Info: [id number] - [facility] Order Info: [id number] - LIPID Performed By: #### L 500.4100, L500.4050 #### [facility] [address] [place], [address] LDL calc ser/plasOrdered By: Chaim Avila on 11-05-2024 Cholesterol in LDL [Mass/Vol] 165 mg/dL [facility] Comment on above: Dvhthhwztk=843-246 m g/dL & Higher Jplv=416 mg/dL or greater Laboratory - Chemistry and C hemistry - challengeOrdered By: Chaim Avila on 11-05-2024 Testosterone [Mass/Vol] 17.70 ng/dL 5-32 [facility] Lipid Profileon 11-05-2024 CHOL:HDL 4.42 Normal [facility] Comment on above: Order Comment: Order Date: 08/09/24 Order Info: [id number] - [facility] Order Info: [id number] - LIPID Performed By: #### L 500.4100, L500.4050 #### [facility] [address] [place], [address] Cholesterol [Mass/Vol] 242 mg/dL High <=200 [facility] Comment on above: Order Comment: Order Date: 08/09/24 Order Info: [id number] - CMP Order Info: [id number] - LIPID Result Comment: Chol esterol level, Desirable <200 mg/dL Borderline high cholesterol 200-239 mg/dL High cholesterol >=240 mg/dL Recommendations of the NCEP Adult Treatment Panel for the following risk-cutoff thresholds for the [place] population. Performed By: #### L 500.4100, L500.4050 #### [facility] [address] [place], [address] Cholesterol in HDL [Mass/Vol] 55 mg/dL Normal [facility] Comment on above: Order Comment: Order Date: 08/09/24 Order Info: [id number] - CMP Order Info: [id number] - LIPID Result Comment: Roxann onal Cholesterol Education Program (NCEP) guidelines: <40 mg/dL: Low HDL-cholesterol (major risk factor for CHD) >= 60 mg/dL: High HDL-cholesterol (negative risk factor for CHD) HDL-cholesterol is affected by a number of factors, e.g. smoking, exercise, hormones, sex and age. Performed By: #### L 500.4100, L500.4050 #### [facility] [address] [place], [address] Cholesterol in LDL [Mass/Vol] 165 mg/dL Normal [facility] Comment on above: Order Comment: Order Date: 08/09/24 Order Info: [id number] - CMP Order Info: [id number] - LIPID Result Comment: Bord kkuvmv=901-869 mg/dL Higher Jryk=519 mg/dL or greater Performed By: #### L 500.4100, L500.4050 #### [facility] [address] [place], [address] Cholesterol in VLDL [Mass/Vol] 23 mg/dL Normal 5-40 [facility] Comment on above: Order Comment: Order Date: 08/09/24 Order Info: [id number] - [facility] Order Info: [id number] - LIPID Performed By: #### L 500.4100, L500.4050 #### [facility] [address] [place], [address] Triglyceride [Mass/Vol] 113 mg/dL Normal [facility] Comment on above: Order Comment: Order Date: 08/09/24 Order Info: [id number] - CMP Order Info: [id number] - LIPID Result Comment: The drugs N-Acetylcysteine and Metamizole may falsely depress this assay. Normal range: <150 mg/dL Borderline High: 150-199 mg/dL High: 200-499 mg/dL Very High: >500 mg/dL Performed By: #### L 500.4100, L500.4050 #### [facility] [address] [place], [address] MCV (mean corpuscular volume ) determinationOrdered By: Chaim Avila on 11-05-2024 MCV (RBC) [Entitic vol] 93.9 fL 81-99 [facility] Mean corpuscular hemoglobin (MCH) determinationOrdered By: Chaim Avila on 11-05-2024 MCH (RBC) [Entitic mass] 30.2 pg 27.0-32.0 [facility] Mean corpuscular hemoglobin concentration (MCHC) determinationOrdered By: Chaim Avila on 11-05-2024 MCHC (RBC) [Mass/Vol] 32.1 g/dL 32-36 [facility] Mean platelet volume determi nationOrdered By: Chaim Avila on 11-05-2024 Platelet mean volume (Bld) [Entitic vol] 9.5 fL 6.2-12.0 [facility] Monocyte percentageOrdered B y: Chaim Avila on 11-05-2024 Monocytes/100 WBC (Bld) 9.8 % 0-10 [facility] Neutrophil percentageOrdered By: Chaim Avila on 11-05-2024 Neutrophils/100 WBC (Bld) 59.3 % 47-70 [facility] Nucleated red blood cell per centageOrdered By: Chaim Avila on 11-05-2024 Nucleated RBC/100 WBC (Bld) [Ratio] 0 % 0-5 [facility] Platelet countOrdered By: Lana Avila on 11-05-2024 Platelets (Bld) [#/Vol] 299 10*3/uL 150-450 [facility] RBC Auto (Bld) [#/Vol]Ordere d By: Chaim Avila on 11-05-2024 RBC (Bld) [#/Vol] 4.77 10*6/uL 4.2-5.4 [facility] Screening total cholesterol/ high density lipoprotein (HDL) cholesterol ratioOrdered By: Chaim Avila on 11-05-2024 Cholesterol.total/Choles terol in HDL [Mass ratio] 4.42 {ratio} [facility] Serum or plasma cholesterol in HDL measurement (mass/volume)Ordered By: Chaim Avila on 11-05-2024 Cholesterol in HDL [Mass/Vol] 55 mg/dL >40 [facility] Comment on above: National Cholesterol Education Program (NCEP) guidelines:<40 mg/dL: Low HDL-cholesterol (major risk factor for CHD)>= 60 mg/dL: High HDL-cholesterol (negative risk factor for CHD)HDL-cholesterol is affected by a number of factors, e.g. smoking, exercise, hormones, sex and age. Serum or plasma cholesterol measurement (mass/volume)Ordered By: Chaim Avila on 11-05-2024 Cholesterol [Mass/Vol] 242 mg/dL High <201 [facility] Comment on above: Cholesterol level, D esirable <200 mg/dLBorderline high cholesterol 200-239 mg/dLHigh cholesterol >=240 mg/dLRecommendations of the NCEP Adult Treatment Panel for the following risk-cutoff thresholds for the [place] population. Serum or plasma cortisol declan surement (mass/volume)Ordered By: Chaim Avila on 11-05-2024 Cortisol [Mass/Vol] 13.50 ug/dL 6.02-18.40 [facility] Serum or plasma estradiol me asurement after follitropin dose (mass/volume)Ordered By: Chaim Avila on 11-05-2024 E2 post dose follitropin [Mass/Vol] 10.6 pg/mL [facility] Comment on above: FEMALES ADULT FEMALE : Premenopausal: 15-350 pg/mL(E2 levels vary widely through the menstrual cycle) Postmenopausal: <10 pg/mL PETR STAGES MEAN AGE REFERENCE RANGES Stage I(>14 days and prepubertal) 7.1 years Undetectable-20 pg/mLL Stage II 10.5 years Undetectable-24 pg/mL Stage III 11.6 years Undetectable-60 pg/mL Stage IV 12.3 years 15-85 pg/mL Stage V 14.5 years 15-350 pg/mL Puberty onset (transition from Petr stage I to Petr stage II) occurs for girls at a median age of 10.5 (/- 2) years. There is evidence that it may occur up to 1 year earlier in obese girls and in girls.Progression through Petr stages is variable. Petr stage V (adult) should be reached by age 18. T4 Free Directon 11-05-2024 T4 FREE DIRECT 0.90 ng/dL Normal 0.76-1.46 [facility] Comment on above: Order Comment: Order Date: 11/01/24 Order Info: [id number] - LIPID Order Date: 11/02/24 Order Info: [id number] - TSH Order Info: 7 - T4F Order Info: [id number] - FSHLH Performed By: #### L 3300.1500, L3100.5055, L101.9900, L100.0100, L501.9520, L506.0400 #### [facility] [address] [place], [address] T4 freeOrdered By: Andre Avila on 11-05-2024 Free T4 [Mass/Vol] 0.90 ng/dL 0.76-1.46 [facility] TSH DL <= 0.005 mIU/L QnOrde red By: Chaim Avila on 11-05-2024 TSH Qn 2.070 uIU/mL 0.300-4.200 [facility] Thyroid Stim Hormone (TSH)on 11-05-2024 TSH 2.070 uIU/mL Normal 0.300-4.200 [facility] Comment on above: Order Comment: Order Date: 11/01/24 Order Info: [id number] - LIPID Order Date: 11/02/24 Order Info: [id number] - TSH Order Info: [id number] - T4F Order Info: [id number] - FSHLH Performed By: #### L 3300.1500, L3100.5055, L101.9900, L100.0100, L501.9520, L506.0400 #### [facility] [address] [place], [address] Triglycerides measurementOrd ered By: Chaim Avila on 11-05-2024 Triglyceride [Mass/Vol] 113 mg/dL <199 [facility] Comment on above: The drugs N-Acetylcy steine and Metamizole may falsely depress this assay. Normal range: <150 mg/dLBorderline High: 150-199 mg/dLHigh: 200-499 mg/dLVery High: >500 mg/dL Vitamin D,25 Hydroxyon 11-05 Vitamin D 25-OH 38.3 ng/mL Normal 30-100 [facility] Comment on above: Order Comment: Order Date: 08/09/24 Order Info: [id number] - CMP Order Info: [id number] - LIPID Result Comment: Rosie min D Status Deficiency: <20 ng/mL (50nmol/L) Insufficiency: 20-30 ng/mL (50-75 nmol/L) Sufficiency: 30-100 ng/mL (75-250 nmol/L) Toxicity: >100 ng/mL (>250 nmol/L) Performed By: #### L 500.4100, L500.4050 #### [facility] [address] [place], [address] White blood cell (WBC) count Ordered By: Chaim Avila on 11-05-2024 WBC (Bld) [#/Vol] 5.3 10*3/uL 4.4-11.0 [facility] Anion gap in Serum or Plasma Ordered By: Chaim Avila on 10-27-2024 Anion gap [Moles/Vol] 9 mmol/L 5-15 [facility] BUN/creatinine ratioOrdered By: Chaim Avila on 10-27-2024 Urea nitrogen/Creatinine [Mass ratio] 22.1 mg/mg High 10-20 [facility] Bilirubin, totalOrdered By: Chaim Avila on 10-27-2024 Bilirubin [Mass/Vol] 0.44 mg/dL 0.00-1.30 [facility] Calculated very low density lipoprotein (VLDL) cholesterol measurementOrdered By: Chaim Avila on 10-27-2024 Calculated very low density lipoprotein (VLDL) cholesterol measurement 35 mg/dL 5-40 [facility] Carbon dioxide, total [Moles /volume] in Central venous bloodOrdered By: Chaim Avila on 10-27-2024 CO2 [Moles/Vol] 27.6 mmol/L 21.0-32.0 [facility] Chloride assayOrdered By: Lana Avila on 10-27-2024 Chloride [Moles/Vol] 103 mmol/L 98-108 [facility] Comprehensive Metabolic Prof ilon 10-27-2024 Albumin [Mass/Vol] 4.1 g/dL Normal 3.4-4.8 [facility] Comment on above: Order Comment: Order Date: 08/09/24 Order Info: [id number] - CMP Order Info: [id number] - LIPID Performed By: #### L 500.4100, L500.4050 #### [facility] [address] [place], [address] Albumin/Globulin [Mass ratio] 1.5 {ratio} Normal 0.9-2.4 [facility] Comment on above: Order Comment: Order Date: 08/09/24 Order Info: [id number] - CMP Order Info: [id number] - LIPID Performed By: #### L 500.4100, L500.4050 #### [facility] [address] [place], [address] ALK PHOS 75 U/L Normal 35-104 [facility] Comment on above: Order Comment: Order Date: 08/09/24 Order Info: [id number] - CMP Order Info: [id number] - LIPID Performed By: #### L 500.4100, L500.4050 #### [facility] [address] [place], [address] ALT [Catalytic activity/Vol] 15 U/L Normal <=34 [facility] Comment on above: Order Comment: Order Date: 08/09/24 Order Info: [id number] - CMP Order Info: [id number] - LIPID Performed By: #### L 500.4100, L500.4050 #### [facility] [address] [place], [address] AST [Catalytic activity/Vol] 21 U/L Normal <=31 [facility] Comment on above: Order Comment: Order Date: 08/09/24 Order Info: [id number] - CMP Order Info: [id number] - LIPID Performed By: #### L 500.4100, L500.4050 #### [facility] [address] [place], [address] Bilirubin [Mass/Vol] 0.44 mg/dL Normal 0.00-1.30 [facility] Comment on above: Order Comment: Order Date: 08/09/24 Order Info: [id number] - CMP Order Info: [id number] - LIPID Performed By: #### L 500.4100, L500.4050 #### [facility] [address] [place], [address] BUN/CRE 22.1 RATIO High 10-20 [facility] Comment on above: Order Comment: Order Date: 08/09/24 Order Info: [id number] - CMP Order Info: [id number] - LIPID Performed By: #### L 500.4100, L500.4050 #### [facility] [address] [place], [address] Calcium [Mass/Vol] 9.3 mg/dL Normal 7.6-11.0 [facility] Comment on above: Order Comment: Order Date: 08/09/24 Order Info: [id number] - CMP Order Info: [id number] - LIPID Performed By: #### L 500.4100, L500.4050 #### [facility] [address] [place], [address] Chloride [Moles/Vol] 103 mmol/L Normal 98-108 [facility] Comment on above: Order Comment: Order Date: 08/09/24 Order Info: [id number] - CMP Order Info: [id number] - LIPID Performed By: #### L 500.4100, L500.4050 #### [facility] [address] [place], [address] CO2 [Moles/Vol] 27.6 mmol/L Normal 21.0-32.0 [facility] Comment on above: Order Comment: Order Date: 08/09/24 Order Info: [id number] - CMP Order Info: [id number] - LIPID Performed By: #### L 500.4100, L500.4050 #### [facility] [address] [place], [address] Creatinine [Mass/Vol] 0.89 mg/dL Normal 0.70-1.20 [facility] Comment on above: Order Comment: Order Date: 08/09/24 Order Info: [id number] - CMP Order Info: - LIPID Performed By: #### L 500.4100, L500.4050 #### [facility] [address] [place], [address] GAP 9 Normal 5-15 [facility] Comment on above: Order Comment: Order Date: 08/09/24 Order Info: [id number]- - CMP Order Info: - LIPID Performed By: #### L 500.4100, L500.4050 #### [facility] [address] [place], [address] GFR/1.73 sq M.predicted among non-blacks MDRD (S/P/Bld) [Vol rate/Area] 69 mL/min/{1.73_m2} Normal >60 [facility] Comment on above: Order Comment: Order Date: 08/09/24 Order Info: [id number]- - CMP Order Info: [id number] - LIPID Result Comment: mL/m in/1.73m2 CKD-EPI Creatinine Equation (2020) Performed By: #### L 500.4100, L500.4050 #### [facility] [address] [place], [address] Globulin (S) [Mass/Vol] 2.8 g/dL Normal 2.2-4.2 [facility] Comment on above: Order Comment: Order Date: 08/09/24 Order Info: [id number] - CMP Order Info: [id number] - LIPID Performed By: #### L 500.4100, L500.4050 #### [facility] [address] [place], [address] Glucose [Mass/Vol] 137 mg/dL High 70-99 [facility] Comment on above: Order Comment: Order Date: 08/09/24 Order Info: [id number] - CMP Order Info: [id number] - LIPID Performed By: #### L 500.4100, L500.4050 #### [facility] [address] [place], [address] Potassium [Moles/Vol] 4.4 mmol/L Normal 3.3-5.1 [facility] Comment on above: Order Comment: Order Date: 08/09/24 Order Info: [id number] - CMP Order Info: [id number] - LIPID Performed By: #### L 500.4100, L500.4050 #### [facility] [address] [place], [address] Sodium [Moles/Vol] 140 mmol/L Normal 133-145 [facility] Comment on above: Order Comment: Order Date: 08/09/24 Order Info: [id number] - CMP Order Info: [id number] - LIPID Performed By: #### L 500.4100, L500.4050 #### [facility] [address] [place], [address] T PROT 6.9 g/dL Normal 5.9-8.4 [facility] Comment on above: Order Comment: Order Date: 08/09/24 Order Info: [id number] - CMP Order Info: [id number] - LIPID Performed By: #### L 500.4100, L500.4050 #### [facility] [address] [place], [address] Urea nitrogen [Mass/Vol] 20 mg/dL High 4-19 [facility] Comment on above: Order Comment: Order Date: 08/09/24 Order Info: [id number] - CMP Order Info: [id number] - LIPID Performed By: #### L 500.4100, L500.4050 #### [facility] [address] [place], [place], [address] Glomerular filtration rate ( GFR) estimation/1.73 sq m using serum, plasma, or whole bOrdered By: Chaim Avila on 10-27-2024 GFR/1.73 sq M.predicted among non-blacks MDRD (S/P/Bld) [Vol rate/Area] 69 mL/min/{1.73_m2} >60 [facility] Comment on above: mL/min/1.73m2 CKD-EP I Creatinine Equation (2020) LDL calc ser/plasOrdered By: Chaim Avila on 10-27-2024 Cholesterol in LDL [Mass/Vol] 158 mg/dL [facility] Comment on above: Sdqmjnkljl=883-872 m g/dL & Higher Axbq=695 mg/dL or greater Laboratory - Chemistry and C hemistry - challengeOrdered By: Chaim Avila on 10-27-2024 AST [Catalytic activity/Vol] 21 U/L <32 [facility] Lipid Profileon 10-27-2024 CHOL:HDL 5.11 Normal [facility] Comment on above: Order Comment: Order Date: 08/09/24 Order Info: [id number] - CMP Order Info: [id number] - LIPID Performed By: #### L 500.4100, L500.4050 #### [facility] [address] [place], [place], [address] Cholesterol [Mass/Vol] 240 mg/dL High <=200 [facility] Comment on above: Order Comment: Order Date: 08/09/24 Order Info: [id number] - CMP Order Info: [id number] - LIPID Result Comment: Chol esterol level, Desirable <200 mg/dL Borderline high cholesterol 200-239 mg/dL High cholesterol >=240 mg/dL Recommendations of the NCEP Adult Treatment Panel for the following risk-cutoff thresholds for the [place] population. Performed By: #### L 500.4100, L500.4050 #### [facility] [address] [place], [place], [address] Cholesterol in HDL [Mass/Vol] 47 mg/dL Normal [facility] Comment on above: Order Comment: Order Date: 08/09/24 Order Info: [id number] - CMP Order Info: [id number] - LIPID Result Comment: Roxann onal Cholesterol Education Program (NCEP) guidelines: <40 mg/dL: Low HDL-cholesterol (major risk factor for CHD) >= 60 mg/dL: High HDL-cholesterol (negative risk factor for CHD) HDL-cholesterol is affected by a number of factors, e.g. smoking, exercise, hormones, sex and age. Performed By: #### L 500.4100, L500.4050 #### [facility] [address] [place], [address] Cholesterol in LDL [Mass/Vol] 158 mg/dL Normal [facility] Comment on above: Order Comment: Order Date: 08/09/24 Order Info: 0786-1 - CMP Order Info: [id number] - LIPID Result Comment: Bord elthxl=597-825 mg/dL Higher Dknz=594 mg/dL or greater Performed By: #### L 500.4100, L500.4050 #### [facility] [address] [place], [address] Cholesterol in VLDL [Mass/Vol] 35 mg/dL Normal 5-40 [facility] Comment on above: Order Comment: Order Date: 08/09/24 Order Info: [id number] - CMP Order Info: [id number] - LIPID Performed By: #### L 500.4100, L500.4050 #### [facility] [address] [place], [address] Triglyceride [Mass/Vol] 176 mg/dL Normal [facility] Comment on above: Order Comment: Order Date: 08/09/24 Order Info: [id number] - CMP Order Info: [id number] - LIPID Result Comment: The drugs N-Acetylcysteine and Metamizole may falsely depress this assay. Normal range: <150 mg/dL Borderline High: 150-199 mg/dL High: 200-499 mg/dL Very High: >500 mg/dL Performed By: #### L 500.4100, L500.4050 #### [facility] [place], [address] Potassium measurement (mass/ volume)Ordered By: Chaim Avila on 10-27-2024 Potassium (Unsp spec) [Mass/Vol] 4.4 mmol/L 3.3-5.1 [facility] Screening total cholesterol/ high density lipoprotein (HDL) cholesterol ratioOrdered By: Chaim Avila on 10-27-2024 Cholesterol.total/Choles terol in HDL [Mass ratio] 5.11 {ratio} [facility] Serum creatinine measurement (mass/volume)Ordered By: Chaim Avila on 10-27-2024 Creatinine [Mass/Vol] 0.89 mg/dL 0.70-1.20 [facility] Serum globulin measurementOr dered By: Chaim Avila on 10-27-2024 Globulin (S) [Mass/Vol] 2.8 g/dL 2.2-4.2 [facility] Serum glucose measurement (m ass/volume)Ordered By: Chaim Avila on 10-27-2024 Glucose [Mass/Vol] 137 mg/dL High 70-99 [facility] Serum or plasma alanine amaya otransferase (ALT) measurementOrdered By: Chaim Avila on 10-27-2024 ALT [Catalytic activity/Vol] 15 U/L <35 [facility] Serum or plasma albumin oz urement (mass/volume)Ordered By: Chaim Avila on 10-27-2024 Albumin [Mass/Vol] 4.1 g/dL 3.4-4.8 [facility] Serum or plasma albumin/glob ulin mass ratioOrdered By: Chaim Avila on 10-27-2024 Albumin/Globulin [Mass ratio] 1.5 {ratio} 0.9-2.4 [facility] Serum or plasma alkaline nikki sphatase measurementOrdered By: Chaim Avila on 10-27-2024 ALP [Catalytic activity/Vol] 75 U/L 35-104 [facility] Serum or plasma calcium oz urement (mass/volume)Ordered By: Chaim Avila on 05-07-2025 Calcium [Mass/Vol] 9.3 mg/dL 7.6-11.0 [facility] Serum or plasma cholesterol in HDL measurement (mass/volume)Ordered By: Chaim Avila on 10-27-2024 Cholesterol in HDL [Mass/Vol] 47 mg/dL >40 [facility] Comment on above: National Cholesterol Education Program (NCEP) guidelines:<40 mg/dL: Low HDL-cholesterol (major risk factor for CHD)>= 60 mg/dL: High HDL-cholesterol (negative risk factor for CHD)HDL-cholesterol is affected by a number of factors, e.g. smoking, exercise, hormones, sex and age. Serum or plasma cholesterol measurement (mass/volume)Ordered By: Chaim Avila on 10-27-2024 Cholesterol [Mass/Vol] 240 mg/dL High <201 [facility] Comment on above: Cholesterol level, D esirable <200 mg/dLBorderline high cholesterol 200-239 mg/dLHigh cholesterol >=240 mg/dLRecommendations of the NCEP Adult Treatment Panel for the following risk-cutoff thresholds for the [place] population. Serum or plasma urea nitroge n measurement (mass/volume)Ordered By: Chaim Avila on 10-27-2024 Urea nitrogen [Mass/Vol] 20 mg/dL High 4-19 [facility] Sodium levelOrdered By: Crystal Avila on 10-27-2024 Sodium [Moles/Vol] 140 mmol/L 133-145 [facility] Total proteinOrdered By: Matt Avila on 10-27-2024 Protein [Mass/Vol] 6.9 g/dL 5.9-8.4 [facility] Triglycerides measurementOrd ered By: Chaim Avila on 10-27-2024 Triglyceride [Mass/Vol] 176 mg/dL <199 [facility] Comment on above: The drugs N-Acetylcy steine and Metamizole may falsely depress this assay. Normal range: <150 mg/dLBorderline High: 150-199 mg/dLHigh: 200-499 mg/dLVery High: >500 mg/dL Vitamin D,25 Hydroxyon 10-27 Vitamin D 25-OH 38.8 ng/mL Normal 30-100 [facility] Comment on above: Order Comment: Order Date: 08/09/24 Order Info: [id number] - CMP Order Info: [id number] - LIPID Result Comment: Rosie min D Status Deficiency: <20 ng/mL (50nmol/L) Insufficiency: 20-30 ng/mL (50-75 nmol/L) Sufficiency: 30-100 ng/mL (75-250 nmol/L) Toxicity: >100 ng/mL (>250 nmol/L) Performed By: #### L 506.1001 #### [facility] [address] [place], [address] CNTHERAPYon 08-03-2024 CNTHERAPY OT/PT/Speech Visit (PTWS) -------- DOMINIC ARTEAGA ([id number]) 1955 F Date Time Provider Department 08/03/24 9:45 AM IRINA FELDER Date Time Provider Department Center 08/03/2024 9:45 AM [id number] FELDER [facility] Reason for Visit: Physical Therapy [503] Primary Visit Diagnosis:BPPV (benign paroxysmal positional vertigo), right [H81.11] Allergies As of Date: 08/03/2024 (No Known Allergies) Date Reviewed: 02/03/2024 Reviewed by: Nikki Andrew PA-C - Fully Assessed Prescriptions as of 08/03/2024 - ondansetron (ZOFRAN) 4 mg tablet Take 1 tablet by mouth once daily as needed for nausea/vomiting. - venlafaxine ER (EFFEXOR XR) 150 mg 24 hr capsule Take 150 mg by mouth once daily. - ergocalciferol 50,000 unit capsule (VITAMIN D2, DRISDOL) Take 50,000 Units by mouth one time a week. - venlafaxine (EFFEXOR) 75 mg tablet Take 75 mg by mouth three times a day. - losartan (COZAAR) 100 mg tablet Take 100 mg by mouth once daily. - busPIRone (BUSPAR) 5 mg tablet Take 5 mg by mouth three times a day. - ruev-G7-xvazka-B6-Zn-Cu- lizeth 250 mg-400 unit -40 mg-5 mg tab Take 250 mg by mouth once daily. - meclizine (ANTIVERT) 25 mg tab Take 25 mg by mouth three times a day as needed (dizziness). - latanoprost, PF, 0.005 % drop Use 1 Drop in eyes once daily. 1 drop per eye - latanoprost (XALATAN) 0.005 % ophthalmic solution Use 1 Drop in both eyes daily at bedtime. - atorvastatin (LIPITOR) 20 mg tablet - omega 8-prs-yak-fish oil (FISH OIL) 100-160-1,000 mg cap Take by mouth. - Cholecalciferol, Vitamin D3, 50 mcg (2,000 unit) cap Take by mouth. - omeprazole 40 mg capsule Normal [facility] [id number] 07-27-2024 [id number] O ID: [id number] Author: IRINA FELDER PT Service: ? Author Type: Physical Therapist Type: [id number] Filed: 07/27/2024 10:39 Note Text: [facility] Physical Therapy Plan of Care Certification Patient Name: Dominic Arteaga : 1955 [facility] #: [id number] Date: 07/27/2024 To: Nikki Andrew PA-C From Therapist: Irina Felder PT RE: Patient Certification/ Recertification Your review, approval and electronic signature are required in order to comply with Payor: MEDICARE / Plan: MEDICARE A AND B / Product Type: Medicare / regulations. The identified Physical Therapy PLAN OF CARE for the patient is as follows: H81.11 BPPV (benign paroxysmal positional vertigo), right (primary encounter diagnosis) PLAN OF CARE: Assessment: Dominic Arteaga presents with diagnosis of BPPV, right that interferes with bed mobility . The patient presents with impairments in ADL's, balance, independence in exercise, overall function, patient reported outcome measures, posture, and symptom management. PROMIS? (Patient-Reported Outcomes Measurement Information System) scores were reviewed and identified as a rehabilitation concern. Prognosis for therapy is Good due to: current objective clinical presentation, good overall health status, acuteness of condition, positive past response to therapy, within-session changes, good support system/ coping skills . The patient will benefit from skilled therapy services to meet the goals established for this plan of care as noted below. Goals for Episode of Care: established 07/27/24 Patient will have negative positional testing for BPPV. Patient will verbalize the understanding of the diagnosis BPPV, how to recognize symptoms and what to do if they return. Patient will demonstrate normal active cervical spine range of motion to restore posture and complete ADLS with trace report of dizziness/imbalance. Patient will return to prior level of function with all activities of daily living with trace reports of dizziness. Patient Goals: resolve vertigo with head and position movement Time Frame for Goals and Treatment : 09/07/24 Planned Interventions, Frequency, and Duration: Current Frequency: 1x/week Duration: 6 weeks Total Number of Visits Planned: 6 Planned Treatment Interventions: Self-mcc management (08003), Therapeutic activities (36635), Manual therapy (51873), Neuromuscular re-education (65472), Therapeutic exercise (85331), Gait Training (03751) PLAN FOR NEXT VISIT: assess symptom response to narayan for R posterior canalithiasis Patient demonstrates good understanding of plan of care and treatment. The above goals and plan of care were discussed and agreed upon by patient/family. For further details regarding this patient refer to the Physical Therapy electronically documented visit dated 07/27/2024. Provider Attestation I have reviewed the treatment plan for Dominic Arteaga, [facility]# [id number] for the period of 07/27/24 -- 09/07/24, established on 07/27/2024. Signature certifies the need for therapy services. Normal [facility] CNTHERAPYon 07-27-2024 CNTHERAPY OT/PT/Speech Visit (PTWS) -------- DOMINIC ARTEAGA ([id number]) 1955 F Date Time Provider Department 07/27/24 9:45 AM IRINA FELDER PTWS Date Time Provider Department Center 07/27/2024 9:45 AM [id number] FELDER PTWS Patty Solis Reason for Visit: PT Eval [747] Primary Visit Diagnosis:BPPV (benign paroxysmal positional vertigo), right [H81.11] Allergies As of Date: 07/27/2024 (No Known Allergies) Date Reviewed: 02/03/2024 Reviewed by: Nikki Andrew PA-C - Fully Assessed Prescriptions as of 07/27/2024 - ondansetron (ZOFRAN) 4 mg tablet Take 1 tablet by mouth once daily as needed for nausea/vomiting. - venlafaxine ER (EFFEXOR XR) 150 mg 24 hr capsule Take 150 mg by mouth once daily. - ergocalciferol 50,000 unit capsule (VITAMIN D2, DRISDOL) Take 50,000 Units by mouth one time a week. - venlafaxine (EFFEXOR) 75 mg tablet Take 75 mg by mouth three times a day. - losartan (COZAAR) 100 mg tablet Take 100 mg by mouth once daily. - busPIRone (BUSPAR) 5 mg tablet Take 5 mg by mouth three times a day. - jllc-T9-xncmzp-B6-Zn-Cu- lizeth 250 mg-400 unit -40 mg-5 mg tab Take 250 mg by mouth once daily. - meclizine (ANTIVERT) 25 mg tab Take 25 mg by mouth three times a day as needed (dizziness). - latanoprost, PF, 0.005 % drop Use 1 Drop in eyes once daily. 1 drop per eye - latanoprost (XALATAN) 0.005 % ophthalmic solution Use 1 Drop in both eyes daily at bedtime. - atorvastatin (LIPITOR) 20 mg tablet - omega 9-fsc-edk-fish oil (FISH OIL) 100-160-1,000 mg cap Take by mouth. - Cholecalciferol, Vitamin D3, 50 mcg (2,000 unit) cap Take by mouth. - omeprazole 40 mg capsule [employer]: Therapy (PT/OT/Speech/Resp) ID: [id number] 07/27/2024 10:22 AM Author: IRINA FELDER Signed by IRINA FELDER PT on 07/27/2024 at 10:23 AM Document text: Program_ID:[id number] Access Code: [email or web address] URL: [email or web address] Date: 07-27-2024 Prepared By: Irina Felder Program Notes Patient Education - What Is Vestibular Rehab? - What Is The Vestibular System? - BPPV - What Is BPPV? Normal [facility] THERAPY NTon 07-27-2024 THERAPY NT HNO ID: [id number] Author: IRINA FELDER PT Service: ? Author Type: Physical Therapist Type: Therapy (PT/OT/Speech/Resp) Filed: 07/27/2024 10:23 Note Text: Program_ID:[id number] Access Code: [email or web address] URL: [email or web address] Date: 07-27-2024 Prepared By: Irina Felder Program Notes Patient Education - What Is Vestibular Rehab? - What Is The Vestibular System? - BPPV - What Is BPPV? Normal [facility] CNOVon 04-23-2024 CNOV Office Visit (CDISMN ) -------- DOMINIC ARTEAGA ([id number]) 1955 F Date Time Provider Department 04/23/24 2:30 PM LISBETH RAMÍREZ CDISMN During your visit today, we recorded the following information about you: Lisbeth Ramírez AUD 04/23/2024 4:21 PM Addendum [facility] Vestibular Test Battery Report Name: Dominic Arteaga [facility]#: [id number] Date of Service: 04/23/2024 Date of : 1955 Age: [age] year old Referred by: Nikki Andrew PA-C And is a patient of Domingo Cradona DO Referred for: Evaluation of the cause of disorder of hearing, tinnitus, or balance. Referral documented: In an order in [facility] Pretest Instructions: All pretest instructions were completed prior to testing: no alcohol, no medication for dizziness/motion sickness, no sedatives (sleep aids, tranquilizers, antihistamines), no eye makeup and only have a light meal prior to testing. Impressions and Recommendations OVERALL IMPRESSIONS: Abnormal vestibular evaluation. Findings demonstrate Benign Paroxysmal Positional Vertigo (BPPV) in the right posterior semicircular canal. Treatment was not completed today due to significant nausea with possible emesis. Consider referral to vestibular and balance rehabilitation therapy to re-evaluate and treat BPPV. Referring provider will be contacted to determine if anti-nausea medication can be prescribed to help with symptoms during treatment. All other portions of today's evaluation were unremarkable: - Normal low, mid, and high frequency vestibulo-ocular reflex (VOR) function as evident by rotary chair and video head impulse testing. - There were no clinically significant signs of pathophysiologic nystagmus provoked during gaze stability testing with fixation removed and post-headshake testing. - There were no indications of central vestibulo-ocular pathway involvement noted. Normal oculomotor examination. - Normal observation of gait and transfers. - Postural control findings demonstrate normal functional balance with varying sensory information (vestibular, visual and/or somatosensory) observed during the Modified Clinical Test of Sensory Integration on Balance (mCTSIB). No fall reactions observed during eyes open and eyes closed conditions on firm and foam support surfaces. RECOMMENDATIONS: - Continue medical follow up with Nikki Andrew PA-C and Domingo Cardona DO. - Consider referral to vestibular and balance rehabilitation therapy to re-evaluate and treat BPPV. Referring provider will be contacted to determine if anti-nausea medication can be prescribed to help with symptoms during treatment. - Consider re-evaluation as medically indicated. - Consider maintaining a healthy sleep schedule in addition to diet, hydration, and exercise. The results and recommendations were explained to Dominic Arteaga who expressed understanding of the information. History Present Illness The following history was obtained by way of Dominic Arteaga's previous medical record, patient entered questionnaire, and direct patient interview: Dominic Arteaga presented with dizziness which began one year ago. She characterizes her symptoms as: sometimes it feels like internal vertigo, sometimes with external vertigo, and sometimes she feels presyncope. Dominic was unable discern a clear, reproducible pattern associated with symptoms; however, provoking/exacerbating factors may include putting head down and turning it (any direction). Symptoms can also occur when her head is static. She can often feel as if her eyes are moving. Typically, symptoms last seconds to minutes in duration. She also noted when getting out of bed she becomes dizzy - mostly when turning to the right, although this can happen when on the left too. Otologic symptoms include discomfort of the right pinna; other otologic symptoms were denied including subjective hearing loss, fluctuating hearing, subjective interaural hearing differences, constant tinnitus, and aural fullness/pressure. She previously noted a history of migraines during teenage years, but notes that she has been getting more frequent headaches. Symptoms are not always correlated to the dizziness. She also previously reported changes and starting to see spots, stars in her vision lasting for minutes at a time. Dominic notes a history of falls with 10 falls sustained in the past 12 months. She feels as if she falls straight forward when she falls. Dominic is not currently using an ambulatory device. SUMMARY OF PAST MEDICAL HISTORY: - She has a past medical history of POAG (primary open-angle glaucoma). - Referring provider Nikki Andrew PA-C (General neurology): At this time, unclear etiology for dizziness, discussed that this could be multifactoral as well. Does have some components of vestibular migraine but a (more content not included)... Normal [facility] CBC panel Auto (Bld)on 02-02 Erythrocyte distribution width (RBC) [Ratio] 12.7 % 11.5 - 15.0 % [facility] Hematocrit (Bld) [Volume fraction] 46.5 % High 36.0 - 46.0 % [facility] Hemoglobin (Bld) [Mass/Vol] 14.9 g/dL 11.5 - 15.5 g/dL [facility] Interpretation and review of laboratory results Abnormal [facility] MCH (RBC) [Entitic mass] 30.2 pg 26. 0 - 34.0 pg [facility] MCHC (RBC) [Mass/Vol] 32.0 g/dL 30.5 - 36.0 g/dL [facility] MCV (RBC) [Entitic vol] 94.3 fL 80.0 - 100.0 fL [facility] Nucleated RBC (Bld) [#/Vol] NINF [facility] Platelet mean volume (Bld) [Entitic vol] 9.6 fL 9.0 - 12.7 fL [facility] Platelets (Bld) [#/Vol] 288 10*3/uL [facility] RBC (Bld) [#/Vol] 4.93 10*6/uL 3.90 - 5.2 0 m/uL [facility] WBC (Bld) [#/Vol] 7.09 10*3/uL [facility] Erythrocyte distribution width (RBC) [Ratio] 12.7 % Normal 11.5-15.0 [facility] Comment on above: Order Comment: Speci men Type: BLOOD SPECIMENOrdering Facility: [facility] Address: [address] [place] [address] Performed By: #### 5 8410-2 ####[facility] LABIA [id number] [place] [address] [place] Hematocrit (Bld) [Volume fraction] 46.5 % High 36.0-46.0 [facility] Comment on above: Order Comment: Speci men Type: BLOOD SPECIMENOrdering Facility: [facility] Address: [address] [place] [address] Performed By: #### 5 8410-2 ####[facility] LABCLIA [id number] [place] [address] [place] Hemoglobin (Bld) [Mass/Vol] 14.9 g/dL Normal 11.5-15.5 [facility] Comment on above: Order Comment: Speci men Type: BLOOD SPECIMENOrdering Facility: [facility] Address: [address] [place] [address] Performed By: #### 5 8410-2 ####[facility] [id number] [place] [address] [place] MCH (RBC) [Entitic mass] 30.2 pg Normal 26.0-34.0 [facility] Comment on above: Order Comment: Speci men Type: BLOOD SPECIMENOrdering Facility: [facility] Address: [address] [place] [address] Performed By: #### 5 8410-2 ####[facility] [id number] [place] [address] [place] MCHC (RBC) [Mass/Vol] 32.0 g/dL Normal 30.5-36.0 [facility] Comment on above: Order Comment: Speci men Type: BLOOD SPECIMENOrdering Facility: [facility] Address: [address] [place] [address] Performed By: #### 5 8410-2 ####[facility] [id number] [place] [address] [place] MCV (RBC) [Entitic vol] 94.3 fL Normal 80.0-100.0 [facility] Comment on above: Order Comment: Speci men Type: BLOOD SPECIMENOrdering Facility: [facility] Address: [address] [place] [address] Performed By: #### 5 8410-2 ####[facility] [id number] [place] [address] [place] Nucleated RBC (Bld) [#/Vol] 10*3/uL Normal <0.01 [facility] Comment on above: Order Comment: Speci men Type: BLOOD SPECIMENOrdering Facility: [facility] Address: [address] [place] [address] Performed By: #### 5 8410-2 ####[facility] LABCLIA [id number] [place] [address] [place] Platelet mean volume (Bld) [Entitic vol] 9.6 fL Normal 9.0-12.7 [facility] Comment on above: Order Comment: Speci men Type: BLOOD SPECIMENOrdering Facility: [facility] Address: [address] [place] [address] Performed By: #### 5 8410-2 ####[facility] LABIA [id number] [place] [address] [place] Platelets (Bld) [#/Vol] 288 10*3/uL Normal 150-400 [facility] Comment on above: Order Comment: Speci men Type: BLOOD SPECIMENOrdering Facility: [facility] Address: [address] [place] [address] Performed By: #### 5 8410-2 ####[facility] LABIA [id number] [place] [address] [place] RBC (Bld) [#/Vol] 4.93 10*6/uL Normal 3.90-5.20 [facility] Comment on above: Order Comment: Speci men Type: BLOOD SPECIMENOrdering Facility: [facility] Address: [address] [place] [address] Performed By: #### 5 8410-2 ####[facility] LABIA [id number] [place] [address] [place] WBC (Bld) [#/Vol] 7.09 10*3/uL Normal 3.70-11.00 [facility] Comment on above: Order Comment: Speci men Type: BLOOD SPECIMENOrdering Facility: [facility] Address: [address] [place] [address] Performed By: #### 5 8410-2 ####[facility] LABIA [id number] [place] [address] [place] CNOVon 08-13-2024 CNOV Office Visit (NEMOWS ) -------- DOMINIC ARTEAGA ([id number]) 1955 F Date Time Provider Department 02/03/24 12:45 PM NIKKI ANDREW During your visit today, we recorded the following information about you: Weight 86.5 kg Nikki Andrew PA-C 02/03/2024 2:23 PM Signed [facility] Name: Dominic Arteaga Age: [age] year old Gender: female Primary Care Provider: Domingo Cardona DO Consult requested for dizziness by . Recommendations will be communicated via shared medical record or US mail. Chief Complaint:New Patient (Dizziness and vertigo) 02/03/2024 - General Neurology, Nikki Andrew PA-C ASSESSMENT ASSESSMENT/PLAN: 1. Dizziness - ICD9: 780.4, ICD10: R42 (primary diagnosis) 2. Cervical stenosis of spinal canal - ICD9: 723.0, ICD10: M48.02 3. Vestibular migraine - ICD9: 346.80, ICD10: G43.809 4. Worsening headaches - ICD9: 784.0, ICD10: R51.9 Patient with 10 months of intermittent dizziness. Patient was significant difficulty describing the dizziness and ranges from internal, external vertigo to presyncope, to just a general sense of movement. Unsure what triggers it, denies any migrainous triggers, sometimes driving the car will cause it to happen. Also notes it may happen when she stands up or turns her head [id number] but not consistently. MRI of the brain was negative. Does note longstanding history of vertigo which she has had intermittent episodes for many years but nothing like this. Patient does have history of cervical stenosis with fusion in the 1980s. Was recently admitted to [facility] for severe neck pain but records are not available. Was told that her neck did show some mild degeneration but nothing significant. However, patient's exam shows some hyperreflexia bilaterally and not equally as well as some weakness in the right upper extremity. Will have records sent from [facility] and review. Of note, orthostatics were negative and she did have a negative tilt table test. At this time, unclear etiology for dizziness, discussed that this could be multifactoral as well. Does have some components of vestibular migraine but also due to cervical stenosis there may be a cervical component as well. Patient also describing possible inner ear pathology but hints exam is negative, no nystagmus appreciated. Will obtain vestibular battery testing to further evaluate for any inner ear versus central etiology contributing to her symptoms. Patient does have an appointment with ENT scheduled for 2 weeks out and encouraged to keep this appointment. Additionally, will order basic blood work to look for common causes of dizziness including TSH, CBC, CMP and B12. 5. Tremor - ICD9: 781.0, ICD10: R25.1 Patient reporting a sensation of shaking in her hands and legs intermittently but resolves with distraction. Did not review any tremor on my exam today. MRI of the brain was reportedly negative, but we will have records sent from [facility]. Will order TSH to ensure no thyroid abnormality. Will continue to monitor. Patient agreeable to treatment plan of care at this time, questions were answered. Patient to follow-up after testing is completed. Nikki Andrew PA-C Encounter Diagnosis ICD-10-CM 1. Dizziness R42 VESTIBULAR TEST BATTERY METHYLMALONIC ACID VITAMIN B12 THYROID STIMULATING HORMONE COMPLETE BLOOD COUNT COMPREHENSIVE METABOLIC PANEL 2. Cervical stenosis of spinal canal M48.02 3. Vestibular migraine G43.809 4. Worsening headaches R51.9 THYROID STIMULATING HORMONE 5. Tremor R25.1 THYROID STIMULATING HORMONE Chart, labs,and relevant images reviewed. HPI: Dominic is a 68 year old year old female with history of who presents with dizziness. The dizziness is described as sensation of movement. Chart review: Following with [facility] PCP and noted dizziness. Tilt table normal. Has seen ENT and MRI of the brain normal. Seen by PCP on 01/22/24 Patient has for evaluation of dizziness. Patient notes that this been ongoing for about a year, states that it started around last March when she was traveling, woke up 1 day and the room was spinning. Since that time has been on and off. Describes multiple different senses of dizziness, sometimes it feels like internal vertigo, sometimes with external vertigo and sometimes she feels presyncope. Notes occurring on a daily basis and the length of time varies. Sometimes it seems to be triggered with standing and other times not, sometimes it is triggered by certain head movements like turning her head to the right but not consistently. Follow with her primary care who got an MRI of her brain which was negative. Is scheduled to see an ENT in 2 weeks. Also reporting some ear pain, notes that the pinna bilaterally is sore and aching, has been evaluated for an o (more content not included)... Normal [facility] 02-03-2024 CNPN Telephone (NEMOWS) -------- DOMINIC ARTEAGA ([id number]) 1955 F Date Time Provider Department 02/03/24 NIKKI ANDREW During your visit today, we recorded the following information about you: Nikki Andrew PA-C 02/03/2024 1:49 PM Signed Patient had MRI of the cervical spine in December at [facility], please have report and film sent. Irina Art LPN 02/03/2024 2:22 PM Signed Fax sent to [facility] Medical records for images to be released. SHIRLENE Ho Gillian, OCCA 02/05/2024 7:57 AM Signed Report for MRI Spine received, still waiting on images. TODD Hernadez Gillian, OCCA 02/10/2024 7:18 AM Signed Images still not received as of 02/10/24. TODD Hernadez Gillian, OCCA 02/11/2024 9:17 AM Signed Images now in chart for review. TODD Hernadez Allergies As of Date: 02/03/2024 (No Known Allergies) Date Reviewed: 02/03/2024 Reviewed by: Queener, Nikki, PA-C - Fully Assessed Prescriptions as of 02/11/2024 - venlafaxine ER (EFFEXOR XR) 150 mg 24 hr capsule Take 150 mg by mouth once daily. - ergocalciferol 50,000 unit capsule (VITAMIN D2, DRISDOL) Take 50,000 Units by mouth one time a week. - venlafaxine (EFFEXOR) 75 mg tablet Take 75 mg by mouth three times a day. - losartan (COZAAR) 100 mg tablet Take 100 mg by mouth once daily. - busPIRone (BUSPAR) 5 mg tablet Take 5 mg by mouth three times a day. - gszq-K6-sfuglr-B6-Zn-Cu- lizeth 250 mg-400 unit -40 mg-5 mg tab Take 250 mg by mouth once daily. - meclizine (ANTIVERT) 25 mg tab Take 25 mg by mouth three times a day as needed (dizziness). - latanoprost, PF, 0.005 % drop Use 1 Drop in eyes once daily. 1 drop per eye - latanoprost (XALATAN) 0.005 % ophthalmic solution Use 1 Drop in both eyes daily at bedtime. - atorvastatin (LIPITOR) 20 mg tablet - omega 4-und-uof-fish oil (FISH OIL) 100-160-1,000 mg cap Take by mouth. - Cholecalciferol, Vitamin D3, 50 mcg (2,000 unit) cap Take by mouth. - omeprazole 40 mg capsule Problem List As Of Date: 02/03/2024 (None) Encounter Status:Closed by NIKKI ANDREW on 02/03/24 Normal [facility] Comprehensive metabolic 2000 panelon 02-03-2024 Albumin [Mass/Vol] 4.3 g/dL Normal 3.9-4.9 [facility] Comment on above: Order Comment: Speci men Type: BLOOD SPECIMENOrdering Facility: [facility] Address: [address] [place] [address] Performed By: #### 3 016-3, 78062-8, 2132-9 ####[facility] LABCLIA [id number] [facility] [place] [address] [place] ALP [Catalytic activity/Vol] 82 U/L Normal 34-123 [facility] Comment on above: Order Comment: Speci men Type: BLOOD SPECIMENOrdering Facility: [facility] Address: [address] [place] [address] Performed By: #### 3 016-3, , 2132-02 ####[facility] LABCLIA [id number] [place] [address] [place] ALT [Catalytic activity/Vol] 18 U/L Normal 7-38 [facility] Comment on above: Order Comment: Speci men Type: BLOOD SPECIMENOrdering Facility: [facility] Address: [address] [place] [address] Performed By: #### 3 016-3, , 2132-02 ####[facility] LABCLIA [id number] [place] [address] [place] Anion gap [Moles/Vol] 11 mmol/L Normal 8-15 [facility] Comment on above: Order Comment: Speci men Type: BLOOD SPECIMENOrdering Facility: [facility] Address: [address] [place] [address] Performed By: #### 3 016-3, , 2132-02 ####[facility] LABCLIA [id number] [place] [address] [place] AST [Catalytic activity/Vol] 23 U/L Normal 13-35 [facility] Comment on above: Order Comment: Speci men Type: BLOOD SPECIMENOrdering Facility: [facility] Address: [address] [place] [address] Performed By: #### 3 016-3, , 2132-02 ####[facility] LABCLIA [id number] [place] [address] [place] Bilirubin [Mass/Vol] 0.5 mg/dL Normal 0.2-1.[address] [facility] Comment on above: Order Comment: Speci men Type: BLOOD SPECIMENOrdering Facility: [facility] Address: [address] [place] [address] Performed By: #### 3 016-3, , 2132-02 ####[facility] LABCLIA [id number] [place] [address] [place] Calcium [Mass/Vol] 9.8 mg/dL Normal 8.5-10.2 [facility] Comment on above: Order Comment: Speci men Type: BLOOD SPECIMENOrdering Facility: [facility] Address: [address] [place] [address] Performed By: #### 3 016-3, , 2132-02 ####[facility] LABCLIA [id number] [place] [address] [place] Chloride [Moles/Vol] 104 mmol/L Normal 98-[address] [facility] Comment on above: Order Comment: Speci men Type: BLOOD SPECIMENOrdering Facility: [facility] Address: [address] [place] [address] Performed By: #### 3 016-3, , 2132-02 ####[facility] LABCLIA [id number] [place] [address] [place] CO2 [Moles/Vol] 23 mmol/L Normal 22-30 [facility] Comment on above: Order Comment: Speci men Type: BLOOD SPECIMENOrdering Facility: [facility] Address: [address] [place] [address] Performed By: #### 3 016-3, , 2132-02 ####[facility] LABCLIA [id number] [place] [id number] [place] Creatinine [Mass/Vol] 0.80 mg/dL Normal 0.58-0.96 [facility] Comment on above: Order Comment: Speci men Type: BLOOD SPECIMENOrdering Facility: [facility] Address: [address] [place] [address] Performed By: #### 3 016-3, 17587-8, 2132-02 ####[facility] LABCLIA [id number] [place] [address] [place] Creatinine and Glomerular filtration rate.predicted panel (S/P/Bld) 80 mL/min/1.73m??? Normal >=60 [facility] Comment on above: Order Comment: Naresh rodriguez Type: BLOOD SPECIMENOrdering Facility: [facility] Address: [address] [place] [address] Result Comment: Binta mated Glomerular Filtration Rate (eGFR) is calculated using the 2020 CKD-EPI creatinine equation. This equation utilizes serum creatinine, sex, and age as parameters. The creatinine assay has traceable calibration to isotope dilution-mass spectrometry. Refer to KDIGO guidelines for clinical interpretation. In patients with unstable renal function, e.g. those with acute kidney injury, the eGFR may not accurately reflect actual GFR. Performed By: #### 3 016-3, 56435-2, 2132-02 ####[facility] LABCLIA [id number] [place] [address] [place] Glucose [Mass/Vol] 119 mg/dL High 74-99 [facility] Comment on above: Order Comment: Naresh rodriguez Type: BLOOD SPECIMENOrdering Facility: [facility] Address: [address] [place] [address] Result Comment: The [place] Diabetes Association (ADA) provides guidance for cutoff values for fasting glucose and random glucose. The ADA defines fasting as no caloric intake for at least 8 hours. Fasting plasma glucose results between 100 to 125 mg/dL indicate increased risk for diabetes (prediabetes). Fasting plasma glucose results greater than or equal to 126 mg/dL meet the criteria for diagnosis of diabetes. In the absence of unequivocal hyperglycemia, results should be confirmed by repeat testing. In a patient with classic symptoms of hyperglycemia or hyperglycemic crisis, random plasma glucose results greater than or equal to 200 mg/dL meet the criteria for diagnosis of diabetes. Reference: Standards of Medical Care in Diabetes 2016, [place] Diabetes Association. Diabetes Care. 2016.39(Suppl 1). Performed By: #### 3 016-3, 30758-6, 2132-02 ####[facility] LABCLIA [id number] [facility] [address] [address] [place] Potassium [Moles/Vol] 4.2 mmol/L Normal 3.7-5.1 [facility] Comment on above: Order Comment: Speci men Type: BLOOD SPECIMENOrdering Facility: [facility] Address: [address] [place] [address] Performed By: #### 3 016-3, , 2132-02 ####[facility] LABCLIA [id number] [facility] [address] [address] [place] Protein [Mass/Vol] 7.3 g/dL Normal 6.3-8.0 [facility] Comment on above: Order Comment: Speci men Type: BLOOD SPECIMENOrdering Facility: [facility] Address: [address] [place] [address] Performed By: #### 3 016-3, , 2132-02 ####[facility] LABCLIA [id number] [facility] [address] [address] [place] Sodium [Moles/Vol] 138 mmol/L Normal 136-144 [facility] Comment on above: Order Comment: Speci men Type: BLOOD SPECIMENOrdering Facility: [facility] Address: [address] [place], [place] [address] Performed By: #### 3 016-3, , 2132-02 ####[facility] LABCLIA [id number] [facility] [address] [address] [place] Urea nitrogen [Mass/Vol] 12 mg/dL Normal 7-21 [facility] Comment on above: Order Comment: Speci men Type: BLOOD SPECIMENOrdering Facility: [facility] Address: [address] [place], [place] [address] Performed By: #### 3 016-3, , 2132-02 ####[facility] LABCLIA [id number] [place] [address] [place] Methylmalonate SerPl-sCncon 02-03-2024 Methylmalonate [Moles/Vol] 0.17 umol/L Normal <=0.40 [facility] Comment on above: Order Comment: Speci men Type: BLOOD SPECIMENOrdering Facility: [facility] Address: [address] [place] [address] Result Comment: This test was developed and its performance characteristics determined by [facility]'s [facility] [place] ([facility]). It has not been cleared or approved by the FDA. -[facility] is regulated under CLIA as qualified to perform high-complexity testing. This test is used for clinical purposes. It should not be regarded as investigational or for research. Performed By: #### 1 3964-2 ####[facility] LABCLIA [id number] [place] [address] [place] TSH SerPl-aCncon 02-03-2024 TSH Qn 0.995 m[IU]/L Normal 0.270-4.200 [facility] Comment on above: Order Comment: Speci men Type: BLOOD SPECIMENOrdering Facility: [facility] Address: [address] [place] [address] Performed By: #### 3 016-3, 23425-6, 2132-02 ####[facility] LABIA [id number] [place] [address] [place] Vit B12 SerPl-mCncon 024 Cobalamin (Vitamin B12) [Mass/Vol] 480 pg/mL Normal 232-1245 [facility] Comment on above: Order Comment: Speci men Type: BLOOD SPECIMENOrdering Facility: [facility] Address: [address] [place] [address] Performed By: #### 3 016-3, 48697-8, 2132-02 ####[facility] LABIA [id number] [place] [address] [place] CNPNon 01-30-2024 [facility] Telephone (NEMOWS) -------- DOMINIC ARTEAGA ([id number]) 1955 F Date Time Provider Department 01/30/24 NEUROLOGY PROVIDER SHARI During your visit today, we recorded the following information about you: Irina Art LPN 01/30/2024 3:31 PM Signed Fax received from [facility] for pt to be seen for dizziness and vertigo. Please assist in scheduling with a general neurologist. Irina Art LPN Allergies As of Date: 01/30/2024 (No Known Allergies) Date Reviewed: 12/14/2019 Reviewed by: Omid Huynh - Fully Assessed Reason for Visit: Appointment [186] Prescriptions as of 07/12/2024 - ondansetron (ZOFRAN) 4 mg tablet Take 1 tablet by mouth once daily as needed for nausea/vomiting. - venlafaxine ER (EFFEXOR XR) 150 mg 24 hr capsule Take 150 mg by mouth once daily. - ergocalciferol 50,000 unit capsule (VITAMIN D2, DRISDOL) Take 50,000 Units by mouth one time a week. - venlafaxine (EFFEXOR) 75 mg tablet Take 75 mg by mouth three times a day. - losartan (COZAAR) 100 mg tablet Take 100 mg by mouth once daily. - busPIRone (BUSPAR) 5 mg tablet Take 5 mg by mouth three times a day. - ojhr-K5-ijzdtx-B6-Zn-Cu- lizeth 250 mg-400 unit -40 mg-5 mg tab Take 250 mg by mouth once daily. - meclizine (ANTIVERT) 25 mg tab Take 25 mg by mouth three times a day as needed (dizziness). - latanoprost, PF, 0.005 % drop Use 1 Drop in eyes once daily. 1 drop per eye - latanoprost (XALATAN) 0.005 % ophthalmic solution Use 1 Drop in both eyes daily at bedtime. - atorvastatin (LIPITOR) 20 mg tablet - omega 0-ata-yxw-fish oil (FISH OIL) 100-160-1,000 mg cap Take by mouth. - Cholecalciferol, Vitamin D3, 50 mcg (2,000 unit) cap Take by mouth. - omeprazole 40 mg capsule Problem List As Of Date: 01/30/2024 (None) Encounter Status:Closed by IRINA ART on 07/12/24 Normal [facility] Ptaino Basophil percentageOrdered B y: Joseph Ferreira on 10-14-2023 Chloride [Moles/Vol] 108 mmol/L 98-107 [facility] Glucose [Mass/Vol] 134 mg/dL 74-106 [facility] Comment on above: Fasting Glucose resu lt greater than or equal to 126 mg/dL suggests DIABETES MELLITUS per A.D.A. criteria. Hemoglobin (Bld) [Mass/Vol] 14.3 g/dL 12.0-15.0 [facility] Potassium [Moles/Vol] 4.9 mmol/L 3.5-5.1 [facility] Sodium [Moles/Vol] 139 mmol/L 136-145 [facility] WBC (Bld) [#/Vol] 5.5 10*3/uL 4.4-11.0 [facility] Determination of erythrocyte mean corpuscular volume (MCV)Ordered By: Joseph Ferreira on 10-14-2023 MCV (RBC) [Entitic vol] 94.4 fL 81-99 [facility] Erythrocyte distribution wid th ratioOrdered By: Joseph Ferreira on 10-14-2023 Erythrocyte distribution width (RBC) [Ratio] 13.2 % 11.6-14.6 [facility] Erythrocyte distribution wid th standard deviationOrdered By: Joseph Ferreira on 10-14-2023 Erythrocyte distribution width (RBC) [Entitic vol] 46.4 fL 35.1-43.9 [facility] Hematocrit Auto (Bld) [Volum e fraction]Ordered By: Joseph Ferreira on 10-14-2023 Hematocrit (Bld) [Volume fraction] 45.3 % 37-47 [facility] Laboratory - Chemistry and C hemistry - challengeOrdered By: Joseph Ferreira on 10-14-2023 CO2 [Moles/Vol] 27.0 mmol/L 21.0-32.0 [facility] Urea nitrogen/Creatinine [Mass ratio] 14.4 mg/mg 10-20 [facility] - Hematology and Cell countsOrdered By: Joseph Ferreira on 10-14-2023 MCH (RBC) [Entitic mass] 29.8 pg 27.0-32.0 [facility] MCHC (RBC) [Mass/Vol] 31.6 g/dL 32-36 [facility] Platelet mean volume (Bld) [Entitic vol] 9.2 fL 6.2-12.0 [facility] Platelets (Bld) [#/Vol] 253 10*3/uL 150-450 [facility] No Panel InformationOrdered By: Joseph Ferreira on 10-14-2023 Estimated GFR (MDRD) Amer 80 mL/min >60 [facility] Comment on above: GFR Calc Estimated GFR (MDRD) Non-Af Amer 66 mL/min >60 [facility] Comment on above: Non- GFR Calc RBC Auto (Bld) [#/Vol]Ordere d By: Joseph Ferreira on 10-14-2023 RBC (Bld) [#/Vol] 4.80 10*6/uL 4.2-5.4 [facility] Serum or plasma calcium oz urement (mass/volume)Ordered By: Joseph Ferreira on 10-14-2023 Calcium [Mass/Vol] 8.7 mg/dL 8.5-10.1 [facility] Serum or plasma creatinine m easurement (mass/volume)Ordered By: Joseph Ferreira on 10-14-2023 Creatinine [Mass/Vol] 0.90 mg/dL 0.55-1.02 [facility] Comment on above: The validity of the calculated GFR & GFRAA in patients over 70 years has not been determined. Clinical correlation is essential. Serum or plasma urea nitroge n measurement (mass/volume)Ordered By: Joseph Ferreira on 10-14-2023 Urea nitrogen [Mass/Vol] 13 mg/dL 7-18 [facility] Thin prep Papanicolaou smear with manual screeningOrdered By: Joseph Ferreira on 10-14-2023 Thin prep Papanicolaou smear with manual screening 4 5-15 [facility] Absolute lymphocyte countOrd ered By: Bakari Ranney on 08-28-2023 Lymphocytes Auto (Unsp spec) [#/Vol] 1.24 10*3/uL 0.83-4.51 [facility] Albumin Elph [Mass/Vol]Order ed By: Bakari Ranney on 08-28-2023 Albumin [Mass/Vol] 3.6 g/dL 2.9-4.4 [facility] Automated lymphocyte count a s percentage of total leukocytesOrdered By: Bakari Avila on 08-28-2023 Lymphocytes/100 WBC Auto (Unsp spec) 25.4 % 19-41 [facility] Basophil percentageOrdered B y: Bakari Avila on 08-28-2023 Basophil percentage 0-5 SEEN /hpf 0-5 [facility] Basophils/100 WBC (Bld) 1.6 % 0-1 [facility] Bilirubin [Mass/Vol] 0.40 mg/dL 0.20-1.00 [facility] Comment on above: For patients on eltr ombopag therapy, use of Dimension Winder TBIL is not recommended. Chloride [Moles/Vol] 108 mmol/L 98-107 [facility] Eosinophils/100 WBC (Bld) 7.2 % 0-5 [facility] Glucose [Mass/Vol] 105 mg/dL 74-106 [facility] Comment on above: Fasting Glucose resu lt from 100 to 125 mg/dL suggests IMPAIRED HOMEOSTASIS per A.D.A. criteria. Hemoglobin (Bld) [Mass/Vol] 13.6 g/dL 12.0-15.0 [facility] Monocytes/100 WBC (Bld) 9.4 % 0-10 [facility] Neutrophils (Bld) [#/Vol] 2.7 10*3/uL 2.0-7.7 [facility] Neutrophils/100 WBC (Bld) 56.0 % 47-70 [facility] Potassium [Moles/Vol] 4.1 mmol/L 3.5-5.1 [facility] Protein [Mass/Vol] 7.3 g/dL 6.4-8.2 [facility] Sodium [Moles/Vol] 142 mmol/L 136-145 [facility] WBC (Bld) [#/Vol] 4.9 10*3/uL 4.4-11.0 [facility] Bilirubin Test strip Ql (U)O rdered By: Bakari Avila on 08-28-2023 Bilirubin Ql (U) Negative Negative [facility] Determination of erythrocyte mean corpuscular volume (MCV)Ordered By: Bakari Avila on 08-28-2023 MCV (RBC) [Entitic vol] 93.2 fL 81-99 [facility] Erythrocyte distribution wid th ratioOrdered By: Bakari Avila on 08-28-2023 Erythrocyte distribution width (RBC) [Ratio] 13.2 % 11.6-14.6 [facility] Erythrocyte distribution wid th standard deviationOrdered By: Bakari Avila on 08-28-2023 Erythrocyte distribution width (RBC) [Entitic vol] 44.8 fL 35.1-43.9 [facility] Hematocrit Auto (Bld) [Volum e fraction]Ordered By: Bakari Avila on 08-28-2023 Hematocrit (Bld) [Volume fraction] 43.9 % 37-47 [facility] Immature granulocytes/100 WB C Auto (Bld)Ordered By: Bakari Avila on 08-28-2023 Immature granulocytes/100 WBC (Bld) 0.400 % 0.0-0.9 [facility] Comment on above: IG% - Immature Granu locytes (promyelocytes, myelocytes and metamyelocytes) > 1% indicates that a LEFT SHIFT is Present. Ketones Test strip Ql (U)Ord ered By: Bakari Avila on 08-28-2023 Ketones Ql (U) Negative Negative [facility] Laboratory - Chemistry and C hemistry - challengeOrdered By: Bakari Avila on 08-28-2023 Albumin/Globulin [Mass ratio] 0.9 {ratio} 0.9-2.4 [facility] ALP [Catalytic activity/Vol] 74 U/L 45-117 [facility] ALT [Catalytic activity/Vol] 22 U/L 13-56 [facility] CO2 [Moles/Vol] 25.0 mmol/L 21.0-32.0 [facility] Cobalamin (Vitamin B12) [Mass/Vol] 395 pg/mL 211-911 [facility] Globulin (S) [Mass/Vol] 3.8 g/dL 2.2-4.2 [facility] Urea nitrogen/Creatinine [Mass ratio] 21.7 mg/mg 10-20 [facility] Laboratory - Hematology and Cell countsOrdered By: Bakari Avila on 08-28-2023 MCH (RBC) [Entitic mass] 28.9 pg 27.0-32.0 [facility] MCHC (RBC) [Mass/Vol] 31.0 g/dL 32-36 [facility] Nucleated RBC/100 WBC (Bld) [Ratio] 0 % 0-5 [facility] Platelet mean volume (Bld) [Entitic vol] 9.5 fL 6.2-12.0 [facility] Platelets (Bld) [#/Vol] 266 10*3/uL 150-450 [facility] Mucus LM Ql (Urine sed)Order ed By: Bakari Avila on 08-28-2023 Mucus Ql (Urine sed) 1+ /hpf [facility] Nitrite Test strip Ql (U)Ord ered By: Bakari Avila on 08-28-2023 Nitrite Ql (U) Negative Negative [facility] No Panel InformationOrdered By: Bakari Avila on 08-28-2023 Addendum Document Comment . [facility] Comment on above: The SPE pattern appe ars unremarkable. Evidence ofmonoclonal protein is not apparent.Performed at: [facility] [employer] [id number] Director: Nicolas Fung PhD, Phone: [phone] Usgda-2-[id number] 0.2 g/dL 0.0-0.4 [facility] Bltfu-8-Pkcoyumzn 0.7 g/dL 0.4-1.0 [facility] Estimated GFR (MDRD) Amer 88 mL/min >60 [facility] Comment on above: GFR Calc Estimated GFR (MDRD) Non-Af Amer 72 mL/min >60 [facility] Comment on above: Non- GFR Calc Gamma Globulins 0.9 g/dL 0.4-1.8 [facility] Urine RBC 0-5 SEEN /hpf 0-5 [facility] Vitamin D 25-Hydroxy 62.7 ng/mL [facility] Comment on above: Vitamin D 25(OH) Sta tus Range Deficiency <20 ng/mL (50nmol/L) Insufficiency 20 - 30 ng/mL (50 - 75 nmol/L) Sufficiency 30 - 100 ng/mL (75 - 250 nmol/L) Toxicity >100 ng/mL (>250 nmol/L) Protein Fractions Elph [Inte rp]Ordered By: Bakari Avila on 08-28-2023 Protein Fractions [Interp] Comment . [facility] Comment on above: Protein electrophore sis scan will follow via computer,mail, or paraffin plant sweater operator delivery. Protein Test strip Ql (U)Ord ered By: Bakari Avila on 08-28-2023 Protein Ql (U) 15 mg/dl Negative [facility] RBC Auto (Bld) [#/Vol]Ordere d By: Bakari Avila on 08-28-2023 RBC (Bld) [#/Vol] 4.71 10*6/uL 4.2-5.4 [facility] Serum albumin to globulin ra noe by protein electrophoresisOrdered By: Bakari Avila on 08-28-2023 Albumin/Globulin Elph [Mass ratio] 1.2 0.7-1.7 [facility] Serum globulin measurement ( mass/volume)Ordered By: Bakari Avila on 08-28-2023 Globulin (S) [Mass/Vol] 3.0 g/dL 2.2-3.9 [facility] Serum or plasma beta globuli n measurement by electrophoresis (mass/volume)Ordered By: Bakari Avila on 08-28-2023 Beta globulin Elph [Mass/Vol] 1.1 g/dL 0.7-1.3 [facility] Serum or plasma calcium oz urement (mass/volume)Ordered By: Bakari Avila on 08-28-2023 Calcium [Mass/Vol] 8.9 mg/dL 8.5-10.1 [facility] Serum or plasma cortisol declan surement (mass/volume)Ordered By: Bakari Avila on 08-28-2023 Cortisol [Mass/Vol] 13.60 ug/dL 3.44-22.45 [facility] Comment on above: Adult (AM) 5.27 - 22 .45 ug/dL Adult (PM) 3.44 - 16.76 ug/dLPlease note revised CORTISOL reference range effective 2019. Serum or plasma creatinine m easurement (mass/volume)Ordered By: Bakari Avila on 08-28-2023 Creatinine [Mass/Vol] 0.83 mg/dL 0.55-1.02 [facility] Comment on above: The validity of the calculated GFR & GFRAA in patients over 70 years has not been determined. Clinical correlation is essential. Serum or plasma protein mono clonal measurement by electrophoresis (mass/volume)Ordered By: Bakari Avila on 08-28-2023 Protein.monoclonal Elph [Mass/Vol] Not Observed g/dL Not Observed [facility] Serum or plasma thyroid stim ulating hormone (TSH) measurement (units/volume)Ordered By: Bakari Avila on 08-28-2023 TSH Qn 1.42 uIU/mL 0.358-3.74 [facility] Serum or plasma urea nitroge n measurement (mass/volume)Ordered By: Bakari Avila on 08-28-2023 Urea nitrogen [Mass/Vol] 18 mg/dL 7-18 [facility] Squamous epithelial cells de tection in urine sediment by light microscopyOrdered By: Bakari Avila on 08-28-2023 Epithelial cells.squamous LM Ql (Urine sed) 10-25 SEEN /hpf 5-10 [facility] Thin prep Papanicolaou smear with manual screeningOrdered By: Bakari Avila on 08-28-2023 Thin prep Papanicolaou smear with manual screening 3.5 g/dL 3.2-5.0 [facility] Thin prep Papanicolaou smear with manual screening 16 U/L 15-37 [facility] Thin prep Papanicolaou smear with manual screening 9 5-15 [facility] Total protein bloodOrdered B y: Bakari Avila on 08-28-2023 Protein [Mass/Vol] 6.6 g/dL 6.0-8.5 [facility] Urine blood detectionOrdered By: Bakari Avila on 03-07-2024 RBC Ql (U) Negative Negative [facility] Urine clarityOrdered By: Matt welsh Margarita on 08-28-2023 Clarity (U) Sl. Cloudy Clear [facility] Urine color determinationOrd ered By: Bakari Avila on 08-28-2023 Color (U) Yellow Yellow [facility] Urine glucose detectionOrder ed By: Bakari Avila on 08-28-2023 Glucose Ql (U) Normal mg/dl Normal [facility] Urine leukocyte esterase det ection by dipstickOrdered By: Bakari Avila on 08-28-2023 Leukocyte esterase Test strip Ql (U) 100 /ul Negative [facility] Urine pHOrdered By: Abraham Avila on 08-28-2023 pH (U) 5.0 [pH] 5.0 - 8.0 [facility] Urine sediment bacteria coun t by microscopy (number/high power field)Ordered By: Bakari Avila on 08-28-2023 Bacteria LM.HPF (Urine sed) [#/Area] 1 /[HPF] None Seen [facility] Urine specific gravity measu rementOrdered By: Bakari Avila on 08-28-2023 Specific gravity (U) [Rel density] 1.020 1.002-1.030 [facility] Urine urobilinogen measureme ntOrdered By: Bakari Avila on 08-28-2023 Urobilinogen Ql (U) Normal mg/dl Normal [facility] Basophil percentageOrdered B y: Bakari Avila on 06-30-2023 Bilirubin [Mass/Vol] 0.30 mg/dL 0.20-1.00 [facility] Comment on above: For patients on eltr ombopag therapy, use of Dimension Winder TBIL is not recommended. Chloride [Moles/Vol] 107 mmol/L 98-107 [facility] Cholesterol [Mass/Vol] 169 mg/dL <200 [facility] Comment on above: <200 mg/dL Desirable 200-240 mg/dL Borderline >240 mg/dL High Risk Glucose [Mass/Vol] 106 mg/dL 74-106 [facility] Comment on above: Fasting Glucose resu lt from 100 to 125 mg/dL suggests IMPAIRED HOMEOSTASIS per A.D.A. criteria. Potassium [Moles/Vol] 3.7 mmol/L 3.5-5.1 [facility] Protein [Mass/Vol] 7.3 g/dL 6.4-8.2 [facility] Sodium [Moles/Vol] 140 mmol/L 136-145 [facility] Triglyceride [Mass/Vol] 138 mg/dL <199 [facility] Comment on above: The drugs N-Acetylcy steine and Metamizole may falsely depress this assay.Serum Triglycerides Reference Interval Normal <150 mg/dL Borderline high 150 - 199 mg/dL High 200 - 499 mg/dL Very High > or = 500 mg/dL WBC (Bld) [#/Vol] 6.0 10*3/uL 4.4-11.0 [facility] Blood erythrocytes count (nu mber/volume)Ordered By: Bakari Avila on 06-30-2023 RBC (Bld) [#/Vol] 4.86 10*6/uL 4.2-5.4 [facility] Blood hemoglobin measurement (mass/volume)Ordered By: Bakari Avila on 06-30-2023 Hemoglobin (Bld) [Mass/Vol] 14.2 g/dL 12.0-15.0 [facility] Blood platelet mean volumeOr dered By: Bakari Avila on 06-30-2023 Platelet mean volume (Bld) [Entitic vol] 9.6 fL 6.2-12.0 [facility] Determination of erythrocyte mean corpuscular volume (MCV)Ordered By: Bakari Avila on 06-30-2023 MCV (RBC) [Entitic vol] 94.0 fL 81-99 [facility] Hematocrit Auto (Bld) [Volum e fraction]Ordered By: Bakari Avila on 06-30-2023 Hematocrit (Bld) [Volume fraction] 45.7 % 37-47 [facility] Laboratory - Chemistry and C hemistry - challengeOrdered By: Bakari Avila on 06-30-2023 ALP [Catalytic activity/Vol] 72 U/L 45-117 [facility] ALT [Catalytic activity/Vol] 30 U/L 13-56 [facility] CO2 [Moles/Vol] 26.0 mmol/L 21.0-32.0 [facility] Globulin (S) [Mass/Vol] 3.9 g/dL 2.2-4.2 [facility] Urea nitrogen/Creatinine [Mass ratio] 21.3 mg/mg 10-20 [facility] Laboratory - Hematology and Cell countsOrdered By: Bakari Avila on 06-30-2023 Erythrocyte distribution width (RBC) [Entitic vol] 44.2 fL 35.1-43.9 [facility] Erythrocyte distribution width (RBC) [Ratio] 12.6 % 11.6-14.6 [facility] MCH (RBC) [Entitic mass] 29.2 pg 27.0-32.0 [facility] MCHC Auto (RBC) [Mass/Vol]Or dered By: Bakari Avila on 06-30-2023 MCHC (RBC) [Mass/Vol] 31.1 g/dL 32-36 [facility] No Panel InformationOrdered By: Bakari Avila on 06-30-2023 Estimated GFR (MDRD) Amer 106 mL/min >60 [facility] Comment on above: GFR Calc Estimated GFR (MDRD) Non-Af Amer 88 mL/min >60 [facility] Comment on above: Non- GFR Calc Thyroid Stimulating Hormone (TSH) 1.42 uIU/mL 0.358-3.74 [facility] Platelets bldOrdered By: Matt Avila on 06-30-2023 Platelets (Bld) [#/Vol] 245 10*3/uL 150-450 [facility] Serum or plasma albumin oz urement (mass/volume)Ordered By: Bakari Avila on 06-30-2023 Albumin [Mass/Vol] 3.4 g/dL 3.2-5.0 [facility] Serum or plasma albumin/glob ulin mass ratioOrdered By: Bakari Avila on 06-30-2023 Albumin/Globulin [Mass ratio] 0.9 {ratio} 0.9-2.4 [facility] Serum or plasma calcium oz urement (mass/volume)Ordered By: Bakari Avila on 06-30-2023 Calcium [Mass/Vol] 8.4 mg/dL 8.5-10.1 [facility] Serum or plasma cholesterol in HDL measurement (mass/volume)Ordered By: Bakari Avila on 06-30-2023 Cholesterol in HDL [Mass/Vol] 34 mg/dL >40 [facility] Comment on above: The drugs N-Acetylcy steine and Metamizole may falsely depress this assay. Reference Range HDL <40 mg/dL Low HDL Cholesterol HDL >or= 60 mg/dL High HDL Cholesterol Serum or plasma cholesterol in VLDL measurement (mass/volume)Ordered By: Bakari Avila on 06-30-2023 Cholesterol in VLDL [Mass/Vol] 28 mg/dL 5-40 [facility] Serum or plasma creatinine m easurement (mass/volume)Ordered By: Bakari Avila on 06-30-2023 Creatinine [Mass/Vol] 0.70 mg/dL 0.55-1.02 [facility] Comment on above: The validity of the calculated GFR & GFRAA in patients over 70 years has not been determined. Clinical correlation is essential. Serum or plasma low density lipoprotein (LDL) cholesterol measurement (mass/volume)Ordered By: Bakari Avila on 06-30-2023 Cholesterol in LDL [Mass/Vol] 107 mg/dL 0-130 [facility] Serum or plasma urea nitroge n measurement (mass/volume)Ordered By: Bakari Avila on 06-30-2023 Urea nitrogen [Mass/Vol] 15 mg/dL 7-18 [facility] Thin prep Papanicolaou smear with manual screeningOrdered By: Bakari Avila on 06-30-2023 Thin prep Papanicolaou smear with manual screening 25 U/L 15-37 [facility] Thin prep Papanicolaou smear with manual screening 7 5-15 [facility] Whole blood hemoglobin A1c/t otal hemoglobin ratio (mass fraction)Ordered By: Bakari Avila on 06-30-2023 HbA1c (Bld) [Mass fraction] 6.0 % 3.8-5.6 [facility] Comment on above: Normal < 5.7 % Predi abetic 5.7 - 6.4 % Diabetic >or= 6.5 % Please note range changes. Laboratory - Chemistry and C hemistry - challengeOrdered By: Bakari Avila on 03-17-2023 Cobalamin (Vitamin B12) [Mass/Vol] 460 pg/mL 211-911 [facility] Serum or plasma glucose oz urement 5 hours post dose glucose (mass/volume)Ordered By: Bakari Avila on 01-27-2023 Glucose 5 Hr post dose glucose [Mass/Vol] See comment [facility] Comment on above: FASTING 137 H Col: 0 01/27/23 0711GLUCOSE TOLERANCE TEST Reference Interval Non- Adults Fasting 74 - 106 30 minutes 110 - 170 1 hour 120 - 170 2 hour 74 - 120 3 hour 74 - 106 4 hour 74 - 106 5 hour 74 - 106 GLU 1/2 HR 210 H Col: 01/27/23 0842 GLU 1 HR 217 H Col: 01/27/23 0911 GLU 2 HR 89 Col: 01/27/23 1011 GLU 3 HR 119 H Col: 01/27/23 1112 GLU 4 HR 58 L Col: 01/27/23 1214 GLU 5 HR 92 Col: 01/27/23 1311 Albumin Elph [Mass/Vol]Order ed By: Tommie Avelar on 12-17-2022 Albumin [Mass/Vol] 3.6 g/dL 2.9-4.4 [facility] Atypical perinuclear antineu trophil cytoplasmic antibodies measurementOrdered By: Tommie Avelar on 12-17-2022 Neutrophil cytoplasmic Ab.perinuclear.atypical IF (S) [Titer] <1:20 titer Neg:<1:20 [facility] Comment on above: The atypical pANCA p attern has been observed in asignificant percentage of patients with ulcerative colitis,primary sclerosing cholangitis and autoimmune hepatitis. Basophil percentageOrdered B y: Tommie Avelar on 12-17-2022 Amylase [Catalytic activity/Vol] 42 U/L 25-115 [facility] Basophil percentage < 0.2 AI 0.0-0.9 [facility] LDH [Catalytic activity/Vol] 164 U/L 84-246 [facility] Chocolate RASTOrdered By: Ra yaakov Avelar on 12-17-2022 Chocolate IgE Qn (S) <0.10 kU/L Class 0 [facility] Comment on above: Performed at: [address] [id number] Director: Nicolas Fung PhD, Phone: [phone] at: - [facility] [address] [id number] Director: Yanna Vidal MD, Phone: [phone] Erythrocyte sedimentation ra teOrdered By: Tommie Avelar on 12-17-2022 ESR (Bld) [Velocity] 8 mm/h 0-30 [facility] Hemoglobin in reticulocytes (mass per reticulocyte)Ordered By: Tommie Avelar on 12-17-2022 Hemoglobin (Reticulocytes) [Entitic mass] 32.9 pg 30-35 [facility] Interpretation of serum or p lasma protein pattern by immunofixation (narrative resultOrdered By: Tommie Avelar on 12-17-2022 Protein Fractions Immunofixation Aryan [Interp] See comment [facility] Comment on above: NOT OBSERVED Iron measurement (mass/mass) Ordered By: Tommie Avelar on 12-17-2022 Iron (Unsp spec) [Mass/Mass] 83 ug/dL 50-170 [facility] Laboratory - Chemistry and C hemistry - challengeOrdered By: Tommie Avelar on 12-17-2022 Lipase [Catalytic activity/Vol] 50 U/L 13-75 [facility] Comment on above: Please note:LIPASE r evised reference range effective 22. New Lipase methodology. Expected to produce lower values than the previous assay method. NEW Reference Range: 13 - 75 U/L Laboratory - Miscellaneous t estsOrdered By: Tommie Avelar on 12-17-2022 Service comment (Unsp spec) [Interp] Comment . [facility] Comment on above: Levels of Specific I gE Class Description of Class ----- < 0.10 0 Negative 0.10 - 0.31 0/I Equivocal/Low 0.32 - 0.55 I Low 0.56 - 1.40 II Moderate 1.41 - 3.90 III High 3.91 - 19.00 IV Very High 19.01 - 100.00 V Very High >100.00 Very High No Panel InformationOrdered By: Tommie Friend on 12-17-2022 Giardia Antigen (FRANDY) [facility] Stool Calprotectin 9 ug/g 0-120 [facility] Comment on above: Concentration Interp retation Follow-Up< 5 - 50 ug/g Normal None>50 -120 ug/g Borderline Re-evaluate in 4-6 weeks >120 ug/g Abnormal Repeat as clinically indicatedPerformed at: [facility] [address] [id number] Director: Nicolas Fung PhD, Phone: [phone] at: [employer] [id number] Director: Yanna Vidal MD, Phone: [phone] Stool Neutral Fats Normal . [facility] Comment on above: Normal (<60 Droplets /HPF) Stool Pancreatic Elastase 175 >200 [facility] Comment on above: Result Units: ug [address] st./g Severe Pancreatic Insufficiency: <100 Moderate Pancreatic Insufficiency: 100 - 200 Normal: >200Performed at: [employer] [address] [id number] Director: Yanna Vidal MD, Phone: [phone] Addendum Document Comment . [facility] Comment on above: Protein electrophore sis scan will follow via computer,mail, or paraffin plant sweater operator delivery. Centromere B Antibody <0.2 AI 0.0-0.9 [facility] Immature Reticulocyte Fraction 17.20 % 3.00-15.90 [facility] Immunoglobulin E 31 IU/mL 6-495 [facility] Comment on above: Performed at: [email or web address] [facility] [address] [id number] Director: Nicolas Fung PhD, Phone: [phone] at: [employer] [id number] Director: Yanna Vidal MD, Phone: [phone] Reticulocyte Count 2.15 % 0.5-1.5 [facility] ASSISTANT PROFESSOR OF BUSINESS Antibody <0.2 AI 0.0-0.9 [facility] Scallop Allergen <0.10 kU/L Class 0 [facility] Seafood Group Allergens (RAST) Negative . [facility] Comment on above: Allergens in this mi x are: Blue mussel Fish Sarles Shrimp Tuna Sesame Seed Allergen IgE Antibody <0.10 kU/L Class 0 [facility] Shrimp Allergen <0.10 kU/L Class 0 [facility] Total Iron Binding Capacity 327 ug/dL 250-450 [facility] No Panel InformationOrdered By: Bakari Avila on 12-17-2022 Thyroid Stimulating Hormone (TSH) 1.88 uIU/mL 0.358-3.74 [facility] Ova and parasitesOrdered By: Tommie Avelar on 12-17-2022 Ova and parasites identified LM Nom (Unsp spec) [facility] Qualitative fecal fat or lip idsOrdered By: Tommie Avelar on 12-17-2022 Fat Ql (Stl) Increased . [facility] Comment on above: Normal (<100 Droplet s/HPF) Serum DNA double strand anti body assay (units/volume)Ordered By: Tommie Avelar on 12-17-2022 DNA double strand Ab Qn (S) [IU]/mL 0-9 [facility] Comment on above: Negative <5 Equivoca l 5 - 9 Positive >9 Serum Kristina-1 antibody assay (u nits/volume)Ordered By: Tommie Avelar on 12-17-2022 Kristina-1 extractable nuclear Ab Qn (S) <0.2 AI 0.0-0.9 [facility] Serum Scl-70 extractable nuc lear antibody assay (units/volume)Ordered By: Tommie Avelar on 12-17-2022 SCL-70 extractable nuclear Ab Qn (S) <0.2 AI 0.0-0.9 [facility] Serum Gutiérrez extractable nucl ear antibody detectionOrdered By: Tommie Avelar on 12-17-2022 Gutiérrez extractable nuclear Ab Ql (S) <0.2 AI 0.0-0.9 [facility] Serum tixin-3-ybpeptmf measu rement by electrophoresisOrdered By: Tommie Avelar on 12-17-2022 Alpha 1 globulin Elph [Mass/Vol] 0.2 g/dL 0.0-0.4 [facility] Alpha 1 globulin Elph [Mass/Vol] 0.7 g/dL 0.4-1.0 [facility] Serum beef IgE antibody assa y (units/volume)Ordered By: Tommie Avelar on 12-17-2022 Beef IgE Qn (S) <0.10 kU/L Class 0 [facility] Serum black walnut IgE antib jose raul assay (units/volume)Ordered By: Tommie Avelar on 12-17-2022 Black [place] IgE Qn (S) <0.10 kU/L Class 0 [facility] Serum clam IgE antibody assa y (units/volume)Ordered By: Tommie Avelar on 12-17-2022 Clam IgE Qn (S) <0.10 kU/L Class 0 [facility] Serum classic neutrophil cyt oplasmic antibody assay (units/volume)Ordered By: Tommie Avelar on 12-17-2022 Neutrophil cytoplasmic Ab.classic Qn (S) <1:20 titer Neg:<1:20 [facility] Serum codfish IgE antibody a ssay (units/volume)Ordered By: Tommie Avelar on 12-17-2022 Codfish IgE Qn (S) <0.10 kU/L Class 0 [facility] Serum corn IgE antibody assa y (units/volume)Ordered By: Tommie Avelar on 12-17-2022 [place] IgE Qn (S) <0.10 kU/L Class 0 [facility] Serum cow milk IgE antibody assay (units/volume)Ordered By: Tommie Avelar on 12-17-2022 Cow milk IgE Qn (S) <0.10 kU/L Class 0 [facility] Serum egg white IgE antibody assay (units/volume)Ordered By: Tommie Avelar on 12-17-2022 Egg white IgE Qn (S) <0.10 kU/L Class 0 [facility] Serum globulin measurement ( mass/volume)Ordered By: Tommie Avelar on 12-17-2022 Globulin (S) [Mass/Vol] 3.0 g/dL 2.2-3.9 [facility] Serum or plasma C reactive p rotein measurement (mass/volume)Ordered By: Tommie Avelar on 12-17-2022 CRP [Mass/Vol] 2.97 mg/L 0.0-3.0 [facility] Comment on above: C-Reactive Protein ( CRP) provides useful information for thediagnosis, therapy and monitoring of inflammatory processesand associated diseases. For the evaluation of Relative Riskfor Cardiovascular Disease, a High Sensitivity CRP (HSCRP)should be ordered. Serum or plasma IgA measurem ent (mass/volume)Ordered By: Tommie Avelar on 12-17-2022 IgA [Mass/Vol] 181 mg/dL 87-352 [facility] Serum or plasma IgG measurem ent (mass/volume)Ordered By: Tommie Avelar on 12-17-2022 IgG [Mass/Vol] 943 mg/dL [phone] [facility] Serum or plasma IgM measurem ent (mass/volume)Ordered By: Tommie Avelar on 12-17-2022 IgM [Mass/Vol] 25 mg/dL 26-217 [facility] Comment on above: Result confirmed on concentration. Serum or plasma beta globuli n measurement by electrophoresis (mass/volume)Ordered By: Tommie Avelar on 12-17-2022 Beta globulin Elph [Mass/Vol] 1.1 g/dL 0.7-1.3 [facility] Serum or plasma ferritin declan surement (mass/volume)Ordered By: Tommie Avelar on 12-17-2022 Ferritin [Mass/Vol] 34 ng/mL 8-252 [facility] Serum or plasma gamma globul in measurement by electrophoresis (mass/volume)Ordered By: Tommie Avelar on 12-17-2022 Gamma globulin Elph [Mass/Vol] 0.9 g/dL 0.4-1.8 [facility] Serum or plasma gastrin oz urement (mass/volume)Ordered By: Tommiesaskia Avelar on 12-17-2022 Gastrin [Mass/Vol] < 10 pg/mL 0-115 [facility] Comment on above: Siemens Immulite 200 0 Immunochemiluminometric assay (ICMA)Values obtained with different assay methods or kits cannotbe used interchangeably. Results cannot be interpreted asabsolute evidence of the presence or absence of malignantdisease. Serum or plasma immunoelectr ophoresis interpretation (nominal result)Ordered By: Tommie Avelar on 12-17-2022 Interpretation IEP [Interp] Comment . [facility] Comment on above: No monoclonality det ected. Serum peanut IgE antibody as say (units/volume)Ordered By: Tommie Avelar on 12-17-2022 Peanut IgE Qn (S) <0.10 kU/L Class 0 [facility] Serum perinuclear neutrophil cytoplasmic antibody titer by immunofluorescenceOrdered By: Tommie Avelar on 12-17-2022 Neutrophil cytoplasmic Ab.perinuclear IF (S) [Titer] <1:20 titer Neg:<1:20 [facility] Comment on above: The presence of posi tive fluorescence exhibiting P-ANCA orC-ANCA patterns alone is not specific for the diagnosis ofWegener's Granulomatosis (WG) or microscopic polyangiitis.Decisions about treatment should not be based solely onANCA IFA results. The [employer] ANCA Group Consensusrecommends follow up testing of positive sera with both CO-3 and MPO-ANCA enzyme immunoassays. As many as 5% serumsamples are positive only by EIA. Ref. AM J Clin [id number];111:507-513. Serum pork IgE antibody assa y (units/volume)Ordered By: Tommie Avelar on 12-17-2022 Pork IgE Qn (S) <0.10 kU/L Class 0 [facility] Serum soybean IgE antibody a ssay (units/volume)Ordered By: Tommie Avelar on 12-17-2022 Soybean IgE Qn (S) <0.10 kU/L Class 0 [facility] Serum wheat IgE antibody ass ay (units/volume)Ordered By: Tommie Avelar on 12-17-2022 Wheat IgE Qn (S) <0.10 kU/L Class 0 [facility] Serum whole egg IgE antibody assay (units/volume)Ordered By: Tommie Avelar on 12-17-2022 Whole Egg IgE Qn (S) <0.10 kU/L Class 0 [facility] Stool enteric pathogen panel by probe and target amplification methodOrdered By: Tommie Avelar on 12-17-2022 Gastrointestinal pathogens panel AMILCAR+probe (Stl) [facility] Stool gastrointestinal hemog lobin detection by immunologic methodOrdered By: Tommie Avelar on 12-17-2022 Lower GI hemoglobin IA Ql (Stl) [facility] Stool lactoferrin detection by immunoassayOrdered By: Tommie Avelar on 12-17-2022 Lactoferrin IA Ql (Stl) [facility] Thin prep Papanicolaou smear with manual screeningOrdered By: Tommie Friend on 12-17-2022 Thin prep Papanicolaou smear with manual screening 1.3 0.7-1.7 [facility] Total protein bloodOrdered B y: Tommie Avelar on 12-17-2022 Protein [Mass/Vol] 6.6 g/dL 6.0-8.5 [facility] Absolute lymphocyte countOrd ered By: Dr. Avila on 10-22-2022 Lymphocytes Auto (Unsp spec) [#/Vol] 1.68 10*3/uL 0.83-4.51 [facility] Basophil percentageOrdered B y: Dr. Avila on 10-22-2022 Basophils/100 WBC (Bld) 1.3 % 0-1 [facility] Bilirubin [Mass/Vol] 0.40 mg/dL 0.20-1.00 [facility] Comment on above: For patients on eltr ombopag therapy, use of Dimension Winder TBIL is not recommended. Chloride [Moles/Vol] 107 mmol/L 98-107 [facility] Eosinophils/100 WBC (Bld) 5.2 % 0-5 [facility] Glucose [Mass/Vol] 76 mg/dL 74-106 [facility] Neutrophils (Bld) [#/Vol] 2.7 10*3/uL 2.0-7.7 [facility] Neutrophils/100 WBC (Bld) 50.2 % 47-70 [facility] Potassium [Moles/Vol] 3.7 mmol/L 3.5-5.1 [facility] Protein [Mass/Vol] 7.4 g/dL 6.4-8.2 [facility] Sodium [Moles/Vol] 141 mmol/L 136-145 [facility] Testosterone [Mass/Vol] 15.66 ng/dL [facility] Comment on above: CENTRAL 90% REFERENC E RANGES MALE AGE <50 197.44 - 669.58 ng/dL MALE AGE > or = 50 187.72 - 684.19 ng/dL FEMALE AGE <50 8.38 - 35.01 ng/dL FEMALE AGE > or = 50 <7.00 - 35.92 ng/dL Effective as of 01/16/21 WBC (Bld) [#/Vol] 5.3 10*3/uL 4.4-11.0 [facility] Blood erythrocytes count (nu mber/volume)Ordered By: Dr. Avila on 10-22-2022 RBC (Bld) [#/Vol] 4.84 10*6/uL 4.2-5.4 [facility] Blood hemoglobin measurement (mass/volume)Ordered By: Dr. Avila on 10-22-2022 Hemoglobin (Bld) [Mass/Vol] 14.4 g/dL 12.0-15.0 [facility] Blood lymphocytes/100 leukoc ytesOrdered By: Dr. Avila on 10-22-2022 Lymphocytes/100 WBC (Bld) 31.5 % 19-41 [facility] Blood monocytes/100 leukocyt esOrdered By: Dr. Avila on 10-22-2022 Monocytes/100 WBC (Bld) 11.2 % 0-10 [facility] Blood platelet mean volumeOr dered By: Dr. Avila on 10-22-2022 Platelet mean volume (Bld) [Entitic vol] 9.6 fL 6.2-12.0 [facility] Determination of erythrocyte mean corpuscular volume (MCV)Ordered By: Dr. Avila on 10-22-2022 MCV (RBC) [Entitic vol] 94.0 fL 81-99 [facility] Erythrocyte sedimentation ra teOrdered By: Dr. Avila on 10-22-2022 ESR (Bld) [Velocity] 9 mm/h 0-30 [facility] Hematocrit Auto (Bld) [Volum e fraction]Ordered By: Dr. Avila on 10-22-2022 Hematocrit (Bld) [Volume fraction] 45.5 % 37-47 [facility] Laboratory - Chemistry and C hemistry - challengeOrdered By: Dr. Avila on 10-22-2022 ALP [Catalytic activity/Vol] 75 U/L 45-117 [facility] ALT [Catalytic activity/Vol] 31 U/L 13-56 [facility] CO2 [Moles/Vol] 27.0 mmol/L 21.0-32.0 [facility] Cobalamin (Vitamin B12) [Mass/Vol] 294 pg/mL 211-911 [facility] Free T4 [Mass/Vol] 0.82 ng/dL 0.76-1.46 [facility] Globulin (S) [Mass/Vol] 3.8 g/dL 2.2-4.2 [facility] Urea nitrogen/Creatinine [Mass ratio] 21.1 mg/mg 10-20 [facility] Laboratory - Hematology and Cell countsOrdered By: Dr. Avila on 10-22-2022 Erythrocyte distribution width (RBC) [Entitic vol] 45.1 fL 35.1-43.9 [facility] Erythrocyte distribution width (RBC) [Ratio] 13.1 % 11.6-14.6 [facility] Immature granulocytes/100 WBC (Bld) 0.600 % 0.0-0.9 [facility] Comment on above: IG% - Immature Granu locytes (promyelocytes, myelocytes and metamyelocytes) > 1% indicates that a LEFT SHIFT is Present. MCH (RBC) [Entitic mass] 29.8 pg 27.0-32.0 [facility] Nucleated RBC/100 WBC (Bld) [Ratio] 0 % 0-5 [facility] MCHC Auto (RBC) [Mass/Vol]Or dered By: Dr. Avila on 10-22-2022 MCHC (RBC) [Mass/Vol] 31.6 g/dL 32-36 [facility] No Panel InformationOrdered By: Dr. Avila on 10-22-2022 Estimated GFR (MDRD) Amer 98 mL/min >60 [facility] Comment on above: GFR Calc Estimated GFR (MDRD) Non-Af Amer 81 mL/min >60 [facility] Comment on above: Non- GFR Calc Follicle Stimulating Hormone 56.8 mIU/mL [facility] Comment on above: NORMAL REFERENCE RAN GES FEMALE FOLLICULAR 2.3 - 12.6 mIU/mL MID-CYCLE PEAK 5.2 - 17.5 mIU/mL LUTEAL 1.7 - 12.9 mIU/mL POST-MENOPAUSAL ON MHT 5.9 - 72.8 mIU/mL NOT ON MHT 12.7 - 132.2 mlU/mL MALE 0.7 - 10.8 mIU/mL Luteinizing Hormone 40.3 mIU/mL [facility] Comment on above: NORMAL REFERENCE RAN GES FEMALE FOLLICULAR 1.9 - 26.2 mIU/mL MID-CYCLE PEAK 22.8 - 76.1 mIU/mL LUTEAL 0.6 - 16.6 mIU/mL POST-MENOPAUSAL ON MHT 1.1 - 52.4 mIU/mL NOT ON MHT 8.6 - 61.8 mIU/mL MALE 1.2 - 10.6 mIU/mL Thyroid Stimulating Hormone (TSH) 1.02 uIU/mL 0.358-3.74 [facility] Vitamin D 25-Hydroxy 59.8 ng/mL [facility] Comment on above: Vitamin D 25(OH) Sta tus Range Deficiency <20 ng/mL (50nmol/L) Insufficiency 20 - 30 ng/mL (50 - 75 nmol/L) Sufficiency 30 - 100 ng/mL (75 - 250 nmol/L) Toxicity >100 ng/mL (>250 nmol/L) Platelets bldOrdered By: Dr. Avila on 10-22-2022 Platelets (Bld) [#/Vol] 246 10*3/uL 150-450 [facility] Serum or plasma C reactive p rotein measurement (mass/volume)Ordered By: Dr. Avila on 10-22-2022 CRP [Mass/Vol] mg/L 0.0-3.0 [facility] Comment on above: C-Reactive Protein ( CRP) provides useful information for thediagnosis, therapy and monitoring of inflammatory processesand associated diseases. For the evaluation of Relative Riskfor Cardiovascular Disease, a High Sensitivity CRP (HSCRP)should be ordered. Serum or plasma albumin oz urement (mass/volume)Ordered By: Dr. Avila on 10-22-2022 Albumin [Mass/Vol] 3.6 g/dL 3.2-5.0 [facility] Serum or plasma albumin/glob ulin mass ratioOrdered By: Dr. Avila on 10-22-2022 Albumin/Globulin [Mass ratio] 0.9 {ratio} 0.9-2.4 [facility] Serum or plasma calcium oz urement (mass/volume)Ordered By: Dr. Avila on 10-22-2022 Calcium [Mass/Vol] 9.1 mg/dL 8.5-10.1 [facility] Serum or plasma cortisol declan surement (mass/volume)Ordered By: Dr. Avila on 10-22-2022 Cortisol [Mass/Vol] 7.60 ug/dL 3.44-22.45 [facility] Comment on above: Adult (AM) 5.27 - 22 .45 ug/dL Adult (PM) 3.44 - 16.76 ug/dLPlease note revised CORTISOL reference range effective 2019. Serum or plasma creatinine m easurement (mass/volume)Ordered By: Dr. Avila on 10-22-2022 Creatinine [Mass/Vol] 0.76 mg/dL 0.55-1.02 [facility] Comment on above: The validity of the calculated GFR & GFRAA in patients over 70 years has not been determined. Clinical correlation is essential. Serum or plasma urea nitroge n measurement (mass/volume)Ordered By: Dr. Avila on 10-22-2022 Urea nitrogen [Mass/Vol] 16 mg/dL 7-18 [facility] Thin prep Papanicolaou smear with manual screeningOrdered By: Dr. Avila on 10-22-2022 Thin prep Papanicolaou smear with manual screening 22 U/L 15-37 [facility] Thin prep Papanicolaou smear with manual screening 7 5-15 [facility] Stool Helicobacter pylori an tigen detection by immunoassayOrdered By: Dr. Avila on 08-08-2022 H. pylori Ag IA Ql (Stl) Negative Negative [facility] Comment on above: Performed at: [facility] [address] [id number] Director: Yanna Vidal MD, Phone: [phone] Absolute lymphocyte countOrd ered By: Dr. Avila on 08-05-2022 Lymphocytes Auto (Unsp spec) [#/Vol] 1.42 10*3/uL 0.83-4.51 [facility] Basophil percentageOrdered B y: Dr. Avila on 08-05-2022 Amylase [Catalytic activity/Vol] 42 U/L 25-115 [facility] Basophils/100 WBC (Bld) 1.1 % 0-1 [facility] Bilirubin [Mass/Vol] 0.40 mg/dL 0.20-1.00 [facility] Comment on above: For patients on eltr ombopag therapy, use of Dimension Winder TBIL is not recommended. Chloride [Moles/Vol] 105 mmol/L 98-107 [facility] Eosinophils/100 WBC (Bld) 5.9 % 0-5 [facility] Glucose [Mass/Vol] 78 mg/dL 74-106 [facility] Neutrophils (Bld) [#/Vol] 2.4 10*3/uL 2.0-7.7 [facility] Neutrophils/100 WBC (Bld) 50.6 % 47-70 [facility] Potassium [Moles/Vol] 3.9 mmol/L 3.5-5.1 [facility] Protein [Mass/Vol] 7.1 g/dL 6.4-8.2 [facility] Sodium [Moles/Vol] 137 mmol/L 136-145 [facility] WBC (Bld) [#/Vol] 4.7 10*3/uL 4.4-11.0 [facility] Blood erythrocytes count (nu mber/volume)Ordered By: Dr. Avila on 08-05-2022 RBC (Bld) [#/Vol] 4.61 10*6/uL 4.2-5.4 [facility] Blood hemoglobin measurement (mass/volume)Ordered By: Dr. Avila on 08-05-2022 Hemoglobin (Bld) [Mass/Vol] 13.7 g/dL 12.0-15.0 [facility] Blood lymphocytes/100 leukoc ytesOrdered By: Dr. Avila on 08-05-2022 Lymphocytes/100 WBC (Bld) 30.1 % 19-41 [facility] Blood monocytes/100 leukocyt esOrdered By: Dr. Avila on 08-05-2022 Monocytes/100 WBC (Bld) 11.9 % 0-10 [facility] Blood platelet mean volumeOr dered By: Dr. Avila on 08-05-2022 Platelet mean volume (Bld) [Entitic vol] 9.8 fL 6.2-12.0 [facility] Determination of erythrocyte mean corpuscular volume (MCV)Ordered By: Dr. Avila on 08-05-2022 MCV (RBC) [Entitic vol] 94.4 fL 81-99 [facility] Erythrocyte sedimentation ra teOrdered By: Dr. Avila on 08-05-2022 ESR (Bld) [Velocity] 12 mm/h 0-30 [facility] Hematocrit Auto (Bld) [Volum e fraction]Ordered By: Dr. Avila on 08-05-2022 Hematocrit (Bld) [Volume fraction] 43.5 % 37-47 [facility] Laboratory - Chemistry and C hemistry - challengeOrdered By: Dr. Avila on 08-05-2022 ALP [Catalytic activity/Vol] 74 U/L 45-117 [facility] ALT [Catalytic activity/Vol] 34 U/L 13-56 [facility] CO2 [Moles/Vol] 27.0 mmol/L 21.0-32.0 [facility] Globulin (S) [Mass/Vol] 3.7 g/dL 2.2-4.2 [facility] Lipase [Catalytic activity/Vol] 143 U/L 73-393 [facility] Urea nitrogen/Creatinine [Mass ratio] 26.6 mg/mg 10-20 [facility] Laboratory - Hematology and Cell countsOrdered By: Dr. Avila on 08-05-2022 Erythrocyte distribution width (RBC) [Entitic vol] 43.6 fL 35.1-43.9 [facility] Erythrocyte distribution width (RBC) [Ratio] 12.6 % 11.6-14.6 [facility] Immature granulocytes/100 WBC (Bld) 0.400 % 0.0-0.9 [facility] Comment on above: IG% - Immature Granu locytes (promyelocytes, myelocytes and metamyelocytes) > 1% indicates that a LEFT SHIFT is Present. MCH (RBC) [Entitic mass] 29.7 pg 27.0-32.0 [facility] Nucleated RBC/100 WBC (Bld) [Ratio] 0 % 0-5 [facility] MCHC Auto (RBC) [Mass/Vol]Or dered By: Dr. Avlia on 08-05-2022 MCHC (RBC) [Mass/Vol] 31.5 g/dL 32-36 [facility] No Panel InformationOrdered By: Dr. Avila on 08-05-2022 Endomysial IgA Antibody Negative Negative [facility] Estimated GFR (MDRD) Amer 104 mL/min >60 [facility] Comment on above: GFR Calc Estimated GFR (MDRD) Non-Af Amer 86 mL/min >60 [facility] Comment on above: Non- GFR Calc Thyroid Stimulating Hormone (TSH) 0.93 uIU/mL 0.358-3.74 [facility] Platelets bldOrdered By: Dr. Avila on 08-05-2022 Platelets (Bld) [#/Vol] 241 10*3/uL 150-450 [facility] Serum IgA measurement (units /volume)Ordered By: Dr. Avila on 08-05-2022 IgA Qn (S) 214 mg/dL 87-352 [facility] Comment on above: Performed at: [facility] [address] Director: Nicolas Fung PhD, Phone: [phone] Serum or plasma C reactive p rotein measurement (mass/volume)Ordered By: Dr. Avila on 08-05-2022 CRP [Mass/Vol] 4.36 mg/L 0.0-3.0 [facility] Comment on above: C-Reactive Protein ( CRP) provides useful information for thediagnosis, therapy and monitoring of inflammatory processesand associated diseases. For the evaluation of Relative Riskfor Cardiovascular Disease, a High Sensitivity CRP (HSCRP)should be ordered. Serum or plasma albumin oz urement (mass/volume)Ordered By: Dr. Avila on 08-05-2022 Albumin [Mass/Vol] 3.4 g/dL 3.2-5.0 [facility] Serum or plasma albumin/glob ulin mass ratioOrdered By: Dr. Avila on 08-05-2022 Albumin/Globulin [Mass ratio] 0.9 {ratio} 0.9-2.4 [facility] Serum or plasma calcium oz urement (mass/volume)Ordered By: Dr. Avila on 08-05-2022 Calcium [Mass/Vol] 9.4 mg/dL 8.5-10.1 [facility] Serum or plasma creatinine m easurement (mass/volume)Ordered By: Dr. Avila on 08-05-2022 Creatinine [Mass/Vol] 0.72 mg/dL 0.55-1.02 [facility] Comment on above: The validity of the calculated GFR & GFRAA in patients over 70 years has not been determined. Clinical correlation is essential. Serum or plasma urea nitroge n measurement (mass/volume)Ordered By: Dr. Avila on 08-05-2022 Urea nitrogen [Mass/Vol] 19 mg/dL 7-18 [facility] Serum tissue transglutaminas e IgA antibody assay (units/volume)Ordered By: Dr. Avila on 08-05-2022 tTG IgA Qn (S) <2 U/mL 0-3 [facility] Comment on above: Negative 0 - 3 Weak Positive 4 - 10 Positive >10 Tissue Transglutaminase (tTG) has been identified as the endomysial antigen. Studies have demonstr- ated that endomysial IgA antibodies have over 99% specificity for gluten sensitive enteropathy. Thin prep Papanicolaou smear with manual screeningOrdered By: Dr. Avila on 08-05-2022 Thin prep Papanicolaou smear with manual screening 26 U/L 15-37 [facility] Thin prep Papanicolaou smear with manual screening 5 5-[address] [facility] [address] CARDIAC SCORINGon 022 CT CARDIAC SCORING Patient Name: DOMINIC ARTEAGA STUDY: CT CARDIAC SCORING; 05/01/2022 3:21 pm INDICATION: Hyperlipidemia, unspecified. COMPARISON: None. ACCESSION NUMBER(S): [id number] ORDERING CLINICIAN: CHAIM AVILA TECHNIQUE: Using prospective ECG gating, CT scan of the coronary arteries was performed without intravenous contrast. Coronary calcium scoring was performed according to the method of Agatston. FINDINGS: The score and distribution of calcium in the coronary arteries is as follows: Left Main Coronary: 0. Left Anterior Descendin.41. Left Circumflex: 0. Right Coronary Artery: 0. Total: 108.41. There is bilateral dependent atelectasis. The aorta is without aneurysmal dilatation evident.Calcified atheromatous disease is seen of the aorta. The heart is not enlarged. No pericardial effusion is evident. No hilar or mediastinal lymphadenopathy is evident. Structures in the visualized upper abdomen are grossly unremarkable. IMPRESSION: 1. Coronary artery calcium score of 108.41*. *Coronary artery calcium scoring may be helpful in predicting the risk for future coronary heart disease events. According to the [employer] [employer] Clinical Expert Consensus Task Force, such testing provides important prognostic information in patients with more than one coronary heart disease risk factor. The coronary artery calcium score correlates with the annual risk of a non-fatal myocardial infarction or coronary heart disease . Coronary artery score Annual Risk 0-99 0.4% 100-399 1.3% >400 2.4% These three breakpoints correspond to lower, intermediate and high risk states for future coronary events. Such information should be used, along with appropriate clinical judgment, to make decisions regarding the intensity of risk factor management strategies to treat blood lipids and to modify other non-lipid coronary risk factors. Reference: Sadia P et al. Circulation. 2007; 115:402-426 Electronically signed by: GITA DIXON MD Normal [facility] Absolute lymphocyte counton 04-01-2022 Lymphocytes Auto (Unsp spec) [#/Vol] 2.19 10*3/uL 0.83-4.51 [facility] Work Phone: Basophil percentageon 2021 Basophils/100 WBC (Bld) 1.3 % 0-1 [facility] Work Phone: Eosinophils/100 WBC (Bld) 5.5 % 0-5 [facility] Work Phone: Neutrophils (Bld) [#/Vol] 2.5 10*3/uL 2.0-7.7 [facility] Work Phone: Neutrophils/100 WBC (Bld) 44.4 % 47-70 [facility] Work Phone: WBC (Bld) [#/Vol] 5.6 10*3/uL 4.4-11.0 [facility] Work Phone: Blood erythrocytes count (nu mber/volume)on 04-01-2022 RBC (Bld) [#/Vol] 4.61 10*6/uL 4.2-5.4 [facility] Work Phone: Blood hemoglobin measurement (mass/volume)on 04-01-2022 Hemoglobin (Bld) [Mass/Vol] 13.8 g/dL 12.0-15.0 [facility] Work Phone: [phone] Blood lymphocytes/100 leukoc yteson 04-01-2022 Lymphocytes/100 WBC (Bld) 39.1 % 19-41 [facility] Work Phone: Blood monocytes/100 leukocyt eson 04-01-2022 Monocytes/100 WBC (Bld) 9.5 % 0-10 [facility] Work Phone: Blood platelet mean volumeon 04-01-2022 Platelet mean volume (Bld) [Entitic vol] 9.9 fL 6.2-12.0 [facility] Work Phone: [phone] Determination of erythrocyte mean corpuscular volume (MCV)on 04-01-2022 MCV (RBC) [Entitic vol] 94.1 fL 81-99 [facility] Work Phone: [phone] Erythrocyte sedimentation ra shannon 04-01-2022 ESR (Bld) [Velocity] 10 mm/h 0-30 [facility] Work Phone: [phone] Hematocrit Auto (Bld) [Volum e fraction]on 04-01-2022 Hematocrit (Bld) [Volume fraction] 43.4 % 37-47 [facility] Work Phone: [phone] Laboratory - Chemistry and C hemistry - challengeon 04-01-2022 Free T4 [Mass/Vol] 0.90 ng/dL 0.76-1.46 [facility] Work Phone: [phone] Laboratory - Hematology and Cell countson 04-01-2022 Erythrocyte distribution width (RBC) [Entitic vol] 43.7 fL 35.1-43.9 [facility] Work Phone: [phone] Erythrocyte distribution width (RBC) [Ratio] 12.6 % 11.6-14.6 [facility] Work Phone: [phone] Immature granulocytes/100 WBC (Bld) 0.200 % 0.0-0.9 [facility] Work Phone: Comment on above: IG% - Immature Granu locytes (promyelocytes, myelocytes and metamyelocytes) > 1% indicates that a LEFT SHIFT is Present. MCH (RBC) [Entitic mass] 29.9 pg 27.0-32.0 [facility] Work Phone: Nucleated RBC/100 WBC (Bld) [Ratio] 0 % 0-5 [facility] Work Phone: MCHC Auto (RBC) [Mass/Vol]on 04-01-2022 MCHC (RBC) [Mass/Vol] 31.8 g/dL 32-36 [facility] Work Phone: No Panel Informationon 04-01 Free Triiodothyronine (T3) pg/dL 2.8 pg/mL 2.18-3.98 [facility] Work Phone: Thyroid Stimulating Hormone (TSH) 4.13 uIU/mL 0.358-3.74 [facility] Work Phone: Vitamin D 25-Hydroxy 68.0 ng/mL [facility] Work Phone: Comment on above: Vitamin D 25(OH) Sta tus Range Deficiency <20 ng/mL (50nmol/L) Insufficiency 20 - 30 ng/mL (50 - 75 nmol/L) Sufficiency 30 - 100 ng/mL (75 - 250 nmol/L) Toxicity >100 ng/mL (>250 nmol/L) Platelets bldon 04-01-2022 Platelets (Bld) [#/Vol] 276 10*3/uL 150-450 [facility] Work Phone: Serum or plasma cortisol declan surement (mass/volume)on 04-01-2022 Cortisol [Mass/Vol] 21.10 ug/dL 3.44-22.45 [facility] Work Phone: Comment on above: Adult (AM) 5.27 - 22 .45 ug/dL Adult (PM) 3.44 - 16.76 ug/dLPlease note revised CORTISOL reference range effective 2019. Basophil percentageon 2021 Chloride [Moles/Vol] 103 mmol/L 98-107 [facility] Work Phone: Cholesterol [Mass/Vol] 230 mg/dL <200 [facility] Work Phone: Comment on above: <200 mg/dL Desirable 200-240 mg/dL Borderline >240 mg/dL High Risk Glucose [Mass/Vol] 137 mg/dL 74-106 [facility] Work Phone: Comment on above: Fasting Glucose resu lt greater than or equal to 126 mg/dL suggests DIABETES MELLITUS per A.D.A. criteria. Potassium [Moles/Vol] 4.0 mmol/L 3.5-5.1 [facility] Work Phone: Sodium [Moles/Vol] 135 mmol/L 136-145 [facility] Work Phone: Triglyceride [Mass/Vol] 200 mg/dL [facility] Work Phone: Comment on above: The drugs N-Acetylcy steine and Metamizole may falsely depress this assay.Serum Triglycerides Reference Interval Normal <150 mg/dL Borderline high 150 - 199 mg/dL High 200 - 499 mg/dL Very High > or = 500 mg/dL WBC (Bld) [#/Vol] 6.2 10*3/uL 4.4-11.0 [facility] Work Phone: Blood erythrocytes count (nu mber/volume)on 11-09-2021 RBC (Bld) [#/Vol] 4.78 10*6/uL 4.2-5.4 [facility] Work Phone: Blood hemoglobin measurement (mass/volume)on 11-09-2021 Hemoglobin (Bld) [Mass/Vol] 14.4 g/dL 12.0-15.0 [facility] Work Phone: Blood platelet mean volumeon 11-09-2021 Platelet mean volume (Bld) [Entitic vol] 9.6 fL 6.2-12.0 [facility] Work Phone: Determination of erythrocyte mean corpuscular volume (MCV)on 11-09-2021 MCV (RBC) [Entitic vol] 92.7 fL 81-99 [facility] Work Phone: Hematocrit Auto (Bld) [Volum e fraction]on 11-09-2021 Hematocrit (Bld) [Volume fraction] 44.3 % 37-47 [facility] Work Phone: Laboratory - Chemistry and C hemistry - challengeon 11-09-2021 CO2 [Moles/Vol] 25.0 mmol/L 21.0-32.0 [facility] Work Phone: Urea nitrogen/Creatinine [Mass ratio] 17.1 mg/mg - [facility] Work Phone: Laboratory - Hematology and Cell countson 11-09-2021 Erythrocyte distribution width (RBC) [Entitic vol] 44.5 fL 35.1-43.9 [facility] Work Phone: Erythrocyte distribution width (RBC) [Ratio] 13.0 % 11.6-14.6 [facility] Work Phone: MCH (RBC) [Entitic mass] 30.1 pg 27.0-32.0 [facility] Work Phone: MCHC Auto (RBC) [Mass/Vol]on 11-09-2021 MCHC (RBC) [Mass/Vol] 32.5 g/dL 32-36 [facility] Work Phone: No Panel Informationon 11-09 Estimated GFR (MDRD) Amer 97 mL/min >60 [facility] Work Phone: Comment on above: GFR Calc Estimated GFR (MDRD) Non-Af Amer 80 mL/min >60 [facility] Work Phone: Comment on above: Non- GFR Calc Thyroid Stimulating Hormone (TSH) 2.95 uIU/mL 0.358-3.74 [facility] Work Phone: Vitamin D 25-Hydroxy 60.3 ng/mL [facility] Work Phone: Comment on above: Vitamin D 25(OH) Sta tus Range Deficiency <20 ng/mL (50nmol/L) Insufficiency 20 - 30 ng/mL (50 - 75 nmol/L) Sufficiency 30 - 100 ng/mL (75 - 250 nmol/L) Toxicity >100 ng/mL (>250 nmol/L) Platelets bldon 11-09-2021 Platelets (Bld) [#/Vol] 260 10*3/uL 150-450 [facility] Work Phone: Serum or plasma calcium oz urement (mass/volume)on 11-09-2021 Calcium [Mass/Vol] 9.1 mg/dL 8.5-10.1 [facility] Work Phone: Serum or plasma cholesterol in HDL measurement (mass/volume)on 11-09-2021 Cholesterol in HDL [Mass/Vol] 40 mg/dL [facility] Work Phone: Comment on above: The drugs N-Acetylcy steine and Metamizole may falsely depress this assay. Reference Range HDL <40 mg/dL Low HDL Cholesterol HDL >or= 60 mg/dL High HDL Cholesterol Serum or plasma cholesterol in VLDL measurement (mass/volume)on 11-09-2021 Cholesterol in VLDL [Mass/Vol] 40 mg/dL 5-40 [facility] Work Phone: Serum or plasma creatinine m easurement (mass/volume)on 11-09-2021 Creatinine [Mass/Vol] 0.76 mg/dL 0.55-1.02 [facility] Work Phone: Comment on above: The validity of the calculated GFR & GFRAA in patients over 70 years has not been determined. Clinical correlation is essential. Serum or plasma low density lipoprotein (LDL) cholesterol measurement (mass/volume)on 11-09-2021 Cholesterol in LDL [Mass/Vol] 150 mg/dL 0-130 [facility] Work Phone: Serum or plasma urea nitroge n measurement (mass/volume)on 11-09-2021 Urea nitrogen [Mass/Vol] 13 mg/dL 7-18 [facility] Work Phone: Thin prep Papanicolaou smear with manual screeningon 11-09-2021 Thin prep Papanicolaou smear with manual screening 7 5-15 [facility] Work Phone: No Panel Informationon 11-07 Hepatitis C Antibody Non-Reactive Nonreactive [facility] Work Phone: Comment on above: Non Reactive: < 0.8 Equivocal: >/= 0.8 to < 1.0 Reactive: >/= 1.0The [facility] recommends that a reactive/equivocal HCV antibody result be followed up by the HCV Nucleic Acid Amplificationtest (919802) Thin prep Papanicolaou smear with manual screeningon 11-07-2021 Thin prep Papanicolaou smear with manual screening 18.0 mg/L NO RANGE EST. [facility] Work Phone: Wound Culture/Stainon 2017 Wound Culture/Stain Specimen Desc:Wound RT LINGUINAL CREASESp. Request/Comment:Dae ResultRare Gram positive cocci in clusters(*)Culture ResultFew Streptococcus dysgalactiae (Group C streptococcus)(*) Susceptibilitytesting not performed on beta hemolytic streptococci due to predictablesusceptibilit y to penicillin and other beta lactams. For testing, callMicrobiology within 72 hours.Report [id number] FINAL Normal [facility] Reference [facility] Replaced Document: Ruma SAMUELS Observationson 04-01-2017 EKG QRS axis -3 deg Invalid Interpretation Code [facility] Work Phone: [phone] Interpretation Sinus Rhythm - occasional ectopic ventricular beat WITHIN NORMAL LIMITS Invalid Interpretation Code [facility] Work Phone: [phone] P [place] 36 deg Invalid Interpretation Code [facility] Work Phone: [phone] CO Interval 122 ms Invalid Interpretation Code [facility] Work Phone: [phone] QRS Duration 76 ms Invalid Interpretation Code [facility] Work Phone: QT Interval new path ms Invalid Interpretation Code [facility] Work Phone: [phone] QTc Juárez 398 ms Invalid Interpretation Code [facility] Work Phone: T [place] 19 deg Invalid Interpretation Code [facility] Work Phone: [phone] MAMMOGRAM SCREENING WITH CAD IF PERFORMEDon 02-20-2017 MAMMOGRAM SCREENING WITH CAD IF PERFORMED Performed at [facility] APPROVED BY: Deshawn Moody MD #[id number] - MAMMOGRAM SCREENING WITH CAD IF PERFORMEDBILATERAL DIGITAL SCREENING MAMMOGRAM WITH CAD WITH MEDIOLATERAL OBLIQUE CRANIOCAUDAL: 02/20/2017CLINICAL: Routine screening mammogram. Patient reports no breast problems. Comparison is made to exams dated: 01/10/2015 mammogram - [facility] and 01/04/2015 mammogram - [facility]. There are scattered fibroglandular elements in both breasts. Current study was also evaluated with a Computer Aided Detection (CAD) system. No significant masses, calcifications, or other findings are seen in either breast. There has been no significant interval change. IMPRESSION: NEGATIVEThere is no mammographic evidence of malignancy. A 1 year screening mammogram is recommended. Based on a modified Hsanique Model, this patient's calculated lifetime risk of developing breast cancer is 6.2%. The patient was notified of the results. Deshawn Moody M.D. tb/penprabha:02/20/2017 15:39:57 Layout Operator: Gwen Call)(M), 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 Cholesterol in HDL mass conc 45 mg/dL Invalid Interpretation Code [facility] Work Phone: Cholesterol in LDL mass conc 126 mg/dL Invalid Interpretation Code [facility] Work Phone: Cholesterol mass conc 197 mg/dL Invalid Interpretation Code [facility] Work Phone: Triglyceride mass conc 130 mg/dL Invalid Interpretation Code [facility] Work Phone: Office Visiton 2010 Tobacco smoking status NHIS never Invalid Interpretation Code [facility] Work Phone: Vital Signs Date Time Vital Sign Value Performing Clinician Facundo mallory 02-03-2024 13:03-0400 Body weight 86.46 kg Nikki Andrew PA-C Work Phone: [facility] 02-03-2024 13:03-0400 SaO2% (BldA) [Mass fraction] 98 % Nikki Andrew PA-C Work Phone: [facility] 12-30-2022 10:00-0400 Body temperature 97.7 [degF] Dr. Bakari Avila Work Phone: [facility] 12-30-2022 10:00-0400 Diastolic blood pressure 73 mm[Hg] Dr. Bakari Avila Work Phone: [facility] 12-30-2022 10:00-0400 Heart rate 73 /min Dr. Bakari Avila Work Phone: [facility] 12-30-2022 10:00-0400 Respiratory rate 16 /min Dr. Bakari Avila Work Phone: [facility] 12-30-2022 10:00-0400 SaO2% (BldA) [Mass fraction] 92 % Dr. Bakari Avila Work Phone: [facility] 12-30-2022 10:00-0400 Systolic blood pressure 143 mm[Hg] Dr. Bakari Avila Work Phone: [facility] 12-30-2022 08:33-0400 Body height 162.[address] Bakari Avila Work Phone: [facility] 12-30-2022 08:33-0400 Body mass index (BMI) [Ratio] 33 kg/m2 Dr. Bakari Avila Work Phone: [facility] 12-30-2022 08:33-0400 Body weight 87.[address] Bakari Avila Work Phone: [facility] 04-01-2017 15:47-0400 Heart rate 91 /min [facility] Work Phone: 2010 09:37-0400 Body Temperature 97.7 [degF] Laura Oneill RN [facility] Work Phone: 2010 09:37-0400 BP Diastolic 82 mm[Hg] Laura Oneill RN [facility] Work Phone: 2010 09:37-0400 BP Systolic 120 mm[Hg] Laura Oneill RN [facility] Work Phone: 2010 09:37-0400 Height 162.56 cm Laura Oneill RN [facility] Work Phone: 2010 09:37-0400 Pulse (Heart Rate) 80 /min [facility] Work Phone: 2010 09:37-0400 Respiratory Rate 20 /min [facility] Work Phone: 2010 09:37-0400 Weight 86.18 kg Laura Oneill RN [facility] Work Phone: Encounters Encounter Date Encounter Type Care Provider Facility Start: 02-22-2025 ambulatory [facility] Start: 11-19-2024 End: 11-19-[address] Chaim Avila MD Work Phone: [facility] Work Phone: Start: 11-19-2024 End: 11-19-[address] Chaim Avila MD -Cat Scan [facility] Work Phone: Start: 11-18-2024 End: 11-19-[address] Chaim Avila MD Work Phone: [facility] Work Phone: Start: 11-18-2024 End: 11-18-[address] Chaim Avila MD -Radiology [place] Work Phone: Start: 11-18-2024 End: 11-18-2024 ambulatory Chaim Avila Facility:[facility] Start: 11-05-2024 End: 11-05-[address] Chami Avila MD -Laboratory [facility] Start: 11-05-2024 End: 11-05-2024 ambulatory Chaim Avila Facility:[facility] Start: 10-29-2024 ambulatory Chaim Avila Faci lity:[facility] Start: 10-27-2024 End: 10-27-[address] Chaim Avila MD Work Phone: [facility] Work Phone: Start: 10-27-2024 End: 10-27-[address] Chaim Avila MD -Laboratory, [facility] Start: 10-27-2024 End: 10-27-2024 ambulatory Chaim Avila Facility:[facility] Start: 08-03-2024 End: 08-03-2024 ambulatory Irina O'Collin PT [facility] Comment on above: BPPV (benign paroxys mal positional vertigo), right (Primary Dx) Start: 07-27-2024 End: 07-27-2024 ambulatory Irina O'Collin PT [facility] Comment on above: BPPV (benign paroxys mal positional vertigo), right (Primary Dx) Start: 04-27-2024 End: 04-27-2024 ambulatory Nikki Andrew PA-C Work Phone: Neurology Comment on above: Vestibular testing Start: 04-27-2024 End: 04-27-2024 E-mail encounter from caregiver Nikki Andrew PA-C Work Phone: Neurology Start: 04-23-2024 End: 04-23-2024 ambulatory LISBETH RAMÍREZ Facility:[facility] Start: 04-23-2024 End: 04-23-2024 Patient encounter procedure Lisbeth THORPE Work Phone: Audiology Comment on above: BPPV (benign paroxys mal positional vertigo), right (Primary Dx); Dizziness Start: 02-03-2024 End: 02-03-2024 ambulatory NIKKI ANDREW Facility:[facility] Start: 02-03-2024 Telephone encounter Nikki dodson PA-C Work Phone: Neurology Start: 02-03-2024 End: 02-03-2024 Patient encounter procedure Nikki Andrew PA-C Work Phone: Neurology Comment on above: Dizziness (Primary D x); Cervical stenosis of spinal canal; Vestibular migraine; Worsening headaches; Tremor Start: 02-03-2024 End: 02-03-2024 ambulatory NIKKI MENENDEZGABBY Facility:[facility] Start: 01-30-2024 End: 07-12-2024 Telephone encounter Neurology Provider Neurology Comment on above: Appointment Start: 10-14-2023 End: 10-14-[address] Chaim Avila Work Phone: [facility] Work Phone: Start: 10-14-2023 End: 10-14-[address] Chaim Avila Work Phone: [facility]-Pulmonary Services/Neurology Work Phone: Start: 10-09-2023 Non-patient / Non-visit Dr. Chaim Avila Work Phone: [facility] Start: 10-09-2023 End: 10-09-[address] Chaim Avila Work Phone: [facility] Work Phone: Start: 10-09-2023 End: 10-09-[address] Chaim Avila Work Phone: [facility]-Cardiovascular Services Work Phone: Start: 08-28-2023 End: 08-28-[address] Bakari Avila Work Phone: [facility] Work Phone: Start: 08-28-2023 End: 08-28-[address] Bakari Avila Work Phone: [facility] Start: 08-04-2023 End: 08-04-[address] Bakari Avila Work Phone: [facility] Work Phone: Start: 07-16-2023 Non-patient / Non-visit Dr. Bakari Avila Work Phone: [facility] Start: 07-16-2023 End: 07-16-[address] Bakari Avila Work Phone: [facility] Work Phone: Start: 07-16-2023 End: 07-16-[address] [facility] Start: 06-30-2023 End: 06-30-2023 ambulatory [facility] Work Phone: Start: 06-30-2023 End: 06-30-2023 Patient encounter procedure [facility] Start: 06-09-2023 End: 06-09-[address] Bakari Avila Work Phone: [facility] Work Phone: Start: 06-09-2023 End: 06-09-[address] Bakari Avila Work Phone: [facility] Work Phone: Start: 03-17-2023 End: 03-17-[address] Bakari Avila Work Phone: [facility] Start: 02-26-2023 End: 02-26-[address] Bakari Avila Work Phone: [facility] Work Phone: Start: 01-27-2023 End: 01-27-[address] Bakari Avila Work Phone: [facility] Work Phone: Start: 01-27-2023 End: 01-27-[address] Bakari Avila Work Phone: [facility]-Laboratory Work Phone: Start: 01-17-2023 End: 01-17-[address] Bakari Avila Work Phone: [facility] Work Phone: Start: 01-17-2023 End: 01-17-[address] Bakari Avila Work Phone: [facility]-Outpatient Breast Imaging Work Phone: Start: 01-07-2023 End: 01-07-[address] Bakari Avila Work Phone: [facility]-Nuclear Medicine, [facility] Work Phone: Start: 12-30-2022 Non-patient / Non-visit Dr. Bakari Avila Work Phone: [facility] Start: 12-30-2022 End: 12-30-2022 Admission to same day surgery center Dr. Bakari Avila Work Phone: [facility]-Endoscopy Work Phone: Start: 12-30-2022 End: 12-30-[address] Bakari Avila Work Phone: [facility] Work Phone: Start: 12-17-2022 End: 12-17-[address] Bakari Avila Work Phone: [facility] Work Phone: Start: 12-17-2022 End: 12-17-[address] Bakari Avila Work Phone: [facility] Work Phone: Start: 11-05-2022 End: 11-05-[address] Bakari Avila Work Phone: [facility] Work Phone: Start: 10-22-2022 End: 10-22-2022 ambulatory [facility] Work Phone: Start: 10-22-2022 End: 10-22-2022 Patient encounter procedure [facility] Start: 08-08-2022 End: 08-08-2022 ambulatory [facility] Work Phone: Start: 08-08-2022 End: 08-08-2022 [facility] Start: 08-05-2022 End: 08-05-2022 ambulatory [facility] Work Phone: Start: 08-05-2022 End: 08-05-2022 Patient encounter procedure [facility] Start: 05-20-2022 End: 05-20-2022 ambulatory [facility] Work Phone: Start: 05-20-2022 End: 05-20-2022 Patient encounter procedure [facility] Start: 05-01-2022 ambulatory Chaim Avila Facility:[id number] Start: 04-01-2022 End: 04-01-2022 ambulatory [facility] Work Phone: Start: 04-01-2022 End: 04-01-2022 Patient encounter procedure [facility] Start: 01-08-2022 End: 01-08-2022 Patient encounter procedure [facility]-Outpatient Bone Densitometry Start: 11-09-2021 End: 11-09-2021 Patient encounter procedure [facility] Start: 11-07-2021 End: 11-07-2021 Patient encounter procedure [facility] Start: 08-24-2021 End: 08-24-2021 Patient encounter procedure [facility] Start: 08-23-2019 End: 08-23-2019 ambulatory UNKNOWN PROVIDER Facility:[facility] Start: 02-20-2017 End: 2017 Ambulatory CHESTER ROCHA Facility:[facility] Procedures Date Procedure Procedure Detail Performing Clinician Start: 11-19-2024 CT of head without contrast Dr. Abraham Avila MD Work Phone: Start: 11-18-2024 X-ray of knee, four or more views Dr[address] Lana Avila MD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 anxiety vs. vertigo dizziness 2: discussed avoiding anxiety triggers and discussing anxiety 3: used inner ear SCC model to discuss BPPV Skilled Intervention: Skilled judgment in the selection of proper modification for activity of daily living/home management based on clinical presentation, deficits, and needs. Activity progression based on professional judgement. Canalith Repositionin: R side narayan manuever for R posterior canalithiasis Skilled Intervention: Professional judgment was used to determine specific treatment interventions based on assessment of symptoms. Physically assisted patient through each step of repositioning. Verbal and tactile cues provided to patient to assist in moving between each position of maneuver in correct sequence. Patient education including handouts provided regarding self repostitioning techniques to be performed at home. Billing Self-Care/Home Management Treatment Minutes: 10 * Canalith Repositionin unit Skilled Treatment Time Minutes (timed and untimed codes): 25 Total Session Time (minutes): 25 Session Start Time : 0945 Session Stop Time : 1010 Irina Felder PT documented in this encounter [facility] 07-27-2024 History of Presen t illness Narrative Program_ID:[id number] Access Code: [email or web address] URL: [email or web address] Date: 07-27-2024 Prepared By: Irina Felder Program Notes Patient Education - What Is Vestibular Rehab? - What Is The Vestibular System? - BPPV - What Is BPPV? Episode Visit Count: 1 Therapist That Will Accept/Oversee The Plan Of Care: Irina Felder Start of Care Date: 07/27/24 Onset Date: 07/27/23 Plan of Care Certification Date: 07/27/24 Next Certification Due Date: 09/07/24 Patient Identified by Name and Date of : Yes REHABILITATION AND SPORTS THERAPY PHYSICAL THERAPY EVALUATION PLAN OF CARE: Assessment: Dominic Arteaga presents with diagnosis of BPPV, right that interferes with bed mobility . The patient presents with impairments in ADL's, balance, independence in exercise, overall function, patient reported outcome measures, posture, and symptom management. PROMIS (Patient-Reported Outcomes Measurement Information System) scores were reviewed and identified as a rehabilitation concern. Prognosis for therapy is Good due to: current objective clinical presentation, good overall health status, acuteness of condition, positive past response to therapy, within-session changes, good support system/ coping skills . The patient will benefit from skilled therapy services to meet the goals established for this plan of care as noted below. Goals for Episode of Care: established 07/27/24 Patient will have negative positional testing for BPPV. Patient will verbalize the understanding of the diagnosis BPPV, how to recognize symptoms and what to do if they return. Patient will demonstrate normal active cervical spine range of motion to restore posture and complete ADLS with trace report of dizziness/imbalance. Patient will return to prior level of function with all activities of daily living with trace reports of dizziness. Patient Goals: resolve vertigo with head and position movement Time Frame for Goals and Treatment : 09/07/24 Planned Interventions, Frequency, and Duration: Current Frequency: 1x/week Duration: 6 weeks Total Number of Visits Planned: 6 Planned Treatment Interventions: Self-mcc management (18232), Therapeutic activities (64335), Manual therapy (89156), Neuromuscular re-education (07603), Therapeutic exercise (65406), Gait Training (68301) PLAN FOR NEXT VISIT: assess symptom response to narayan for R posterior canalithiasis Patient demonstrates good understanding of plan of care and treatment. The above goals and plan of care were discussed and agreed upon by patient/family. SUBJECTIVE: for dizziness with turning R or rolling to the right. Vestibular testing negative for vestibular hypofunction. Sudden onset and symptoms do not last long. Feels that her eyes are moving at times. Symptoms are true vertigo rather than dizziness. Patient Goals: resolve vertigo with head and position movement Functional Limitations: bed mobility Prior Level of Function: Independent without limitations Intake Information: Prescription present Previous Treatment: (ENT, vestibular testing) Falls Interview: Fall without injury in the last year Vestibular Symptoms present for: months Symptom onset: sudden Dizziness: Yes Description: dizziness Rating of current symptoms: 0/10 Frequency: Intermittent Duration: seconds Symptoms worsened by: rolling right, turning head quickly Imbalance: Yes Imbalance triggered by: Turning, Head movement Fall Assessment: History of falls Frequency of falls: Intermittent When was your most recent fall?: march 2024 Did the fall occur inside or outside?: outside How did the fall occur?: walking at a gas station Injuries resulting from fall? : abrasions B hands and B knees Dizziness during fall?: no How often do you lose your balance?: daily - upon standing Nausea: yes - daily for the past mo. Motion Sickness: None Headache: Yes Neck Symptoms: Yes Ear Symptoms: Yes Description: pain Location: right ear only Hearing Changes: right ear only Hearing Changes Description: with plane rides Tinnitus: No recent changes Sleep Affected by Symptoms: Dizziness keeps from falling asleep (my sleep is horrible.) History of Syncope: No History of Migraine: Yes Pain: Pain Pain Level: 0 Post Treatment Pain Post Treatment Pain Level: 0 PROMIS Scales 07/26/2024 Higher is Better Self-Eff Symptom - T Score 41 (Average) Self-Eff Symptom - Percentile 18 T-scores: mean of general population = 50. 5 points is clinically meaningfully difference Percentiles provide an indication of how the patient's score ranks in relation to the general population. Higher percentile rankings indicate better function/quality of life. 50th percentile is the average of the general population and indicates half of respondents had a worse score. OBJECTIVE MEASURES WITH LEVEL OF FUNCTION: Posture / Alignment Posture: Forward head, Increased thoracic kyphosis, Rounded shoulders Oculomotor Testing Fixation Present Ocular ROM: WNL Oculomotor Testing Fixation Removed Gaze Evoked Nystagmus: Not present Positional Testing Right Luiz-Hallpike: Upbeat, Less than 60 seconds, Symptomatic, Left Torsional / Counterclockwise Cervical Spine ROM Cervical ROM : Limitation AROM Gait Gait Observation: unremarkable Education: Education Learning Preferences: Demonstration, Explanation, Performance, Printed Materials Barriers: None Learning/educational needs: Home exercise program, Posture, Plan of Care, Safety Education Provided: Yes, see treatment interventions for education provided Education Provided To: Patient Education Mode/Type: Demonstration, Literature/Printed Materials, Performance, Explanation/Discussion Response to Education/Teach Back: States/Identifies, Return Demonstration TREATMENT: PT Treatment Interventions: Self-Assisted Management, Canalith Repositioning Evaluation Self-Assisted Management: 1: *Access Code: [email or web address] URL: [email or web address] Date: 07/27/2024 Prepared by: Irina Banerjee Patient Education - What Is Vestibular Rehab? - What Is The Vestibular System? - BPPV - What Is BPPV? Skilled Intervention: Skilled judgment in the selection of proper modification for activity of daily living/home management based on clinical presentation, deficits, and needs. Provided written instruction for activities of daily living techniques to facilitate proper performance and compliance. Reviewed patient specific diagnosis in relation to activities of daily living/home management. Activity progression based on professional judgement. Canalith Repositionin: R side narayan manuever for R posterior canalithiasis Skilled Intervention: Professional judgment was used to determine specific treatment interventions based on assessment of symptoms. Physically assisted patient through each step of repositioning. Verbal and tactile cues provided to patient to assist in moving between each position of maneuver in correct sequence. Patient education including handouts provided regarding self repostitioning techniques to be performed at home. Instructed patient in post repositioning procedures including head upright x2 hours and sleeping on the L side x1 night. Billing * Evaluation Low Complexity: 1 Unit Self-Care/Home Management Treatment Minutes: 10 * Canalith Repositionin unit Skilled Treatment Time Minutes (timed and untimed codes): 39 Total Session Time (minutes): 39 Session Start Time : 948 Session Stop Time : 1027 Irina Felder PT documented in this encounter [facility] 07-27-2024 Note HNO ID: [id number] Author: IRINA FELDER PT Service: ? Author Type: Physical Therapist Type: Progress Notes Filed: 07/27/2024 10:39 Note Text: Episode Visit Count: 1 Therapist That Will Accept/Oversee The Plan Of Care: Irina Felder Start of Care Date: 07/27/24 Onset Date: 07/27/23 Plan of Care Certification Date: 07/27/24 Next Certification Due Date: 09/07/24 Patient Identified by Name and Date of : Yes REHABILITATION AND SPORTS THERAPY PHYSICAL THERAPY EVALUATION PLAN OF CARE: Assessment: Dominic Arteaga presents with diagnosis of BPPV, right that interferes with bed mobility . The patient presents with impairments in ADL's, balance, independence in exercise, overall function, patient reported outcome measures, posture, and symptom management. PROMIS? (Patient-Reported Outcomes Measurement Information System) scores were reviewed and identified as a rehabilitation concern. Prognosis for therapy is Good due to: current objective clinical presentation, good overall health status, acuteness of condition, positive past response to therapy, within-session changes, good support system/ coping skills . The patient will benefit from skilled therapy services to meet the goals established for this plan of care as noted below. Goals for Episode of Care: established 07/27/24 Patient will have negative positional testing for BPPV. Patient will verbalize the understanding of the diagnosis BPPV, how to recognize symptoms and what to do if they return. Patient will demonstrate normal active cervical spine range of motion to restore posture and complete ADLS with trace report of dizziness/imbalance. Patient will return to prior level of function with all activities of daily living with trace reports of dizziness. Patient Goals: resolve vertigo with head and position movement Time Frame for Goals and Treatment : 09/07/24 Planned Interventions, Frequency, and Duration: Current Frequency: 1x/week Duration: 6 weeks Total Number of Visits Planned: 6 Planned Treatment Interventions: Self-mcc management (33977), Therapeutic activities (82285), Manual therapy (08156), Neuromuscular re-education (31064), Therapeutic exercise (26999), Gait Training (71468) PLAN FOR NEXT VISIT: assess symptom response to anrayan for R posterior canalithiasis Patient demonstrates good understanding of plan of care and treatment. The above goals and plan of care were discussed and agreed upon by patient/family. SUBJECTIVE: for dizziness with turning R or rolling to the right. Vestibular testing negative for vestibular hypofunction. Sudden onset and symptoms do not last long. Feels that her eyes are moving at times. Symptoms are true vertigo rather than dizziness. Patient Goals: resolve vertigo with head and position movement Functional Limitations: bed mobility Prior Level of Function: Independent without limitations Intake Information: Prescription present Previous Treatment: (ENT, vestibular testing) Falls Interview: Fall without injury in the last year Vestibular Symptoms present for: months Symptom onset: sudden Dizziness: Yes Description: dizziness Rating of current symptoms: 0/10 Frequency: Intermittent Duration: seconds Symptoms worsened by: rolling right, turning head quickly Imbalance: Yes Imbalance triggered by: Turning, Head movement Fall Assessment: History of falls Frequency of falls: Intermittent When was your most recent fall?: march 2024 Did the fall occur inside or outside?: outside How did the fall occur?: walking at a gas station Injuries resulting from fall? : abrasions B hands and B knees Dizziness during fall?: no How often do you lose your balance?: daily - upon standing Nausea: yes - daily for the past mo. Motion Sickness: None Headache: Yes Neck Symptoms: Yes Ear Symptoms: Yes Description: pain Location: right ear only Hearing Changes: right ear only Hearing Changes Description: with plane rides Tinnitus: No recent changes Sleep Affected by Symptoms: Dizziness keeps from falling asleep (my sleep is horrible.) History of Syncope: No History of Migraine: Yes Pain: Pain Pain Level: 0 Post Treatment Pain Post Treatment Pain Level: 0 PROMIS Scales 07/26/2024 Higher is Better Self-Eff Symptom - T Score 41 (Average) Self-Eff Symptom - Percentile 18 T-scores: mean of general population = 50. 5 points is clinically meaningfully difference Percentiles provide an indication of how the patient's score ranks in relation to the general population. Higher percentile rankings indicate better function/quality of life. 50th percentile is the average of the general population and indicates half of respondents had a worse score. OBJECTIVE MEASURES WITH LEVEL OF FUNCTION: Posture / Alignment Posture: Forward head, Increased thoracic kyphosis, Rounded shoulders Oculomotor Testing Fixation Present Ocular ROM: WNL Ocu (more content not included)... [facility] 04-23-2024 Instructions Lisbeth Ramírez AUD - 04/23/2024 4:11 PM EDT Images from the original note were not included. [facility] [place] [facility]est[facility] Today we evaluated for Benign Paroxysmal Positional Vertigo (BPPV), the most common cause of vertigo. Each element of BPPV is explained as follows: Benign: of no danger to health Paroxysmal: happening in sudden, brief spells Positional: triggered by particular head movements or positions Vertigo: an internal sense of irregular or whirling motion either of yourself or of objects around you Our vestibular system involves 3 semicircular canals (our head rotation sensors), 2 otolith organs (our gravity sensors), and our vestibular nerve. The cause of BPPV is the displacement of small crystals of calcium carbonate (also known as canaliths) in the inner ear. Detachment of these crystals can be a result of injury, infection, diabetes, migraine, osteoporosis, lying in bed for long periods of time or simply aging. The crystals become trapped in the inner ear s fluid-filled semicircular canal. The semicircular canals are normally not sensitive to head and body position changes. However, with BPPV head and body movements such as lying down cause the crystals to move, which stimulates nerve endings inside the semicircular canals. The nerves send false signals to the brain, causing dizziness and other unsettling symptoms of vertigo including nausea, vomiting, disorientation or instability, as well as a [id number] rhythmic eye movements called nystagmus. Test Summary: The purpose of today's evaluation was to assess for BPPV. Based on today s evaluation, there were indications of BPPV in the right ear. There are no post-treatment restrictions after this treatment. This type of treatment has a high success rate for reducing vertigo. Recommendations: - Continue medical follow-up with Nikki Andrew PA-C. - Consider further Vestibular & Balance therapy (Physical Therapy) for re-evaluation and treatment. I have asked your referring provider to place an anti-nausea medication for you to help with your symptoms. Vestibular Therapy Locations: [facility] General Rehabilitation and Sports Therapy, [facility] General Rehabilitation and Sports Therapy, [employer] [facility], [facility], [facility], [facility] Surgery [facility] A [facility] Orthopaedics and Rehabilitation Please call to schedule. documented in this encounter [facility] 04-23-2024 Note HNO ID: [id number] Author: LISBETH RAMÍREZ AUD Service: ? Author Type: Nut Orchardist Type: Progress Notes Filed: 04/23/2024 16:21 Note Text: [facility] [place] Vestibular and Balance Disorders Laboratory Vestibular Test Battery Report Name: Dominic Arteaga [facility]#: [id number] Date of Service: 04/23/2024 Date of : 1955 Age: [age] year old Referred by: Nikki Andrew PA-C And is a patient of Domingo Cardona DO Referred for: Evaluation of the cause of disorder of hearing, tinnitus, or balance. Referral documented: In an order in [facility] Pretest Instructions: All pretest instructions were completed prior to testing: no alcohol, no medication for dizziness/motion sickness, no sedatives (sleep aids, tranquilizers, antihistamines), no eye makeup and only have a light meal prior to testing. Impressions and Recommendations OVERALL IMPRESSIONS: Abnormal vestibular evaluation. Findings demonstrate Benign Paroxysmal Positional Vertigo (BPPV) in the right posterior semicircular canal. Treatment was not completed today due to significant nausea with possible emesis. Consider referral to vestibular and balance rehabilitation therapy to re-evaluate and treat BPPV. Referring provider will be contacted to determine if anti-nausea medication can be prescribed to help with symptoms during treatment. All other portions of today's evaluation were unremarkable: - Normal low, mid, and high frequency vestibulo-ocular reflex (VOR) function as evident by rotary chair and video head impulse testing. - There were no clinically significant signs of pathophysiologic nystagmus provoked during gaze stability testing with fixation removed and post-headshake testing. - There were no indications of central vestibulo-ocular pathway involvement noted. Normal oculomotor examination. - Normal observation of gait and transfers. - Postural control findings demonstrate normal functional balance with varying sensory information (vestibular, visual and/or somatosensory) observed during the Modified Clinical Test of Sensory Integration on Balance (mCTSIB). No fall reactions observed during eyes open and eyes closed conditions on firm and foam support surfaces. RECOMMENDATIONS: - Continue medical follow up with Nikki Andrew PA-C and Domingo Cardona DO. - Consider referral to vestibular and balance rehabilitation therapy to re-evaluate and treat BPPV. Referring provider will be contacted to determine if anti-nausea medication can be prescribed to help with symptoms during treatment. - Consider re-evaluation as medically indicated. - Consider maintaining a healthy sleep schedule in addition to diet, hydration, and exercise. The results and recommendations were explained to Dominic Arteaga who expressed understanding of the information. History Present Illness The following history was obtained by way of Dominic Arteaga's previous medical record, patient entered questionnaire, and direct patient interview: oDminic Arteaga presented with dizziness which began one year ago. She characterizes her symptoms as: sometimes it feels like internal vertigo, sometimes with external vertigo, and sometimes she feels presyncope. Dominic was unable discern a clear, reproducible pattern associated with symptoms; however, provoking/exacerbating factors may include putting head down and turning it (any direction). Symptoms can also occur when her head is static. She can often feel as if her eyes are moving. Typically, symptoms last seconds to minutes in duration. She also noted when getting out of bed she becomes dizzy - mostly when turning to the right, although this can happen when on the left too. Otologic symptoms include discomfort of the right pinna; other otologic symptoms were denied including subjective hearing loss, fluctuating hearing, subjective interaural hearing differences, constant tinnitus, and aural fullness/pressure. She previously noted a history of migraines during teenage years, but notes that she has been getting more frequent headaches. Symptoms are not always correlated to the dizziness. She also previously reported changes and starting to see spots, stars in her vision lasting for minutes at a time. Dominic notes a history of falls with 10 falls sustained in the past 12 months. She feels as if she falls straight forward when she falls. Dominic is not currently using an ambulatory device. SUMMARY OF PAST MEDICAL HISTORY: - She has a past medical history of POAG (primary open-angle glaucoma). - Referring provider Nikki Andrew PA-C (General neurology): At this time, unclear etiology for dizziness, discussed that this could be multifactoral as well. Does have some components of vestibular migraine but also due to cervical stenosis there may be a cervical component as well. Patient also describing possible inner ear pathology but hints exam is negative, no nystagmus appreciated. Will ob (more content not included)... [facility] 04-23-2024 History of Presen t illness Narrative Images from the original note were not included. [facility] Vestibular and Balance Disorders Laboratory Vestibular Test Battery Report Name: Dominic Arteaga [facility]#: [id number] Date of Service: 04/23/2024 Date of : 1955 Age: [age] year old Referred by: Nikki Andrew PA-C And is a patient of Domingo Cardona DO Referred for: Evaluation of the cause of disorder of hearing, tinnitus, or balance. Referral documented: In an order in [facility] Pretest Instructions: All pretest instructions were completed prior to testing: no alcohol, no medication for dizziness/motion sickness, no sedatives (sleep aids, tranquilizers, antihistamines), no eye makeup and only have a light meal prior to testing. Impressions and Recommendations OVERALL IMPRESSIONS: Abnormal vestibular evaluation. Findings demonstrate Benign Paroxysmal Positional Vertigo (BPPV) in the right posterior semicircular canal. Treatment was not completed today due to significant nausea with possible emesis. Consider referral to vestibular and balance rehabilitation therapy to re-evaluate and treat BPPV. Referring provider will be contacted to determine if anti-nausea medication can be prescribed to help with symptoms during treatment. All other portions of today's evaluation were unremarkable: - Normal low, mid, and high frequency vestibulo-ocular reflex (VOR) function as evident by rotary chair and video head impulse testing. - There were no clinically significant signs of pathophysiologic nystagmus provoked during gaze stability testing with fixation removed and post-headshake testing. - There were no indications of central vestibulo-ocular pathway involvement noted. Normal oculomotor examination. - Normal observation of gait and transfers. - Postural control findings demonstrate normal functional balance with varying sensory information (vestibular, visual and/or somatosensory) observed during the Modified Clinical Test of Sensory Integration on Balance (mCTSIB). No fall reactions observed during eyes open and eyes closed conditions on firm and foam support surfaces. RECOMMENDATIONS: - Continue medical follow up with Nikki Andrew PA-C and Domingo Cardona DO. - Consider referral to vestibular and balance rehabilitation therapy to re-evaluate and treat BPPV. Referring provider will be contacted to determine if anti-nausea medication can be prescribed to help with symptoms during treatment. - Consider re-evaluation as medically indicated. - Consider maintaining a healthy sleep schedule in addition to diet, hydration, and exercise. The results and recommendations were explained to Dominic Arteaga who expressed understanding of the information. History Present Illness The following history was obtained by way of Dominic Arteaga's previous medical record, patient entered questionnaire, and direct patient interview: Dominic Arteaga presented with dizziness which began one year ago. She characterizes her symptoms as: sometimes it feels like internal vertigo, sometimes with external vertigo, and sometimes she feels presyncope. Dominic was unable discern a clear, reproducible pattern associated with symptoms; however, provoking/exacerbating factors may include putting head down and turning it (any direction). Symptoms can also occur when her head is static. She can often feel as if her eyes are moving. Typically, symptoms last seconds to minutes in duration. She also noted when getting out of bed she becomes dizzy - mostly when turning to the right, although this can happen when on the left too. Otologic symptoms include discomfort of the right pinna; other otologic symptoms were denied including subjective hearing loss, fluctuating hearing, subjective interaural hearing differences, constant tinnitus, and aural fullness/pressure. She previously noted a history of migraines during teenage years, but notes that she has been getting more frequent headaches. Symptoms are not always correlated to the dizziness. She also previously reported changes and starting to see spots, stars in her vision lasting for minutes at a time. Dominic notes a history of falls with 10 falls sustained in the past 12 months. She feels as if she falls straight forward when she falls. Dominic is not currently using an ambulatory device. SUMMARY OF PAST MEDICAL HISTORY: - She has a past medical history of POAG (primary open-angle glaucoma). - Referring provider Nikki Andrew PA-C (General neurology): At this time, unclear etiology for dizziness, discussed that this could be multifactoral as well. Does have some components of vestibular migraine but also due to cervical stenosis there may be a cervical component as well. Patient also describing possible inner ear pathology but hints exam is negative, no nystagmus appreciated. Will obtain vestibular battery testing to further evaluate for any inner ear versus central etiology contributing to her symptoms. - Previously completed vestibular rehabilitation (physical therapy): No - Previous audiologic evaluation: Completed at outside facility. Was not told that she needed hearing aids. She was informed that bilateral decrease in hearing from audio referenced 3 years prior. She was evaluated for BPPV at that time which was negative, per patient. Patient-Entered Questionnaire Scores 04/22/2024 Vestibular Case History I experience the following: Feeling that the room is spinning Feeling that I am spinning in a [place] Feeling of falling or veering to one side Feeling as though I could pass out or faint Feeling lightheaded or swimming sensation Feeling unsteady on my feet or like I am swaying while walking Feeling a general sensation that my perception of the world around me is off or altered My symptoms began: 08/25/2022 My last episode was: 04/18/2024 Symptoms have changed since they began: Yes Symptoms are: Worse Symptoms started after cold or flu: No Specific event caused dizziness: No Free from dizziness or problems with balance in between attacks: No Trouble walking or standing in the dark or dimly lit room: No Trouble walking on soft or uneven surfaces (grass or carpet): Yes Dizziness symptoms last: Minutes Dizziness symptoms occur: Every time I move my head or body Multiple times a day Multiple times per week Multiple months Dizziness symptoms mainly happen when sitting or standing up too quickly: No Dizziness symptoms mainly happen when changing positions: Yes Change in hearing in: N/A Fullness/pressure feeling in: N/A Ringing or buzzing sound in: N/A Pain in: N/A Drainage from: N/A Sensitivity to sound: No Your voice sounds loud to you: No Hearing checked in last year: Yes Dizziness can occur from visual stimuli: No Wear glasses or contacts: Yes Vision checked in last year Yes Symptoms with dizziness: Light sensitivity Head pain Nausea Neck Pain Diagnosed with migraines or headaches: [employer] migraines or headaches: No Recent head or neck injury: No Added stress to life: Yes Dizziness worse with stress or when anxious: No Restrict activities due to dizziness symptoms: Yes Fallen in the past year: Yes Fear of falling: Yes Symptoms of dizziness improved by: Nothing Multiple values from one day are sorted in reverse-chronological order Medical History There is no problem list on file for this patient. Medications: Current Outpatient Medications on File Prior to Visit Medication Sig venlafaxine ER (EFFEXOR XR) 150 mg 24 hr capsule Take 150 mg by mouth once daily. ergocalciferol 50,000 unit capsule (VITAMIN D2, DRISDOL) Take 50,000 Units by mouth one time a week. venlafaxine (EFFEXOR) 75 mg tablet Take 75 mg by mouth three times a day. losartan (COZAAR) 100 mg tablet Take 100 mg by mouth once daily. busPIRone (BUSPAR) 5 mg tablet Take 5 mg by mouth three times a day. mbxp-B8-cnulqs-G0-Uk-Qy-lizeth 250 mg-400 unit -40 mg-5 mg tab Take 250 mg by mouth once daily. meclizine (ANTIVERT) 25 mg tab Take 25 mg by mouth three times a day as needed (dizziness). latanoprost, PF, 0.005 % drop Use 1 Drop in eyes once daily. 1 drop per eye latanoprost (XALATAN) 0.005 % ophthalmic solution Use 1 Drop in both eyes daily at bedtime. atorvastatin (LIPITOR) 20 mg tablet omega 8-sva-hsz-fish oil (FISH OIL) 100-160-1,000 mg cap Take by mouth. Cholecalciferol, Vitamin D3, 50 mcg (2,000 unit) cap Take by mouth. omeprazole 40 mg capsule No current facility-administered medications on file prior to visit. Current medications with potential vestibular/balance side effects highlighted in bold. Family/Social History FAMILY HISTORY Problem Relation Age of Onset No Ocular Disease No Family History Social History Tobacco Use Smoking status: Never Smokeless tobacco: Never Physical/Vestibular Evaluation GENERAL: Cognitive Status: Alert, Oriented, and Cooperative EARS: Right ear: Ear canal clear, Eardrum visible, and Landmarks noted Left ear: Ear canal clear, Eardrum visible, and Landmarks noted EYES/OCULOMOTOR: Extra-ocular range of motion (CN III, IV, ): normal. Conjugate eye movements: Yes Smooth pursuit (horizontal and vertical): normal Saccades (horizontal, vertical, oblique): normal Cover uncover test: normal Mrdsq-repjp-phlsn test: normal Convergence test: normal NECK: Cervical rotation right restrictions: none. Reported pain: none Cervical rotation left restrictions: none. Reported pain: none Cervical extension restrictions: none. Reported pain: none Cervical flexion restrictions: none. Reported pain: none VESTIBULAR: Head impulses of semi-circular canals: normal Ocular counter roll: normal GAIT AND BALANCE: Observation of gait and transfer: normal. Modified Clinical Test of Sensory Interaction on Balance (MCTSIB): normal postural control. Eyes open, firm surface: Fall Reactions: 0 Eyes closed , firm surface: Fall Reactions: 0 Eyes open, foam surface: Fall Reactions: 0 Eyes closed, foam surface: Fall Reactions: 0 OBJECTIVE VESTIBULAR MEASURES: Videonystagmography Examination (VNG): CPT codes: 51324, 50468, 38046 Description of Procedure: objective assessment of peripheral (e.g., low frequency horizontal canal VOR function), status of compensation, Benign Paroxysmal Positional Vertigo (BPPV), and central vestibulo-ocular pathway (oculomotor examination). Procedure time: 30-45 minutes. Note: The fast component (direction) of all nystagmus is reported from the patient's perspective. Calibration procedure: unremarkable Saccade Performance test (pseudo-random presentation of a laser target; 5 - 50 deg horizontal steps): Latency values: normal Accuracy values: normal Peak Velocity values: normal Reported symptoms: none Pursuit Tracking test (sinusoidal presentation of a laser target; .1-.6 Hz, 10-60 deg/sec): Gain values: normal. Evidence of saccadic pursuit: No. Reported symptoms: none Spontaneous & Gaze-Evoked Nystagmus test: Nystagmus center gaze with fixation: none. Temporal profile: n/a. Saccadic intrusions/oscillations: none. Symptoms: none. Nystagmus center gaze without fixation: none. Temporal profile: n/a. Saccadic intrusions/oscillations: none. Symptoms: none. Nystagmus right gaze with fixation: none.Temporal profile: n/a. Saccadic intrusions/oscillations: none. Symptoms: none. Nystagmus right gaze without fixation: none. Temporal profile: n/a. Saccadic intrusions/oscillations: none. Symptoms: none. Nystagmus left gaze with fixation: none.Temporal profile: n/a. Saccadic intrusions/oscillations: none. Symptoms: none. Nystagmus left gaze without fixation: none. Temporal profile: n/a. Saccadic intrusions/oscillations: none. Symptoms: none. Nystagmus up gaze with fixation: none. Temporal profile: n/a. Saccadic intrusions/oscillations: none. Symptoms: none. Nystagmus up gaze without fixation: none. Temporal profile: n/a. Saccadic intrusions/oscillations: none. Symptoms: none. Nystagmus down gaze with fixation: none. Temporal profile: n/a. Saccadic intrusions/oscillations: none. Symptoms: none. Nystagmus down gaze without fixation: none. Temporal profile: n/a. Saccadic intrusions/oscillations: none. Symptoms: none. Note: remainder of testing completed without fixation unless otherwise specified. Head shaking test: Nystagmus post-horizontal head shake: none. Temporal profile: n/a. Symptoms: none. Nystagmus post-vertical head shake: none. Temporal profile: n/a. Symptoms: none. Skull vibration-induced nystagmus test (sitting, mastoid vibration right, mastoid vibration left): Nystagmus mastoid vibration right: none. Temporal profile: n/a. Symptoms: none. Nystagmus mastoid vibration left: 2 d/s left-beating. Temporal profile: continuous and suppressed with fixation. Symptoms: none. Vertical Semi-circular Canal BPPV Nystagmus tests: Nystagmus [place] right ear down position: robust rightward torsional upbeating nystagmus which SPV value could not be accurately captured by the visual tracking system. Temporal profile: decaying. Symptoms: dizziness. Nystagmus [place] right ear return to sit position: significant leftward torsional downbeating nystagmus which SPV value could not be accurately captured by visual tracking system. Temporal profile: decaying. Symptoms: dizziness. Remaining [place] and positional testing deferred due to patient's symptoms. [place]mal alternating water calorics:Deferred; rotational chair and vHIT testing were completed in lieu of caloric irrigations for measurement of horizontal canal vestibulo-ocular reflex (VOR) and superior vestibular nerve function. Vestibular Evoked Myogenic Potentials (VEMP): CPT code: 11593 Description of Procedure: short-latency myogenic potentials produced with sound or vibration originating from otolith organs (saccule and utricle). Cervical (cVEMPs) are recorded from the sternocleidomastoid muscles (patient in a semi-reclined position, head lifted and rotated away from ear stimulated): Ocular (oVEMPs) recorded from the inferior oblique extra-muscles (patient seated with 30 deg upward gaze). Screening for SSCD (superior semi-circular canal dehiscence) conducted if medically warranted. Procedure time: 30 minutes. Note: Integrity of the auditory stimulus, electrode placement and muscle contraction were verified. Otoscopy performed prior to testing confirming unoccluded canals. Amplitude and latency values represent best responses if more than 1 waveform is obtained. Refer to scanned documents for VEMP waveform details. Cervical (cVEMP): normal. Results are not consistent with superior semi-circular canal dehiscence (SSCD) or saccule, inferior vestibular nerve, and/or cVEMP pathway involvement in both ears. Right ear: testing obtained with air conduction and bone conduction, amplitude and latencies normal; SSCD screen: negative Left ear: testing obtained with air conduction and bone conduction, amplitude and latencies: normal; SSCD screen: negative Interaural amplitude difference cVEMP (abnormal > 30%): 26% (RE-LE/RE+LE)100 - normal Waveforms were scaled according to the average EMG values obtained throughout testing: Yes Video Head Impulse Test (VHIT): CPT code: 38018 Description of Procedure: assessment of the angular vestibulo-ocular reflex (VOR) of all six semicircular canals. During vHIT, patients wear infrared goggles and their head is quickly moved in the plane of each semicircular canal. Measurements of VOR gain and corrective saccades are used to determine semicircular canal paresis. Procedure time: 20 minutes. Refer to scanned documents for details for vHIT raw data. Calibration procedure: could not be completed due to patient efforts despite several attempts. Camera placement over the left eye. Lateral Canal VHIT: Normal. Results are not consistent with lateral semicircular canal/VOR pathway involvement in both ears. (Note: abnormal gain < 0.80) Vertical Canal VHIT: Normal left anterior and right posterior impulses; reduced gain without corrective saccades observed for right anterior left posterior impulses likely due to use of default calibration or eye-related factors. (Note: abnormal gain < 0.70; High gain values noted for vertical canal impulses, which may be due to camera mass over the right eye, goggle fit, and/or a calibration error) Rotational Chair: CPT code 55692 Description of Procedure: objective assessment of peripheral vestibular system function, in particular bilateral peripheral function (lateral canal VOR function in low-mid frequencies). Procedure time: 20 minutes. Sinusoidal Harmonic Acceleration (SHA) testing (at 0.01, 0.08, and 0.32 Hz): Gain values: Normal Phase values: Essentially normal Symmetry values: Normal Suppression of vestibulo-ocular reflex (SHA at 0.08 Hz) with visual input: normal. It was my pleasure to evaluate Dominic Arteaga. If you have any questions regarding this information, please contact me at [phone]. Tracey Calvillo, [facility] [employer] copy to: Nikki Andrew PA-C documented in this encounter [facility] 02-03-2024 Telephone encounter Note Fax sent to [facility] Medical records for images to be released. Irina Art LPN [facility] 02-03-2024 Miscellaneous Notes Fax sent to [facility] Medical records for images to be released. Irina Art LPN Patient had MRI of the cervical spine in December at [facility], please have report and film sent. documented in this encounter [facility] 02-03-2024 Telephone encounter Note Patient had MRI of the cervical spine in December at [facility], please have report and film sent. [facility] 02-03-2024 Instructions Nikki Andrew PA-C - 02/03/2024 1:37 PM EDT Vestibular battery testing Laboratory work up Will get MRI of the neck that you had at [facility] Drink at least 60 ounces of water a day Follow up in 3-4 months if symptoms persist documented in this encounter [facility] 02-03-2024 Note HNO ID: [id number] Author: NIKKI ANDREW PA-C Service: ? Author Type: Physician Head Of Transport Logistics Type: Progress Notes Filed: 02/03/2024 14:23 Note Text: [facility] Name: Dominic Arteaga Age: [age] year old Gender: female Primary Care Provider: Domingo Cardona DO Consult requested for dizziness by . Recommendations will be communicated via shared medical record or US mail. Chief Complaint:New Patient (Dizziness and vertigo) 02/03/2024 - General Neurology, Nikki Andrew PA-C ASSESSMENT ASSESSMENT/PLAN: 1. Dizziness - ICD9: 780.4, ICD10: R42 (primary diagnosis) 2. Cervical stenosis of spinal canal - ICD9: 723.0, ICD10: M48.02 3. Vestibular migraine - ICD9: 346.80, ICD10: G43.809 4. Worsening headaches - ICD9: 784.0, ICD10: R51.9 Patient with 10 months of intermittent dizziness. Patient was significant difficulty describing the dizziness and ranges from internal, external vertigo to presyncope, to just a general sense of movement. Unsure what triggers it, denies any migrainous triggers, sometimes driving the car will cause it to happen. Also notes it may happen when she stands up or turns her head [id number] but not consistently. MRI of the brain was negative. Does note longstanding history of vertigo which she has had intermittent episodes for many years but nothing like this. Patient does have history of cervical stenosis with fusion in the 1980s. Was recently admitted to [facility] for severe neck pain but records are not available. Was told that her neck did show some mild degeneration but nothing significant. However, patient's exam shows some hyperreflexia bilaterally and not equally as well as some weakness in the right upper extremity. Will have records sent from [facility] and review. Of note, orthostatics were negative and she did have a negative tilt table test. At this time, unclear etiology for dizziness, discussed that this could be multifactoral as well. Does have some components of vestibular migraine but also due to cervical stenosis there may be a cervical component as well. Patient also describing possible inner ear pathology but hints exam is negative, no nystagmus appreciated. Will obtain vestibular battery testing to further evaluate for any inner ear versus central etiology contributing to her symptoms. Patient does have an appointment with ENT scheduled for 2 weeks out and encouraged to keep this appointment. Additionally, will order basic blood work to look for common causes of dizziness including TSH, CBC, CMP and B12. 5. Tremor - ICD9: 781.0, ICD10: R25.1 Patient reporting a sensation of shaking in her hands and legs intermittently but resolves with distraction. Did not review any tremor on my exam today. MRI of the brain was reportedly negative, but we will have records sent from [facility]. Will order TSH to ensure no thyroid abnormality. Will continue to monitor. Patient agreeable to treatment plan of care at this time, questions were answered. Patient to follow-up after testing is completed. Nikki Andrew PA-C Encounter Diagnosis ICD-10-CM 1. Dizziness R42 VESTIBULAR TEST BATTERY METHYLMALONIC ACID VITAMIN B12 THYROID STIMULATING HORMONE COMPLETE BLOOD COUNT COMPREHENSIVE METABOLIC PANEL 2. Cervical stenosis of spinal canal M48.02 3. Vestibular migraine G43.809 4. Worsening headaches R51.9 THYROID STIMULATING HORMONE 5. Tremor R25.1 THYROID STIMULATING HORMONE Chart, labs,and relevant images reviewed. HPI: Dominic is a 68 year old year old female with history of who presents with dizziness. The dizziness is described as sensation of movement. Chart review: Following with [place] PCP and noted dizziness. Tilt table normal. Has seen ENT and MRI of the brain normal. Seen by PCP on 01/22/24 Patient has for evaluation of dizziness. Patient notes that this been ongoing for about a year, states that it started around last March when she was traveling, woke up 1 day and the room was spinning. Since that time has been on and off. Describes multiple different senses of dizziness, sometimes it feels like internal vertigo, sometimes with external vertigo and sometimes she feels presyncope. Notes occurring on a daily basis and the length of time varies. Sometimes it seems to be triggered with standing and other times not, sometimes it is triggered by certain head movements like turning her head to the right but not consistently. Follow with her primary care who got an MRI of her brain which was negative. Is scheduled to see an ENT in 2 weeks. Also reporting some ear pain, notes that the pinna bilaterally is sore and aching, has been evaluated for an outer ear infection without any significance. She was given meclizine by primary care without any significant benefit. Notes that the symptoms seem to be worse in the morning, but can also occur at (more content not included)... [facility] 02-03-2024 History of Presen t illness Narrative Images from the original note were not included. [facility] Name: Dominic Arteaga Age: [age] year old Gender: female Primary Care Provider: Domingo Cardona DO Consult requested for dizziness by . Recommendations will be communicated via shared medical record or US mail. Chief Complaint:New Patient (Dizziness and vertigo) 02/03/2024 - General Neurology, Nikki Andrew PA-C ASSESSMENT ASSESSMENT/PLAN: 1. Dizziness - ICD9: 780.4, ICD10: R42 (primary diagnosis) 2. Cervical stenosis of spinal canal - ICD9: 723.0, ICD10: M48.02 3. Vestibular migraine - ICD9: 346.80, ICD10: G43.809 4. Worsening headaches - ICD9: 784.0, ICD10: R51.9 Patient with 10 months of intermittent dizziness. Patient was significant difficulty describing the dizziness and ranges from internal, external vertigo to presyncope, to just a general sense of movement. Unsure what triggers it, denies any migrainous triggers, sometimes driving the car will cause it to happen. Also notes it may happen when she stands up or turns her head [id number] but not consistently. MRI of the brain was negative. Does note longstanding history of vertigo which she has had intermittent episodes for many years but nothing like this. Patient does have history of cervical stenosis with fusion in the 1980s. Was recently admitted to [facility] for severe neck pain but records are not available. Was told that her neck did show some mild degeneration but nothing significant. However, patient's exam shows some hyperreflexia bilaterally and not equally as well as some weakness in the right upper extremity. Will have records sent from [facility] and review. Of note, orthostatics were negative and she did have a negative tilt table test. At this time, unclear etiology for dizziness, discussed that this could be multifactoral as well. Does have some components of vestibular migraine but also due to cervical stenosis there may be a cervical component as well. Patient also describing possible inner ear pathology but hints exam is negative, no nystagmus appreciated. Will obtain vestibular battery testing to further evaluate for any inner ear versus central etiology contributing to her symptoms. Patient does have an appointment with ENT scheduled for 2 weeks out and encouraged to keep this appointment. Additionally, will order basic blood work to look for common causes of dizziness including TSH, CBC, CMP and B12. 5. Tremor - ICD9: 781.0, ICD10: R25.1 Patient reporting a sensation of shaking in her hands and legs intermittently but resolves with distraction. Did not review any tremor on my exam today. MRI of the brain was reportedly negative, but we will have records sent from [facility]. Will order TSH to ensure no thyroid abnormality. Will continue to monitor. Patient agreeable to treatment plan of care at this time, questions were answered. Patient to follow-up after testing is completed. Nikki Andrew PA-C Encounter Diagnosis ICD-10-CM 1. Dizziness R42 VESTIBULAR TEST BATTERY METHYLMALONIC ACID VITAMIN B12 THYROID STIMULATING HORMONE COMPLETE BLOOD COUNT COMPREHENSIVE METABOLIC PANEL 2. Cervical stenosis of spinal canal M48.02 3. Vestibular migraine G43.809 4. Worsening headaches R51.9 THYROID STIMULATING HORMONE 5. Tremor R25.1 THYROID STIMULATING HORMONE Chart, labs,and relevant images reviewed. HPI: Dominic is a 68 year old year old female with history of who presents with dizziness. The dizziness is described as sensation of movement. Chart review: Following with [place] PCP and noted dizziness. Tilt table normal. Has seen ENT and MRI of the brain normal. Seen by PCP on 01/22/24 Patient has for evaluation of dizziness. Patient notes that this been ongoing for about a year, states that it started around last March when she was traveling, woke up 1 day and the room was spinning. Since that time has been on and off. Describes multiple different senses of dizziness, sometimes it feels like internal vertigo, sometimes with external vertigo and sometimes she feels presyncope. Notes occurring on a daily basis and the length of time varies. Sometimes it seems to be triggered with standing and other times not, sometimes it is triggered by certain head movements like turning her head to the right but not consistently. Follow with her primary care who got an MRI of her brain which was negative. Is scheduled to see an ENT in 2 weeks. Also reporting some ear pain, notes that the pinna bilaterally is sore and aching, has been evaluated for an outer ear infection without any significance. She was given meclizine by primary care without any significant benefit. Notes that the symptoms seem to be worse in the morning, but can also occur at any time. Happens in every position. Patient also hearing a clicking in the back of her head when she turns her head to the right, this is intermittent. Notes history of cervical fusion in the past, recently went to the hospital due to severe pain in her shoulders and neck. Notes that she had imaging of her neck which was unremarkable, but does not remember specifically which showed. Has not seen her neurosurgeon since the when she had her neck surgery. Patient also concerned about shaking. Patient notes some shaking from her extremities from time to time, notes that sometimes she will be staring at her hands and will start shaking. Notes that family has reported this to her. Notes that yesterday she was trying to hold something in bring it towards her where hand started shaking. Notes that she stared at it and was able to make it decreased significantly but not completely stopped. Has not noticed when she is distracted. Also notes significant worsening in headaches lately. Notes history of migraines when she was young, but notes that she has been getting more frequent headaches. Not always associated with the dizziness. Also getting vision changes and starting to see spots, stars in her vision lasting for minutes at a time. This is also never happened to her before but does not seem to be correlated to the dizziness. Do you have to be up to have the dizziness or can you have the dizziness when seated or lying down? Any position Do you feel like things are moving in when you know they are actually still? Sometimes internal and external, also presyncope (drinks a lot of water) Do you have otalgia? yes Do you have tinnitus? No Do you get dizzy turning your head? Sometimes Do you have trouble with dizziness getting up from a chair or from a seat? Sometimes Have you had falls? No Is there any vision change with the dizziness? Sees stars with bright lights sometimes, but not always with the dizziness. Do you have headache associated with the dizziness? More headaches lately than typical. Migraines when she was a teenager. Unsure if she has a headache with the dizziness. Have you had hearing loss with your dizziness: no Onset with valsalva: no (canal dehiscence) Worse in crowds, end of day or standing: no (PPPD) Nausea: yes Any other symptoms associated (if not think recurrent vestibulopathy): Review of Systems There is no problem list on file for this patient. PAST MEDICAL HISTORY No date: POAG (primary open-angle glaucoma) Medications: Reviewed venlafaxine ER (EFFEXOR XR) 150 mg 24 hr capsule Take 150 mg by mouth once daily. ergocalciferol 50,000 unit capsule (VITAMIN D2, DRISDOL) Take 50,000 Units by mouth one time a week. venlafaxine (EFFEXOR) 75 mg tablet Take 75 mg by mouth three times a day. losartan (COZAAR) 100 mg tablet Take 100 mg by mouth once daily. busPIRone (BUSPAR) 5 mg tablet Take 5 mg by mouth three times a day. oyrv-E3-eswlub-R5-Fl-Ow-lizeth 250 mg-400 unit -40 mg-5 mg tab Take 250 mg by mouth once daily. meclizine (ANTIVERT) 25 mg tab Take 25 mg by mouth three times a day as needed (dizziness). latanoprost, PF, 0.005 % drop Use 1 Drop in eyes once daily. 1 drop per eye omega 4-ybj-qub-fish oil (FISH OIL) 100-160-1,000 mg cap Take by mouth. omeprazole 40 mg capsule latanoprost (XALATAN) 0.005 % ophthalmic solution Use 1 Drop in both eyes daily at bedtime. atorvastatin (LIPITOR) 20 mg tablet Cholecalciferol, Vitamin D3, 50 mcg (2,000 unit) cap Take by mouth. ALLERGIES No Known Allergies FAMILY HISTORY Problem Relation Age of Onset No Ocular Disease No Family History PAST SURGICAL HISTORY 2016: TRABECULOPLASTY BY LASER SURGERY; Right Comment: Selective laser Trabeculoplasty (SLT) SOCIAL HISTORY No social history on file. Tobacco Use: Low Risk (02/03/2024) Patient History Smoking Tobacco Use: Never Smokeless Tobacco Use: Never Passive Exposure: Not on file PHYSICAL EXAM 02/03/24 1303 02/03/24 1314 02/03/24 1316 SpO2: 98% Weight: 86.5 kg (190 lb 9.6 oz) Orthostatic BP: 152/83 140/77 145/99 BP Position: Sitting Supine Standing Orthostatic Pulse: 74 76 86 Neurological Exam Cognitive and Language: Alert and answered questions appropriately. Language was fluent. Followed simple and complex commands. Cranial Nerves: Visual james were full tested binocularly to finger counting in all 4 quadrants with no visual extinction. Pupils were equal and both reactive to light. Extraocular movements were full with no diplopia or nystagmus. Facial sensation was normal to light touch in V1 to V3. Facial strength was symmetric. Normal hearing grossly bilaterally. Palatal raise was symmetric. Shoulder shrug was symmetric. Tongue protrusion was symmetric with no fasciculations. Right Left Shoulder Abduction: 5 5 Elbow Extension 4+ 5 Elbow Flexion 4+ 5 Wrist Extension 5 5 Finger Extension 5 5 Finger Abduction 5 5 Right Left Hip Flexion 5 5 Knee Extension 5 5 Knee Flexion 5 5 Dorsiflexion 5 5 Plantar Flexion 5 5 Rest tremor: absent Tone: Normal in all four limbs Reflexes: Right Left Brachioradialis 2 2 Biceps 2 3 Triceps 3 2 Patella 2 2 Ankle 2 2 Sensory: normal to light touch x 4 limbs. Coordination: Normal finger to nose and heel to hall testing bilaterally. Negative romberg. Slightly unstable tandem gait Head Impulse testing: Negative Labs: No results found for: WBC, HGB, HCT, MCV, PLT No results found for: HBA1C No results found for: CHOL, HDL, LDL, TG No results found for: TSH Radiology: Unable to review This note was dictated using [employer] speech recognition software and may contain some errors that were a result of the program not accurately transcribing what was dictated, despite efforts to make corrections. Note that unless urgent, test and MRI results will be discussed at next follow-up visit. PROMIS (Patient-Reported Outcomes Measurement Information System) is a set of person-centered measures that evaluates and monitors physical, social, and emotional health. It can be used with the general population and with individuals living with chronic conditions. PROMIS 10: PHYSICAL AND MENTAL HEALTH: Medical Decision Making: Medical Decision Making Level: 1 - N/A I spent a total of 60 minutes on the date of the service which included preparing to see the patient, [id number] patient care, completing clinical documentation, obtaining and/or reviewing separately obtained history, performing a medically appropriate examination, counseling and educating the patient/family/caregiver, and ordering medications, tests, or procedures. documented in this encounter [facility] 01-30-2024 Telephone encounter Note Fax received from [facility] for pt to be seen for dizziness and vertigo. Please assist in scheduling with a general neurologist. Irina Art LPN [facility] 01-30-2024 Miscellaneous Notes Fax received from [facility] for pt to be seen for dizziness and vertigo. Please assist in scheduling with a general neurologist. Irina Art LPN documented in this encounter [facility] 12-30-2022 History and physi edda note Note Date/Time December 30, 2022 8:15am [facility] Medical Records Department [address] [place] [address] History & Physical Exam 12/30/22813 MR#: [id number] Acct: [id number] Name: DOMINIC ARTEAGA Rep #:[id number] : 1955 67 From: Tommie Friend DO PCP: Dr. Bakari Avila MD [place] [facility] [place] [address] History and Physical Date of Admission: 12/30/22 DOMINIC ARTEAGA, is a 67 F who presents to the office today for initial consult. WSA established 5.26.21 for lower abdominal pain with blood in stool; history ofBarrett?s esophagus.?EGD and colonoscopy .03.13?EGD normal visualization. Pathology ofesophagus noting reflux esophagitis without meta/dysplasia.? Colonoscopy advanced to cecum with normal visualization. No specimens? PCP OV 5.2.23 for chronic f/u. Notes GERD with PPI maintenance that is ineffective with feeling of need to vomit frequently.? ? Exam Const General: cooperative and comfortable Nutritional Appearance: average body habitus and well nourished [facility] Head: normal to inspection Ears: hearing grossly normal bilaterally Nose: external nose normal Face and sinus: normal facial exam Mouth: oral mucosae normal Throat: posterior oropharynx normal Eyes General: appearance normal, both eyes and all related structures Neck Neck: normal visual inspection Chest Chest palpation & inspection: normal inspection of the chest and normal palpation of entire chest wall Resp Effort & Inspection: normal respiratory effort Auscultation: Bilateral: Clear to Auscultation Cardio Palpation: normal PMI Rate: regular rate Rhythm: regular rhythm GI Inspection: normal to inspection Auscultation: normal bowel sounds Percussion: normal to percussion Palpation: no hepatosplenomegaly Skin General: no rashes or lesions noted Neuro General: patient alert Extrem General: normal to inspection Psych Affect: normal affect Quality Reporting Tobacco Screening ([facility] 138) Smoking Status: Never smoker Assessment and Plan Assessment and Plan (1) Nausea: Status: Acute Plan: The differential diagnosis for her nausea does include bile induced reflux gastritis and esophagitis. When I look back at her upper endoscopy when she hadan evaluation of her upper GI tract back in 2020 there was a lot of present in her pictures of her duodenum and I suspect that is the same bile this causing the issue in her esophagus and possibly leading to her nausea. It sounds like she has a functional motility disorder. She will need a gastric emptying study and possibly evaluation for small bacterial overgrowth with bile the conjugationof pancreatic enzymes and digestive enzymes. I think this is also leading to her accelerated gastrocolic reflex. She will also undergo repeat upper endoscopy to evaluate upper GI tract so we can evaluate the motility and contraction of her stomach to see if she has any chronic inflammation in her stomach secondary to bile. (2) Abdominal pain: Status: Acute Qualifiers: Abdominal location: lower abdomen, unspecified Qualified Code(s): R10.30 - Lower abdominal pain, unspecified Plan: Differential diagnosis for abdominal pain does include duodenal gastric reflux, IBS, exocrine pancreatic insufficiency, bile gastritis. She will get stool studies, CRP, ESR, gastrin level. After a full work-up hopefully we able to make recommendations regarding her GI issues. Orders: Orders Amylase Today R10.9 - Unspecified abdominal pain, R11.0 - Nausea CRP Today R10.9 - Unspecified abdominal pain, R11.0 - Nausea Iron Today K92.1 - Melena, R10.9 - Unspecified abdominal pain, R11.0 - Nausea Ferritin Today K92.1 - Melena, R10.9 - Unspecified abdominal pain, R11.0 - Nausea LDH Today R10.9 - Unspecified abdominal pain, R11.0 - Nausea Lipase Today R10.9 - Unspecified abdominal pain, R11.0 - Nausea Iron Binding Capacity,Total Today K92.1 - Melena, R10.9 - Unspecified abdominal pain, R11.0 - Nausea Retic Panel Count Today R10.9 - Unspecified abdominal pain, R11.0 - Nausea Erythrocyte Sed Rate Today R10.9 - Unspecified abdominal pain, R11.0 - Nausea Allergen, Food Profile Today R10.9 - Unspecified abdominal pain, R11.0 - Nausea MERRILL Comprehensive Panel Today R10.9 - Unspecified abdominal pain, R11.0 - Nausea Calprotectin, Stool Today R10.9 - Unspecified abdominal pain, R11.0 - Nausea Fecal Fat, Qualitative Today R10.9 - Unspecified abdominal pain, R11.0 - Nausea OVA+PARA w/Giardia EIA [id number] Today R10.9 - Unspecified abdominal pain, R11.0 - Nausea ENTERIC PATHOGEN PANEL STOOL Today K58.9 - Irritable bowel syndrome without diarrhea, K92.1 - Melena, R10.9 - Unspecified abdominal pain, R11.0 - Nausea Stool Occult Blood iFOB Today R10.9 - Unspecified abdominal pain, R11.0 - Nausea Stool Lactoferrin/WBC Today K58.9 - Irritable bowel syndrome without diarrhea, R10.9 - Unspecified abdominal pain, R11.0 - Nausea ANCA Today R10.9 - Unspecified abdominal pain, R11.0 - Nausea Immunoglobulin A Today R10.9 - Unspecified abdominal pain, R11.0 - Nausea Immunoglobulin E Today R10.9 - Unspecified abdominal pain, R11.0 - Nausea WILL + Protein Elect, Serum Today R10.9 - Unspecified abdominal pain, R11.0 - Nausea Immunoglobulin G Today R10.9 - Unspecified abdominal pain, R11.0 - Nausea Immunoglobulin M Today R10.9 - Unspecified abdominal pain, R11.0 - Nausea Pancreatic Elastase, Fecal Today R10.9 - Unspecified abdominal pain, R11.0 - Nausea Allergen, Rast Food Profile Today R10.9 - Unspecified abdominal pain, R11.0 - Nausea Gastric Emptying Study Today R10.9 - Unspecified abdominal pain, R11.0 - Nausea,R14.0 - Abdominal distension (gaseous) I have examined the patient and the H&P has been reviewed. There are no clinicalchanges since date of exam. 12/30/22 0815 <Electronically signed by Tommie Avelar DO> Cosigner Signature (if applicable): CC: Dr. Bakari Avila MD; Tommie Avelar DO~ Signed [facility] Work Phone: [phone]) 442-474107-10-2023 [facility] HospitalEvaluation noteNo assessment information availableWProtestant Hospital Work Phone: Evaluation note* Diagnosis Onset Date Resolution Status Abdominal pain acute Nausea acute [facility] Work Phone: Evaluation note* Diagnosis Onset Date Resolution Status Abdominal pain acute Exocrine pancreatic insufficiency acute Nausea acute [facility] Work Phone: Evaluation note* Diagnosis Onset Date Resolution Status Abdominal pain chronic Exocrine pancreatic insufficiency chronic Nausea chronic [facility] Work Phone: Evaluation note* Diagnosis Dizziness- Primary Dizziness and giddiness Cervical stenosis of spinal canal Spinal stenosis in cervical region Vestibular migraine Worsening headaches Headache Tremor Abnormal involuntary movements documented in this encounter [facility] note* Diagnosis BPPV (benign paroxysmal positional vertigo), right- Primary Dizziness Dizziness and giddiness documented in this encounter [facility] note* Diagnosis BPPV (benign paroxysmal positional vertigo), right- Primary documented in this encounter [facility] note* Diagnosis BPPV (benign paroxysmal positional vertigo), right- Primary documented in this encounter [facility] for referral (narrative)No reason for referral information availableWProtestant Hospital Work Phone: Summary Purpose Family History No Family History Records Found Relationship Condition Age at Onset Recorded Date/T liam mother Cardiac disease Unknown Cerebrovascular accident (CVA) Unknown Malignant neoplasm of skin Unknown Hypertension Unknown father Malignant neoplasm of pancreas Unknown Cardiac disease Unknown Diabetes mellitus Unknown Advance Directives No Advanced Directives Records Found Advance Directive Response Recorded Date/ Time Living Will No December 27, 2020 1 0:56am Power of Slimer No December 27, 2020 10:56am Advance Directive Response Recorded Date/ Time Living Will No December 27, 2020 9 :56am Power of Slimer No December 27, 2020 9:56am Advance Directive Response Recorded Date/ Time Living Will No December 27, 2022 9 :13am Power of Slimer No December 27, 2022 9:13am Advance Directive Response Recorded Date/ Time Living Will No December 27, 2022 8 :13am Power of Slimer No December 27, 2022 8:13am Chief Complaint and Reason for Visit Chief Complaint ELBOW PAIN Chief Complaint SCREENING E ORDER Chief Complaint E ORDER Chief Complaint GERD Consult EORDERS Reason for Visit Abdominal pain Nausea Chief Complaint GERD Consult EORDERS BLOATING, ABD PAIN, NAUSEA SCREENING Reason for Visit Abdominal pain Nausea Chief Complaint GERD Consult EORDERS BLOATING, ABD PAIN, NAUSEA SCREENING JITTERY Reason for Visit Abdominal pain Nausea Chief Complaint 2 wk fu Tremor, unspecified Reason for Visit Abdominal pain Exocrine pancreatic insufficiency Nausea Chief Complaint Tremor, unspecified Chief Complaint Tremor, unspecified CP CP Chief Complaint Tremor, unspecified CP CP 6 MO FU Reason for Visit Abdominal pain Exocrine pancreatic insufficiency Nausea Chief Complaint CP CP 6 MO FU Dizziness and giddiness PREOP Reason for Visit Abdominal pain Exocrine pancreatic insufficiency Nausea Chief Complaint Admit Date E-ORDER November 18, 2024 4:31p m FALL, L FRONT HEAD TRAUMA November 19, 2024 10:51am Reason for Referral Specialty Diagnoses / Procedures Referred By Contac t Referred To Contact [facility] Diagnoses BPPV (benign paroxysmal positional vertigo), right Procedures CONSULT TO PHYSICAL THERAPY PHYSICAL THERAPY EVALUATION HIGH COMPLEX 45 MINS Nikki Andrew PA-C [address] [place] [address] [facility] [place] [address] [place] [address] Referral ID Status Reason Start Date Expiration Date Visits Requested Visits Authorized [id number] Authorized PCP Requested Referral Auto-Generate d Referral 04/27/2024 04/27/2025 99 99 Additional Source Comments INFORMATION SOURCE (unrecogn ized section and content) DATE CREATED AUTHOR 12/17/2017 [facility] DATE CREATED AUTHOR AUTHOR'S ORGANIZ ATION 12/17/2017 [facility] DATE CREATED AUTHOR AUTHOR'S ORGANIZ ATION 06/01/2018 [facility] DATE CREATED AUTHOR AUTHOR'S ORGANIZ ATION [facility]2021 [facility] DATE CREATED AUTHOR AUTHOR'S ORGANIZ ATION 05/04/2022 [facility] DATE CREATED AUTHOR AUTHOR'S ORGANIZ ATION 08/05/2024 [facility] DATE CREATED AUTHOR AUTHOR'S ORGANIZ ATION 02/03/2025 [facility] Goals (unrecognized section and content) Goals may be documented in a n alternate sectionGoals may be documented in an alternate sectionGoals may be documented in an alternate sectionGoals may be documented in an alternate sectionGoals may be documented in an alternate sectionGoals may be documented in an alternate sectionGoals may be documented in an alternate sectionGoals may be documented in an alternate sectionGoals may be documented in an alternate sectionGoals may be documented in an alternate sectionGoals may be documented in an alternate sectionGoals may be documented in an alternate sectionGoals may be documented in an alternate sectionGoals may be documented in an alternate sectionGoals may be documented in an alternate sectionGoals may be documented in an alternate sectionGoals may be documented in an alternate section Care Teams (unrecognized sec tion and content) Team Status: Active Member Role Status Dates Dr. Bakari Avila MD Family Provider Active Dr. Bakari Avila MD Primary Care Provider Activ e Team Status: Inactive Member Role Status Dates Dr. Bakari Avila MD Primary Care Provider, Attending Provider, Referring Provider Active Team Status: Inactive Member Role Status Dates Dr. Bakari Avila MD Primary Care Provider, Atte nding Provider Active Team Status: Active Member Role Status Dates Dr. Bakari Avila MD Primary Care Provider, Attending Provider, Referring Provider Active Team Status: Inactive Member Role Status Dates Dr. Bakari Avila MD Primary Care Provider, Refe rring Provider Active Dr. Tommie Avelar DO Attending Provider Active Team Status: Inactive Member Role Status Dates Dr. Bakari Avila MD Primary Care Provider Activ e Dr. Tommie Avelar DO Attending Provider, Referring Provider Active Team Status: Active Member Role Status Dates Dr. Bakari Avila MD Primary Care Provider Activ e Dr. Tommie Avelar DO Attending Provid er, Referring Provider, Other Provider Active Team Status: Inactive Member Role Status Dates Dr. Bakari Avila MD Primary Care Provider Activ e Sakshi Moreira TABLE ASSEMBLER, TABLE ASSEMBLER-C Attending Provider, Referring Pro vider Active Team Status: Active Member Role Status Dates Dr. Bakari Avila MD Primary Care Provider, Referring Provider, Other Provider Active Dr. John Grimes MD Attending Provider Active Team Status: Active Member Role Status Dates Dr. Chaim Avila MD Family Provider Active Dr. Chaim Avila MD Primary Care Provider Acti ve Team Status: Inactive Member Role Status Dates Dr. Chaim Avila MD Primary Care Provider, Ref erring Provider Active Dr. Tommie Avelar DO Attending Provider Active Team Status: Active Member Role Status Dates Dr. Chaim Avila MD Primary Care Provider, Referring Provider, Other Provider Active Dr. John Grimes MD Attending Provider Active Team Status: Active Member Role Status Dates Dr. Chaim Avila MD Primary Care Provider, Ref erring Provider Active Dr. Kamlesh Cole MD Attending Provider Active Team Status: Inactive Member Role Status Dates Dr. Chaim Avila MD Primary Care Provider, Att ending Provider Active Team Status: Inactive Member Role Status Dates Dr. Chaim Avila MD Primary Care Provider, Attending Provider, Referring Provider Active Team Status: Active Member Role Status Dates Dr. Chaim Avila MD Primary Care Provider Acti ve Dr. Joseph Ferreira MD Attending Provider, Referring Pr ovider Active Team Status: Inactive Member Role Status Dates Dr. Chaim Avila MD Primary Care Provider Acti ve Dr. Joseph Ferreira MD Attending Provider, Referring Pr ovider Active Ethylbenzene Oxidizer Relationship Specialty Start Date End Date Domingo Cardona DO [address] [place] [id number] PCP - General 03/13/04 Ethylbenzene Oxidizer Relationship Specialty Start Date End Date Domingo Cardona DO [address] [place] [address] [id number] PCP - General 03/13/04 Ethylbenzene Oxidizer Relationship Specialty Start Date End Date Domingo Cardona DO [address] [place] [address] [id number] PCP - General 03/13/04 Ethylbenzene Oxidizer Relationship Specialty Start Date End Date Domingo Cardona DO [address] [id number] PCP - General 03/13/04 Ethylbenzene Oxidizer Relationship Specialty Start Date End Date Domingo Cardona DO [address] [id number] PCP - General 03/13/04 Ethylbenzene Oxidizer Relationship Specialty Start Date End Date Domingo Cardona DO [address] [place] [address] PCP - General 03/13/04 Team Status: Active Member Role Status Dates Dr. Chaim Avila MD Primary Care Provider Acti ve Team Status: Inactive Member Role Status Dates Dr. Chaim Avila MD Primary Care Provider Acti ve Start: October 27, 2024 End: October 27, 2024 Dr. Chaim Avila MD Attending Provider Active Start: October 27, 2024 End: October 27, 2024 Dr. Chaim Avila MD Referring Provider Active Start: October 27, 2024 End: October 27, 2024 Team Status: Inactive Member Role Status Dates Dr. Chaim Avila MD Primary Care Provider Acti ve Start: November 05, 2024 End: November 05, 2024 Dr. Chaim Avila MD Attending Provider Active Start: November 05, 2024 End: November 05, 2024 Dr. Chaim Avila MD Referring Provider Active Start: November 05, 2024 End: November 05, 2024 Team Status: Inactive Member Role Status Dates Dr. Chaim Avila MD Primary Care Provider Acti ve Start: November 18, 2024 End: November 18, 2024 Dr. Chaim Avila MD Attending Provider Active Start: November 18, 2024 End: November 18, 2024 Dr. Chaim Avila MD Referring Provider Active Start: November 18, 2024 End: November 18, 2024 Team Status: Active Member Role Status Dates Dr. Chaim Avila MD Primary Care Provider Acti ve Start: November 19, 2024 Dr. Chaim Avila MD Attending Provider Active Start: November 19, 2024 Dr. Chaim Avila MD Referring Provider Active Start: November 19, 2024 Team Status: Inactive Member Role Status Dates Dr. Chaim Avila MD Primary Care Provider Acti ve Start: November 19, 2024 End: November 19, 2024 Dr. Chaim Avila MD Attending Provider Active Start: November 19, 2024 End: November 19, 2024 Dr. Chaim Avila MD Referring Provider Active Start: November 19, 2024 End: November 19, 2024 Source Comments (unrecognize d section and content) In the event this informatio n is protected by the Federal Confidentiality of Alcohol and Drug Abuse Patient Records regulations: The Federal rules restrict any use of the information to criminally investigate or prosecute any alcohol or drug abuse patient.[facility] the event this information is protected by the Federal Confidentiality of Alcohol and Drug Abuse Patient Records regulations: The Federal rules restrict any use of the information to criminally investigate or prosecute any alcohol or drug abuse patient.[facility] the event this information is protected by the Federal Confidentiality of Alcohol and Drug Abuse Patient Records regulations: The Federal rules restrict any use of the information to criminally investigate or prosecute any alcohol or drug abuse patient.[facility] the event this information is protected by the Federal Confidentiality of Alcohol and Drug Abuse Patient Records regulations: The Federal rules restrict any use of the information to criminally investigate or prosecute any alcohol or drug abuse patient.[facility] the event this information is protected by the Federal Confidentiality of Alcohol and Drug Abuse Patient Records regulations: The Federal rules restrict any use of the information to criminally investigate or prosecute any alcohol or drug abuse patient.[facility] the event this information is protected by the Federal Confidentiality of Alcohol and Drug Abuse Patient Records regulations: The Federal rules restrict any use of the information to criminally investigate or prosecute any alcohol or drug abuse patient.[facility] Center[facility] the event this information is protected by the Federal Confidentiality of Alcohol and Drug Abuse Patient Records regulations: The Federal rules restrict any use of the information to criminally investigate or prosecute any alcohol or drug abuse patient.[facility] Reason for Visit (unrecogniz ed section and content) Reason Comments New Patient Dizziness and vertig o Reason Comments Appointment Reason Comments PT Eval Specialty Diagnoses / Procedures Referred By Contac t Referred To Contact [facility] Diagnoses BPPV (benign paroxysmal positional vertigo), right Procedures CONSULT TO PHYSICAL THERAPY PHYSICAL THERAPY EVALUATION HIGH COMPLEX 45 MINS Nikki Andrew PA-C [address] [place] [address] [facility] [place] [address] [place] [id number] Referral ID Status Reason Start Date Expiration Date Visits Requested Visits Authorized [id number] Authorized PCP Requested Referral Auto-Generate d Referral 04/27/2024 04/27/2025 99 99 Reason Comments Physical Therapy Specialty Diagnoses / Procedures Referred By Contac t Referred To Contact [facility] Diagnoses BPPV (benign paroxysmal positional vertigo), right Procedures CONSULT TO PHYSICAL THERAPY PHYSICAL THERAPY EVALUATION HIGH COMPLEX 45 MINS Nikki Andrew PA-C [address] [place] [address] Phone: tel: fax: [facility] [address] [place] [id number] Referral ID Status Reason Start Date Expiration Date Visits Requested Visits Authorized [id number] Authorized PCP Requested Referral Auto-Generate d Referral 04/27/2024 04/27/2025 99 99 FOR RECORDS PERTAINING TO PATIENTS WHO ARE [...] BE BASED ON THE PRIMARY CLINICAL RECORDS. [employer] provides no warranty or guarantee of the accuracy or completeness of [phone] in [phone] [id number]
[2025-02-14] MEDS: 0.9% Normal Saline (1000mL) 1,000 ML 100 ML IV (20:22)
--- OUTSIDE RECORDS SUMMARY | 2025-02-14 20:22 | XMS RPT_ITS | CCD ---
Author Organization [facility] Care Team Providers Care Supervisor Inspecting Name Role Phone CHESTER ROCHA Unavailable Unavailable AJ, CHESTER Lamas Unavailable Unavailable NO REFERRING Unavailable Unavailable CHESTER ROCHA Unavailable Unavailable AJ, CHESTER TIJERINA Unavailable Unavailable Mai RN, Laura Hanna Unavailable [phone] Francis Spring Unavailable Unavailable PROVIDER, UNKNOWN Attending Unavailable PROVIDER, UNKNOWN Admitting Unavailable KAYLI MARIA Referring Unavailab Chaim Mao Attending Unavail able Dr. Bakari Avila Primary Care Provider [phone] Dr. Bakari Avila Referring Provider FriendDr. Reilly Attending Provider [phone] Tommie Avelar Referring Provider [phone] FriendDr[address] Reilly Other Provider Dr. Bakari Avila Primary Care Provider [phone] Dr. Bakari Avila Referring Provider FriendDr. Reilly Attending Provider [phone] Bakari Avila Primary Care Provider [phone] Dr. Bakari Avila Referring Provider Dr. Bakari Avila Other Provider [phone] John Grimes Attending Provider Dr. Baakri Avila Primary Care Provider Dr. Bakari Avila Referring Provider Dr. Bakari Avila Other Provider [phone] John Grimes Attending Provider Friend, Dr. Reilly Attending Provider Dr. Chaim Avila Primary Care Provider [phone] Dr. Chaim Avila Referring Provider Dr. Chaim Avila Other Provider [phone] Dr. Kamlesh Cole Attending Provider [phone] Wiggers DO, Domingo B Primary Care Provider Unavailable Primary Care Provider Unavailabl e O'COLLIN, IRINA Attending Unavailable QUEENER, NIKKI Referring Unavailable WIGGERS, DOMINGO B Primary Care Unavailable QUEENER, NIKKI Attending Unavailable WIGGERS, DOMINGO B Primary Care Unavailable QUEENER, NIKKI Referring Unavailable WIGGERS, DOMINGO B Primary Care Unavailable LISBETH RAMÍREZ Attending Unavailable WIGGERS, DOMINGO B Primary Care Unavailable O'COLLIN, IRINA Attending Unavailable QUEENER, NIKKI Referring Unavailable Margarita KOCH, Dr. Arciniega Primary Care Provider Dr. Chaim Avila MD Attending Provider Dr. Chaim Avila MD Referring Provider Chaim [...] Unavailable Margarita, Chaim Primary Care Unavailable McMorrow CALCULATION REVIEWERThai Attending Unavailable McMorrow CALCULATION REVIEWER Thai Referring Unavailable Chaim Avila Primary Care Unavailable Chaim Avila Attending Unavailable Chaim Avila Referring Unavailable Allergies Allergy Classification Reported Allergen(s) Allergy Type Date of Onset Reaction(s) Facility (20 sources) Lisinopril; Translations: [LISINOPRIL] Drug Allergy [facility]-05-2019 [facility] hydrOXYzine Drug Allergy 10-24-2022 Other [facility] (1 source) hydrOXYzine Drug Allergy 02-26-2023 [facility] Repository Medications Current Medications Medication Drug [...] by mouth three times a day. Active jzol-J3-udppfs-F8-Sj-Tg-bo an 250 mg-400 unit -40 mg-5 mg tab (6 sources) take 1 tablet by mouth once daily ofbn-K9-fujzoj-F5-Lx-Ce-lizeth 250 mg-400 unit -40 mg-5 mg tab Take 250 mg by mouth once daily. Active take 1 tablet by mar th once daily jvhm-G8-oksnrh-Y6-Ws-Os-lizeth 250 mg-40 0 unit -40 mg-5 mg tab Take 250 mg by mouth once daily. 0 Active cholecalciferol 0.05 mg oral capsule (7 sources) Vitamin D Cholecalciferol, Vitamin D3, 50 mcg (2,000 unit) cap Take by mouth. Active docusate sodium 50 mg / sennosides, alf 8.6 mg oral tablet (3 sources) Start: 2023 Sennosides-Docusate Sodium (Stool Softener-Stimulant Laxat) 8.6-50 mg Tablet Active 2 {tbl} PO TWICE DAILY NEEDED as needed for Constipation 0 December 19, 2023 12:00am ergocalciferol 1.25 mg oral capsule (20 sources) Provitamin D2 Compound Start: 2016 Ergocalciferol (Vitamin D2) (Vitamin D2) 50,000 UNIT capsule Active 91611 U PO EVERY WEEK March 12, 2018 [...] 8 December 19, 2023 12:00am As scheduled. [place] 8-Uqb-Xms-Fish Oil (Fish Oil 1,400 Mg Softgel) 1 EACH capsule,delayed release(DR/EC) (17 sources) Start: 2017 take 1 capsule by mouth three times daily [place] 6-Byt-Jdj-Fish Oil (Fish Oil 1,400 Mg Softgel) 1 EACH capsule,delayed release(DR/EC) Active 4200 MG PO THREE TIMES A DAY March 12, 2018 9:00am Start: 03-12-2018 take 1 capsule by [facility] once daily [place] 2-Scg-Thh-Fish Oil (Fish Oil 1,400 Mg Softgel) 1 EACH capsule,delayed release(DR/EC) Active 4200 MG PO DAILY March 11, 2018 11:00pm Start: 03-12-2018 take 1 capsule by [facility] once daily [place] 3-Dbx-Trn-Fish Oil (Fish Oil 1,400 Mg Softgel) 1 EACH capsule,delayed release(DR/EC) Active 4200 MG PO DAILY March 12, 2018 12:00am Start: 03-12-2018 take 1 capsule by [facility] three times daily [place] 9-Ywp-Jlw-Fish Oil (Fish Oil 1,400 Mg Softgel) 1 EACH capsule,delayed release(DR/EC) Active 4200 MG PO THREE TIMES A DAY March 11, 2018 11:00pm Start: 03-12-2018 take 1 capsule by [facility] three times daily [place] 1-Nvv-Rci-Fish Oil (Fish Oil 1,400 Mg Softgel) 1 EACH capsule,delayed release(DR/EC) Active 4200 MG PO THREE TIMES A DAY March 12, 2018 12:00am [place] 2-Tnq-Idy-Fish Oil (Fish Oil) 1 EACH capsule,delayed release(DR/EC) (3 sources) Start: 03-12-2018 take 1 capsule by mouth once daily [place] 9-Kny-Pix-Fish Oil (Fish Oil) 1 EACH capsule,delayed release(DR/EC) Active 4200 mg PO DAILY March 12, 2018 12:00am omega 0-zpe-kph-fish oil (FISH OIL) 100-160-1,000 mg cap (7 [...] th once daily EFFEXOR XR 150 MG TJ92B-YES One tablet by mouth daily VENLAFAXINE HCL [id number] Harry Johansen MS,PA-C Start: 2010 take 1 tablet by mar th once daily EFFEXOR XR 75 MG OJ77W-PKH One tablet by mouth daily VENLAFAXINE HCL [id number] Laura Oneill RN take 1 tablet by mar th three times daily venlafaxine (EFFEXOR) 75 mg tablet Take 75 mg by mouth three times a day. Active Completed/Discontinued Medications Medication Drug Class(es) Dates Sig (Normalized) Sig (Original) acetaminophen 325 mg / HYDROcodone bitartrate 10 mg oral tablet (1 source) Opioid Agonist Start: 04-01-2017 NORCO 10-325 MG TABS as directed HYDROCODONE-ACETAM INOPHEN [id number] Augusto Rosenberg MD acyclovir 800 mg oral tablet (1 source) Herpesvirus Nucleoside Analog DNA Polymerase Inhibitor, Herpes Simplex Virus Nucleoside Analog DNA Polymerase Inhibitor, Herpes Zoster Virus Nucleoside Analog DNA Polymerase Inhibitor Start: 04-01-2017 take 1 tablet by mouth five times daily ACYCLOVIR 800 MG TABS One tablet by mouth five times daily x 10 days ACYCLOVIR [id number] Augusto Rosenberg MD aspirin 81 mg delayed [...] TABS One tablet by mouth daily ASPIRIN [id number] Augusto Rosenberg MD fenofibrate 120 mg oral tablet (2 sources) Peroxisome Proliferator Receptor alpha Agonist Start: 03-31-2017 take 1 tablet by mouth once daily FENOFIBRATE 120 MG TABS One tablet by mouth daily FENOFIBRATE [id number] Laura Oneill RN Fish Oils (3 sources) Start: 03-31-2017 take 1 tablet by mouth three times daily FISH OIL CAPS One tablet by mouth three times daily OMEGA-3 FATTY ACIDS CAPS [id number] Augusto Rosenberg MD Start: 03-31-2017 take 1 tablet by mar th once daily FISH OIL CAPS One tablet by mouth daily OMEGA-3 FATTY ACIDS CAPS [id number] Laura Oneill RN metFORMIN hydrochloride 500 mg oral tablet (2 sources) Biguanide Start: 03-31-2017 take 1 tablet by mouth twice daily METFORMIN HCL 500 MG TABS One half tablet by mouth twice daily METFORMIN HCL 51730584762 Laura Oneill RN omeprazole 40 mg delayed [...] CPDR One tablet by mouth daily OMEPRAZOLE 05163035716 Laura Oneill RN prazosin 2 mg oral [...] daily x 3 days, take PC PREDNISONE [id number] Laura Oneill RN Protandim (20 sources) Start: [...] TABS One tablet by mouth daily CYANOCOBALAMIN [id number] Augusto Rosenberg MD Start: 03-31-2017 take 1 tablet by mar twice daily VITAMIN B-12 1000 MCG TABS One tablet by mouth twice daily CYANOCOBALAMIN 25349418428 Laura Oneill RN Problems Active Problems Problem [...] without Contrasto n 11-19-2024 Brain/Head without Contrast [facility] [address] [place] [address] [id number] Brain/Head without Contrast MR#: [id number] Acct: [id number] Name: DOMINIC ARTEAGA VARSHA Rep #: [id number] : 1955 F 69 From: Vaughn cotto MD PCP: Dr. Chaim Avila MD Status: REG CLI Study: Brain/Head without Contrast Date of Exam: 10/23 Exam# [id number] Ordering Dr: Chaim Avila PROCEDURE: BRAIN/HEAD WITHOUT [...] Contrast IMPRESSION: NO ACUTE FINDINGS Reading Location: [place] [address] CC: Dr. Chaim Avila MD Member Service Specialist: Signed Normal [facility] Knee 4 or More Viewson 11-18 Knee 4 or More Views [facility] [address] [place] [address] Knee 4 or More Views MR#: [id number] Acct: [id number] Name: DOMINIC ARTEAGA Rep #: [id number] : 1955 F 69 From: Shar Peng MD PCP: Dr. Chaim Avila MD Status: REG CLI Study: Knee 4 or More Views Date of Exam: 11/18/24 Exam# [id number] Ordering Dr: Chami Avila PROCEDURE: KNEE 4 OR MORE VIEWS [...] follow-up with MRI as warranted. Reading Location: [facility] CC: Dr. Chaim Avila MD Member Service Specialist: Signed Normal [facility] DHEA Sulfateon 11-06-2024 DHEA SULFATE 52.8 ug/dL Normal 20.4-186.6 [facility] Comment on above: Order Comment: Order Date: 11/02/24 Order Info: [id number] - DHEA-S N Result Comment: Perf ormed at: [facility] [id number] Pack Changer: Nicolas Fung PhD, Phone: [phone] Performed By: #### L 3300.1500, L3100.5055, L101.9900, L100.0100, L501.9520, L506.0400 #### [facility] [address] [place], [address] Absolute lymphocyte countOrd ered By: Chaim Avila on 11-05-2024 Lymphocytes Auto (Unsp spec) [#/Vol] 1.34 10*3/uL 0.83-4.51 [facility] Absolute neutrophil countOrd ered By: Chaim Avila on 11-05-2024 Neutrophils (Bld) [#/Vol] 3.1 10*3/uL 2.0-7.7 [facility] Automated lymphocyte count a s percentage of total leukocytesOrdered By: Chaim Avila on 11-05-2024 Lymphocytes/100 WBC Auto (Unsp spec) 25.4 % 19-41 [facility] Basophil percentageOrdered B y: Chaim Avila on 11-05-2024 Basophils/100 WBC (Bld) 1.1 % High 0-1 [facility] CBC W/Diff, Automatedon 10-21 Absolute Lymph 1.34 X10 3/uL Normal 0.83-4.51 [facility] Comment on above: Order Comment: Order Date: 11/02/24 Order Info: 0184-1 - CBCD Order Info: [id number] - SED Performed By: #### L 3300.1500, L3100.5055, L101.9900, L100.0100, L501.9520, L506.0400 #### [facility] [address] [place], [address] Absolute Neut 3.1 X10 3/uL Normal 2.0-7.7 [facility] Comment on above: Order Comment: Order Date: 11/02/24 Order Info: 0184- - CBCD Order Info: [id number] - SED Performed By: #### L 3300.1500, L3100.5055, L101.9900, L100.0100, L501.9520, L506.0400 #### [facility] [address] [place], [address] Basophils/100 WBC (Bld) 1.1 % High 0-1 [facility] Comment on above: Order Comment: Order Date: 11/02/24 Order Info: 0184- - CBCD Order Info: [id number] - SED Performed By: #### L 3300.1500, L3100.5055, L101.9900, L100.0100, L501.9520, L506.0400 #### [facility] [address] [place], [place], [address] (815) Eosinophils/100 WBC (Bld) 4.2 % Normal 0-5 [facility] Comment on above: Order Comment: Order Date: 11/02/24 Order Info: 0184- - CBCD Order Info: [id number] - SED Performed By: #### L 3300.1500, L3100.5055, L101.9900, L100.0100, L501.9520, L506.0400 #### [facility] [address] [place], [place], [address] [phone] Erythrocyte distribution width (RBC) [Ratio] 13.4 % Normal 11.6-14.6 [facility] Comment on above: Order Comment: Order Date: 11/02/24 Order Info: 0184- - CBCD Order Info: [id number] - SED Performed By: #### L 3300.1500, L3100.5055, L101.9900, L100.0100, L501.9520, L506.0400 #### [facility] [address] [place], [address] Hematocrit (Bld) [Volume fraction] 44.8 % Normal 37-47 [facility] Comment on above: Order Comment: Order Date: 11/02/24 Order Info: 183-06 - CBCD Order Info: [id number] - SED Performed By: #### L 3300.1500, L3100.5055, L101.9900, L100.0100, L501.9520, L506.0400 #### [facility] [address] [place], [address] Hemoglobin (Bld) [Mass/Vol] 14.4 g/dL Normal 12.0-15.0 [facility] Comment on above: Order Comment: Order Date: 11/02/24 Order Info: 183-06 - CBCD Order Info: - SED Performed By: #### L 3300.1500, L3100.5055, L101.9900, L100.0100, L501.9520, L506.0400 #### [facility] [address] [place], [address] IG% 0.200 Normal 0.0-0.9 [facility] Comment on above: Order Comment: Order Date: 11/02/24 Order Info: 183-06 - CBCD Order Info: [id number] - SED Result Comment: IG% - Immature Granulocytes (promyelocytes, myelocytes and metamyelocytes) > 1% indicates that a LEFT SHIFT is Present. Performed By: #### L 3300.1500, L3100.5055, L101.9900, L100.0100, L501.9520, L506.0400 #### [facility] [address] [place], [address] Lymphocytes/100 WBC (Bld) 25.4 % Normal 19-41 [facility] Comment on above: Order Comment: Order Date: 11/02/24 Order Info: 018- - CBCD Order Info: [id number] - SED Performed By: #### L 3300.1500, L3100.5055, L101.9900, L100.0100, L501.9520, L506.0400 #### [facility] [address] [place], [address] MCH (RBC) [Entitic mass] 30.2 pg Normal 27.0-32.0 [facility] Comment on above: Order Comment: Order Date: 11/02/24 Order Info: 0184-1 - CBCD Order Info: 76747-4 - SED Performed By: #### L 3300.1500, L3100.5055, L101.9900, L100.0100, L501.9520, L506.0400 #### [facility] [address] [place], [address] MCHC (RBC) [Mass/Vol] 32.1 g/dL Normal 32-36 [facility] Comment on above: Order Comment: Order Date: 11/02/24 Order Info: [id number] - CBCD Order Info: [id number] - SED Performed By: #### L 3300.1500, L3100.5055, L101.9900, L100.0100, L501.9520, L506.0400 #### [facility] [address] [place], [address] MCV (RBC) [Entitic vol] 93.9 fL Normal 81-99 [facility] Comment on above: Order Comment: Order Date: 11/02/24 Order Info: 0184- - CBCD Order Info: [id number] - SED Performed By: #### L 3300.1500, L3100.5055, L101.9900, L100.0100, L501.9520, L506.0400 #### [facility] [address] [place], [address] Monocytes/100 WBC (Bld) 9.8 % Normal 0-10 [facility] Comment on above: Order Comment: Order Date: 11/02/24 Order Info: 0184- - CBCD Order Info: [id number] - SED Performed By: #### L 3300.1500, L3100.5055, L101.9900, L100.0100, L501.9520, L506.0400 #### [facility] [address] [place], [address] Neutrophils/100 WBC (Bld) 59.3 % Normal 47-70 [facility] Comment on above: Order Comment: Order Date: 11/02/24 Order Info: 0184-1 - CBCD Order Info: [id number] - SED Performed By: #### L 3300.1500, L3100.5055, L101.9900, L100.0100, L501.9520, L506.0400 #### [facility] [address] [place], [address] Nucleated RBC (Bld) [#/Vol] 0 10*3/uL Normal 0-5 [facility] Comment on above: Order Comment: Order Date: 11/02/24 Order Info: 0184-1 - CBCD Order Info: 35533-5 - SED Performed By: #### L 3300.1500, L3100.5055, L101.9900, L100.0100, L501.9520, L506.0400 #### [facility] [address] [place], [address] Platelet mean volume (Bld) [Entitic vol] 9.5 fL Normal 6.2-12.0 [facility] Comment on above: Order Comment: Order Date: 11/02/24 Order Info: 0184-1 - CBCD Order Info: [id number] - SED Performed By: #### L 3300.1500, L3100.5055, L101.9900, L100.0100, L501.9520, L506.0400 #### [facility] [address] [place], [address] Platelets (Bld) [#/Vol] 299 10*3/uL Normal 150-450 [facility] Comment on above: Order Comment: Order Date: 11/02/24 Order Info: 018- - CBCD Order Info: [id number] - SED Performed By: #### L 3300.1500, L3100.5055, L101.9900, L100.0100, L501.9520, L506.0400 #### [facility] [address] [place], [address] RBC (Bld) [#/Vol] 4.77 10*6/uL Normal 4.2-5.4 [facility] Comment on above: Order Comment: Order Date: 11/02/24 Order Info: 183-06 - CBCD Order Info: [id number] - SED Performed By: #### L 3300.1500, L3100.5055, L101.9900, L100.0100, L501.9520, L506.0400 #### [facility] [address] [place], [place], [id number] RDW SD 45.8 fl High 35.1-43.9 [facility] Comment on above: Order Comment: Order Date: 11/02/24 Order Info: [id number] - CBCD Order Info: [id number] - SED Performed By: #### L 3300.1500, L3100.5055, L101.9900, L100.0100, L501.9520, L506.0400 #### [facility] [address] [place], [address] WBC (Bld) [#/Vol] 5.3 10*3/uL Normal 4.4-11.0 [facility] Comment on above: Order Comment: Order Date: 11/02/24 Order Info: [id number] - CBCD Order Info: [id number] - SED Performed By: #### L 3300.1500, L3100.5055, L101.9900, L100.0100, L501.9520, L506.0400 #### [facility] [address] [place], [place], [address] Calculated very low density lipoprotein (VLDL) cholesterol measurementOrdered By: Chaim Avila on 11-05-2024 Calculated very low density lipoprotein (VLDL) cholesterol measurement 23 mg/dL 5-40 [facility] Eosinophil percentageOrdered By: Chaim Avila on 11-05-2024 Eosinophils/100 WBC (Bld) 4.2 % 0-5 [facility] Erythrocyte Sed Rateon 11-05 SED RATE 12 mm/hr Normal 0-30 [facility] Comment on above: Order Comment: Order Date: 11/02/24 Order Info: 0184-1 - CBCD Order Info: [id number] - SED Performed By: #### L 3300.1500, L3100.5055, L101.9900, L100.0100, L501.9520, L506.0400 #### [facility] [address] [place], [address] Erythrocyte distribution wid th ratioOrdered By: Chaim Avila on 11-05-2024 Erythrocyte distribution width (RBC) [Ratio] 13.4 % 11.6-14.6 [facility] Erythrocyte distribution wid th standard deviationOrdered By: Chaim Avila on 11-05-2024 Erythrocyte distribution width (RBC) [Ratio] 45.8 fl High 35.1-43.9 [facility] Erythrocyte sedimentation ra teOrdered By: Chaim Avila on 11-05-2024 ESR (Bld) [Velocity] 12 mm/h 0-30 [facility] Estradiolon 11-05-2024 ESTRADIOL 10.6 pg/mL Normal [facility] Comment on above: Order Comment: Order Date: 08/09/24 Order Info: 0786-1 - CMP Order Info: [id number] - LIPID Result Comment: FEMA LES ADULT [...] Performed By: #### L 500.4100, L500.4050 #### [facility] [address] [place], [place], [address] FSH and LHon 11-05-2024 FSH 55.1 mIU/mL Normal [facility] Comment on above: Order Comment: Order Date: 11/01/24 Order Info: [id number] - LIPID Order Date: 11/02/24 Order Info: [...] 3300.1500, L3100.5055, L101.9900, L100.0100, L501.9520, L506.0400 #### [facility] [address] [place], [place], [address] LH 49.7 mIU/mL Normal [facility] Comment on above: Order Comment: Order Date: 11/01/24 Order Info: [id number] - LIPID Order Date: 11/02/24 Order Info: [id number] - TSH Order Info: 3024-7 - T4F Order Info: [id number] - FSHLH Result Comment: FEMA LE: Follicular: 1.9-12.5 mIU/mL Midcycle: 8.7-76.3 mIU/mL Luteal: 0.5-16.9 mIU/mL Post Menopause: 15.9-54.0 mIU/mL MALE: 20-70 Years: 1.5-9.3 mIU/mL >70 Years: 3.1-34.6 mIU/mL Performed By: #### L 3300.1500, L3100.5055, L101.9900, L100.0100, L501.9520, L506.0400 #### [facility] [address] [place], [place], [address] Hematocrit Auto (Bld) [Volum e fraction]Ordered By: Chaim Avila on 11-05-2024 Hematocrit (Bld) [Volume fraction] 44.8 % 37-47 [facility] Hemoglobin measurementOrdere d By: Chaim Avila on 11-05-2024 Hemoglobin (Bld) [Mass/Vol] 14.4 g/dL 12.0-15.0 [facility] Immature granulocytes/100 WB C Auto (Bld)Ordered By: Chaim Avila on 11-05-2024 Immature granulocytes/100 WBC (Bld) 0.200 % 0.0-0.9 [facility] Comment on above: IG% - Immature Granu locytes (promyelocytes, myelocytes and metamyelocytes) > 1% indicates that a LEFT SHIFT is Present. L509.3001on 11-05-2024 Testosterone [Mass/Vol] 17.70 ng/dL Normal 5-32 [facility] Comment on above: Order Comment: Order Date: 08/09/24 Order Info: 0786-1 - CMP Order Info: [id number] - LIPID Performed By: #### L 500.4100, L500.4050 #### [facility] [address] [place], [place], [address] L509.6001on 11-05-2024 CORTISOL 13.50 ug/dL Normal 6.02-18.40 [facility] Comment on above: Order Comment: Order Date: 08/09/24 Order Info: [id number] - [facility] Order Info: [id number] - LIPID Performed By: #### L 500.4100, L500.4050 #### [facility] [address] [place], [address] LDL calc ser/plasOrdered By: Chaim Avila on 11-05-2024 Cholesterol in LDL [Mass/Vol] 165 mg/dL [facility] Comment on above: Dfxxviwtuu=486-627 m g/dL & Higher Fiej=242 mg/dL or greater Laboratory - Chemistry and C hemistry - challengeOrdered By: Chaim Avila on 11-05-2024 Testosterone [Mass/Vol] 17.70 ng/dL 5-32 [facility] Lipid Profileon 11-05-2024 CHOL:HDL 4.42 Normal [facility] Comment on above: Order Comment: Order Date: 08/09/24 Order Info: [id number] - [facility] Order Info: [id number] - LIPID Performed By: #### L 500.4100, L500.4050 #### [facility] [address] [place], [address] Cholesterol [Mass/Vol] 242 mg/dL High <=200 [facility] Comment on above: Order Comment: Order Date: 08/09/24 Order Info: 0786-1 - CMP Order Info: [id number] - LIPID Result Comment: Chol esterol level, Desirable <200 mg/dL Borderline high cholesterol 200-239 mg/dL High cholesterol >=240 mg/dL Recommendations of the NCEP Adult Treatment Panel for the following risk-cutoff thresholds for the [place] population. Performed By: #### L 500.4100, L500.4050 #### [facility] [address] [place], [address] Cholesterol in HDL [Mass/Vol] 55 mg/dL Normal [facility] Comment on above: Order Comment: Order Date: 08/09/24 Order Info: 0786-1 - CMP Order Info: [id number] - LIPID Result Comment: Roxann onal Cholesterol Education Program (NCEP) guidelines: <40 mg/dL: Low HDL-cholesterol (major risk factor for CHD) >= 60 mg/dL: High HDL-cholesterol (negative risk factor for CHD) HDL-cholesterol is affected by a number of factors, e.g. smoking, exercise, hormones, sex and age. Performed By: #### L 500.4100, L500.4050 #### [facility] [address] [place], [address] Cholesterol in LDL [Mass/Vol] 165 mg/dL Normal [facility] Comment on above: Order Comment: Order Date: 08/09/24 Order Info: 0786-1 - CMP Order Info: [id number] - LIPID Result Comment: Bord pgunyl=347-861 mg/dL Higher Wfbz=133 mg/dL or greater Performed By: #### L 500.4100, L500.4050 #### [facility] [address] [place], [address] Cholesterol in VLDL [Mass/Vol] 23 mg/dL Normal 5-40 [facility] Comment on above: Order Comment: Order Date: 08/09/24 Order Info: [id number] - [facility] Order Info: [id number] - LIPID Performed By: #### L 500.4100, L500.4050 #### [facility] [address] [place], [address] Triglyceride [Mass/Vol] 113 mg/dL Normal [facility] [facility] Comment on above: Order Comment: Order Date: 08/09/24 Order Info: [id number] - CMP Order Info: [id number] - LIPID Result Comment: The drugs N-Acetylcysteine and Metamizole may falsely depress this assay. Normal range: <150 mg/dL Borderline High: 150-199 mg/dL High: 200-499 mg/dL Very High: >500 mg/dL Performed By: #### L 500.4100, L500.4050 #### [facility] [address] [place], [address] MCV (mean corpuscular volume ) determinationOrdered By: Chaim Avila on 11-05-2024 MCV (RBC) [Entitic vol] 93.9 fL 81-99 [facility] Mean corpuscular hemoglobin (MCH) determinationOrdered By: Chaim Avila on 11-05-2024 MCH (RBC) [Entitic mass] 30.2 pg 27.0-32.0 [facility] Mean corpuscular hemoglobin concentration (MCHC) determinationOrdered By: Chaim Avila on 11-05-2024 MCHC (RBC) [Mass/Vol] 32.1 g/dL 32-36 [facility] Mean platelet volume determi nationOrdered By: Chaim Avila on 11-05-2024 Platelet mean volume (Bld) [Entitic vol] 9.5 fL 6.2-12.0 [facility] Monocyte percentageOrdered B y: Chaim Avila on 11-05-2024 Monocytes/100 WBC (Bld) 9.8 % 0-10 [facility] Neutrophil percentageOrdered By: Chaim Avila on 11-05-2024 Neutrophils/100 WBC (Bld) 59.3 % 47-70 [facility] Nucleated red blood cell per centageOrdered By: Chaim Avila on 11-05-2024 Nucleated RBC/100 WBC (Bld) [Ratio] 0 % 0-5 [facility] Platelet countOrdered By: Lana Avila on 11-05-2024 Platelets (Bld) [#/Vol] 299 10*3/uL 150-450 [facility] RBC Auto (Bld) [#/Vol]Ordere d By: Chaim Avila on 11-05-2024 RBC (Bld) [#/Vol] 4.77 10*6/uL 4.2-5.4 [facility] Screening total cholesterol/ high density lipoprotein (HDL) cholesterol ratioOrdered By: Chaim Avila on 11-05-2024 Cholesterol.total/Choles terol in HDL [Mass ratio] 4.42 {ratio} [facility] Serum or plasma cholesterol in HDL measurement (mass/volume)Ordered By: Chaim Avila on 11-05-2024 Cholesterol in HDL [Mass/Vol] 55 mg/dL >40 [facility] Comment on above: National Cholesterol Education Program (NCEP) guidelines:<40 mg/dL: Low HDL-cholesterol (major risk factor for CHD)>= 60 mg/dL: High HDL-cholesterol (negative risk factor for CHD)HDL-cholesterol is affected by a number of factors, e.g. smoking, exercise, hormones, sex and age. Serum or plasma cholesterol measurement (mass/volume)Ordered By: Chaim Avila on 11-05-2024 Cholesterol [Mass/Vol] 242 mg/dL High <201 [facility] Comment on above: Cholesterol level, D esirable <200 mg/dLBorderline high cholesterol 200-239 mg/dLHigh cholesterol >=240 mg/dLRecommendations of the NCEP Adult Treatment Panel for the following risk-cutoff thresholds for the [place] population. Serum or plasma cortisol declan surement (mass/volume)Ordered By: Chaim Avila on 11-05-2024 Cortisol [Mass/Vol] 13.50 ug/dL 6.02-18.40 [facility] Serum or plasma estradiol me asurement after follitropin dose (mass/volume)Ordered By: Chaim Avila on 11-05-2024 E2 post dose follitropin [Mass/Vol] 10.6 pg/mL [facility] Comment on above: FEMALES ADULT FEMALE [...] T4 FREE DIRECT 0.90 ng/dL Normal 0.76-1.46 [facility] Comment on above: Order Comment: Order Date: 11/01/24 Order Info: [id number] - LIPID Order Date: 11/02/24 Order Info: [id number] - TSH Order Info: 7 - T4F Order Info: [id number] - FSHLH Performed By: #### L 3300.1500, L3100.5055, L101.9900, L100.0100, L501.9520, L506.0400 #### [facility] [address] [place], [address] T4 freeOrdered By: Andre Avila on 11-05-2024 Free T4 [Mass/Vol] 0.90 ng/dL 0.76-1.46 [facility] TSH DL <= 0.005 mIU/L QnOrde red By: Chaim Avila on 11-05-2024 TSH Qn 2.070 uIU/mL 0.300-4.200 [facility] Thyroid Stim Hormone (TSH)on 11-05-2024 TSH 2.070 uIU/mL Normal 0.300-4.200 [facility] Comment on above: Order Comment: Order Date: 11/01/24 Order Info: [id number] - LIPID Order Date: 11/02/24 Order Info: [id number] - TSH Order Info: [id number] - T4F Order Info: 552-06 - FSHLH Performed By: #### L 3300.1500, L3100.5055, L101.9900, L100.0100, L501.9520, L506.0400 #### [facility] [address] [place], [address] Triglycerides measurementOrd ered By: Chaim Avila on 11-05-2024 Triglyceride [Mass/Vol] 113 mg/dL <199 [facility] Comment on above: The drugs N-Acetylcy steine and Metamizole may falsely depress this assay. Normal range: <150 mg/dLBorderline High: 150-199 mg/dLHigh: 200-499 mg/dLVery High: >500 mg/dL Vitamin D,25 Hydroxyon 11-05 Vitamin D 25-OH 38.3 ng/mL Normal 30-100 [facility] Comment on above: Order Comment: Order Date: 08/09/24 Order Info: [id number] - CMP Order Info: [id number] - LIPID Result Comment: Rosie min D Status Deficiency: <20 ng/mL (50nmol/L) Insufficiency: 20-30 ng/mL (50-75 nmol/L) Sufficiency: 30-100 ng/mL (75-250 nmol/L) Toxicity: >100 ng/mL (>250 nmol/L) Performed By: #### L 500.4100, L500.4050 #### [facility] [address] [place], [address] White blood cell (WBC) count Ordered By: Chaim Avila on 11-05-2024 WBC (Bld) [#/Vol] 5.3 10*3/uL 4.4-11.0 [facility] Anion gap in Serum or Plasma Ordered By: Chaim Avila on 10-27-2024 Anion gap [Moles/Vol] 9 mmol/L 5-15 [facility] BUN/creatinine ratioOrdered By: Chaim Avila on 10-27-2024 Urea nitrogen/Creatinine [Mass ratio] 22.1 mg/mg High 10-20 [facility] Bilirubin, totalOrdered By: Chaim Avila on 10-27-2024 Bilirubin [Mass/Vol] 0.44 mg/dL 0.00-1.30 [facility] Calculated very low density lipoprotein (VLDL) cholesterol measurementOrdered By: Chaim Avila on 10-27-2024 Calculated very low density lipoprotein (VLDL) cholesterol measurement 35 mg/dL 5-40 [facility] Carbon dioxide, total [Moles /volume] in Central venous bloodOrdered By: Chaim Avila on 10-27-2024 CO2 [Moles/Vol] 27.6 mmol/L 21.0-32.0 [facility] Chloride assayOrdered By: Lana Avila on 10-27-2024 Chloride [Moles/Vol] 103 mmol/L 98-108 [facility] Comprehensive Metabolic Prof ilon 10-27-2024 Albumin [Mass/Vol] 4.1 g/dL Normal 3.4-4.8 [facility] Comment on above: Order Comment: Order Date: 08/09/24 Order Info: [id number] - CMP Order Info: [id number] - LIPID Performed By: #### L 500.4100, L500.4050 #### [facility] [address] [place], [address] Albumin/Globulin [Mass ratio] 1.5 {ratio} Normal 0.9-2.4 [facility] Comment on above: Order Comment: Order Date: 08/09/24 Order Info: [id number] - CMP Order Info: [id number] - LIPID Performed By: #### L 500.4100, L500.4050 #### [facility] [address] [place], [address] ALK PHOS 75 U/L Normal 35-104 [facility] Comment on above: Order Comment: Order Date: 08/09/24 Order Info: 0786-1 - CMP Order Info: [id number] - LIPID Performed By: #### L 500.4100, L500.4050 #### [facility] [address] [place], [address] ALT [Catalytic activity/Vol] 15 U/L Normal <=34 [facility] Comment on above: Order Comment: Order Date: 08/09/24 Order Info: 0786-1 - CMP Order Info: [id number] - LIPID Performed By: #### L 500.4100, L500.4050 #### [facility] [address] [place], [address] AST [Catalytic activity/Vol] 21 U/L Normal <=31 [facility] Comment on above: Order Comment: Order Date: 08/09/24 Order Info: [id number] - CMP Order Info: [id number] - LIPID Performed By: #### L 500.4100, L500.4050 #### [facility] [address] [place], [address] Bilirubin [Mass/Vol] 0.44 mg/dL Normal 0.00-1.30 [facility] Comment on above: Order Comment: Order Date: 08/09/24 Order Info: [id number] - CMP Order Info: [id number] - LIPID Performed By: #### L 500.4100, L500.4050 #### [facility] [address] [place], [address] BUN/CRE 22.1 RATIO High 10-20 [facility] Comment on above: Order Comment: Order Date: 08/09/24 Order Info: 0786-1 - CMP Order Info: [id number] - LIPID Performed By: #### L 500.4100, L500.4050 #### [facility] [address] [place], [address] Calcium [Mass/Vol] 9.3 mg/dL Normal 7.6-11.0 [facility] Comment on above: Order Comment: Order Date: 08/09/24 Order Info: 0786-1 - CMP Order Info: [id number] - LIPID Performed By: #### L 500.4100, L500.4050 #### [facility] [address] [place], [address] Chloride [Moles/Vol] 103 mmol/L Normal 98-108 [facility] Comment on above: Order Comment: Order Date: 08/09/24 Order Info: 0786-1 - CMP Order Info: [id number] - LIPID Performed By: #### L 500.4100, L500.4050 #### [facility] [address] [place], [address] CO2 [Moles/Vol] 27.6 mmol/L Normal 21.0-32.0 [facility] Comment on above: Order Comment: Order Date: 08/09/24 Order Info: 0786-1 - CMP Order Info: [id number] - LIPID Performed By: #### L 500.4100, L500.4050 #### [facility] [address] [place], [address] Creatinine [Mass/Vol] 0.89 mg/dL Normal 0.70-1.20 [facility] Comment on above: Order Comment: Order Date: 08/09/24 Order Info: 0786 - CMP Order Info: - LIPID Performed By: #### L 500.4100, L500.4050 #### [facility] [address] [place], [address] GAP 9 Normal 5-15 [facility] Comment on above: Order Comment: Order Date: 08/09/24 Order Info: 0786- - CMP Order Info: - LIPID Performed By: #### L 500.4100, L500.4050 #### [facility] [address] [place], [address] GFR/1.73 sq M.predicted among non-blacks MDRD (S/P/Bld) [Vol rate/Area] 69 mL/min/{1.73_m2} Normal >60 [facility] Comment on above: Order Comment: Order Date: 08/09/24 Order Info: 0786- - CMP Order Info: [id number] - LIPID Result Comment: mL/m in/1.73m2 CKD-EPI Creatinine Equation (2020) Performed By: #### L 500.4100, L500.4050 #### [facility] [address] [place], [address] Globulin (S) [Mass/Vol] 2.8 g/dL Normal 2.2-4.2 [facility] Comment on above: Order Comment: Order Date: 08/09/24 Order Info: [id number] - CMP Order Info: [id number] - LIPID Performed By: #### L 500.4100, L500.4050 #### [facility] [address] [place], [address] Glucose [Mass/Vol] 137 mg/dL High 70-99 [facility] Comment on above: Order Comment: Order Date: 08/09/24 Order Info: 0786-1 - CMP Order Info: [id number] - LIPID Performed By: #### L 500.4100, L500.4050 #### [facility] [address] [place], [address] Potassium [Moles/Vol] 4.4 mmol/L Normal 3.3-5.1 [facility] Comment on above: Order Comment: Order Date: 08/09/24 Order Info: 0786-1 - CMP Order Info: [id number] - LIPID Performed By: #### L 500.4100, L500.4050 #### [facility] [address] [place], [address] Sodium [Moles/Vol] 140 mmol/L Normal 133-145 [facility] Comment on above: Order Comment: Order Date: 08/09/24 Order Info: [id number] - CMP Order Info: [id number] - LIPID Performed By: #### L 500.4100, L500.4050 #### [facility] [address] [place], [address] T PROT 6.9 g/dL Normal 5.9-8.4 [facility] Comment on above: Order Comment: Order Date: 08/09/24 Order Info: 0786-1 - CMP Order Info: [id number] - LIPID Performed By: #### L 500.4100, L500.4050 #### [facility] [address] [place], [address] Urea nitrogen [Mass/Vol] 20 mg/dL High 4-19 [facility] Comment on above: Order Comment: Order Date: 08/09/24 Order Info: 0786-1 - CMP Order Info: [id number] - LIPID Performed By: #### L 500.4100, L500.4050 #### [facility] [address] [place], [place], [address] Glomerular filtration rate ( GFR) estimation/1.73 sq m using serum, plasma, or whole bOrdered By: Chaim Avila on 10-27-2024 GFR/1.73 sq M.predicted among non-blacks MDRD (S/P/Bld) [Vol rate/Area] 69 mL/min/{1.73_m2} >60 [facility] Comment on above: mL/min/1.73m2 CKD-EP I Creatinine Equation (2020) LDL calc ser/plasOrdered By: Chaim Avila on 10-27-2024 Cholesterol in LDL [Mass/Vol] 158 mg/dL [facility] Comment on above: Nbbeflyrby=014-476 m g/dL & Higher Btpy=232 mg/dL or greater Laboratory - Chemistry and C hemistry - challengeOrdered By: Chaim Avila on 10-27-2024 AST [Catalytic activity/Vol] 21 U/L <32 [facility] Lipid Profileon 10-27-2024 CHOL:HDL 5.11 Normal [facility] Comment on above: Order Comment: Order Date: 08/09/24 Order Info: 0786-1 - CMP Order Info: [id number] - LIPID Performed By: #### L 500.4100, L500.4050 #### [facility] [address] [place], [place], [address] Cholesterol [Mass/Vol] 240 mg/dL High <=200 [facility] Comment on above: Order Comment: Order Date: 08/09/24 Order Info: 0786-1 - CMP Order Info: [id number] - LIPID Result Comment: Chol esterol level, Desirable <200 mg/dL Borderline high cholesterol 200-239 mg/dL High cholesterol >=240 mg/dL Recommendations of the NCEP Adult Treatment Panel for the following risk-cutoff thresholds for the [place] population. Performed By: #### L 500.4100, L500.4050 #### [facility] [address] [place], [place], [address] Cholesterol in HDL [Mass/Vol] 47 mg/dL Normal [facility] Comment on above: Order Comment: Order Date: 08/09/24 Order Info: 0786-1 - CMP Order Info: [id number] - LIPID Result Comment: Roxann onal Cholesterol Education Program (NCEP) guidelines: <40 mg/dL: Low HDL-cholesterol (major risk factor for CHD) >= 60 mg/dL: High HDL-cholesterol (negative risk factor for CHD) HDL-cholesterol is affected by a number of factors, e.g. smoking, exercise, hormones, sex and age. Performed By: #### L 500.4100, L500.4050 #### [facility] [address] [place], [address] Cholesterol in LDL [Mass/Vol] 158 mg/dL Normal [facility] Comment on above: Order Comment: Order Date: 08/09/24 Order Info: 0786-1 - CMP Order Info: [id number] - LIPID Result Comment: Bord tiexnf=031-253 mg/dL Higher Jylg=608 mg/dL or greater Performed By: #### L 500.4100, L500.4050 #### [facility] [address] [place], [address] Cholesterol in VLDL [Mass/Vol] 35 mg/dL Normal 5-40 [facility] Comment on above: Order Comment: Order Date: 08/09/24 Order Info: 0786-1 - CMP Order Info: [id number] - LIPID Performed By: #### L 500.4100, L500.4050 #### [facility] [address] [place], [address] Triglyceride [Mass/Vol] 176 mg/dL Normal [facility] Comment on above: Order Comment: Order Date: 08/09/24 Order Info: 0786-1 - CMP Order Info: [id number] - LIPID Result Comment: The drugs N-Acetylcysteine and Metamizole may falsely depress this assay. Normal range: <150 mg/dL Borderline High: 150-199 mg/dL High: 200-499 mg/dL Very High: >500 mg/dL Performed By: #### L 500.4100, L500.4050 #### [facility] [place], [address] Potassium measurement (mass/ volume)Ordered By: Chaim Avila on 10-27-2024 Potassium (Unsp spec) [Mass/Vol] 4.4 mmol/L 3.3-5.1 [facility] Screening total cholesterol/ high density lipoprotein (HDL) cholesterol ratioOrdered By: Chaim Avila on 10-27-2024 Cholesterol.total/Choles terol in HDL [Mass ratio] 5.11 {ratio} [facility] Serum creatinine measurement (mass/volume)Ordered By: Chaim Avila on 10-27-2024 Creatinine [Mass/Vol] 0.89 mg/dL 0.70-1.20 [facility] Serum globulin measurementOr dered By: Chaim Avila on 10-27-2024 Globulin (S) [Mass/Vol] 2.8 g/dL 2.2-4.2 [facility] Serum glucose measurement (m ass/volume)Ordered By: Chaim Avila on 10-27-2024 Glucose [Mass/Vol] 137 mg/dL High 70-99 [facility] Serum or plasma alanine amaya otransferase (ALT) measurementOrdered By: Chaim Avila on 10-27-2024 ALT [Catalytic activity/Vol] 15 U/L <35 [facility] Serum or plasma albumin oz urement (mass/volume)Ordered By: Chaim Avila on 10-27-2024 Albumin [Mass/Vol] 4.1 g/dL 3.4-4.8 [facility] Serum or plasma albumin/glob ulin mass ratioOrdered By: Chaim Avila on 10-27-2024 Albumin/Globulin [Mass ratio] 1.5 {ratio} 0.9-2.4 [facility] Serum or plasma alkaline nikki sphatase measurementOrdered By: Chaim Avila on 10-27-2024 ALP [Catalytic activity/Vol] 75 U/L 35-104 [facility] Serum or plasma calcium oz urement (mass/volume)Ordered By: Chaim Avila on 05-07-2025 Calcium [Mass/Vol] 9.3 mg/dL 7.6-11.0 [facility] Serum or plasma cholesterol in HDL measurement (mass/volume)Ordered By: Chaim Avila on 10-27-2024 Cholesterol in HDL [Mass/Vol] 47 mg/dL >40 [facility] Comment on above: National Cholesterol Education Program (NCEP) guidelines:<40 mg/dL: Low HDL-cholesterol (major risk factor for CHD)>= 60 mg/dL: High HDL-cholesterol (negative risk factor for CHD)HDL-cholesterol is affected by a number of factors, e.g. smoking, exercise, hormones, sex and age. Serum or plasma cholesterol measurement (mass/volume)Ordered By: Chaim Avila on 10-27-2024 Cholesterol [Mass/Vol] 240 mg/dL High <201 [facility] Comment on above: Cholesterol level, D esirable <200 mg/dLBorderline high cholesterol 200-239 mg/dLHigh cholesterol >=240 mg/dLRecommendations of the NCEP Adult Treatment Panel for the following risk-cutoff thresholds for the [place] population. Serum or plasma urea nitroge n measurement (mass/volume)Ordered By: Chaim Avila on 10-27-2024 Urea nitrogen [Mass/Vol] 20 mg/dL High 4-19 [facility] Sodium levelOrdered By: Crystal Avila on 10-27-2024 Sodium [Moles/Vol] 140 mmol/L 133-145 [facility] Total proteinOrdered By: Matt Avila on 10-27-2024 Protein [Mass/Vol] 6.9 g/dL 5.9-8.4 [facility] Triglycerides measurementOrd ered By: Chaim Avila on 10-27-2024 Triglyceride [Mass/Vol] 176 mg/dL <199 [facility] Comment on above: The drugs N-Acetylcy steine and Metamizole may falsely depress this assay. Normal range: <150 mg/dLBorderline High: 150-199 mg/dLHigh: 200-499 mg/dLVery High: >500 mg/dL Vitamin D,25 Hydroxyon 10-27 Vitamin D 25-OH 38.8 ng/mL Normal 30-100 [facility] Comment on above: Order Comment: Order Date: 08/09/24 Order Info: 0786-1 - CMP Order Info: [id number] - LIPID Result Comment: Rosie min D Status Deficiency: <20 ng/mL (50nmol/L) Insufficiency: 20-30 ng/mL (50-75 nmol/L) Sufficiency: 30-100 ng/mL (75-250 nmol/L) Toxicity: >100 ng/mL (>250 nmol/L) Performed By: #### L 506.1001 #### [facility] [address] [place], [address] CNTHERAPYon 08-03-2024 CNTHERAPY OT/PT/Speech Visit (PTWS) -------- DOMINIC ARTEAGA ([id number]) 1955 F Date Time Provider Department 08/03/24 9:45 AM IRIAN FELDER Date Time Provider Department Center 08/03/2024 9:45 AM [id number] FELDER [facility] Reason for Visit: Physical Therapy [503] Primary [...] by mouth three times a day. - dujj-R5-josaat-B6-Zn-Cu- lizeth 250 mg-400 unit -40 mg-5 mg [...] atorvastatin (LIPITOR) 20 mg tablet - omega 9-bua-eez-fish oil (FISH OIL) 100-160-1,000 mg cap Take by mouth. - Cholecalciferol, Vitamin D3, 50 mcg (2,000 unit) cap Take by mouth. - omeprazole 40 mg capsule Normal [facility] [id number] 07-27-2024 [id number] O ID: [id number] Author: IRINA FELDER PT Service: ? Author Type: Physical Therapist Type: [id number] Filed: 07/27/2024 10:39 Note Text: [facility] Physical Therapy Plan of Care Certification Patient Name: Dominic Arteaga : 1955 [place] #: [id number] Date: 07/27/2024 To: Nikki Andrew PA-C From [...] of Visits Planned: 6 Planned Treatment Interventions: Self-snf management (15680), Therapeutic activities (20143), Manual therapy (98598), Neuromuscular re-education (04026), Therapeutic exercise (62365), Gait Training (79282) PLAN FOR NEXT VISIT: assess symptom response [...] reviewed the treatment plan for Dominic Arteaga, [place]# [id number] for the period of 07/27/24 -- 09/07/24, established on 07/27/2024. Signature certifies the need for therapy services. Normal [facility] CNTHERAPYon 07-27-2024 CNTHERAPY OT/PT/Speech Visit (PTWS) -------- DOMINIC ARTEAGA ([id number]) 1955 F Date Time Provider Department 07/27/24 9:45 AM IRINA FELDER PTWS Date Time Provider Department Center 07/27/2024 9:45 AM [id number] FELDER PTWS Patty Solis Reason for Visit: [...] by mouth three times a day. - igox-L3-zjzlbv-B6-Zn-Cu- lizeth 250 mg-400 unit -40 mg-5 mg [...] atorvastatin (LIPITOR) 20 mg tablet - omega 4-bca-oel-fish oil (FISH OIL) 100-160-1,000 mg cap Take by mouth. - Cholecalciferol, Vitamin D3, 50 mcg (2,000 unit) cap Take by mouth. - omeprazole 40 mg capsule Swine Nutritionist: Therapy (PT/OT/Speech/Resp) ID: [id number] 07/27/2024 10:22 AM Author: IRINA FELDER Signed by IRINA FELDER PT on 07/27/2024 at 10:23 AM Document text: Program_ID:[id number] Access Code: [email or web address] URL: [email or web address] Date: 07-27-2024 Prepared By: Irina Felder Program Notes Patient Education - What Is Vestibular Rehab? - What Is The Vestibular System? - BPPV - What Is BPPV? Normal [facility] THERAPY NTon 07-27-2024 THERAPY NT HNO ID: [id number] Author: IRINA FELDER PT Service: ? Author Type: Physical Therapist Type: Therapy (PT/OT/Speech/Resp) Filed: 07/27/2024 10:23 Note Text: Program_ID:[id number] Access Code: [email or web address] URL: [email or web address] Date: 07-27-2024 Prepared By: Irina Felder Program Notes Patient Education - What Is Vestibular Rehab? - What Is The Vestibular System? - BPPV - What Is BPPV? Normal [facility] CNOVon 04-23-2024 CNOV Office Visit (CDISMN ) -------- DOMINIC ARTEAGA ([id number]) 1955 F Date Time Provider Department 04/23/24 2:30 PM LISBETH RAMÍREZ CDISMN During your visit today, we recorded the following information about you: Lisbeth Ramírez AUD 04/23/2024 4:21 PM Addendum [facility] Vestibular and Balance Disorders Laboratory Vestibular Test Battery Report Name: Dominic Arteaga [place]#: [id number] Date of Service: 04/23/2024 Date of : 1955 Age: [age] year old Referred by: Nikki Andrew PA-C And is a patient of Domingo Cardona DO Referred for: Evaluation of the cause of disorder of hearing, tinnitus, or balance. Referral documented: In an order in [facility] Pretest Instructions: All pretest instructions were completed [...] but a (more content not included)... Normal [facility] CBC panel Auto (Bld)on 02-02 Erythrocyte distribution width (RBC) [Ratio] 12.7 % 11.5 - 15.0 % [facility] Hematocrit (Bld) [Volume fraction] 46.5 % High 36.0 - 46.0 % [facility] Hemoglobin (Bld) [Mass/Vol] 14.9 g/dL 11.5 - 15.5 g/dL [facility] Interpretation and review of laboratory results Abnormal [facility] MCH (RBC) [Entitic mass] 30.2 pg 26. 0 - 34.0 pg [facility] MCHC (RBC) [Mass/Vol] 32.0 g/dL 30.5 - 36.0 g/dL [facility] MCV (RBC) [Entitic vol] 94.3 fL 80.0 - 100.0 fL [facility] Nucleated RBC (Bld) [#/Vol] NINF [facility] Platelet mean volume (Bld) [Entitic vol] 9.6 fL 9.0 - 12.7 fL [facility] Platelets (Bld) [#/Vol] 288 10*3/uL [facility] RBC (Bld) [#/Vol] 4.93 10*6/uL 3.90 - 5.2 0 m/uL [facility] WBC (Bld) [#/Vol] 7.09 10*3/uL [facility] Erythrocyte distribution width (RBC) [Ratio] 12.7 % Normal 11.5-15.0 [facility] Comment on above: Order Comment: Speci men Type: BLOOD SPECIMENOrdering Facility: [facility] Address: [address] [place] [address] Performed By: #### 5 8410-2 ####[facility] LABIA [id number] [place] [address] [place] Hematocrit (Bld) [Volume fraction] 46.5 % High 36.0-46.0 [facility] Comment on above: Order Comment: Speci men Type: BLOOD SPECIMENOrdering Facility: [facility] Address: [address] [place] [address] Performed By: #### 5 8410-2 ####[facility] LABCLIA [id number] [place] [address] [place] Hemoglobin (Bld) [Mass/Vol] 14.9 g/dL Normal 11.5-15.5 [facility] Comment on above: Order Comment: Speci men Type: BLOOD SPECIMENOrdering Facility: [facility] Address: [address] [place] [address] Performed By: #### 5 8410-2 ####[facility] [id number] [place] [address] [place] MCH (RBC) [Entitic mass] 30.2 pg Normal 26.0-34.0 [facility] Comment on above: Order Comment: Speci men Type: BLOOD SPECIMENOrdering Facility: [facility] Address: [address] [place] [address] Performed By: #### 5 8410-2 ####[facility] [id number] [place] [address] [place] MCHC (RBC) [Mass/Vol] 32.0 g/dL Normal 30.5-36.0 [facility] Comment on above: Order Comment: Speci men Type: BLOOD SPECIMENOrdering Facility: [facility] Address: [address] [place] [address] Performed By: #### 5 8410-2 ####[facility] [id number] [place] [address] [place] MCV (RBC) [Entitic vol] 94.3 fL Normal 80.0-100.0 [facility] Comment on above: Order Comment: Speci men Type: BLOOD SPECIMENOrdering Facility: [facility] Address: [address] [place] [address] Performed By: #### 5 8410-2 ####[facility] [id number] [place] [address] [place] Nucleated RBC (Bld) [#/Vol] 10*3/uL Normal <0.01 [facility] Comment on above: Order Comment: Speci men Type: BLOOD SPECIMENOrdering Facility: [facility] Address: [address] [place] [address] Performed By: #### 5 8410-2 ####[facility] LABCLIA [id number] [place] [address] [place] Platelet mean volume (Bld) [Entitic vol] 9.6 fL Normal 9.0-12.7 [facility] Comment on above: Order Comment: Speci men Type: BLOOD SPECIMENOrdering Facility: [facility] Address: [address] [place] [address] Performed By: #### 5 8410-2 ####[facility] LABIA [id number] [place] [address] [place] Platelets (Bld) [#/Vol] 288 10*3/uL Normal 150-400 [facility] Comment on above: Order Comment: Speci men Type: BLOOD SPECIMENOrdering Facility: [facility] Address: [address] [place] [address] Performed By: #### 5 8410-2 ####[facility] LABIA [id number] [place] [address] [place] RBC (Bld) [#/Vol] 4.93 10*6/uL Normal 3.90-5.20 [facility] Comment on above: Order Comment: Speci men Type: BLOOD SPECIMENOrdering Facility: [facility] Address: [address] [place] [address] Performed By: #### 5 8410-2 ####[facility] LABIA [id number] [place] [address] [place] WBC (Bld) [#/Vol] 7.09 10*3/uL Normal 3.70-11.00 [facility] Comment on above: Order Comment: Speci men Type: BLOOD SPECIMENOrdering Facility: [facility] Address: [address] [place] [address] Performed By: #### 5 8410-2 ####[facility] LABIA [id number] [place] [address] [place] CNOVon 08-13-2024 CNOV Office Visit (NEMOWS ) -------- DOMINIC ARTEAGA ([id number]) 1955 F Date Time Provider Department 02/03/24 12:45 PM NIKKI ANDREW During your visit today, we recorded the following information about you: Weight 86.5 kg Nikki Andrew PA-C 02/03/2024 2:23 PM Signed [facility] Name: Dominic Arteaga [...] she stands up or turns her head erbh-ek-vtuv but not consistently. MRI of the brain was negative. Does note longstanding history of vertigo which she has had intermittent episodes for many years but nothing like this. Patient does have history of cervical stenosis with fusion in the 1980s. Was recently admitted to [facility] for severe neck pain but records are not available. Was told that her neck did show some mild degeneration but nothing significant. However, patient's exam shows some hyperreflexia bilaterally and not equally as well as some weakness in the right upper extremity. Will have records sent from [facility] and review. Of note, orthostatics were [...] but we will have records sent from [facility]. Will order TSH to ensure no [...] an o (more content not included)... Normal [facility] Telephone (NEMOWS) -------- DOMINIC ARTEAGA ([id number]) 1955 F Date Time Provider Department 02/03/24 NIKKI ANDREW During your visit today, we recorded the following information about you: Nikki Andrew PA-C 02/03/2024 1:49 PM Signed Patient had MRI of the cervical spine in December at [facility], please have report and film sent. Irina Art LPN 02/03/2024 2:22 PM Signed Fax sent to [facility] Medical records for images to be [...] by mouth three times a day. - npnt-I1-nlioin-B6-Zn-Cu- lizeth 250 mg-400 unit -40 mg-5 mg [...] atorvastatin (LIPITOR) 20 mg tablet - omega 4-tmv-xoz-fish oil (FISH OIL) 100-160-1,000 mg cap Take by mouth. - Cholecalciferol, Vitamin D3, 50 mcg (2,000 unit) cap Take by mouth. - omeprazole 40 mg capsule Problem List As Of Date: 02/03/2024 (None) Encounter Status:Closed by NIKKI ANDREW on 02/03/24 Normal [facility] Comprehensive metabolic 2000 panelon 02-03-2024 Albumin [Mass/Vol] 4.3 g/dL Normal 3.9-4.9 [facility] Comment on above: Order Comment: Speci men Type: BLOOD SPECIMENOrdering Facility: [facility] Address: [address] [place] [address] Performed By: #### 3 016-3, 84231-2, 2132-9 ####[facility] LABCLIA [id number] [facility] [place] [id number] [address] [place] ALP [Catalytic activity/Vol] 82 U/L Normal 34-123 [facility] Comment on above: Order Comment: Speci men Type: BLOOD SPECIMENOrdering Facility: [facility] Address: [address] [place] [address] Performed By: #### 3 016-3, , 2132-02 ####[facility] LABCLIA [id number] [place] [address] [place] ALT [Catalytic activity/Vol] 18 U/L Normal 7-38 [facility] Comment on above: Order Comment: Speci men Type: BLOOD SPECIMENOrdering Facility: [facility] Address: [address] [place] [address] Performed By: #### 3 016-3, , 2132-02 ####[facility] LABCLIA [id number] [place] [address] [place] Anion gap [Moles/Vol] 11 mmol/L Normal 8-15 [facility] Comment on above: Order Comment: Speci men Type: BLOOD SPECIMENOrdering Facility: [facility] Address: [address] [place] [address] Performed By: #### 3 016-3, , 2132-02 ####[facility] LABCLIA [id number] [place] [address] [place] AST [Catalytic activity/Vol] 23 U/L Normal 13-35 [facility] Comment on above: Order Comment: Speci men Type: BLOOD SPECIMENOrdering Facility: [facility] Address: [address] [place] [address] Performed By: #### 3 016-3, , 2132-02 ####[facility] LABCLIA [id number] [place] [address] [place] Bilirubin [Mass/Vol] 0.5 mg/dL Normal 0.2-1.3 [facility] Comment on above: Order Comment: Speci men Type: BLOOD SPECIMENOrdering Facility: [facility] Address: [address] [place] [address] Performed By: #### 3 016-3, , 2132-02 ####[facility] LABCLIA [id number] [place] [address] [place] Calcium [Mass/Vol] 9.8 mg/dL Normal 8.5-10.2 [facility] Comment on above: Order Comment: Speci men Type: BLOOD SPECIMENOrdering Facility: [facility] Address: [address] [place] [address] Performed By: #### 3 016-3, , 2132-02 ####[facility] LABCLIA [id number] [place] [address] [place] Chloride [Moles/Vol] 104 mmol/L Normal 98-107 [facility] Comment on above: Order Comment: Speci men Type: BLOOD SPECIMENOrdering Facility: [facility] Address: [address] [place] [address] Performed By: #### 3 016-3, , 2132-02 ####[facility] LABCLIA [id number] [place] [address] [place] CO2 [Moles/Vol] 23 mmol/L Normal 22-30 [facility] Comment on above: Order Comment: Speci men Type: BLOOD SPECIMENOrdering Facility: [facility] Address: [address] [place] [address] Performed By: #### 3 016-3, , 2132-02 ####[facility] LABCLIA [id number] [place] [id number] [place] Creatinine [Mass/Vol] 0.80 mg/dL Normal 0.58-0.96 [facility] Comment on above: Order Comment: Speci men Type: BLOOD SPECIMENOrdering Facility: [facility] Address: [address] [place] [address] Performed By: #### 3 016-3, 84937-4, 2132-02 ####[facility] LABCLIA [id number] [place] [address] [place] Creatinine and Glomerular filtration rate.predicted panel (S/P/Bld) 80 mL/min/1.73m??? Normal >=60 [facility] Comment on above: Order Comment: Naresh rodriguez Type: BLOOD SPECIMENOrdering Facility: [facility] Address: [address] [place] [address] Result Comment: Binta mated Glomerular Filtration Rate [...] actual GFR. Performed By: #### 3 016-3, 13102-2, 2132-02 ####[facility] LABCLIA [id number] [place] [address] [place] Glucose [Mass/Vol] 119 mg/dL High 74-99 [facility] Comment on above: Order Comment: Naresh rodriguez Type: BLOOD SPECIMENOrdering Facility: [facility] Address: [address] [place] [address] Result Comment: The [place] Diabetes Association (ADA) provides guidance for cutoff [...] Standards of Medical Care in Diabetes 2016, [place] [employer] Association. Diabetes Care. 2016.39(Suppl 1). Performed By: #### 3 016-3, 75636-6, 2132-02 ####[facility] LABCLIA [id number] [facility] [address] [address] [place] Potassium [Moles/Vol] 4.2 mmol/L Normal 3.7-5.1 [facility] Comment on above: Order Comment: Speci men Type: BLOOD SPECIMENOrdering Facility: [facility] Address: [address] [place] [address] Performed By: #### 3 016-3, , 2132-02 ####[facility] LABCLIA [id number] [facility] [address] [address] [place] Protein [Mass/Vol] 7.3 g/dL Normal 6.3-8.0 [facility] Comment on above: Order Comment: Speci men Type: BLOOD SPECIMENOrdering Facility: [facility] Address: [address] [place] [address] Performed By: #### 3 016-3, , 2132-02 ####[facility] LABCLIA [id number] [facility] [address] [address] [place] Sodium [Moles/Vol] 138 mmol/L Normal 136-144 [facility] Comment on above: Order Comment: Speci men Type: BLOOD SPECIMENOrdering Facility: [facility] Address: [address] [place], [place] [address] Performed By: #### 3 016-3, , 2132-02 ####[facility] LABCLIA [id number] [facility] [address] [address] [place] Urea nitrogen [Mass/Vol] 12 mg/dL Normal 7-21 [facility] Comment on above: Order Comment: Speci men Type: BLOOD SPECIMENOrdering Facility: [facility] Address: [address] [place], [place] [address] Performed By: #### 3 016-3, , 2132-02 ####[facility] LABCLIA [id number] [place] [address] [place] Methylmalonate SerPl-sCncon 02-03-2024 Methylmalonate [Moles/Vol] 0.17 umol/L Normal <=0.40 [facility] Comment on above: Order Comment: Speci men Type: BLOOD SPECIMENOrdering Facility: [facility] Address: [address] [place] [address] Result Comment: This test was developed and its performance characteristics determined by [facility]'s [facility] Pathology and Laboratory Medicine [place] ([facility]). It has not been cleared or approved by the FDA. -[facility] is regulated under CLIA as qualified to perform high-complexity testing. This test is used for clinical purposes. It should not be regarded as investigational or for research. Performed By: #### 1 3964-2 ####[facility] LABCLIA [id number] [place] [address] [place] TSH SerPl-aCncon 02-03-2024 TSH Qn 0.995 m[IU]/L Normal 0.270-4.200 [facility] Comment on above: Order Comment: Speci men Type: BLOOD SPECIMENOrdering Facility: [facility] Address: [address] [place] [address] Performed By: #### 3 016-3, 48718-9, 2132-02 ####[facility] LABIA [id number] [place] [address] [place] Vit B12 SerPl-mCncon 024 Cobalamin (Vitamin B12) [Mass/Vol] 480 pg/mL Normal 232-1245 [facility] Comment on above: Order Comment: Speci men Type: BLOOD SPECIMENOrdering Facility: [facility] Address: [address] [place] [address] Performed By: #### 3 016-3, 70956-7, 2132-02 ####[facility] LABIA [id number] [place] [address] [place] CNPNon 01-30-2024 [facility] Telephone (NEMOWS) -------- DOMINIC ARTEAGA ([id number]) 1955 F Date Time Provider Department 01/30/24 NEUROLOGY PROVIDER SHARI During your visit today, we recorded the following information about you: Irina Art LPN 01/30/2024 3:31 PM Signed Fax received from [facility] for pt to be seen for [...] by mouth three times a day. - bmku-E1-phhupf-B6-Zn-Cu- lizeth 250 mg-400 unit -40 mg-5 mg [...] atorvastatin (LIPITOR) 20 mg tablet - omega 9-xui-ril-fish oil (FISH OIL) 100-160-1,000 mg cap Take by mouth. - Cholecalciferol, Vitamin D3, 50 mcg (2,000 unit) cap Take by mouth. - omeprazole 40 mg capsule Problem List As Of Date: 01/30/2024 (None) Encounter Status:Closed by IRINA ART on 07/12/24 Normal [facility] Patino Basophil percentageOrdered B y: Joseph Ferreira on 10-14-2023 Chloride [Moles/Vol] 108 mmol/L 98-107 [facility] Glucose [Mass/Vol] 134 mg/dL 74-106 [facility] Comment on above: Fasting Glucose resu lt greater than or equal to 126 mg/dL suggests DIABETES MELLITUS per A.D.A. criteria. Hemoglobin (Bld) [Mass/Vol] 14.3 g/dL 12.0-15.0 [facility] Potassium [Moles/Vol] 4.9 mmol/L 3.5-5.1 [facility] Sodium [Moles/Vol] 139 mmol/L 136-145 [facility] WBC (Bld) [#/Vol] 5.5 10*3/uL 4.4-11.0 [facility] Determination of erythrocyte mean corpuscular volume (MCV)Ordered By: Joseph eFrreira on 10-14-2023 MCV (RBC) [Entitic vol] 94.4 fL 81-99 [facility] Erythrocyte distribution wid th ratioOrdered By: Joseph Ferreira on 10-14-2023 Erythrocyte distribution width (RBC) [Ratio] 13.2 % 11.6-14.6 [facility] Erythrocyte distribution wid th standard deviationOrdered By: Joseph Ferreira on 10-14-2023 Erythrocyte distribution width (RBC) [Entitic vol] 46.4 fL 35.1-43.9 [facility] Hematocrit Auto (Bld) [Volum e fraction]Ordered By: Joseph Ferreira on 10-14-2023 Hematocrit (Bld) [Volume fraction] 45.3 % 37-47 [facility] Laboratory - Chemistry and C hemistry - challengeOrdered By: Joseph Ferreira on 10-14-2023 CO2 [Moles/Vol] 27.0 mmol/L 21.0-32.0 [facility] Urea nitrogen/Creatinine [Mass ratio] 14.4 mg/mg 10-20 [facility] Laboratory - Hematology and Cell countsOrdered By: Joseph Ferreira on 10-14-2023 MCH (RBC) [Entitic mass] 29.8 pg 27.0-32.0 [facility] MCHC (RBC) [Mass/Vol] 31.6 g/dL 32-36 [facility] Platelet mean volume (Bld) [Entitic vol] 9.2 fL 6.2-12.0 [facility] Platelets (Bld) [#/Vol] 253 10*3/uL 150-450 [facility] No Panel InformationOrdered By: Joseph Ferreira on 10-14-2023 Estimated GFR (MDRD) Amer 80 mL/min >60 [facility] Comment on above: GFR Calc Estimated GFR (MDRD) Non-Af Amer 66 mL/min >60 [facility] Comment on above: Non- GFR Calc RBC Auto (Bld) [#/Vol]Ordere d By: Joseph Ferreira on 10-14-2023 RBC (Bld) [#/Vol] 4.80 10*6/uL 4.2-5.4 [facility] Serum or plasma calcium oz urement (mass/volume)Ordered By: Joseph Ferreira on 10-14-2023 Calcium [Mass/Vol] 8.7 mg/dL 8.5-10.1 [facility] Serum or plasma creatinine m easurement (mass/volume)Ordered By: Joseph Ferreira on 10-14-2023 Creatinine [Mass/Vol] 0.90 mg/dL 0.55-1.02 [facility] Comment on above: The validity of the calculated GFR & GFRAA in patients over 70 years has not been determined. Clinical correlation is essential. Serum or plasma urea nitroge n measurement (mass/volume)Ordered By: Joseph Ferreira on 10-14-2023 Urea nitrogen [Mass/Vol] 13 mg/dL 7-18 [facility] Thin prep Papanicolaou smear with manual screeningOrdered By: Joseph Ferreira on 10-14-2023 Thin prep Papanicolaou smear with manual screening 4 5-15 [facility] Absolute lymphocyte countOrd ered By: Bakari Ranney on 08-28-2023 Lymphocytes Auto (Unsp spec) [#/Vol] 1.24 10*3/uL 0.83-4.51 [facility] Albumin Elph [Mass/Vol]Order ed By: Bakari Ranney on 08-28-2023 Albumin [Mass/Vol] 3.6 g/dL 2.9-4.4 [facility] Automated lymphocyte count a s percentage of total leukocytesOrdered By: Bakari Avila on 08-28-2023 Lymphocytes/100 WBC Auto (Unsp spec) 25.4 % 19-41 [facility] Basophil percentageOrdered B y: Bakari Avila on 08-28-2023 Basophil percentage 0-5 SEEN /hpf 0-5 [facility] Basophils/100 WBC (Bld) 1.6 % 0-1 [facility] Bilirubin [Mass/Vol] 0.40 mg/dL 0.20-1.00 [facility] Comment on above: For patients on eltr ombopag therapy, use of Dimension [place] TBIL is not recommended. Chloride [Moles/Vol] 108 mmol/L 98-107 [facility] Eosinophils/100 WBC (Bld) 7.2 % 0-5 [facility] Glucose [Mass/Vol] 105 mg/dL 74-106 [facility] Comment on above: Fasting Glucose resu lt from 100 to 125 mg/dL suggests IMPAIRED HOMEOSTASIS per A.D.A. criteria. Hemoglobin (Bld) [Mass/Vol] 13.6 g/dL 12.0-15.0 [facility] Monocytes/100 WBC (Bld) 9.4 % 0-10 [facility] Neutrophils (Bld) [#/Vol] 2.7 10*3/uL 2.0-7.7 [facility] Neutrophils/100 WBC (Bld) 56.0 % 47-70 [facility] Potassium [Moles/Vol] 4.1 mmol/L 3.5-5.1 [facility] Protein [Mass/Vol] 7.3 g/dL 6.4-8.2 [facility] Sodium [Moles/Vol] 142 mmol/L 136-145 [facility] WBC (Bld) [#/Vol] 4.9 10*3/uL 4.4-11.0 [facility] Bilirubin Test strip Ql (U)O rdered By: Bakari Avila on 08-28-2023 Bilirubin Ql (U) Negative Negative [facility] Determination of erythrocyte mean corpuscular volume (MCV)Ordered By: Bakari Avila on 08-28-2023 MCV (RBC) [Entitic vol] 93.2 fL 81-99 [facility] Erythrocyte distribution wid th ratioOrdered By: Bakari Avila on 08-28-2023 Erythrocyte distribution width (RBC) [Ratio] 13.2 % 11.6-14.6 [facility] Erythrocyte distribution wid th standard deviationOrdered By: Bakari Avila on 08-28-2023 Erythrocyte distribution width (RBC) [Entitic vol] 44.8 fL 35.1-43.9 [facility] Hematocrit Auto (Bld) [Volum e fraction]Ordered By: Bakari Avila on 08-28-2023 Hematocrit (Bld) [Volume fraction] 43.9 % 37-47 [facility] Immature granulocytes/100 WB C Auto (Bld)Ordered By: Bakari Avila on 08-28-2023 Immature granulocytes/100 WBC (Bld) 0.400 % 0.0-0.9 [facility] Comment on above: IG% - Immature Granu locytes (promyelocytes, myelocytes and metamyelocytes) > 1% indicates that a LEFT SHIFT is Present. Ketones Test strip Ql (U)Ord ered By: Bakari Avila on 08-28-2023 Ketones Ql (U) Negative Negative [facility] Laboratory - Chemistry and C hemistry - challengeOrdered By: Bakari Avila on 08-28-2023 Albumin/Globulin [Mass ratio] 0.9 {ratio} 0.9-2.4 [facility] ALP [Catalytic activity/Vol] 74 U/L 45-117 [facility] ALT [Catalytic activity/Vol] 22 U/L 13-56 [facility] CO2 [Moles/Vol] 25.0 mmol/L 21.0-32.0 [facility] Cobalamin (Vitamin B12) [Mass/Vol] 395 pg/mL 211-911 [facility] Globulin (S) [Mass/Vol] 3.8 g/dL 2.2-4.2 [facility] Urea nitrogen/Creatinine [Mass ratio] 21.7 mg/mg 10-20 [facility] Laboratory - Hematology and Cell countsOrdered By: Bakari Avila on 08-28-2023 MCH (RBC) [Entitic mass] 28.9 pg 27.0-32.0 [facility] MCHC (RBC) [Mass/Vol] 31.0 g/dL 32-36 [facility] Nucleated RBC/100 WBC (Bld) [Ratio] 0 % 0-5 [facility] Platelet mean volume (Bld) [Entitic vol] 9.5 fL 6.2-12.0 [facility] Platelets (Bld) [#/Vol] 266 10*3/uL 150-450 [facility] Mucus LM Ql (Urine sed)Order ed By: Bakari Avila on 08-28-2023 Mucus Ql (Urine sed) 1+ /hpf [facility] Nitrite Test strip Ql (U)Ord ered By: Bakari Avila on 08-28-2023 Nitrite Ql (U) Negative Negative [facility] No Panel InformationOrdered By: Bakari Avila on 08-28-2023 Addendum Document Comment . [facility] Comment on above: The SPE pattern appe ars unremarkable. Evidence ofmonoclonal protein is not apparent.Performed at: [facility] [employer] [id number] Director: Nicolas Fung PhD, Phone: [phone] Itwkf-4-Lcybgpdks 0.2 g/dL 0.0-0.4 [facility] Fjjhn-7-Zosdbiadh 0.7 g/dL 0.4-1.0 [facility] Estimated GFR (MDRD) Amer 88 mL/min >60 [facility] Comment on above: GFR Calc Estimated GFR (MDRD) Non-Af Amer 72 mL/min >60 [facility] Comment on above: Non- GFR Calc Gamma Globulins 0.9 g/dL 0.4-1.8 [facility] Urine RBC 0-5 SEEN /hpf 0-5 [facility] Vitamin D 25-Hydroxy 62.7 ng/mL [facility] Comment on above: Vitamin D 25(OH) Sta tus Range Deficiency <20 ng/mL (50nmol/L) Insufficiency 20 - 30 ng/mL (50 - 75 nmol/L) Sufficiency 30 - 100 ng/mL (75 - 250 nmol/L) Toxicity >100 ng/mL (>250 nmol/L) Protein Fractions Elph [Inte rp]Ordered By: Bakari Avila on 08-28-2023 Protein Fractions [Interp] Comment . [facility] Comment on above: Protein electrophore sis scan will follow via computer,mail, or protective clothing issuer delivery. Protein Test strip Ql (U)Ord ered By: Bakari Avila on 08-28-2023 Protein Ql (U) 15 mg/dl Negative [facility] RBC Auto (Bld) [#/Vol]Ordere d By: Bakari Avila on 08-28-2023 RBC (Bld) [#/Vol] 4.71 10*6/uL 4.2-5.4 [facility] Serum albumin to globulin ra noe by protein electrophoresisOrdered By: Bakari Avila on 08-28-2023 Albumin/Globulin Elph [Mass ratio] 1.2 0.7-1.7 [facility] Serum globulin measurement ( mass/volume)Ordered By: Bakari Avila on 08-28-2023 Globulin (S) [Mass/Vol] 3.0 g/dL 2.2-3.9 [facility] Serum or plasma beta globuli n measurement by electrophoresis (mass/volume)Ordered By: Bakari Avila on 08-28-2023 Beta globulin Elph [Mass/Vol] 1.1 g/dL 0.7-1.3 [facility] Serum or plasma calcium oz urement (mass/volume)Ordered By: Bakari Avila on 08-28-2023 Calcium [Mass/Vol] 8.9 mg/dL 8.5-10.1 [facility] Serum or plasma cortisol declan surement (mass/volume)Ordered By: Bakari Avila on 08-28-2023 Cortisol [Mass/Vol] 13.60 ug/dL 3.44-22.45 [facility] Comment on above: Adult (AM) 5.27 - 22 .45 ug/dL Adult (PM) 3.44 - 16.76 ug/dLPlease note revised CORTISOL reference range effective 2019. Serum or plasma creatinine m easurement (mass/volume)Ordered By: Bakari Avila on 08-28-2023 Creatinine [Mass/Vol] 0.83 mg/dL 0.55-1.02 [facility] Comment on above: The validity of the calculated GFR & GFRAA in patients over 70 years has not been determined. Clinical correlation is essential. Serum or plasma protein mono clonal measurement by electrophoresis (mass/volume)Ordered By: Bakari Avila on 08-28-2023 Protein.monoclonal Elph [Mass/Vol] Not Observed g/dL Not Observed [facility] Serum or plasma thyroid stim ulating hormone (TSH) measurement (units/volume)Ordered By: Bakari Avila on 08-28-2023 TSH Qn 1.42 uIU/mL 0.358-3.74 [facility] Serum or plasma urea nitroge n measurement (mass/volume)Ordered By: Bakari Avila on 08-28-2023 Urea nitrogen [Mass/Vol] 18 mg/dL 7-18 [facility] Squamous epithelial cells de tection in urine sediment by light microscopyOrdered By: Bakari Avila on 08-28-2023 Epithelial cells.squamous LM Ql (Urine sed) 10-25 SEEN /hpf 5-10 [facility] Thin prep Papanicolaou smear with manual screeningOrdered By: Bakari Avila on 08-28-2023 Thin prep Papanicolaou smear with manual screening 3.5 g/dL 3.2-5.0 [facility] Thin prep Papanicolaou smear with manual screening 16 U/L 15-37 [facility] Thin prep Papanicolaou smear with manual screening 9 5-15 [facility] Total protein bloodOrdered B y: Bakari Avila on 08-28-2023 Protein [Mass/Vol] 6.6 g/dL 6.0-8.5 [facility] Urine blood detectionOrdered By: Bakari Avila on 03-07-2024 RBC Ql (U) Negative Negative [facility] Urine clarityOrdered By: Matt welsh Margarita on 08-28-2023 Clarity (U) Sl. Cloudy Clear [facility] Urine color determinationOrd ered By: Bakari Avila on 08-28-2023 Color (U) Yellow Yellow [facility] Urine glucose detectionOrder ed By: Bakari Avila on 08-28-2023 Glucose Ql (U) Normal mg/dl Normal [facility] Urine leukocyte esterase det ection by dipstickOrdered By: Bakari Avila on 08-28-2023 Leukocyte esterase Test strip Ql (U) 100 /ul Negative [facility] Urine pHOrdered By: Abraham Avial on 08-28-2023 pH (U) 5.0 [pH] 5.0 - 8.0 [facility] Urine sediment bacteria coun t by microscopy (number/high power field)Ordered By: Bakari Avila on 08-28-2023 Bacteria LM.HPF (Urine sed) [#/Area] 1 /[HPF] None Seen [facility] Urine specific gravity measu rementOrdered By: Bakari Avila on 08-28-2023 Specific gravity (U) [Rel density] 1.020 1.002-1.030 [facility] Urine urobilinogen measureme ntOrdered By: Bakari Avila on 08-28-2023 Urobilinogen Ql (U) Normal mg/dl Normal [facility] Basophil percentageOrdered B y: Bakari Avila on 06-30-2023 Bilirubin [Mass/Vol] 0.30 mg/dL 0.20-1.00 [facility] Comment on above: For patients on eltr ombopag therapy, use of Dimension Oxbow TBIL is not recommended. Chloride [Moles/Vol] 107 mmol/L 98-107 [facility] Cholesterol [Mass/Vol] 169 mg/dL <200 [facility] Comment on above: <200 mg/dL Desirable 200-240 mg/dL Borderline >240 mg/dL High Risk Glucose [Mass/Vol] 106 mg/dL 74-106 [facility] Comment on above: Fasting Glucose resu lt from 100 to 125 mg/dL suggests IMPAIRED HOMEOSTASIS per A.D.A. criteria. Potassium [Moles/Vol] 3.7 mmol/L 3.5-5.1 [facility] Protein [Mass/Vol] 7.3 g/dL 6.4-8.2 [facility] Sodium [Moles/Vol] 140 mmol/L 136-145 [facility] Triglyceride [Mass/Vol] 138 mg/dL <199 [facility] Comment on above: The drugs N-Acetylcy steine and Metamizole may falsely depress this assay.Serum Triglycerides Reference Interval Normal <150 mg/dL Borderline high 150 - 199 mg/dL High 200 - 499 mg/dL Very High > or = 500 mg/dL WBC (Bld) [#/Vol] 6.0 10*3/uL 4.4-11.0 [facility] Blood erythrocytes count (nu mber/volume)Ordered By: Bakari Avila on 06-30-2023 RBC (Bld) [#/Vol] 4.86 10*6/uL 4.2-5.4 [facility] Blood hemoglobin measurement (mass/volume)Ordered By: Bakari Avila on 06-30-2023 Hemoglobin (Bld) [Mass/Vol] 14.2 g/dL 12.0-15.0 [facility] Blood platelet mean volumeOr dered By: Bakari Avila on 06-30-2023 Platelet mean volume (Bld) [Entitic vol] 9.6 fL 6.2-12.0 [facility] Determination of erythrocyte mean corpuscular volume (MCV)Ordered By: Bakari Avila on 06-30-2023 MCV (RBC) [Entitic vol] 94.0 fL 81-99 [facility] Hematocrit Auto (Bld) [Volum e fraction]Ordered By: Bakari Avila on 06-30-2023 Hematocrit (Bld) [Volume fraction] 45.7 % 37-47 [facility] Laboratory - Chemistry and C hemistry - challengeOrdered By: Bakari Avila on 06-30-2023 ALP [Catalytic activity/Vol] 72 U/L 45-117 [facility] ALT [Catalytic activity/Vol] 30 U/L 13-56 [facility] CO2 [Moles/Vol] 26.0 mmol/L 21.0-32.0 [facility] Globulin (S) [Mass/Vol] 3.9 g/dL 2.2-4.2 [facility] Urea nitrogen/Creatinine [Mass ratio] 21.3 mg/mg 10-20 [facility] Laboratory - Hematology and Cell countsOrdered By: Bakari Avila on 06-30-2023 Erythrocyte distribution width (RBC) [Entitic vol] 44.2 fL 35.1-43.9 [facility] Erythrocyte distribution width (RBC) [Ratio] 12.6 % 11.6-14.6 [facility] MCH (RBC) [Entitic mass] 29.2 pg 27.0-32.0 [facility] MCHC Auto (RBC) [Mass/Vol]Or dered By: Bakari Avila on 06-30-2023 MCHC (RBC) [Mass/Vol] 31.1 g/dL 32-36 [facility] No Panel InformationOrdered By: Bakari Avila on 06-30-2023 Estimated GFR (MDRD) Amer 106 mL/min >60 [facility] Comment on above: GFR Calc Estimated GFR (MDRD) Non-Af Amer 88 mL/min >60 [facility] Comment on above: Non- GFR Calc Thyroid Stimulating Hormone (TSH) 1.42 uIU/mL 0.358-3.74 [facility] Platelets bldOrdered By: Matt Avila on 06-30-2023 Platelets (Bld) [#/Vol] 245 10*3/uL 150-450 [facility] Serum or plasma albumin oz urement (mass/volume)Ordered By: Bakari Avila on 06-30-2023 Albumin [Mass/Vol] 3.4 g/dL 3.2-5.0 [facility] Serum or plasma albumin/glob ulin mass ratioOrdered By: Bakari Avila on 06-30-2023 Albumin/Globulin [Mass ratio] 0.9 {ratio} 0.9-2.4 [facility] Serum or plasma calcium oz urement (mass/volume)Ordered By: Bakari Avila on 06-30-2023 Calcium [Mass/Vol] 8.4 mg/dL 8.5-10.1 [facility] Serum or plasma cholesterol in HDL measurement (mass/volume)Ordered By: Bakari Avila on 06-30-2023 Cholesterol in HDL [Mass/Vol] 34 mg/dL >40 [facility] Comment on above: The drugs N-Acetylcy steine and Metamizole may falsely depress this assay. Reference Range HDL <40 mg/dL Low HDL Cholesterol HDL >or= 60 mg/dL High HDL Cholesterol Serum or plasma cholesterol in VLDL measurement (mass/volume)Ordered By: Bakari Avila on 06-30-2023 Cholesterol in VLDL [Mass/Vol] 28 mg/dL 5-40 [facility] Serum or plasma creatinine m easurement (mass/volume)Ordered By: Bakari Avila on 06-30-2023 Creatinine [Mass/Vol] 0.70 mg/dL 0.55-1.02 [facility] Comment on above: The validity of the calculated GFR & GFRAA in patients over 70 years has not been determined. Clinical correlation is essential. Serum or plasma low density lipoprotein (LDL) cholesterol measurement (mass/volume)Ordered By: Bakari Avila on 06-30-2023 Cholesterol in LDL [Mass/Vol] 107 mg/dL 0-130 [facility] Serum or plasma urea nitroge n measurement (mass/volume)Ordered By: Bakari Avila on 06-30-2023 Urea nitrogen [Mass/Vol] 15 mg/dL 7-18 [facility] Thin prep Papanicolaou smear with manual screeningOrdered By: Bakari Avila on 06-30-2023 Thin prep Papanicolaou smear with manual screening 25 U/L 15-37 [facility] Thin prep Papanicolaou smear with manual screening 7 5-15 [facility] Whole blood hemoglobin A1c/t otal hemoglobin ratio (mass fraction)Ordered By: Bakari Avila on 06-30-2023 HbA1c (Bld) [Mass fraction] 6.0 % 3.8-5.6 [facility] Comment on above: Normal < 5.7 % Predi abetic 5.7 - 6.4 % Diabetic >or= 6.5 % Please note range changes. Laboratory - Chemistry and C hemistry - challengeOrdered By: Bakari Avila on 03-17-2023 Cobalamin (Vitamin B12) [Mass/Vol] 460 pg/mL 211-911 [facility] Serum or plasma glucose oz urement 5 hours post dose glucose (mass/volume)Ordered By: Bakari Avila on 01-27-2023 Glucose 5 Hr post dose glucose [Mass/Vol] See comment [facility] Comment on above: FASTING 137 H [...] on 12-17-2022 Albumin [Mass/Vol] 3.6 g/dL 2.9-4.4 [facility] Atypical perinuclear antineu trophil cytoplasmic antibodies measurementOrdered By: Tommie Avelar on 12-17-2022 Neutrophil cytoplasmic Ab.perinuclear.atypical IF (S) [Titer] <1:20 titer Neg:<1:20 [facility] Comment on above: The atypical pANCA p attern has been observed in asignificant percentage of patients with ulcerative colitis,primary sclerosing cholangitis and autoimmune hepatitis. Basophil percentageOrdered B y: Tommie Avelar on 12-17-2022 Amylase [Catalytic activity/Vol] 42 U/L 25-115 [facility] Basophil percentage < 0.2 AI 0.0-0.9 [facility] LDH [Catalytic activity/Vol] 164 U/L 84-246 [facility] Chocolate RASTOrdered By: Ra yaakov Avelar on 12-17-2022 Chocolate IgE Qn (S) <0.10 kU/L Class 0 [facility] Comment on above: Performed at: [address] [id number] Director: Nicolas Fung PhD, Phone: [phone] at: - [facility] [address] [id number] Director: Yanna Vidal MD, Phone: [phone] Erythrocyte sedimentation ra teOrdered By: Tommie Avelar on 12-17-2022 ESR (Bld) [Velocity] 8 mm/h 0-30 [facility] Hemoglobin in reticulocytes (mass per reticulocyte)Ordered By: Tommie Avelar on 12-17-2022 Hemoglobin (Reticulocytes) [Entitic mass] 32.9 pg 30-35 [facility] Interpretation of serum or p lasma protein pattern by immunofixation (narrative resultOrdered By: Tommie Avelar on 12-17-2022 Protein Fractions Immunofixation Aryan [Interp] See comment [facility] Comment on above: NOT OBSERVED Iron measurement (mass/mass) Ordered By: Tommie Avelar on 12-17-2022 Iron (Unsp spec) [Mass/Mass] 83 ug/dL 50-170 [facility] Laboratory - Chemistry and C hemistry - challengeOrdered By: Tommie Avelar on 12-17-2022 Lipase [Catalytic activity/Vol] 50 U/L 13-75 [facility] Comment on above: Please note:LIPASE r evised reference range effective 22. New Lipase methodology. Expected to produce lower values than the previous assay method. NEW Reference Range: 13 - 75 U/L Laboratory - Miscellaneous t estsOrdered By: Tommie Avelar on 12-17-2022 Service comment (Unsp spec) [Interp] Comment . [facility] Comment on above: Levels of Specific [...] Tommie Friend on 12-17-2022 Giardia Antigen (FRANDY) [facility] Stool Calprotectin 9 ug/g 0-120 [facility] Comment on above: Concentration Interp retation Follow-Up< 5 - 50 ug/g Normal None>50 -120 ug/g Borderline Re-evaluate in 4-6 weeks >120 ug/g Abnormal Repeat as clinically indicatedPerformed at: [facility] [address] [id number] Director: Nicolas Fung PhD, Phone: [phone] at: [facility] [id number] Director: Yanna Vidal MD, Phone: [phone] Stool Neutral Fats Normal . [facility] Comment on above: Normal (<60 Droplets /HPF) Stool Pancreatic Elastase 175 >200 [facility] Comment on above: Result Units: ug Dyana st./g Severe Pancreatic Insufficiency: <100 Moderate Pancreatic Insufficiency: 100 - 200 Normal: >200Performed at: [employer] [facility] [address] [id number] Director: Yanna Vidal MD, Phone: [phone] Addendum Document Comment . [facility] Comment on above: Protein electrophore sis scan will follow via computer,mail, or protective clothing issuer delivery. Centromere B Antibody <0.2 AI 0.0-0.9 [facility] Immature Reticulocyte Fraction 17.20 % 3.00-15.90 [facility] Immunoglobulin E 31 IU/mL 6-495 [facility] Comment on above: Performed at: [facility] [address] [id number] Director: Nicolas Fung PhD, Phone: [phone] at: [facility] [id number] Director: Yanna Vidal MD, Phone: [phone] Reticulocyte Count 2.15 % 0.5-1.5 [facility] GUITAR INSTRUCTOR Antibody <0.2 AI 0.0-0.9 [facility] Scallop Allergen <0.10 kU/L Class 0 [facility] Seafood Group Allergens (RAST) Negative . [facility] Comment on above: Allergens in this mi x are: Blue mussel Fish Dulce Shrimp Tuna Sesame Seed Allergen IgE Antibody <0.10 kU/L Class 0 [facility] Shrimp Allergen <0.10 kU/L Class 0 [facility] Total Iron Binding Capacity 327 ug/dL 250-450 [facility] No Panel InformationOrdered By: Bakari Avila on 12-17-2022 Thyroid Stimulating Hormone (TSH) 1.88 uIU/mL 0.358-3.74 [facility] Ova and parasitesOrdered By: Tommie Avelar on 12-17-2022 Ova and parasites identified LM Nom (Unsp spec) [facility] Qualitative fecal fat or lip idsOrdered By: Tommie Avelar on 12-17-2022 Fat Ql (Stl) Increased . [facility] Comment on above: Normal (<100 Droplet s/HPF) Serum DNA double strand anti body assay (units/volume)Ordered By: Tommie Avelar on 12-17-2022 DNA double strand Ab Qn (S) [IU]/mL 0-9 [facility] Comment on above: Negative <5 Equivoca l 5 - 9 Positive >9 Serum Kristina-1 antibody assay (u nits/volume)Ordered By: Tommie Avelar on 12-17-2022 Kristina-1 extractable nuclear Ab Qn (S) <0.2 AI 0.0-0.9 [facility] Serum Scl-70 extractable nuc lear antibody assay (units/volume)Ordered By: Tommie Avelar on 12-17-2022 SCL-70 extractable nuclear Ab Qn (S) <0.2 AI 0.0-0.9 [facility] Serum Gutiérrez extractable nucl ear antibody detectionOrdered By: Tommie Avelar on 12-17-2022 Gutiérrez extractable nuclear Ab Ql (S) <0.2 AI 0.0-0.9 [facility] Serum pqndr-3-diyoxamb measu rement by electrophoresisOrdered By: Tommie Avelar on 12-17-2022 Alpha 1 globulin Elph [Mass/Vol] 0.2 g/dL 0.0-0.4 [facility] Alpha 1 globulin Elph [Mass/Vol] 0.7 g/dL 0.4-1.0 [facility] Serum beef IgE antibody assa y (units/volume)Ordered By: Tommie Avelar on 12-17-2022 Beef IgE Qn (S) <0.10 kU/L Class 0 [facility] Serum black walnut IgE antib jose raul assay (units/volume)Ordered By: Tommie Avelar on 12-17-2022 Black Wilmer IgE Qn (S) <0.10 kU/L Class 0 [facility] Serum clam IgE antibody assa y (units/volume)Ordered By: Tommie Avelar on 12-17-2022 Clam IgE Qn (S) <0.10 kU/L Class 0 [facility] Serum classic neutrophil cyt oplasmic antibody assay (units/volume)Ordered By: Tommie Avelar on 12-17-2022 Neutrophil cytoplasmic Ab.classic Qn (S) <1:20 titer Neg:<1:20 [facility] Serum codfish IgE antibody a ssay (units/volume)Ordered By: Tommie Avelar on 12-17-2022 Codfish IgE Qn (S) <0.10 kU/L Class 0 [facility] Serum corn IgE antibody assa y (units/volume)Ordered By: Tommie Avelar on 12-17-2022 [place] IgE Qn (S) <0.10 kU/L Class 0 [facility] Serum cow milk IgE antibody assay (units/volume)Ordered By: Tommie Avelar on 12-17-2022 Cow milk IgE Qn (S) <0.10 kU/L Class 0 [facility] Serum egg white IgE antibody assay (units/volume)Ordered By: Tommie Avelar on 12-17-2022 Egg white IgE Qn (S) <0.10 kU/L Class 0 [facility] Serum globulin measurement ( mass/volume)Ordered By: Tommie Avelar on 12-17-2022 Globulin (S) [Mass/Vol] 3.0 g/dL 2.2-3.9 [facility] Serum or plasma C reactive p rotein measurement (mass/volume)Ordered By: Tommie Avelar on 12-17-2022 CRP [Mass/Vol] 2.97 mg/L 0.0-3.0 [facility] Comment on above: C-Reactive Protein ( CRP) provides useful information for thediagnosis, therapy and monitoring of inflammatory processesand associated diseases. For the evaluation of Relative Riskfor Cardiovascular Disease, a High Sensitivity CRP (HSCRP)should be ordered. Serum or plasma IgA measurem ent (mass/volume)Ordered By: Tommie Avelar on 12-17-2022 IgA [Mass/Vol] 181 mg/dL 87-352 [facility] Serum or plasma IgG measurem ent (mass/volume)Ordered By: Tommie Avelar on 12-17-2022 IgG [Mass/Vol] 943 mg/dL 586-1602 [facility] Serum or plasma IgM measurem ent (mass/volume)Ordered By: Tommie Avelar on 12-17-2022 IgM [Mass/Vol] 25 mg/dL 26-217 [facility] Comment on above: Result confirmed on concentration. Serum or plasma beta globuli n measurement by electrophoresis (mass/volume)Ordered By: Tommie Avelar on 12-17-2022 Beta globulin Elph [Mass/Vol] 1.1 g/dL 0.7-1.3 [facility] Serum or plasma ferritin declan surement (mass/volume)Ordered By: Tommie Avelar on 12-17-2022 Ferritin [Mass/Vol] 34 ng/mL 8-252 [facility] Serum or plasma gamma globul in measurement by electrophoresis (mass/volume)Ordered By: Tommie Avelar on 12-17-2022 Gamma globulin Elph [Mass/Vol] 0.9 g/dL 0.4-1.8 [facility] Serum or plasma gastrin oz urement (mass/volume)Ordered By: Tommiesaskia Avelar on 12-17-2022 Gastrin [Mass/Vol] < 10 pg/mL 0-115 [facility] Comment on above: Siemens Immulite 200 0 Immunochemiluminometric assay (ICMA)Values obtained with different assay methods or kits cannotbe used interchangeably. Results cannot be interpreted asabsolute evidence of the presence or absence of malignantdisease. Serum or plasma immunoelectr ophoresis interpretation (nominal result)Ordered By: Tommie Avelar on 12-17-2022 Interpretation IEP [Interp] Comment . [facility] Comment on above: No monoclonality det ected. Serum peanut IgE antibody as say (units/volume)Ordered By: Tommie Avelar on 12-17-2022 Peanut IgE Qn (S) <0.10 kU/L Class 0 [facility] Serum perinuclear neutrophil cytoplasmic antibody titer by immunofluorescenceOrdered By: Tommie Avelar on 12-17-2022 Neutrophil cytoplasmic Ab.perinuclear IF (S) [Titer] <1:20 titer Neg:<1:20 [facility] Comment on above: The presence of posi tive fluorescence exhibiting P-ANCA orC-ANCA patterns alone is not specific for the diagnosis ofWegener's Granulomatosis (WG) or microscopic polyangiitis.Decisions about treatment should not be based solely onANCA IFA results. The International ANCA Group Consensusrecommends follow up testing of positive sera with both NV-3 and MPO-ANCA enzyme immunoassays. As many as 5% serumsamples are positive only by EIA. Ref. AM J Clin Rlwucx2501;111:507-513. Serum pork IgE antibody assa y (units/volume)Ordered By: Tommie Avelar on 12-17-2022 Pork IgE Qn (S) <0.10 kU/L Class 0 [facility] Serum soybean IgE antibody a ssay (units/volume)Ordered By: Tommie Avelar on 12-17-2022 Soybean IgE Qn (S) <0.10 kU/L Class 0 [facility] Serum wheat IgE antibody ass ay (units/volume)Ordered By: Tommie Avelar on 12-17-2022 Wheat IgE Qn (S) <0.10 kU/L Class 0 [facility] Serum whole egg IgE antibody assay (units/volume)Ordered By: Tommie Avelar on 12-17-2022 Whole Egg IgE Qn (S) <0.10 kU/L Class 0 [facility] Stool enteric pathogen panel by probe and target amplification methodOrdered By: Tommie Avelar on 12-17-2022 Gastrointestinal pathogens panel AMILCAR+probe (Stl) [facility] Stool gastrointestinal hemog lobin detection by immunologic methodOrdered By: Tommie Avelar on 12-17-2022 Lower GI hemoglobin IA Ql (Stl) [facility] Stool lactoferrin detection by immunoassayOrdered By: Tommie Avelar on 12-17-2022 Lactoferrin IA Ql (Stl) [facility] Thin prep Papanicolaou smear with manual screeningOrdered By: Tommie Friend on 12-17-2022 Thin prep Papanicolaou smear with manual screening 1.3 0.7-1.7 [facility] Total protein bloodOrdered B y: Tommie Avelar on 12-17-2022 Protein [Mass/Vol] 6.6 g/dL 6.0-8.5 [facility] Absolute lymphocyte countOrd ered By: Dr. Avila on 10-22-2022 Lymphocytes Auto (Unsp spec) [#/Vol] 1.68 10*3/uL 0.83-4.51 [facility] Basophil percentageOrdered B y: Dr. Avila on 10-22-2022 Basophils/100 WBC (Bld) 1.3 % 0-1 [facility] Bilirubin [Mass/Vol] 0.40 mg/dL 0.20-1.00 [facility] Comment on above: For patients on eltr ombopag therapy, use of Dimension Oxbow TBIL is not recommended. Chloride [Moles/Vol] 107 mmol/L 98-107 [facility] Eosinophils/100 WBC (Bld) 5.2 % 0-5 [facility] Glucose [Mass/Vol] 76 mg/dL 74-106 [facility] Neutrophils (Bld) [#/Vol] 2.7 10*3/uL 2.0-7.7 [facility] Neutrophils/100 WBC (Bld) 50.2 % 47-70 [facility] Potassium [Moles/Vol] 3.7 mmol/L 3.5-5.1 [facility] Protein [Mass/Vol] 7.4 g/dL 6.4-8.2 [facility] Sodium [Moles/Vol] 141 mmol/L 136-145 [facility] Testosterone [Mass/Vol] 15.66 ng/dL [facility] Comment on above: CENTRAL 90% REFERENC E RANGES MALE AGE <50 197.44 - 669.58 ng/dL MALE AGE > or = 50 187.72 - 684.19 ng/dL FEMALE AGE <50 8.38 - 35.01 ng/dL FEMALE AGE > or = 50 <7.00 - 35.92 ng/dL Effective as of 01/16/21 WBC (Bld) [#/Vol] 5.3 10*3/uL 4.4-11.0 [facility] Blood erythrocytes count (nu mber/volume)Ordered By: Dr. Avila on 10-22-2022 RBC (Bld) [#/Vol] 4.84 10*6/uL 4.2-5.4 [facility] Blood hemoglobin measurement (mass/volume)Ordered By: Dr. Avila on 10-22-2022 Hemoglobin (Bld) [Mass/Vol] 14.4 g/dL 12.0-15.0 [facility] Blood lymphocytes/100 leukoc ytesOrdered By: Dr. Avila on 10-22-2022 Lymphocytes/100 WBC (Bld) 31.5 % 19-41 [facility] Blood monocytes/100 leukocyt esOrdered By: Dr. Avila on 10-22-2022 Monocytes/100 WBC (Bld) 11.2 % 0-10 [facility] Blood platelet mean volumeOr dered By: Dr. Avila on 10-22-2022 Platelet mean volume (Bld) [Entitic vol] 9.6 fL 6.2-12.0 [facility] Determination of erythrocyte mean corpuscular volume (MCV)Ordered By: Dr. Avila on 10-22-2022 MCV (RBC) [Entitic vol] 94.0 fL 81-99 [facility] Erythrocyte sedimentation ra teOrdered By: Dr. Avila on 10-22-2022 ESR (Bld) [Velocity] 9 mm/h 0-30 [facility] Hematocrit Auto (Bld) [Volum e fraction]Ordered By: Dr. Avila on 10-22-2022 Hematocrit (Bld) [Volume fraction] 45.5 % 37-47 [facility] Laboratory - Chemistry and C hemistry - challengeOrdered By: Dr. Avila on 10-22-2022 ALP [Catalytic activity/Vol] 75 U/L 45-117 [facility] ALT [Catalytic activity/Vol] 31 U/L 13-56 [facility] CO2 [Moles/Vol] 27.0 mmol/L 21.0-32.0 [facility] Cobalamin (Vitamin B12) [Mass/Vol] 294 pg/mL 211-911 [facility] Free T4 [Mass/Vol] 0.82 ng/dL 0.76-1.46 [facility] Globulin (S) [Mass/Vol] 3.8 g/dL 2.2-4.2 [facility] Urea nitrogen/Creatinine [Mass ratio] 21.1 mg/mg 10-20 [facility] Laboratory - Hematology and Cell countsOrdered By: Dr. Avila on 10-22-2022 Erythrocyte distribution width (RBC) [Entitic vol] 45.1 fL 35.1-43.9 [facility] Erythrocyte distribution width (RBC) [Ratio] 13.1 % 11.6-14.6 [facility] Immature granulocytes/100 WBC (Bld) 0.600 % 0.0-0.9 [facility] Comment on above: IG% - Immature Granu locytes (promyelocytes, myelocytes and metamyelocytes) > 1% indicates that a LEFT SHIFT is Present. MCH (RBC) [Entitic mass] 29.8 pg 27.0-32.0 [facility] Nucleated RBC/100 WBC (Bld) [Ratio] 0 % 0-5 [facility] MCHC Auto (RBC) [Mass/Vol]Or dered By: Dr. Avila on 10-22-2022 MCHC (RBC) [Mass/Vol] 31.6 g/dL 32-36 [facility] No Panel InformationOrdered By: Dr. Avila on 10-22-2022 Estimated GFR (MDRD) Amer 98 mL/min >60 [facility] Comment on above: GFR Calc Estimated GFR (MDRD) Non-Af Amer 81 mL/min >60 [facility] Comment on above: Non- GFR Calc Follicle Stimulating Hormone 56.8 mIU/mL [facility] Comment on above: NORMAL REFERENCE RAN GES FEMALE FOLLICULAR 2.3 - 12.6 mIU/mL MID-CYCLE PEAK 5.2 - 17.5 mIU/mL LUTEAL 1.7 - 12.9 mIU/mL POST-MENOPAUSAL ON MHT 5.9 - 72.8 mIU/mL NOT ON MHT 12.7 - 132.2 mlU/mL MALE 0.7 - 10.8 mIU/mL Luteinizing Hormone 40.3 mIU/mL [facility] Comment on above: NORMAL REFERENCE RAN GES FEMALE FOLLICULAR 1.9 - 26.2 mIU/mL MID-CYCLE PEAK 22.8 - 76.1 mIU/mL LUTEAL 0.6 - 16.6 mIU/mL POST-MENOPAUSAL ON MHT 1.1 - 52.4 mIU/mL NOT ON MHT 8.6 - 61.8 mIU/mL MALE 1.2 - 10.6 mIU/mL Thyroid Stimulating Hormone (TSH) 1.02 uIU/mL 0.358-3.74 [facility] Vitamin D 25-Hydroxy 59.8 ng/mL [facility] Comment on above: Vitamin D 25(OH) Sta tus Range Deficiency <20 ng/mL (50nmol/L) Insufficiency 20 - 30 ng/mL (50 - 75 nmol/L) Sufficiency 30 - 100 ng/mL (75 - 250 nmol/L) Toxicity >100 ng/mL (>250 nmol/L) Platelets bldOrdered By: Dr. Avila on 10-22-2022 Platelets (Bld) [#/Vol] 246 10*3/uL 150-450 [facility] Serum or plasma C reactive p rotein measurement (mass/volume)Ordered By: Dr. Avila on 10-22-2022 CRP [Mass/Vol] mg/L 0.0-3.0 [facility] Comment on above: C-Reactive Protein ( CRP) provides useful information for thediagnosis, therapy and monitoring of inflammatory processesand associated diseases. For the evaluation of Relative Riskfor Cardiovascular Disease, a High Sensitivity CRP (HSCRP)should be ordered. Serum or plasma albumin oz urement (mass/volume)Ordered By: Dr. Avila on 10-22-2022 Albumin [Mass/Vol] 3.6 g/dL 3.2-5.0 [facility] Serum or plasma albumin/glob ulin mass ratioOrdered By: Dr. Avila on 10-22-2022 Albumin/Globulin [Mass ratio] 0.9 {ratio} 0.9-2.4 [facility] Serum or plasma calcium oz urement (mass/volume)Ordered By: Dr. Avila on 10-22-2022 Calcium [Mass/Vol] 9.1 mg/dL 8.5-10.1 [facility] Serum or plasma cortisol declan surement (mass/volume)Ordered By: Dr. Avial on 10-22-2022 Cortisol [Mass/Vol] 7.60 ug/dL 3.44-22.45 [facility] Comment on above: Adult (AM) 5.27 - 22 .45 ug/dL Adult (PM) 3.44 - 16.76 ug/dLPlease note revised CORTISOL reference range effective 2019. Serum or plasma creatinine m easurement (mass/volume)Ordered By: Dr. Avila on 10-22-2022 Creatinine [Mass/Vol] 0.76 mg/dL 0.55-1.02 [facility] Comment on above: The validity of the calculated GFR & GFRAA in patients over 70 years has not been determined. Clinical correlation is essential. Serum or plasma urea nitroge n measurement (mass/volume)Ordered By: Dr. Avila on 10-22-2022 Urea nitrogen [Mass/Vol] 16 mg/dL 7-18 [facility] Thin prep Papanicolaou smear with manual screeningOrdered By: Dr. Avila on 10-22-2022 Thin prep Papanicolaou smear with manual screening 22 U/L 15-37 [facility] Thin prep Papanicolaou smear with manual screening 7 5-15 [facility] Stool Helicobacter pylori an tigen detection by immunoassayOrdered By: Dr. Avila on 08-08-2022 H. pylori Ag IA Ql (Stl) Negative Negative [facility] Comment on above: Performed at: [facility] [address] [id number] Director: Yanna Vidal MD, Phone: [phone] Absolute lymphocyte countOrd ered By: Dr. Avila on 08-05-2022 Lymphocytes Auto (Unsp spec) [#/Vol] 1.42 10*3/uL 0.83-4.51 [facility] Basophil percentageOrdered B y: Dr. Avila on 08-05-2022 Amylase [Catalytic activity/Vol] 42 U/L 25-115 [facility] Basophils/100 WBC (Bld) 1.1 % 0-1 [facility] Bilirubin [Mass/Vol] 0.40 mg/dL 0.20-1.00 [facility] Comment on above: For patients on eltr ombopag therapy, use of Dimension [place] TBIL is not recommended. Chloride [Moles/Vol] 105 mmol/L 98-107 [facility] Eosinophils/100 WBC (Bld) 5.9 % 0-5 [facility] Glucose [Mass/Vol] 78 mg/dL 74-106 [facility] Neutrophils (Bld) [#/Vol] 2.4 10*3/uL 2.0-7.7 [facility] Neutrophils/100 WBC (Bld) 50.6 % 47-70 [facility] Potassium [Moles/Vol] 3.9 mmol/L 3.5-5.1 [facility] Protein [Mass/Vol] 7.1 g/dL 6.4-8.2 [facility] Sodium [Moles/Vol] 137 mmol/L 136-145 [facility] WBC (Bld) [#/Vol] 4.7 10*3/uL 4.4-11.0 [facility] Blood erythrocytes count (nu mber/volume)Ordered By: Dr. Avila on 08-05-2022 RBC (Bld) [#/Vol] 4.61 10*6/uL 4.2-5.4 [facility] Blood hemoglobin measurement (mass/volume)Ordered By: Dr. Avila on 08-05-2022 Hemoglobin (Bld) [Mass/Vol] 13.7 g/dL 12.0-15.0 [facility] Blood lymphocytes/100 leukoc ytesOrdered By: Dr. Avila on 08-05-2022 Lymphocytes/100 WBC (Bld) 30.1 % 19-41 [facility] Blood monocytes/100 leukocyt esOrdered By: Dr. Avila on 08-05-2022 Monocytes/100 WBC (Bld) 11.9 % 0-10 [facility] Blood platelet mean volumeOr dered By: Dr. Avila on 08-05-2022 Platelet mean volume (Bld) [Entitic vol] 9.8 fL 6.2-12.0 [facility] Determination of erythrocyte mean corpuscular volume (MCV)Ordered By: Dr. Avila on 08-05-2022 MCV (RBC) [Entitic vol] 94.4 fL 81-99 [facility] Erythrocyte sedimentation ra teOrdered By: Dr. Avila on 08-05-2022 ESR (Bld) [Velocity] 12 mm/h 0-30 [facility] Hematocrit Auto (Bld) [Volum e fraction]Ordered By: Dr. Avila on 08-05-2022 Hematocrit (Bld) [Volume fraction] 43.5 % 37-47 [facility] Laboratory - Chemistry and C hemistry - challengeOrdered By: Dr. Avila on 08-05-2022 ALP [Catalytic activity/Vol] 74 U/L 45-117 [facility] ALT [Catalytic activity/Vol] 34 U/L 13-56 [facility] CO2 [Moles/Vol] 27.0 mmol/L 21.0-32.0 [facility] Globulin (S) [Mass/Vol] 3.7 g/dL 2.2-4.2 [facility] Lipase [Catalytic activity/Vol] 143 U/L 73-393 [facility] Urea nitrogen/Creatinine [Mass ratio] 26.6 mg/mg 10-20 [facility] Laboratory - Hematology and Cell countsOrdered By: Dr. Avila on 08-05-2022 Erythrocyte distribution width (RBC) [Entitic vol] 43.6 fL 35.1-43.9 [facility] Erythrocyte distribution width (RBC) [Ratio] 12.6 % 11.6-14.6 [facility] Immature granulocytes/100 WBC (Bld) 0.400 % 0.0-0.9 [facility] Comment on above: IG% - Immature Granu locytes (promyelocytes, myelocytes and metamyelocytes) > 1% indicates that a LEFT SHIFT is Present. MCH (RBC) [Entitic mass] 29.7 pg 27.0-32.0 [facility] Nucleated RBC/100 WBC (Bld) [Ratio] 0 % 0-5 [facility] MCHC Auto (RBC) [Mass/Vol]Or dered By: Dr. Avila on 08-05-2022 MCHC (RBC) [Mass/Vol] 31.5 g/dL 32-36 [facility] No Panel InformationOrdered By: Dr. Avila on 08-05-2022 Endomysial IgA Antibody Negative Negative [facility] Estimated GFR (MDRD) Amer 104 mL/min >60 [facility] Comment on above: GFR Calc Estimated GFR (MDRD) Non-Af Amer 86 mL/min >60 [facility] Comment on above: Non- GFR Calc Thyroid Stimulating Hormone (TSH) 0.93 uIU/mL 0.358-3.74 [facility] Platelets bldOrdered By: Dr. Avila on 08-05-2022 Platelets (Bld) [#/Vol] 241 10*3/uL 150-450 [facility] Serum IgA measurement (units /volume)Ordered By: Dr. Avila on 08-05-2022 IgA Qn (S) 214 mg/dL 87-352 [facility] Comment on above: Performed at: [employer] [facility] [employer] [address] Director: Nicolas Fung PhD, Phone: [phone] Serum or plasma C reactive p rotein measurement (mass/volume)Ordered By: Dr. Avila on 08-05-2022 CRP [Mass/Vol] 4.36 mg/L 0.0-3.0 [facility] Comment on above: C-Reactive Protein ( CRP) provides useful information for thediagnosis, therapy and monitoring of inflammatory processesand associated diseases. For the evaluation of Relative Riskfor Cardiovascular Disease, a High Sensitivity CRP (HSCRP)should be ordered. Serum or plasma albumin oz urement (mass/volume)Ordered By: Dr. Avila on 08-05-2022 Albumin [Mass/Vol] 3.4 g/dL 3.2-5.0 [facility] Serum or plasma albumin/glob ulin mass ratioOrdered By: Dr. Avila on 08-05-2022 Albumin/Globulin [Mass ratio] 0.9 {ratio} 0.9-2.4 [facility] Serum or plasma calcium oz urement (mass/volume)Ordered By: Dr. Avila on 08-05-2022 Calcium [Mass/Vol] 9.4 mg/dL 8.5-10.1 [facility] Serum or plasma creatinine m easurement (mass/volume)Ordered By: Dr. Avila on 08-05-2022 Creatinine [Mass/Vol] 0.72 mg/dL 0.55-1.02 [facility] Comment on above: The validity of the calculated GFR & GFRAA in patients over 70 years has not been determined. Clinical correlation is essential. Serum or plasma urea nitroge n measurement (mass/volume)Ordered By: Dr. Avila on 08-05-2022 Urea nitrogen [Mass/Vol] 19 mg/dL 7-18 [facility] Serum tissue transglutaminas e IgA antibody assay (units/volume)Ordered By: Dr. Avila on 08-05-2022 tTG IgA Qn (S) <2 U/mL 0-3 [facility] Comment on above: Negative 0 - 3 Weak Positive 4 - 10 Positive >10 Tissue Transglutaminase (tTG) has been identified as the endomysial antigen. Studies have demonstr- ated that endomysial IgA antibodies have over 99% specificity for gluten sensitive enteropathy. Thin prep Papanicolaou smear with manual screeningOrdered By: Dr. Avila on 08-05-2022 Thin prep Papanicolaou smear with manual screening 26 U/L 15-37 [facility] Thin prep Papanicolaou smear with manual screening 5 5-[address] [facility] [address] CARDIAC SCORINGon 022 CT CARDIAC SCORING Patient Name: DOMINIC ARTEAGA STUDY: CT CARDIAC SCORING; 05/01/2022 3:21 pm INDICATION: Hyperlipidemia, unspecified. COMPARISON: None. ACCESSION NUMBER(S): [id number] ORDERING CLINICIAN: CHAIM AVILA TECHNIQUE: Using prospective [...] coronary heart disease events. According to the [place] [employer] Clinical Expert Consensus [...] Electronically signed by: GITA DIXON MD Normal [facility] Absolute lymphocyte counton 04-01-2022 Lymphocytes Auto (Unsp spec) [#/Vol] 2.19 10*3/uL 0.83-4.51 [facility] Work Phone: Basophil percentageon 2021 Basophils/100 WBC (Bld) 1.3 % 0-1 [facility] Work Phone: Eosinophils/100 WBC (Bld) 5.5 % 0-5 [facility] Work Phone: Neutrophils (Bld) [#/Vol] 2.5 10*3/uL 2.0-7.7 [facility] Work Phone: Neutrophils/100 WBC (Bld) 44.4 % 47-70 [facility] Work Phone: WBC (Bld) [#/Vol] 5.6 10*3/uL 4.4-11.0 [facility] Work Phone: Blood erythrocytes count (nu mber/volume)on 04-01-2022 RBC (Bld) [#/Vol] 4.61 10*6/uL 4.2-5.4 [facility] Work Phone: Blood hemoglobin measurement (mass/volume)on 04-01-2022 Hemoglobin (Bld) [Mass/Vol] 13.8 g/dL 12.0-15.0 [facility] Work Phone: [phone] Blood lymphocytes/100 leukoc yteson 04-01-2022 Lymphocytes/100 WBC (Bld) 39.1 % 19-41 [facility] Work Phone: Blood monocytes/100 leukocyt eson 04-01-2022 Monocytes/100 WBC (Bld) 9.5 % 0-10 [facility] Work Phone: Blood platelet mean volumeon 04-01-2022 Platelet mean volume (Bld) [Entitic vol] 9.9 fL 6.2-12.0 [facility] Work Phone: [phone] Determination of erythrocyte mean corpuscular volume (MCV)on 04-01-2022 MCV (RBC) [Entitic vol] 94.1 fL 81-99 [facility] Work Phone: [phone] Erythrocyte sedimentation ra shannon 04-01-2022 ESR (Bld) [Velocity] 10 mm/h 0-30 [facility] Work Phone: [phone] Hematocrit Auto (Bld) [Volum e fraction]on 04-01-2022 Hematocrit (Bld) [Volume fraction] 43.4 % 37-47 [facility] Work Phone: [phone] Laboratory - Chemistry and C hemistry - challengeon 04-01-2022 Free T4 [Mass/Vol] 0.90 ng/dL 0.76-1.46 [facility] Work Phone: [phone] Laboratory - Hematology and Cell countson 04-01-2022 Erythrocyte distribution width (RBC) [Entitic vol] 43.7 fL 35.1-43.9 [facility] Work Phone: [phone] Erythrocyte distribution width (RBC) [Ratio] 12.6 % 11.6-14.6 [facility] Work Phone: [phone] Immature granulocytes/100 WBC (Bld) 0.200 % 0.0-0.9 [facility] Work Phone: Comment on above: IG% - Immature Granu locytes (promyelocytes, myelocytes and metamyelocytes) > 1% indicates that a LEFT SHIFT is Present. MCH (RBC) [Entitic mass] 29.9 pg 27.0-32.0 [facility] Work Phone: Nucleated RBC/100 WBC (Bld) [Ratio] 0 % 0-5 [facility] Work Phone: MCHC Auto (RBC) [Mass/Vol]on 04-01-2022 MCHC (RBC) [Mass/Vol] 31.8 g/dL 32-36 [facility] Work Phone: No Panel Informationon 04-01 Free Triiodothyronine (T3) pg/dL 2.8 pg/mL 2.18-3.98 [facility] Work Phone: Thyroid Stimulating Hormone (TSH) 4.13 uIU/mL 0.358-3.74 [facility] Work Phone: Vitamin D 25-Hydroxy 68.0 ng/mL [facility] Work Phone: Comment on above: Vitamin D 25(OH) Sta tus Range Deficiency <20 ng/mL (50nmol/L) Insufficiency 20 - 30 ng/mL (50 - 75 nmol/L) Sufficiency 30 - 100 ng/mL (75 - 250 nmol/L) Toxicity >100 ng/mL (>250 nmol/L) Platelets bldon 04-01-2022 Platelets (Bld) [#/Vol] 276 10*3/uL 150-450 [facility] Work Phone: Serum or plasma cortisol declan surement (mass/volume)on 04-01-2022 Cortisol [Mass/Vol] 21.10 ug/dL 3.44-22.45 [facility] Work Phone: Comment on above: Adult (AM) 5.27 - 22 .45 ug/dL Adult (PM) 3.44 - 16.76 ug/dLPlease note revised CORTISOL reference range effective 2019. Basophil percentageon 2021 Chloride [Moles/Vol] 103 mmol/L 98-107 [facility] Work Phone: Cholesterol [Mass/Vol] 230 mg/dL <200 [facility] Work Phone: Comment on above: <200 mg/dL Desirable 200-240 mg/dL Borderline >240 mg/dL High Risk Glucose [Mass/Vol] 137 mg/dL 74-106 [facility] Work Phone: Comment on above: Fasting Glucose resu lt greater than or equal to 126 mg/dL suggests DIABETES MELLITUS per A.D.A. criteria. Potassium [Moles/Vol] 4.0 mmol/L 3.5-5.1 [facility] Work Phone: Sodium [Moles/Vol] 135 mmol/L 136-145 [facility] Work Phone: Triglyceride [Mass/Vol] 200 mg/dL [facility] Work Phone: Comment on above: The drugs N-Acetylcy steine and Metamizole may falsely depress this assay.Serum Triglycerides Reference Interval Normal <150 mg/dL Borderline high 150 - 199 mg/dL High 200 - 499 mg/dL Very High > or = 500 mg/dL WBC (Bld) [#/Vol] 6.2 10*3/uL 4.4-11.0 [facility] Work Phone: Blood erythrocytes count (nu mber/volume)on 11-09-2021 RBC (Bld) [#/Vol] 4.78 10*6/uL 4.2-5.4 [facility] Work Phone: Blood hemoglobin measurement (mass/volume)on 11-09-2021 Hemoglobin (Bld) [Mass/Vol] 14.4 g/dL 12.0-15.0 [facility] Work Phone: Blood platelet mean volumeon 11-09-2021 Platelet mean volume (Bld) [Entitic vol] 9.6 fL 6.2-12.0 [facility] Work Phone: Determination of erythrocyte mean corpuscular volume (MCV)on 11-09-2021 MCV (RBC) [Entitic vol] 92.7 fL 81-99 [facility] Work Phone: Hematocrit Auto (Bld) [Volum e fraction]on 11-09-2021 Hematocrit (Bld) [Volume fraction] 44.3 % 37-47 [facility] Work Phone: Laboratory - Chemistry and C hemistry - challengeon 11-09-2021 CO2 [Moles/Vol] 25.0 mmol/L 21.0-32.0 [facility] Work Phone: Urea nitrogen/Creatinine [Mass ratio] 17.1 mg/mg - [facility] Work Phone: Laboratory - Hematology and Cell countson 11-09-2021 Erythrocyte distribution width (RBC) [Entitic vol] 44.5 fL 35.1-43.9 [facility] Work Phone: Erythrocyte distribution width (RBC) [Ratio] 13.0 % 11.6-14.6 [facility] Work Phone: MCH (RBC) [Entitic mass] 30.1 pg 27.0-32.0 [facility] Work Phone: MCHC Auto (RBC) [Mass/Vol]on 11-09-2021 MCHC (RBC) [Mass/Vol] 32.5 g/dL 32-36 [facility] Work Phone: No Panel Informationon 11-09 Estimated GFR (MDRD) Amer 97 mL/min >60 [facility] Work Phone: Comment on above: GFR Calc Estimated GFR (MDRD) Non-Af Amer 80 mL/min >60 [facility] Work Phone: Comment on above: Non- GFR Calc Thyroid Stimulating Hormone (TSH) 2.95 uIU/mL 0.358-3.74 [facility] Work Phone: Vitamin D 25-Hydroxy 60.3 ng/mL [facility] Work Phone: Comment on above: Vitamin D 25(OH) Sta tus Range Deficiency <20 ng/mL (50nmol/L) Insufficiency 20 - 30 ng/mL (50 - 75 nmol/L) Sufficiency 30 - 100 ng/mL (75 - 250 nmol/L) Toxicity >100 ng/mL (>250 nmol/L) Platelets bldon 11-09-2021 Platelets (Bld) [#/Vol] 260 10*3/uL 150-450 [facility] Work Phone: Serum or plasma calcium oz urement (mass/volume)on 11-09-2021 Calcium [Mass/Vol] 9.1 mg/dL 8.5-10.1 [facility] Work Phone: Serum or plasma cholesterol in HDL measurement (mass/volume)on 11-09-2021 Cholesterol in HDL [Mass/Vol] 40 mg/dL [facility] Work Phone: Comment on above: The drugs N-Acetylcy steine and Metamizole may falsely depress this assay. Reference Range HDL <40 mg/dL Low HDL Cholesterol HDL >or= 60 mg/dL High HDL Cholesterol Serum or plasma cholesterol in VLDL measurement (mass/volume)on 11-09-2021 Cholesterol in VLDL [Mass/Vol] 40 mg/dL 5-40 [facility] Work Phone: Serum or plasma creatinine m easurement (mass/volume)on 11-09-2021 Creatinine [Mass/Vol] 0.76 mg/dL 0.55-1.02 [facility] Work Phone: Comment on above: The validity of the calculated GFR & GFRAA in patients over 70 years has not been determined. Clinical correlation is essential. Serum or plasma low density lipoprotein (LDL) cholesterol measurement (mass/volume)on 11-09-2021 Cholesterol in LDL [Mass/Vol] 150 mg/dL 0-130 [facility] Work Phone: Serum or plasma urea nitroge n measurement (mass/volume)on 11-09-2021 Urea nitrogen [Mass/Vol] 13 mg/dL 7-18 [facility] Work Phone: Thin prep Papanicolaou smear with manual screeningon 11-09-2021 Thin prep Papanicolaou smear with manual screening 7 5-15 [facility] Work Phone: No Panel Informationon 11-07 Hepatitis C Antibody Non-Reactive Nonreactive [facility] Work Phone: Comment on above: Non Reactive: < 0.8 Equivocal: >/= 0.8 to < 1.0 Reactive: >/= 1.0The [facility] recommends that a reactive/equivocal HCV antibody result be followed up by the HCV Nucleic Acid Amplificationtest (039913) Thin prep Papanicolaou smear with manual screeningon 11-07-2021 Thin prep Papanicolaou smear with manual screening 18.0 mg/L NO RANGE EST. [facility] Work Phone: Wound Culture/Stainon 2017 Wound Culture/Stain Specimen Desc:Wound RT LINGUINAL CREASESp. Request/Comment:Dae ResultRare Gram positive cocci in clusters(*)Culture ResultFew Streptococcus dysgalactiae (Group C streptococcus)(*) Susceptibilitytesting not performed on beta hemolytic streptococci due to predictablesusceptibilit y to penicillin and other beta lactams. For testing, callMicrobiology within 72 hours.Report [id number] FINAL Normal [facility] Replaced Document: Ruma SAMUELS Observationson 04-01-2017 EKG QRS axis -3 deg Invalid Interpretation Code [facility] Work Phone: [phone] Interpretation Sinus Rhythm - occasional ectopic ventricular beat WITHIN NORMAL LIMITS Invalid Interpretation Code [facility] Work Phone: [phone] P [place] 36 deg Invalid Interpretation Code [facility] Work Phone: [phone] NV Interval 122 ms Invalid Interpretation Code [facility] Work Phone: [phone] QRS Duration 76 ms Invalid Interpretation Code [facility] Work Phone: QT Interval new path ms Invalid Interpretation Code [facility] Work Phone: [phone] QTc Juárez 398 ms Invalid Interpretation Code [facility] Work Phone: T [place] 19 deg Invalid Interpretation Code [facility] Work Phone: [phone] MAMMOGRAM SCREENING WITH CAD IF PERFORMEDon 02-20-2017 MAMMOGRAM SCREENING WITH CAD IF PERFORMED Performed at [facility] APPROVED BY: Deshawn Moody MD #[id number] - MAMMOGRAM SCREENING WITH CAD IF PERFORMEDBILATERAL DIGITAL SCREENING MAMMOGRAM WITH CAD WITH MEDIOLATERAL OBLIQUE CRANIOCAUDAL: 02/20/2017CLINICAL: Routine screening mammogram. Patient reports no breast problems. Comparison is made to exams dated: 01/10/2015 mammogram - [facility] and 01/04/2015 mammogram - [facility]. There are scattered fibroglandular elements in both breasts. Current study was also evaluated with a Computer Aided Detection (CAD) system. No significant masses, calcifications, or other findings are seen in either breast. There has been no significant interval change. IMPRESSION: NEGATIVEThere is no mammographic evidence of malignancy. A 1 year screening mammogram is recommended. Based on a modified Shanique Model, this patient's calculated lifetime risk of developing breast cancer is 6.2%. The patient was notified of the results. Deshawn Moody M.D. 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-2017 Cholesterol in HDL mass conc 45 mg/dL Invalid Interpretation Code [facility] Work Phone: Cholesterol in LDL mass conc 126 mg/dL Invalid Interpretation Code [facility] Work Phone: Cholesterol mass conc 197 mg/dL Invalid Interpretation Code [facility] Work Phone: Triglyceride mass conc 130 mg/dL Invalid Interpretation Code [facility] Work Phone: Office Visiton 2010 Tobacco smoking status NHIS never Invalid Interpretation Code [facility] Work Phone: Vital Signs Date Time Vital Sign Value Performing Clinician Facundo mallory 02-03-2024 13:03-0400 Body weight 86.46 kg Nikki Andrew PA-C Work Phone: [facility] 02-03-2024 13:03-0400 SaO2% (BldA) [Mass fraction] 98 % Nikki Andrew PA-C Work Phone: [facility] 12-30-2022 10:00-0400 Body temperature 97.7 [degF] Dr. Bakari Avila Work Phone: [facility] 12-30-2022 10:00-0400 Diastolic blood pressure 73 mm[Hg] Dr. Bakari Avila Work Phone: [facility] 12-30-2022 10:00-0400 Heart rate 73 /min Dr. Bakari Avila Work Phone: [facility] 12-30-2022 10:00-0400 Respiratory rate 16 /min Dr. Bakari Avila Work Phone: [facility] 12-30-2022 10:00-0400 SaO2% (BldA) [Mass fraction] 92 % Dr. Bakari Avila Work Phone: [facility] 12-30-2022 10:00-0400 Systolic blood pressure 143 mm[Hg] Dr. Bakari Avila Work Phone: [facility] 12-30-2022 08:33-0400 Body height 162.[address] Bakari Avila Work Phone: [facility] 12-30-2022 08:33-0400 Body mass index (BMI) [Ratio] 33 kg/m2 Dr. Bakari Avila Work Phone: [facility] 12-30-2022 08:33-0400 Body weight 87.[address] Bakari Avila Work Phone: [facility] 04-01-2017 15:47-0400 Heart rate 91 /min [facility] Work Phone: 2010 09:37-0400 Body Temperature 97.7 [degF] Laura Oneill RN [facility] Work Phone: 2010 09:37-0400 BP Diastolic 82 mm[Hg] Laura Oneill RN [facility] Work Phone: 2010 09:37-0400 BP Systolic 120 mm[Hg] Laura Oneill RN [facility] Work Phone: 2010 09:37-0400 Height 162.56 cm Laura Oneill RN [facility] Work Phone: 2010 09:37-0400 Pulse (Heart Rate) 80 /min [facility] Work Phone: 2010 09:37-0400 Respiratory Rate 20 /min Laura [facility]ambila [facility] Work Phone: 2010 09:37-0400 Weight 86.18 kg Laura Oneill RN [facility] Work Phone: Encounters Encounter Date Encounter Type Care Provider Facility Start: 02-22-2025 ambulatory Chaim Avila [facility]ly [facility] lity:[facility] Start: 11-19-2024 End: 11-19-[address] Chaim Avila MD Work Phone: [facility] Work Phone: Start: 11-19-2024 End: 11-19-[address] Chaim Avila MD -Cat Scan [facility] Work Phone: Start: 11-18-2024 End: 11-19-[address] Chaim Avila MD Work Phone: [facility] Work Phone: Start: 11-18-2024 End: 11-18-[address] Chaim Avila MD -Radiology [place] Work Phone: Start: 11-18-2024 End: 11-18-2024 ambulatory Chaim Avila Facility:[facility] Start: 11-05-2024 End: 11-05-[address] Chaim Avila MD -Laboratory [facility] Start: 11-05-2024 End: 11-05-2024 ambulatory Chaim Avila Facility:[facility] Start: 10-29-2024 ambulatory Chaim Avila Faci lity:[facility] Start: 10-27-2024 End: 10-27-[address] Chaim Avila MD Work Phone: [facility] Work Phone: Start: 10-27-2024 End: 10-27-[address] Chaim Avila MD -Laboratory, [facility] Start: 10-27-2024 End: 10-27-2024 ambulatory Chaim Avila Facility:[facility] Start: 08-03-2024 End: 08-03-2024 ambulatory Irina O'Collin PT [facility] Comment on above: BPPV (benign paroxys mal positional vertigo), right (Primary Dx) Start: 07-27-2024 End: 07-27-2024 ambulatory Irina O'Collin PT [facility] Comment on above: BPPV (benign paroxys mal positional vertigo), right (Primary Dx) Start: 04-27-2024 End: 04-27-2024 ambulatory Nikki Andrew PA-C Work Phone: Neurology Comment on above: Vestibular testing Start: 04-27-2024 End: 04-27-2024 E-mail encounter from caregiver Nikki Andrew PA-C Work Phone: Neurology Start: 04-23-2024 End: 04-23-2024 ambulatory LISBETH RAMÍREZ Facility:[facility] Start: 04-23-2024 End: 04-23-2024 Patient encounter procedure Lisbeth THORPE Work Phone: Audiology Comment on above: BPPV (benign paroxys mal positional vertigo), right (Primary Dx); Dizziness Start: 02-03-2024 End: 02-03-2024 ambulatory NIKKI ANDREW Facility:[facility] Start: 02-03-2024 Telephone encounter Nikki dodson PA-C Work Phone: Neurology Start: 02-03-2024 End: 02-03-2024 Patient encounter procedure Nikki Andrew PA-C Work Phone: Neurology Comment on above: Dizziness (Primary D x); Cervical stenosis of spinal canal; Vestibular migraine; Worsening headaches; Tremor Start: 02-03-2024 End: 02-03-2024 ambulatory NIKKI MENENDEZGABBY Facility:[facility] Start: 01-30-2024 End: 07-12-2024 Telephone encounter Neurology Provider Neurology Comment on above: Appointment Start: 10-14-2023 End: 10-14-[address] Chaim Avila Work Phone: [facility] Work Phone: Start: 10-14-2023 End: 10-14-[address] Chaim Avila Work Phone: [facility]-Pulmonary Services/Neurology Work Phone: Start: 10-09-2023 Non-patient / Non-visit Dr. hCaim Avila Work Phone: [facility] Start: 10-09-2023 End: 10-09-[address] Chaim Avila Work Phone: [facility] Work Phone: Start: 10-09-2023 End: 10-09-[address] Chaim Avila Work Phone: [facility]-Cardiovascular Services Work Phone: Start: 08-28-2023 End: 08-28-[address] Bakari Avila Work Phone: [facility] Work Phone: Start: 08-28-2023 End: 08-28-[address] Bakari Avila Work Phone: [facility] Start: 08-04-2023 End: 08-04-[address] Bakari Avila Work Phone: [facility] G[facility] Work Phone: Start: 07-16-2023 Non-patient / Non-visit Dr. Bakari Avila Work Phone: [facility] Start: 07-16-2023 End: 07-16-[address] Bakari Avila Work Phone: [facility] Work Phone: Start: 07-16-2023 End: 07-16-[address] Bakari Avila [facility] Work Phone: Start: 06-30-2023 End: 06-30-2023 ambulatory [facility] Work Phone: Start: 06-30-2023 End: 06-30-2023 Patient encounter procedure [facility] Start: 06-09-2023 End: 06-09-[address] Bakari Avila Work Phone: [facility] Work Phone: Start: 06-09-2023 End: 06-09-[address] Bakari Avila Work Phone: [facility] Work Phone: Start: 03-17-2023 End: 03-17-[address] Bakari Avila Work Phone: [facility] Start: 02-26-2023 End: 02-26-[address] Bakari Avila Work Phone: [facility] Work Phone: Start: 01-27-2023 End: 01-27-[address] Bakari Avila Work Phone: [facility] Work Phone: Start: 01-27-2023 End: 01-27-[address] Bakari Avila Work Phone: [facility]-Laboratory Work Phone: Start: 01-17-2023 End: 01-17-[address] Bakari Avila Work Phone: [facility] Work Phone: Start: 01-17-2023 End: 01-17-[address] Bakair Avila Work Phone: [facility]-Outpatient Breast Imaging Work Phone: Start: 01-07-2023 End: 01-07-[address] Bakari Avila Work Phone: [facility]-Nuclear Medicine, [facility] Work Phone: Start: 12-30-2022 Non-patient / Non-visit Dr. Bakari Avila Work Phone: [facility] Start: 12-30-2022 End: 12-30-2022 Admission to same day surgery center Dr. Bakari Avila Work Phone: [facility]-Endoscopy Work Phone: Start: 12-30-2022 End: 12-30-[address] Bakari Avila Work Phone: [facility] Work Phone: Start: 12-17-2022 End: 12-17-[address] Bakari Avila Work Phone: [facility] Work Phone: Start: 12-17-2022 End: 12-17-[address] Bakari Avila Work Phone: [facility] Work Phone: Start: 11-05-2022 End: 11-05-[address] Bakari Avila Work Phone: [facility]-Critical access hospital Work Phone: Start: 10-22-2022 End: 10-22-2022 ambulatory [facility] Work Phone: Start: 10-22-2022 End: 10-22-2022 Patient encounter procedure [facility] Start: 08-08-2022 End: 08-08-2022 ambulatory [facility] Work Phone: Start: 08-08-2022 End: 08-08-2022 [facility] Start: 08-05-2022 End: 08-05-2022 ambulatory [facility] Work Phone: Start: 08-05-2022 End: 08-05-2022 Patient encounter procedure [facility] Start: 05-20-2022 End: 05-20-2022 ambulatory [facility] Work Phone: Start: 05-20-2022 End: 05-20-2022 Patient encounter procedure [facility] Start: 05-01-2022 ambulatory Chaim Avila Facility:[id number] Start: 04-01-2022 End: 04-01-2022 ambulatory [facility] Work Phone: Start: 04-01-2022 End: 04-01-2022 Patient encounter procedure [facility] Start: 01-08-2022 End: 01-08-2022 Patient encounter procedure [facility]-Outpatient Bone Densitometry Start: 11-09-2021 End: 11-09-2021 Patient encounter procedure [facility] Start: 11-07-2021 End: 11-07-2021 Patient encounter procedure [facility] Start: 08-24-2021 End: 08-24-2021 Patient encounter procedure [facility] Start: 08-23-2019 End: 08-23-2019 ambulatory UNKNOWN PROVIDER Facility:[facility] Start: 02-20-2017 End: 2017 Ambulatory CHESTER ROCHA Facility:[facility] Procedures Date Procedure Procedure Detail Performing Clinician Start: 11-19-2024 CT of head without contrast Dr. Abraham Avila MD Work Phone: Start: 11-18-2024 X-ray of knee, four or more views Dr[address] Lana Avila MD Work Phone: Start: 11-05-[address] Chaim Avila MD Work Phone: Comment on above: Performed at: [address] Director: Nicolas Fung PhD, Phone: [phone] Start: 11-05-[address] stimulating hormone measurement [address]. [...] RSV Vaccine (1 - 1-dose 75+ series) [facility] Start: 02-02-2027 Diabetes Screening Diabetes Screenin g [facility] Start: 08-24-2024 End: 08-24-2024 ambulatory 08/24/2024 11:15 AM EST OT/PT/Speech Visit [facility] [address] [place] [address] OIrina Crane, PT BPPV (benign paroxysmal positional vertigo), right [H81.11] [facility] Comment on above: BPPV (benign paroxys mal positional vertigo), right [H81.11] Start: 08-17-2024 End: 08-17-2024 ambulatory 08/17/2024 11:15 AM EST OT/PT/Speech Visit [facility] [address] [place] [address] O'Collin, Irina, PT BPPV (benign paroxysmal positional vertigo), right [H81.11] [facility] Comment on above: BPPV (benign paroxys mal positional vertigo), right [H81.11] Start: 08-09-2024 End: 08-09-2024 ambulatory 08/09/2024 2:45 PM EST OT/PT/Speech Visit [facility] [address] [place] [address] O'Collin, Irina, PT BPPV (benign paroxysmal positional vertigo), right [H81.11] [facility] Comment on above: BPPV (benign paroxys mal positional vertigo), right [H81.11] Start: 08-03-2024 End: 08-03-2024 ambulatory 08/03/2024 9:00 AM EST OT/PT/Speech Visit [facility] [address] [place] [address] O'Collin, Irina, PT BPPV (benign paroxysmal positional vertigo), right [H81.11] [facility] Comment on above: BPPV (benign paroxys mal positional vertigo), right [H81.11] Start: 07-27-2024 End: 07-27-2024 ambulatory 07/27/2024 9:45 AM EST OT/PT/Speech Visit [facility] [address] [place] [address] O'Collin, Irina, PT BPPV (benign paroxysmal positional vertigo), right [H81.11] [facility] Comment on above: BPPV (benign paroxys mal positional vertigo), right [H81.11] Start: 06-23-2024 Advance Directive Discussion Advance Directive Discussion [facility] Start: 04-19-2024 End: 04-19-2024 Patient encounter procedure 04/19/2024 3:00 PM EDT Office Visit Audiology [address] [place] [address] Cyn Vital, [place] [address] [place] [address] Dizziness Audiology Comment on above: Dizziness Start: 02-22-2024 Covid-19 Vaccine ( season) Covid-19 Vaccine () [facility] Start: 02-22-2024 Influenza vaccination Influenza Vacc ine (#1) [facility] Start: 02-03-2024 End: 05-04-2024 Cobalamin (Vitamin B12) [Mass/volume] in Serum or Plasma [facility] Comment on above: Expected: 02/03/2024 , Expires: 05/04/2024 Start: 02-03-2024 End: 05-04-2024 Comprehensive metabolic 2000 panel - Serum or Plasma [facility] Comment on above: Expected: 02/03/2024 , Expires: 05/04/2024 Start: 02-03-2024 End: 05-04-2024 Methylmalonate [Moles/volume] in Serum or Plasma [facility] Comment on above: Expected: 02/03/2024 , Expires: 05/04/2024 Start: 02-03-2024 End: 05-04-2024 Thyrotropin [Units/volume] in Serum or Plasma [facility] Comment on above: Expected: 02/03/2024 , Expires: 05/04/2024 Start: 07-31-2023 Lipid panel Lipid Screening [facility] Start: 06-23-2023 Advance Directive Discussion Advance Directive Discussion [facility] Start: 2023 Covid-19 Vaccine () Covid-19 Vaccine () [facility] Start: 12-30-2022 Egd transoral biopsy single/multiple EGD BIOPSY SINGLE/MULTIPLE [facility] Start: 12-30-2022 Patient discharge [facility] Start: 12-17-2022 [facility] Start: 07-31-2021 Diabetes Screening Diabetes Screenin g [facility] Start: 08-22-2020 Screening for malign ant neoplasm of breast Mammogram Screening [facility] Start: 2019 Pneumococcal Vaccine : 65+ (1 of 1 - PCV) Pneumococcal Vaccine: 65+ (1 of 1 - PCV) [facility] Start: 2019 Screening for osteoporosis Bone Dens ity Screening [facility] Start: 05-14-2017 End: 05-14-2017 Appointment Appointment [facility] Work Phone: Start: 04-01-2017 End: 04-01-2017 Appointment Appointment [employer] [facility] Work Phone: Start: 04-01-2017 End: 04-01-2017 Echocardiography Echocardiogram (complete) [facility] Work Phone: Start: 04-01-2017 End: 04-01-2017 Follow Up Appt 6 weeks Follow Up Appt 6 weeks [facility] Work Phone: Start: 04-01-2017 End: 04-01-2017 MMM MMM [facility] Work Phone: Start: 04-01-2017 End: 04-01-2017 Nuclear stress test -exercise Nuclear stress test -exercise [facility] Work Phone: Start: 2014 RSV Vaccine (1 - 1-d ose 60+ series) RSV Vaccine (1 - 1-dose 60+ series) [facility] Start: 02-22-2004 Pneumococcal Vaccine : 50+ (1 of 1 - PCV) Pneumococcal Vaccine: 50+ (1 of 1 - PCV) [facility] Start: 02-22-2004 Shingrix Vaccine (1 of 2) Hall grix Vaccine (1 of 2) [facility] Start: 1999 Screening for malign ant neoplasm of colon [facility] Start: 1973 Urine microalbumin profile DTa P,Tdap,Td Vaccine (1 - Tdap) [facility] Start: 02-22-1972 Anxiety Screening Anxiety Screening [facility] Start: 02-22-1972 Depression Screening Depression Scre ening [facility] Start: 02-22-1972 Hepatitis C screening Hepatitis C [facility] Ova and parasites identified in Unspecified specimen by Light microscopy [facility] Patient referral [facility] Work Phone: Radionuclide gastric emptying study [facility] VESTIBULAR TEST BATTERY VESTIBUL AR TEST BATTERY Audiology Routine Dizziness Ordered: 02/03/2024 [facility] Work Phone: Comment on above: Ordered: 02/03/2024 [facility] Payers Date Payer Category Payer Self-pay [id number] 2024 Unknown [id number] 2019 Medicare [id number] 2019 Medicare [id number] 2019 Medicare [id number] 2016 Unknown [id number] 1955 Unknown [id number] 2.16. [id number] 1955 Unknown [id number] 2.16. [id number] Unknown [id number] Unknown [id number] Unknown [id number] Unknown [id number] 2.16.8 [id number] Unknown [id number] 2.16.8 [id number] Unknown [id number] 2.16.8 [id number] Unknown [id number] 2.16.8 [id number] Unknown [id number] 2.16.8 [id number] Unknown [id number] 2.16.8 [id number] Social History Date Type Detail Facility Start: 12-29-2020 End: 08-04-2023 Tobacco smoking status NHIS Unknown if ever smoked [facility] Start: 01-31-2020 Non-smoker [facility] Start: 1955 Sex Assigned At Female [facility] Start: 12-17-2023 End: 02-03-2024 Tobacco smoking status NHIS Never smoked tobacco [facility] Start: 12-14-2019 End: 02-03-2024 Tobacco use and exposure Smokeless tobacco non-user [facility] Start: 02-03-2024 History of Social function [facility] Start: 02-03-2024 Tobacco use panel [facility] National Score (1-100), lower number is lower risk 62 [facility] Start: 1955 Sex Assigned At Not on file [facility] NEGATED: Highlighted row [facility] Medical Equipment Procedure Code Equipment Code [...] Assessment Result Facility 12-30-2022 Cognitive function Voice/Name [facility] Work Phone: Clinical Notes 12-30-2022 to 11-19-2024 O'CollinIrina, PT - 08/03/2024 10:03 AM ESTO'CollinIrina, PT - 07/27/2024 10:22 AM ESTO'CollinIrina, PT - 07/27/2024 9:50 AM ESTPatient KinjalBeLisbeth campos, AUD - 04/23/2024 2:35 PM EDT Note Date & Type Note Facility 11-19-2024 Radiology Diagnostic study note [facility] [address], [place] [address] Brain/Head without Contrast MR#: [id number] Acct: [id number] Name: DOMINIC ARTEAGA VARSHA Rep #: [id number] : 1955 F 69 From: Michel De Guzman MD PCP: Dr. Chaim Avila MD Status: REG CLI Study:Brain/Head without Contrast Date of Exa m: 11/19/24 Exam# [id number] Ordering Dr: Radha Avila MD PROCEDURE: BRAIN/HEAD [...] Contrast IMPRESSION: NO ACUTE FINDINGS Reading Location: [place] [address] CC: Dr. Chaim Avila MD ~ Member Service Specialist: Signed [facility] 11-19-2024 Radiology Diagnostic study note [facility] Services [address] [place] [address] [id number] Knee 4 or More Views MR#: [id number] Acct: [id number] Name: DOMINIC ARTEAGA Rep #: [id number] : 1955 F 69 From: Tenzin Peng MD PCP: Dr. Chaim Avila MD Status: REG CLI Study:Knee 4 or More Views Date of Exam: 11/18/24 Exam# [id number] Ordering Dr: Radha Avila MD PROCEDURE: KNEE [...] follow-up with MRI as warranted. Reading Location: [id number] CC: Dr. Chaim Avila MD ~ Member Service Specialist: Signed [facility] 08-03-2024 Note HNO ID: [id number] Author: IRINA FELDER, PT Service: ? Author [...] WITH LEVEL OF FUNCTION: Positional Testing Right Agra-Hallpike: With delay, Symptomatic, No nystagmus TREATMENT: Self-Shelter Management: 1: discussed anxiety vs. vertigo dizziness [...] Stop Time : 1010 Irina Felder, PT [facility] 08-03-2024 History of Presen t illness [...] Luiz-Hallpike: With delay, Symptomatic, No nystagmus TREATMENT: Self-Shelter Management: 1: discussed anxiety vs. vertigo dizziness [...] Irina Felder PT documented in this encounter [facility] 07-27-2024 History of Presen t illness Narrative Program_ID:[id number] Access Code: [email or web address] URL: [email or web address] Chair/ Date: 07-27-2024 Prepared By: Irina Felder Program [...] of Visits Planned: 6 Planned Treatment Interventions: Self-snf management (15673), Therapeutic activities (55789), Manual therapy (46619), Neuromuscular re-education (60246), Therapeutic exercise (00865), Gait Training (44189) PLAN FOR NEXT VISIT: assess symptom response [...] States/Identifies, Return Demonstration TREATMENT: PT Treatment Interventions: Self-Shelter Management, Canalith Repositioning Evaluation Self-Shelter Management: 1: *Access Code: [email or web address] URL: [email or web address] Chair/ Date: 07/27/2024 Prepared by: Irina Banerjee Patient [...] Irina Felder PT documented in this encounter [facility] 07-27-2024 Note HNO ID: [id number] Author: IRINA FELDER PT Service: ? Author [...] of Visits Planned: 6 Planned Treatment Interventions: Self-snf management (78280), Therapeutic activities (09109), Manual therapy (28753), Neuromuscular re-education (16048), Therapeutic exercise (77990), Gait Training (24548) PLAN FOR NEXT VISIT: assess symptom response [...] ROM: WNL Ocu (more content not included)... [facility] 04-23-2024 Instructions Lisbeth Ramírez AUD - 04/23/2024 4:11 PM EDT Images from the original note were not included. [facility] Today we evaluated [...] disorientation or instability, as well as a hhby-kyn-xrpji rhythmic eye movements called nystagmus. Test Summary: [...] help with your symptoms. Vestibular Therapy Locations: [facility] General Rehabilitation and Sports Therapy, [facility] General Rehabilitation and Sports Therapy, [place] [facility] & Surgery [facility] Building, [facility] and Surgery [facility] Building [facility] Please call to schedule. documented in this encounter [facility] 04-23-2024 Note HNO ID: [id number] Author: LISBETH RAMÍREZ AUD Service: ? Author Type: Complaint Operator Type: Progress Notes Filed: 04/23/2024 16:21 Note Text: [facility] Disorders Laboratory Vestibular Test Battery Report Name: Dominic Arteaga [place]#: [id number] Date of Service: 04/23/2024 Date of : 1955 Age: [age] year old Referred by: Nikki Andrew PA-C And is a patient of Domingo Cardona DO Referred for: Evaluation of the cause of disorder of hearing, tinnitus, or balance. Referral documented: In an order in [facility] Pretest Instructions: All pretest instructions were completed [...] appreciated. Will ob (more content not included)... [facility] 04-23-2024 History of Presen t illness Narrative Images from the original note were not included. [facility] Vestibular and Balance Disorders Laboratory Vestibular Test Battery Report Name: Dominic Arteaga [place]#: [id number] Date of Service: 04/23/2024 Date of : 1955 Age: [age] year old Referred by: Nikki Andrew PA-C And is a patient of Domingo Cardona DO Referred for: Evaluation of the cause of disorder of hearing, tinnitus, or balance. Referral documented: In an order in [facility] Pretest Instructions: All pretest instructions were completed [...] Feeling that I am spinning in a rosebud Feeling of falling or veering to one [...] Neck Pain Diagnosed with migraines or headaches: Working Supervisor migraines or headaches: No Recent head or [...] mg by mouth three times a day. jvxj-D6-acudqy-D1-Xu-Wj-lizeth 250 mg-400 unit -40 mg-5 mg tab [...] bedtime. atorvastatin (LIPITOR) 20 mg tablet omega 3-wpo-hiy-fish oil (FISH OIL) 100-160-1,000 mg cap Take [...] vertical, oblique): normal Cover uncover test: normal Depej-gtzdn-whfjo test: normal Convergence test: normal NECK: Cervical [...] VESTIBULAR MEASURES: Videonystagmography Examination (VNG): CPT codes: 70404, 16448, 31496 Description of Procedure: objective assessment of peripheral [...] Vertical Semi-circular Canal BPPV Nystagmus tests: Nystagmus Agra-Hallpike right ear down position: robust rightward torsional upbeating nystagmus which SPV value could not be accurately captured by the visual tracking system. Temporal profile: decaying. Symptoms: dizziness. Nystagmus Agra-Hallpike right ear return to sit position: significant leftward torsional downbeating nystagmus which SPV value could not be accurately captured by visual tracking system. Temporal profile: decaying. Symptoms: dizziness. Remaining Agra-Hallpike and positional testing deferred due to patient's symptoms. Bithermal alternating water calorics:Deferred; rotational chair and vHIT testing were completed in lieu of caloric irrigations for measurement of horizontal canal vestibulo-ocular reflex (VOR) and superior vestibular nerve function. Vestibular Evoked Myogenic Potentials (VEMP): CPT code: 09606 Description of Procedure: short-latency myogenic potentials produced [...] Video Head Impulse Test (VHIT): CPT code: 91267 Description of Procedure: assessment of the angular [...] a calibration error) Rotational Chair: CPT code 15424 Description of Procedure: objective assessment of peripheral [...] regarding this information, please contact me at [phone]. Tracey Calvillo, [facility] Vestibular Complaint Operator copy to: Nikki Andrew PA-C documented in this encounter [facility] 02-03-2024 Telephone encounter Note Fax sent to [facility] Medical records for images to be released. Irina Art LPN [facility] 02-03-2024 Miscellaneous Notes Fax sent to [facility] Medical records for images to be released. Irina Art LPN Patient had MRI of the cervical spine in December at [facility], please have report and film sent. documented in this encounter [facility] 02-03-2024 Telephone encounter Note Patient had MRI of the cervical spine in December at [facility], please have report and film sent. [facility] 02-03-2024 Instructions Nikki Andrew PA-C - 02/03/2024 1:37 PM EDT Vestibular battery testing Laboratory work up Will get MRI of the neck that you had at [facility] Drink at least 60 ounces of water a day Follow up in 3-4 months if symptoms persist documented in this encounter [facility] 02-03-2024 Note HNO ID: [id number] Author: NIKKI ANDREW PA-C Service: ? Author Type: Physician Insurance And Financial Services Agent Type: Progress Notes Filed: 02/03/2024 14:23 Note Text: [facility] Name: Dominic Arteaga [...] she stands up or turns her head [id number]-pv-ymxt but not consistently. MRI of the brain was negative. Does note longstanding history of vertigo which she has had intermittent episodes for many years but nothing like this. Patient does have history of cervical stenosis with fusion in the 1980s. Was recently admitted to [facility] for severe neck pain but records are not available. Was told that her neck did show some mild degeneration but nothing significant. However, patient's exam shows some hyperreflexia bilaterally and not equally as well as some weakness in the right upper extremity. Will have records sent from [facility] and review. Of note, orthostatics were [...] but we will have records sent from [facility]. Will order TSH to ensure no [...] sensation of movement. Chart review: Following with [place] PCP and noted dizziness. Tilt table normal. [...] also occur at (more content not included)... [facility] 02-03-2024 History of Presen t illness Narrative Images from the original note were not included. [facility] Name: Dominic Arteaga [...] she stands up or turns her head jegv-yw-oyuv but not consistently. MRI of the brain was negative. Does note longstanding history of vertigo which she has had intermittent episodes for many years but nothing like this. Patient does have history of cervical stenosis with fusion in the 1980s. Was recently admitted to [facility] for severe neck pain but records are not available. Was told that her neck did show some mild degeneration but nothing significant. However, patient's exam shows some hyperreflexia bilaterally and not equally as well as some weakness in the right upper extremity. Will have records sent from [facility] and review. Of note, orthostatics were [...] but we will have records sent from [facility]. Will order TSH to ensure no [...] mg by mouth three times a day. ojqr-X6-wnajih-N6-Ui-Dy-lizeth 250 mg-400 unit -40 mg-5 mg tab Take 250 mg by mouth once daily. meclizine (ANTIVERT) 25 mg tab Take 25 mg by mouth three times a day as needed (dizziness). latanoprost, PF, 0.005 % drop Use 1 Drop in eyes once daily. 1 drop per eye omega 5-law-fvi-fish oil (FISH OIL) 100-160-1,000 mg cap Take [...] to review This note was dictated using [employer] speech recognition software and may contain some [...] which included preparing to see the patient, vfpz-vw-arsf patient care, completing clinical documentation, obtaining and/or reviewing separately obtained history, performing a medically appropriate examination, counseling and educating the patient/family/caregiver, and ordering medications, tests, or procedures. documented in this encounter [facility] 01-30-2024 Telephone encounter Note Fax received from [facility] for pt to be seen for dizziness and vertigo. Please assist in scheduling with a general neurologist. Irina Art LPN [facility] 01-30-2024 Miscellaneous Notes Fax received from [facility] for pt to be seen for dizziness and vertigo. Please assist in scheduling with a general neurologist. Irina Art LPN documented in this encounter [facility] 12-30-2022 History and physi edda note Note Date/Time December 30, 2022 8:15am [facility] Medical Records Department [address] [place] [place] [address] History & Physical Exam 12/30/22813 MR#: [id number] Acct: [id number] Name: DOMINIC ARTEAGA Rep #:[id number] : 1955 67 From: Tommie Friend DO PCP: Dr. Bakari Avila MD Status: REG [facility] Location: [place] [address] History and Physical Date of Admission: 12/30/22 [...] Appearance: average body habitus and well nourished [facility] Head: normal to inspection Ears: hearing grossly [...] Affect: normal affect Quality Reporting Tobacco Screening ([facility] 138) Smoking Status: Never smoker Assessment and [...] pain, R11.0 - Nausea OVA+PARA w/Giardia EIA [id number] Today R10.9 - Unspecified abdominal pain, R11.0 [...] Bakari Avila MD; Tommie Avelar DO~ Signed [facility] Work Phone: 1(508) 818-372907-10-2023 [facility]Evaluation noteNo assessment information availableWKettering [facility] Work Phone: Evaluation note* Diagnosis Onset Date Resolution Status Abdominal pain acute Nausea acute [facility] Work Phone: Evaluation note* Diagnosis Onset Date Resolution Status Abdominal pain acute Exocrine pancreatic insufficiency acute Nausea acute [facility] Work Phone: Evaluation note* Diagnosis Onset Date Resolution Status Abdominal pain chronic Exocrine pancreatic insufficiency chronic Nausea chronic [facility] Work Phone: Evaluation note* Diagnosis Dizziness- Primary Dizziness and giddiness Cervical stenosis of spinal canal Spinal stenosis in cervical region Vestibular migraine Worsening headaches Headache Tremor Abnormal involuntary movements documented in this encounter [facility] note* Diagnosis BPPV (benign paroxysmal positional vertigo), right- Primary Dizziness Dizziness and giddiness documented in this encounter [facility] note* Diagnosis BPPV (benign paroxysmal positional vertigo), right- Primary documented in this encounter [facility] note* Diagnosis BPPV (benign paroxysmal positional vertigo), right- Primary documented in this encounter [facility] for referral (narrative)No reason for referral information availableWKettering Health [facility] Work Phone: Summary Purpose Family History No [...] December 27, 2020 1 0:56am Power of Assembling Machine Operator No December 27, 2020 10:56am Advance Directive Response Recorded Date/ Time Living Will No December 27, 2020 9 :56am Power of Assembling Machine Operator No December 27, 2020 9:56am Advance Directive Response Recorded Date/ Time Living Will No December 27, 2022 9 :13am Power of Assembling Machine Operator No December 27, 2022 9:13am Advance Directive Response Recorded Date/ Time Living Will No December 27, 2022 8 :13am Power of Assembling Machine Operator No December 27, 2022 8:13am Chief Complaint [...] COMPLEX 45 MINS Nikki Andrew PA-C [address] [place] [address] [facility] [address] [place] [address] Referral ID Status Reason Start Date Expiration Date Visits Requested Visits Authorized [id number] Authorized PCP Requested Referral Auto-Generate d Referral 04/27/2024 04/27/2025 99 99 Additional Source Comments INFORMATION SOURCE (unrecogn ized section and content) DATE CREATED AUTHOR 12/17/2017 [facility] DATE CREATED AUTHOR AUTHOR'S ORGANIZ ATION 12/17/2017 [facility] DATE CREATED AUTHOR AUTHOR'S ORGANIZ ATION 06/01/2018 [facility] DATE CREATED AUTHOR AUTHOR'S ORGANIZ ATION 07/18/2021 [facility] DATE CREATED AUTHOR AUTHOR'S ORGANIZ ATION 05/04/2022 [facility] ical Center DATE CREATED AUTHOR AUTHOR'S ORGANIZ ATION 08/05/2024 [facility] DATE CREATED AUTHOR AUTHOR'S ORGANIZ ATION 02/03/2025 [facility] Goals (unrecognized section and content) Goals may [...] Primary Care Provider Activ e Sakshi Moreira CALCULATION REVIEWER, CALCULATION REVIEWER-C Attending Provider, Referring Pro vider Active Team [...] MD Attending Provider, Referring Pr ovider Active Supervisor Inspecting Relationship Specialty Start Date End Date Domingo Cardona DO [address] [place] [phone] PCP - General 03/13/04 Supervisor Inspecting Relationship Specialty Start Date End Date Domingo Cardona DO [address] [place] [address] [phone] PCP - General 03/13/04 Supervisor Inspecting Relationship Specialty Start Date End Date Domingo Cardona DO [address] [place] [address] [phone] PCP - General 03/13/04 Supervisor Inspecting Relationship Specialty Start Date End Date Domingo Cardona DO [address] [phone] PCP - General 03/13/04 Supervisor Inspecting Relationship Specialty Start Date End Date Domingo Cardona DO [address] [phone] PCP - General 03/13/04 Supervisor Inspecting Relationship Specialty Start Date End Date Domingo Cardona DO [address] [place] [address] PCP - General 03/13/04 Team Status: Active [...] 2024 End: November 19, 2024 Dr. Chaim vAila MD Attending Provider Active Start: November 19, [...] or prosecute any alcohol or drug abuse patient.[facility] the event this information is protected by the Federal Confidentiality of Alcohol and Drug Abuse Patient Records regulations: The Federal rules restrict any use of the information to criminally investigate or prosecute any alcohol or drug abuse patient.[facility] the event this information is protected by the Federal Confidentiality of Alcohol and Drug Abuse Patient Records regulations: The Federal rules restrict any use of the information to criminally investigate or prosecute any alcohol or drug abuse patient.[facility] Hospital[facility] the event this information is protected by the Federal Confidentiality of Alcohol and Drug Abuse Patient Records regulations: The Federal rules restrict any use of the information to criminally investigate or prosecute any alcohol or drug abuse patient.[facility] HospitalIn the event this information is protected by the Federal Confidentiality of Alcohol and Drug Abuse Patient Records regulations: The Federal rules restrict any use of the information to criminally investigate or prosecute any alcohol or drug abuse patient.[facility] Hospital[facility] the event this information is protected by the Federal Confidentiality of Alcohol and Drug Abuse Patient Records regulations: The Federal rules restrict any use of the information to criminally investigate or prosecute any alcohol or drug abuse patient.[facility] HospitalIn the event this information is protected by the Federal Confidentiality of Alcohol and Drug Abuse Patient Records regulations: The Federal rules restrict any use of the information to criminally investigate or prosecute any alcohol or drug abuse patient.[facility] Reason for Visit (unrecogniz ed section and content) Reason Comments New Patient Dizziness and vertig o Reason Comments Appointment Reason Comments PT Eval Specialty Diagnoses / Procedures Referred By Contac t Referred To Contact [facility] Diagnoses BPPV (benign paroxysmal positional vertigo), right Procedures CONSULT TO PHYSICAL THERAPY PHYSICAL THERAPY EVALUATION HIGH COMPLEX 45 MINS Nikki Andrew PA-C [address] [place] [address] [facility] [address] [place] [id number] Referral ID Status Reason Start Date Expiration Date Visits Requested Visits Authorized [id number] Authorized PCP Requested Referral Auto-Generate d Referral 04/27/2024 04/27/2025 99 99 Reason Comments Physical Therapy Specialty Diagnoses / Procedures Referred By Contac t Referred To Contact [facility] Diagnoses BPPV (benign paroxysmal positional vertigo), right Procedures CONSULT TO PHYSICAL THERAPY PHYSICAL THERAPY EVALUATION HIGH COMPLEX 45 MINS Nikki Andrew PA-C [address] [place] [address] Phone: tel: fax: [facility] [address] [place] [phone] Referral ID Status Reason Start Date Expiration Date Visits Requested Visits Authorized [id number] Authorized PCP Requested Referral Auto-Generate d Referral [...] BE BASED ON THE PRIMARY CLINICAL RECORDS. [employer] provides no warranty or guarantee of the accuracy or completeness of information in this document.
[2025-02-14] MEDS: MELATONIN 10 MG TABLET PO (23:17)
[2025-02-15 01:30] VITALS: BP 144/65; PULSE 64; RESP 16; TEMP 36.5; O2SAT 96
[2025-02-15 04:39] VITALS: BMI 34.4
[2025-02-15 04:40] VITALS: BMI 34.4
[2025-02-15 05:32] VITALS: BP 140/71; PULSE 56; RESP 16; TEMP 36.4; O2SAT 99
[2025-02-15 06:04] LABS: Hematocrit 42.4 % (37-47); Hemoglobin 13.7 g/dL (12.0-15.0); Immature Granulocytes Count 0.040 X10^3/uL (0.0-0.0); Mean Corp Hgb Conc 32.3 g/dL (32-36); Mean Corpuscular Volume 95.7 fL (81-99); Mean Platelet Vol. 9.6 fl (6.2-12.0); NRBC Flagged by Analyzer 0 % (0-5); Platelet Count 242 K/mm3 (150-450); RBC Distribution Width CV 12.8 % (11.6-14.6); RBC Distribution Width SD 45.4 fl (35.1-43.9); Red Blood Count 4.43 M/mm3 (4.2-5.4); White Blood Count 5.9 K/mm3 (4.4-11.0)
[2025-02-15] MEDS: 0.9% Saline Lock 10 ML Syringe IV (06:40)
[2025-02-15 07:30] VITALS: O2SAT 96
[2025-02-15 07:41] LABS: Anion Gap 9 (5-15); BUN 17 mg/dL (4-19); BUN/Creat Ratio 20.7 RATIO (10-20); Calcium,Total 8.9 mg/dL (7.6-11.0); Carbon Dioxide 23.8 mmol/L (21.0-32.0); Chloride 108 mmol/L (98-108); Estimated Creatinine Clearance 70.66 ml/min (50-250); Glucose 133 mg/dL (70-99); Magnesium 2.3 mg/dL (1.5-2.2); Potassium 5.0 mmol/L (3.3-5.1)
[2025-02-15 08:31] LABS: Cholesterol 227 mg/dL (<=200); Low Density Lipoprotein Calc. 146 mg/dL; Triglycerides 200 mg/dL; Very Low Density Lipoprotein 40 mg/dL (5-40); cholesterol:hdl ratio screen 5.59
[2025-02-15 08:53] VITALS: BP 162/89; PULSE 55; RESP 16; TEMP 36.4; O2SAT 97
--- NOTE | 2025-02-15 09:30 | MRI_ITS ---
EXAM: BRAIN WITHOUT CONTRAST CLINICAL HISTORY: TIA/CVA R/O COMPARISON: None. TECHNIQUE: Multiplanar, multisequence MR images of the brain were obtained without gadolinium contrast material. FINDINGS: No intracranial hemorrhage, mass, mass effect, midline shift or pathologic extra- axial fluid collection. No hydrocephalus. There is no significant white matter disease. No areas of restricted diffusion to suggest acute ischemia or infarction. No gradient signal blooming artifacts are identified. No cerebellar tonsillar ectopia. No sellar/suprasellar signal abnormalities. The ocular globes and intraorbital soft tissues are symmetrically unremarkable. Paranasal sinuses are essentially clear. MRI/Brain without Contrast IMPRESSION: Negative MRI of the brain. Reading Location: [facility]
[2025-02-15 10:07] VITALS: BMI 34.4
[2025-02-15 11:56] VITALS: BMI 34.4
--- NOTE | 2025-02-15 12:10 | CON.PCM.NE_ITS ---
Assessment and Plan: Neuro Assessment/Plan DOMINIC ARTEAGA, is a 69-year-old woman with history of depression, GERD, glaucoma who presented [facility] ED 02/14/2025 with an episode of passing out preceded by nausea. Presentation likely consistent wtih Syncope. She was slightly confused after with generalized weakness and difficulty with speech, which can occur in syncope, specially in elderly. We will sign off. Please call with questoins. I personally attended this patient and spent a total time of 45 minutes evaluating this patient including clinical assessment, review of chart, medical history imaging, and determining appropriate treatment and workup. HPI Consult Data Date of Consult: 02/15/25 HPI Narrative HPI Narrative: DOMINIC ARTEAGA, is a 69-year-old woman with history of depression, GERD, glaucoma who presented [facility] ED 02/14/2025 with a syncopal episode. Patient remembers going down stairs, heading to the kitchen, washing dishes in the sink, she remembers feeling nauseated, and she told her daughter she feels something is not right and she is about to get sick. The next thing she knew was waking up to her daughter, she could barely talk, she couldn't lithographer apprentice her legs and arms well, she felt very weak. Denies palpitations or lightheadedness. Per daughter, the daughter caught her and notes her eyes were closed and she was completely unresponsive for a couple of seconds but then when she came to she was still out of it, was not making sense when she was talking and was saying she could not swallow and was having a hard time lifting her limbs. She gradually returned to baseline after they got to the hospital SBP 172 upon arrival to ER CTA with no LVO MRI brain with no acute findings This morning, patient feels her normal self. She got out of bed, walked around, no issues. Exam performed with help of the nurse/ALBERTO present with patient on Tele site NEURO: AAOx3, follows commands, no aphasia/dysarthria. PERRL, EOMI, no gaze preference/nystagmus. Face symmetric, Intact facial sensation. Tongue midline. Head turning intact. Sensation: intact to light touch all over Motor: All extremities antigravity Coordination: FTN intact bilaterally PFSH Medical History Blister History of steroid therapy Injury of head and neck Non-smoker Shortness of breath on exertion Leg cramps Cardiology follow-up encounter Anemia Wears glasses Wears partial dentures Post-menopausal History of stress test Bhatti's esophagus without dysplasia Blood in stool Nausea Abdominal pain Anxiety Hypertension Numbness and tingling Fatigue GERD (gastroesophageal reflux disease) Glaucoma Diabetes Depression Home Medications ?Medication ?Instructions ?Recorded ?Last Taken ?Type venlafaxine 75 mg capsule,extended 225 mg PO DAILY moo d 02/25/18 02/03/20 05:35 History release 24 hr ergocalciferol (vitamin D2) 1,250 50,000 unit PO QWEEK supplement 03/12/18 Unknown History mcg (50,000 unit) capsule (Vitamin D2) omega 5-fmu-pej-fish oil 900 4,200 mg PO DAILY supplem ent 03/12/18 Unknown History mg-1,400 mg capsule,delayed release (Fish Oil) losartan 100 mg tablet 100 mg PO DAILY blood pressu re 11/15/20 12/29/20 06:00 History buspirone 5 mg tablet 5 mg PO BID anxiety 10/24/22 Unknown History oxycodone-acetaminophen 5 mg-325 1 tab PO Q4H PRN PRN pain 12/16/23 Unknown History mg tablet oxycodone 5 mg tablet 2.5 mg (1/2 x 5 mg) PO Q4H P RN PRN 12/19/23 Unknown Rx Pain Score 4-10 3 days #10 tabs pantoprazole 40 mg tablet,delayed 40 mg PO DAILY heart burn #30 tabs 12/19/23 Unknown Rx release (Protonix) sennosides 8.6 mg-docusate sodium 2 tab PO BID PRN PRN Constipation 12/19/23 Unknown Rx 50 mg tablet (Stool #0 tabs Softener-Stimulant Laxative) tizanidine 2 mg tablet 2 mg PO Q8H PRN PRN muscle 0 12/19/23 Unknown Rx spasm/strain 10 days #30 tabs cholecalciferol (vitamin D3) 50 50 mcg PO DAILY vitami n 02/14/25 Unknown History mcg (2,000 unit) tablet latanoprost 0.005 % eye drops 1 drp ophthalmic (eye) Q HS eye 02/14/25 Unknown History drops venlafaxine 150 mg 150 mg PO DAILY antidepressa nt 02/14/25 Unknown History capsule,extended release 24 hr Allergy/AdvReac Type Severity Reaction Status Date / Time hydroxyzine Allergy Intermediate Other Verified 02/26/23 14:12 lisinopril AdvReac Mild cough Verified 02/26/23 14:12 Family History Mother Heart disease CVA (cerebral vascular accident) Skin cancer Hypertension Father Pancreatic cancer Heart disease Diabetes Surgical History S/P nasal septoplasty History of foot surgery History of eye surgery History of surgery on arm S/P appendectomy H/O neck surgery S/P colonoscopy History of esophagogastroduodenoscopy (EGD) Social History Smoking Status: Never smoker second hand exposure: No alcohol intake: never substance use type: does not use caffeine: No what type of physical activity do you participate in: none frequency: does not exercise Vital Signs Vital Signs Vital Signs: 02/14/25 13:07 02/14/25 13:13 02/14/25 14:08 Temperature 97.9 F Temperature Source Oral Pulse Rate 52 L Respiratory Rate 16 Respiratory Effort Normal Non-Labored Respiratory Depth Respiratory Pattern Normal Blood Pressure 174/77 H Blood Pressure Mean 109 Blood Pressure Source Blood Pressure Position Blood Pressure Location Pulse Ox 100 Oxygen Delivery Method Room Air Room Air 02/14/25 14:38 02/14/25 14:45 02/14/25 15:08 Temperature Temperature Source Pulse Rate 57 L 62 59 L Respiratory Rate 15 16 18 Respiratory Effort Respiratory Depth Respiratory Pattern Blood Pressure 187/97 H 136/89 H 166/88 H Blood Pressure Mean 127 104 114 Blood Pressure Source Blood Pressure Position Blood Pressure Location Pulse Ox 100 99 99 Oxygen Delivery Method Room Air 02/14/25 17:42 02/14/25 17:45 02/14/25 19:00 Temperature 98.6 F Temperature Source Pulse Rate 59 L 80 63 Respiratory Rate 18 18 Respiratory Effort Respiratory Depth Respiratory Pattern Blood Pressure 166/88 H 167/88 H 173/99 H Blood Pressure Mean 114 114 123 Blood Pressure Source Blood Pressure Position Blood Pressure Location Pulse Ox 99 98 99 Oxygen Delivery Method 02/14/25 20:15 02/14/25 20:25 02/14/25 21:30 Temperature 98.2 F 98.2 F Temperature Source Oral Oral Pulse Rate 57 L 65 Respiratory Rate 16 16 Respiratory Effort Respiratory Depth Respiratory Pattern Blood Pressure 156/108 H 185/83 H Blood Pressure Mean 124 117 Blood Pressure Source Monitor Monitor Blood Pressure Position Semi-Fowlers Semi-Fowlers Blood Pressure Location Right Arm Right Arm Pulse Ox 96 98 96 Oxygen Delivery Method Room Air Room Air Room Air 02/14/25 22:00 02/15/25 01:30 02/15/25 01:52 Temperature 97.7 F L Temperature Source Oral Pulse Rate 64 Respiratory Rate 16 Respiratory Effort Normal Normal Respiratory Depth Normal Normal Respiratory Pattern Normal Normal Blood Pressure 144/65 H Blood Pressure Mean 91 Blood Pressure Source Monitor Blood Pressure Position Semi-Fowlers Blood Pressure Location Right Arm Pulse Ox 96 Oxygen Delivery Method Room Air Room Air Room Air 02/15/25 05:32 02/15/25 07:30 02/15/25 08:53 Temperature 97.6 F L 97.5 F L Temperature Source Oral Oral Pulse Rate 56 L 55 L Respiratory Rate 16 16 Respiratory Effort Respiratory Depth Respiratory Pattern Blood Pressure 140/71 H 162/89 H Blood Pressure Mean 94 113 Blood Pressure Source Monitor Monitor Blood Pressure Position Semi-Fowlers Blood Pressure Location Right Forearm Pulse Ox 99 96 97 Oxygen Delivery Method Room Air Room Air Room Air 02/15/25 08:57 Temperature Temperature Source Pulse Rate Respiratory Rate Respiratory Effort Normal Respiratory Depth Normal Respiratory Pattern Normal Blood Pressure Blood Pressure Mean Blood Pressure Source Blood Pressure Position Blood Pressure Location Pulse Ox Oxygen Delivery Method Room Air Weight Weight: 91.1 kg Body Mass Index (BMI) 34.4 EEG Results Procedure Details EEG Procedure Details: DOMINIC ARTEAGA is a 69 year old F with a past medical history of , who presents for evaluation of Electroencephalogram on DATE at TIME Lab / Micro Data 02/15/25 04:52 02/15/25 04:52 Labs: Laboratory Results - last 24 hr 02/14/25 15:19: WBC 6.5, RBC 4.55, Hgb 14.0, Hct 42.3, MCV 93.0, MCH 30.8, MCHC 33.1, RDW Std Deviation 43.0, RDW Coeff of Melissa 12.5, Plt Count 229, MPV 9.5, Immature Gran % (Auto) 0.300, Neut % (Auto) 67.8, Lymph % (Auto) 20.1, Lea % (Auto) 7.9, Eos % (Auto) 2.8, Baso % (Auto) 1.1 H, Absolute Neuts (auto) 4.4, Absolute Lymphs (auto) 1.30, Nucleated RBC % 0, PT 13.4, INR 1.0, APTT 23.3 L, Sodium 137, Potassium 4.0, Chloride 104, Carbon Dioxide 22.0, Anion Gap 11, BUN 14, Creatinine 0.79, Estim Creat Clear Calc 74.27, Est GFR (MDRD) Non-Af 80, BUN/Creatinine Ratio 17.2, Glucose 99, Calcium 8.5, Troponin T High Sens 8 02/14/25 16:14: Troponin T Hi Sens 2 Hr 8 02/15/25 04:52: WBC 5.9, RBC 4.43, Hgb 13.7, Hct 42.4, MCV 95.7, MCH 30.9, MCHC 32.3, RDW Std Deviation 45.4 H, RDW Coeff of Melissa 12.8, Plt Count 242, MPV 9.6, Immature Gran % (Auto) 0.700, Neut % (Auto) 55.2, Lymph % (Auto) 26.7, Lea % (Auto) 11.4 H, Eos % (Auto) 4.8, Baso % (Auto) 1.2 H, Absolute Neuts (auto) 3.3, Absolute Lymphs (auto) 1.57, Nucleated RBC % 0, Sodium 140, Potassium 5.0, Chloride 108, Carbon Dioxide 23.8, Anion Gap 9, BUN 17, Creatinine 0.81, Estim Creat Clear Calc 70.66, Est GFR (MDRD) Non-Af 79, BUN/Creatinine Ratio 20.7 H, G lucose 133 H, Hemoglobin A1c 6.5 H, Calcium 8.9, Magnesium 2.3 H, Triglycerides 200 H, Cholesterol 227 H, LDL Cholesterol, Calc 146, VLDL Cholesterol 40, HDL Cholesterol 41, Cholesterol/HDL Ratio 5.59 Imaging Radiology Impression Brain CT 02/14/25 14:08 IMPRESSION: NO ACUTE FINDINGS Red Alert: Nothing acute The critical information above was relayed directly by me by telephone to Rancho Verma on 02/14/2025 at 2:35 pm with readback verification. Reading Location: [facility] Head/Neck CTA 02/14/25 14:09 IMPRESSION: No abnormality is seen. Reading Location: [id number] Chest X-Ray 02/14/25 14:12 IMPRESSION: Lungs are hypoinflated, and examination is further limited by AP portable technique, body habitus, and some patient motion. Subtle increased density in the medial right lung base most likely represents atelectasis, but cannot exclude the presence of pneumonitis. No evidence of pulmonary edema. No pleural effusion or pneumothorax is seen. The cardiomediastinal silhouette is stable, without evidence of cardiomegaly. A partially calcified aorta is noted. No acute osseous change is seen. Reading Location: [facility] Brain MRI 02/15/25 09:30 IMPRESSION: Negative MRI of the brain. [facility] Active Medications Active Medications Active Medications: Current Medications Generic Name Dose Route Start Last Admin Trade Name Freq PRN Reason Stop Dose Admin Acetaminophen 650 mg 02/14/25 20:08 Acetaminophen 325 Mg Tablet PO Q6H PRN PRN Pain 1-10 Or Fever >100.7 Albuterol Sulfate 2.5 mg 02/14/25 20:08 Albuterol 2.5 Mg/3 Ml Vial.Neb. INHALATION Q2H PRN PRN SOB &/OR WHEEZING Aspirin 81 mg 02/15/25 08:00 02/15/25 08:51 Aspirin 81 Mg Tab.Chew PO 81 mg BREAKFAST APOLLO Administration Atorvastatin Calcium 80 mg 02/14/25 22:00 02/14/25 22:23 Atorvastatin Calcium 80 Mg Tablet PO 80 mg QHS APOLLO Administration Buspirone HCl 5 mg 02/14/25 22:00 02/15/25 08:51 Buspirone 5 Mg Tablet PO 5 mg BID APOLLO Administration Hydralazine HCl 5 mg 02/14/25 20:08 Hydralazine 20 Mg/Ml Vial IV 02/15/25 20:08 Q30M PRN maintain BP parameters with HR <60 Labetalol HCl 20 mg 02/14/25 14:08 Labetalol 20 Mg/4 Ml Vial IV 02/15/25 14:08 X1 PRN BLOOD PRESSURE Labetalol HCl 10 - 20 mg 02/14/25 20:08 Labetalol 20 Mg/4 Ml Vial IV 02/15/25 20:08 Q10M PRN PRN maintain BP parameters with HR >/=60 Lorazepam 0.5 mg 02/14/25 20:08 02/15/25 08:42 Lorazepam 0.5 Mg Tablet PO 0.5 mg X1 PRN Administration Anxiety with MRI Melatonin 10 mg 02/14/25 20:08 02/14/25 23:17 Melatonin 10 Mg Tablet PO 10 mg QHS PRN PRN Administration INSOMNIA Ondansetron HCl 4 mg 02/14/25 20:08 Ondansetron 4 Mg/2 Ml Vial IV Q8H PRN PRN NAUSEA/VOMITING Pantoprazole Sodium 40 mg 02/15/25 10:00 02/15/25 08:51 Pantoprazole Sodium 40 Mg Tablet PO 40 mg DAILY APOLLO Administration Senna/Docusate Sodium 2 tablet 02/14/25 20:08 Senna/Docusate Sodium 1 Tablet PO BID PRN PRN Constipation Sodium Chloride 10 - 40 ml 02/14/25 20:36 02/15/25 06:40 0.9% Saline Lock 10 Ml Syringe IV 10 ml UD PRN Administration SALINE FLUSH Venlafaxine HCl 225 mg 02/15/25 10:00 02/15/25 08:50 Venlafaxine Xr 75 Mg Capsule PO 225 mg DAILY APOLLO Administration NIHSS NIHSS Nursing Documentation NIHSS Nursing Documentation: NIHSS: Ischemic Stroke/TIA Start: 02/14/25 20:08 Text: For PCU Patients: NIH and Neuro Check every 4 Status: Active hours, PRN and with change in RN caregiver. Freq: [id number] Protocol: Activity Type Activity Date Activity User E-sign Co-sign Detail Recorded Client Recorded Date Recorded By Document 02/15/25 08:54 KG [id number] 02/15/25 08:55 KG 02/15/25 08:54 NIH Stroke Scale [NIHSS] A score of 0 is normal or asymptomatic . Total possible score is 42. Inpatient: RN or Physician to activate a stroke alert for onset of new stroke symptoms or with NIHSS increase >/= 3 points. Following change in neurological status, NIHSS will be performed per physician order or more frequently PRN. -1a. Level of Consciousness 0 - Alert; keenly responsive -1b. LOC Questions 0 - Answers BOTH questions correctly -1c. LOC Commands 0 - Performs BOTH tasks correctly -2. Best Gaze 0 - Normal -3. Visual 0 - No visual loss -4. Facial Palsy 0 - Normal symmetrical movements -5a. Left Arm 0 - No drift; arm holds 90 ( or 45) degrees for full 10 seconds -5b. Right Arm 0 - No drift; arm holds 90 ( or 45) degrees for full 10 seconds -6a. Left Leg 0 - No drift; leg holds 30- degree position for full 5 seconds -6b. Right Leg 0 - No drift; leg holds 30- degree position for full 5 seconds -7. Limb Ataxia 0 - Absent -8. Sensory 0 - Normal; no sensory loss -9. Best Language 0 - No aphasia; normal -10. Dysarthria 0 - Normal -11. Extinction and Inattention 0 - No abnormality -Total 0 Query Text:A score of 0 is normal or asymptomatic. Total possible score is 42 . ED: Notify Physician for NIHSS increase by > / = 3 points. Inpatient: RN or Physician to activate a stroke alert for NIHSS increase of > / = 3 points. Coma Scale [Assess] -Eye Opening Spontaneous -Motor Obeys Commands -Verbal Oriented [Total] -Coma Scale Total 15
[2025-02-15 12:22] VITALS: BP 124/98; PULSE 70; RESP 14; TEMP 36.5; O2SAT 99
--- NOTE | 2025-02-15 14:32 | CHAPLAIN ---
Type of Pastoral Visit _x__ Initial Visit ___ Follow-up Visit ___ On-call Visit ___ General Patient Visit ___ Spiritual Assessment ___ Family Conference ___ Bereavement ___ Rapid Response ___ Code Blue ___ Other (describe below) Pastoral Care Referral From _x__ Patient ___ Family ___ Nurse ___ Physician ___ Hall Tender ___ Mat Machine Tender ___ Other (describe below) Sacrament/Intervention _x__ Active listening ___ Anointing ___ Church ___ Bereavement ___ Communion ___ Colette exploration ___ ___ Life review ___ Prayer ___ Reconciliation ___ Sacrament of Sick _x__ Supportive presence ___ Wedding ___ Other (describe below) Pastoral Comments patient acknowledges feeling better, having procedure completed, and hoping on a decision to get home today yet; pt denies any needs or concerns
--- NOTE | 2025-02-15 15:45 | PCM.DC.SUM ---
Providers Date of Admission: 02/14/25 Date of Discharge: 02/15/25 Primary Care Physician: Dr. Demian Avila MD Reason For Visit: SYNCOPE Diagnosis Discharge Diagnosis (1) Loss of consciousness: Status: Acute Code(s): R40.20 - Unspecified coma Medications at Discharge Home Medications venlafaxine 75 mg capsule,extended release 24 hr 225 mg PO DAILY mood 02/25/18 ergocalciferol (vitamin D2) 1,250 mcg (50,000 unit) capsule (Vitamin D2) 50,000 unit PO QWEEK supplement 03/12/18 omega 4-dlq-abe-fish oil 900 mg-1,400 mg capsule,delayed release (Fish Oil) 4,200 mg PO DAILY supplement 03/12/18 losartan 100 mg tablet 100 mg PO DAILY blood pressure 11/15/20 buspirone 5 mg tablet 5 mg PO BID anxiety 10/24/22 oxycodone-acetaminophen 5 mg-325 mg tablet 1 tab PO Q4H PRN PRN pain 12/16/23 oxycodone 5 mg tablet 2.5 mg (1/2 x 5 mg) PO Q4H PRN PRN Pain Score 4-10 3 days #10 tabs 12/19/23 pantoprazole 40 mg tablet,delayed release (Protonix) 40 mg PO DAILY heart burn #30 tabs 12/19/23 sennosides 8.6 mg-docusate sodium 50 mg tablet (Stool Softener-Stimulant Laxative) 2 tab PO BID PRN PRN Constipation #0 tabs 12/19/23 tizanidine 2 mg tablet 2 mg PO Q8H PRN PRN muscle spasm/strain 10 days #30 tabs 12/19/23 cholecalciferol (vitamin D3) 50 mcg (2,000 unit) tablet 50 mcg PO DAILY vitamin 02/14/25 latanoprost 0.005 % eye drops 1 drp ophthalmic (eye) QHS eye drops 02/14/25 venlafaxine 150 mg capsule,extended release 24 hr 150 mg PO DAILY antidepressant 02/14/25 atorvastatin 20 mg tablet (Lipitor) 20 mg PO QHS #30 tabs 02/15/25 Hospital Course Operations None Procedures 2-D Echocardiogram, EKG and - (CT brain/CTA head neck/chest x-ray/brain MRI) Summary of Care Provided Minutes Spent on Discharge: 36 Hospital Course: Mrs. Paul is an a 69-year-old white female who presented to emergency department [facility] on 02/14/2025 after suffering a episode of loss of consciousness with resultant difficulty moving limbs. At some point she had a syncopal event. She was in her usual state of health and was standing in the kitchen when she had a syncopal event. She was caught by her daughter but afterwards was having difficulty moving both limbs and speaking. Stroke team was called the emergency department with an initial NIH of 7. Teleneurology was able to see the patient on the monitor but being then and indicated that since her NIH was improving to 3 they did not feel she would be a TNK candidate due to rapid improvement of symptoms. Given this episode admission for stroke workup was recommended. Vital signs at presentation showed temperature of 97.9, heart rate 52, respiratory rate 16, blood pressure was 174/77, and pulse ox was 100% on room air. Blood pressure was reassessed and did come down after admission. CBC was unremarkable. Coags were normal. Chemistry panel was unremarkable. We did obtain a hemoglobin A1c was found to be 6.5 consistent with insulin resistance but not diabetes. Lipid panel was obtained and patient was found to be markedly hyperlipidemic with a triglyceride level of 200, total cholesterol of 227 and an LDL of 146 with an HDL of 41. Given these findings we did recommend starting a statin. She was discharged with atorvastatin 20 mg daily and instructed to follow-up with her primary care physician for LFTs in 6 weeks and a repeat lipid panel in [address] of the brain on presentation was unremarkable for any acute findings. CTA of the head and neck had no notable blockages with no identified stenosis. Chest x-ray is unremarkable for acute findings. Noncontrasted MRI of the brain was unremarkable. Echocardiogram showed an EF of 60% with mild tricuspid valve insufficiency and noted change since previous echo. NIH has remained 0 after admission. Neurology saw the patient did not feel that this was stroke or TIA event and felt this was more of a syncopal episode. On further questioning patient does state she has family history of vagal vagal events. Telemetry was reviewed and she has no significant arrhythmias while hospitalized but given her event at home I did feel prudent that we send her home with a event monitor for 30 days. This will be sent her home with instructions and we discussed this prior to discharge. The only medication change we required to make at discharge was added atorvastatin 20 mg and again she should follow-up with her primary care physician for reevaluation. She also will continue her fish oil and her home blood pressure medications. Goal blood pressure will be 130/80 or less. She should follow-up with her primary care physician in the next 2 weeks. Discharge diagnoses: Syncope [id number] Hyperlipidemia Vitamin D deficiency Anxiety Chronic pain Constipation Depression GERD/Bhatti's esophagus Glaucoma Physical Exam Narrative Patient states she is feeling well. Has had no further events. We discussed her workup being unremarkable and the need for an event monitor at discharge given syncope. I encouraged close follow-up with her primary care physician. Patient does indicates she has a fairly strong history of vasovagal syncope. Const alert, oriented x3, no apparent distress, no limitations and well nourished; Negative for average body habitus Constitutional Narrative: Obese, elderly, white female, lying in left side-lying, appears comfortable, nontoxic General Appearance: cooperative, comfortable, well kempt and well developed Exam Limitations: no limitations Nutritional Appearance: obese HEENT normocephalic, head/scalp atraumatic and hearing grossly normal bilaterally HEENT Narrative: Mallampati 3, no thrush Eyes conjunctivae normal Eyes Narrative: No scleral icterus Neck supple Neck Narrative: Trachea midline, no thyroid enlargement Resp normal respiratory effort, no retractions, no use of accessory muscles and clear to auscultation bilaterally Auscultation: Negative for rales, rhonchi or wheezes Cardio regular rate, regular rhythm, S1 normal heart sound, S2 normal heart sound, no murmurs, no rub, no gallops and no clicks GI normal to inspection, nondistended, normoactive bowel sounds, soft to palpation and non-tender Extremity no clubbing, cyanosis or edema Extremity Narrative: Radial and pedal pulses are 2+ bilaterally Skin no jaundice, no petechiae and no mottling Neuro oriented x3, moves all extremities and no focal motor deficits Speech: speech normal Psych affect normal Psych Narrative: Very pleasant, interacts appropriately Weight / BMI Weight Weight: 91.1 kg Body Mass Index (BMI) 34.4 ABG / Lab / Microbiology Data 02/15/25 04:52 02/15/25 04:52 Laboratory: Laboratory Results - last 24 hr 02/14/25 16:14: Troponin T Hi Sens 2 Hr 8 02/15/25 04:52: WBC 5.9, RBC 4.43, Hgb 13.7, Hct 42.4, MCV 95.7, MCH 30.9, MCHC 32.3, RDW Std Deviation 45.4 H, RDW Coeff of Melissa 12.8, Plt Count 242, MPV 9.6, Immature Gran % (Auto) 0.700, Neut % (Auto) 55.2, Lymph % (Auto) 26.7, Rains % (Auto) 11.4 H, Eos % (Auto) 4.8, Baso % (Auto) 1.2 H, Absolute Neuts (auto) 3.3, Absolute Lymphs (auto) 1.57, Nucleated RBC % 0, Sodium 140, Potassium 5.0, Chloride 108, Carbon Dioxide 23.8, Anion Gap 9, BUN 17, Creatinine 0.81, Estim Creat Clear Calc 70.66, Est GFR (MDRD) Non-Af 79, BUN/Creatinine Ratio 20.7 H, Glucose 133 H, Hemoglobin A1c 6.5 H, Calcium 8.9, Magnesium 2.3 H, Triglycerides 200 H, Cholesterol 227 H, LDL Cholesterol, Calc 146, VLDL Cholesterol 40, HDL Cholesterol 41, Cholesterol/HDL Ratio 5.59 Radiography Diagnostic Testing: Radiology Impression Echocardiogram 02/14/25 20:05 Interpretation Summary The estimated ejection fraction is 60 %. Mild (1+) tricuspid valve insufficiency. No significant change in comparison to previous echocardiogram. Compared to prior study, there is no significant change. Ordering Physician: Yudi Javier Referring Physician: Demian Avila Performed By: aCmila Pastor, LYNETTE, RVT Brain MRI 02/15/25 09:30 IMPRESSION: Negative MRI of the brain. [facility] D/Radha Instructions Discharge Activity: Return to Normal Activity Return to work on: 02/16/25 DC O2, CPAP, BIPAP Needs Home O2 Discharge instructions: No Meaningful Use Info Meaningful Use Meaningful Use Diagnoses (Choose all that apply): None applicable Discharge Plan Admission Admit Date/Time: 02/14/25 19:45 Primary Reason for Your Visit: Syncope Attending Provider: Stormy Neil Primary Care Provider: Demian Avila Consulting Providers: Yudi Javier Instructions Additional Instructions / Restrictions: 1. We did find your cholesterol to be markedly elevated with your bad cholesterol (LDL) being at 144 and goal is less than 70. I would continue taking your fish oil and we will add a cholesterol medication called atorvastatin 20 mg daily. Please follow-up with your primary care physician to have your liver function checked in 6 weeks with a repeat cholesterol in 3 months. 2. We will check an event monitor as discussed to make sure that there are no heart rhythm problems that could have led to your event. This will be 30 days and will be sent to you in the mail. Discharge Orders/Prescriptions Prescriptions: New atorvastatin [Lipitor] 20 mg tablet 20 mg PO QHS Qty: 30 0RF Continued venlafaxine 75 mg capsule,extended release 24hr 225 mg PO DAILY losartan 100 mg tablet 100 mg PO DAILY Patient Comments: TAKE 1 TABLET BY MOUTH EVERY DAY buspirone 5 mg tablet 5 mg PO BID Patient Comments: Pt states she takes 1-2 tablets at a time twice per day, but does not exceed 3 tablets per day. ergocalciferol (vitamin D2) [Vitamin D2] 50,000 UNIT capsule 50,000 unit PO QWEEK Fish Oil 1 EACH capsule,delayed release(DR/EC) 4,200 mg PO DAILY oxycodone-acetaminophen 5-325 mg tablet 1 tab PO Q4H PRN PRN (Reason: pain) tizanidine 2 mg Tablet 2 mg PO Q8H PRN PRN (Reason: muscle spasm/strain) 10 Days Qty: 30 0RF sennosides-docusate sodium [Stool Softener-Stimulant Laxat] 8.6-50 mg Tablet 2 tab PO BID PRN PRN (Reason: Constipation) Qty: 0 0RF oxycodone 5 mg Tablet 2.5 mg PO Q4H PRN PRN (Reason: Pain Score 4-10) 3 Days Qty: 10 0RF Rx Instructions: Half to 1 tablet for moderate to severe pain respectively. pantoprazole [Protonix] 40 mg tablet,delayed release (DR/EC) 40 mg PO DAILY Qty: 30 0RF latanoprost 0.005 % drops 1 drp ophthalmic (eye) QHS venlafaxine 150 mg capsule,extended release 24hr 150 mg PO DAILY cholecalciferol (vitamin D3) 50 mcg (2,000 unit) tablet 50 mcg PO DAILY Other Ambulatory Orders: 30 Day Event Recorder Preventi (Urgent) Timeframe: 1 Day Facility: [facility] - Location: Cardiovascular Services Ordered By: Dr. Stormy Neil Referrals / Follow Up: Demian Avila MD [Primary Care Provider] - Within 2 Weeks Disposition Disposition (needs filled in before D/C Order can be placed): Home, Self Care Charges/Coding Visit Charges Inpatient E&M: 48667 Disch Hosp >30min
--- NOTE | 2025-02-15 16:09 | CASEMGMT ---
Patient has order for discharge. RN CM in to discuss needs at discharge. Patient denies needs or help at discharge. Patient had no further questions or concerns.
--- NOTE | 2025-02-15 16:35 | PHA.DC_ITS ---
Pharmacy [facility] [place] [facility] Service has performed discharge medication reconciliation and counseling for this patient. 1. ATORVASTATIN 20MG PO QHS The patient's discharge medication list was reviewed for discrepancies and discrepancies were resolved. The patient was counseled on the following discharge medications and changes in medications for homegoing were reviewed. The Reason for Use, instructions for use, and potential side effects were reviewed for all new medications. The patient's questions regarding all of their medications were answered. The patient was able to verbally demonstrate an understanding of their discharge medications. Medications at Discharge Home Medications venlafaxine 75 mg capsule,extended release 24 hr 225 mg PO DAILY mood 02/25/18 ergocalciferol (vitamin D2) 1,250 mcg (50,000 unit) capsule (Vitamin D2) 50,000 unit PO QWEEK supplement 03/12/18 omega 7-fvc-oie-fish oil 900 mg-1,400 mg capsule,delayed release (Fish Oil) 4,200 mg PO DAILY supplement 03/12/18 losartan 100 mg tablet 100 mg PO DAILY blood pressure 11/15/20 buspirone 5 mg tablet 5 mg PO BID anxiety 10/24/22 oxycodone-acetaminophen 5 mg-325 mg tablet 1 tab PO Q4H PRN PRN pain 12/16/23 oxycodone 5 mg tablet 2.5 mg (1/2 x 5 mg) PO Q4H PRN PRN Pain Score 4-10 3 days #10 tabs 12/19/23 pantoprazole 40 mg tablet,delayed release (Protonix) 40 mg PO DAILY heart burn #30 tabs 12/19/23 sennosides 8.6 mg-docusate sodium 50 mg tablet (Stool Softener-Stimulant Laxative) 2 tab PO BID PRN PRN Constipation #0 tabs 12/19/23 tizanidine 2 mg tablet 2 mg PO Q8H PRN PRN muscle spasm/strain 10 days #30 tabs 12/19/23 cholecalciferol (vitamin D3) 50 mcg (2,000 unit) tablet 50 mcg PO DAILY vitamin 02/14/25 latanoprost 0.005 % eye drops 1 drp ophthalmic (eye) QHS eye drops 02/14/25 venlafaxine 150 mg capsule,extended release 24 hr 150 mg PO DAILY antidepressant 02/14/25 atorvastatin 20 mg tablet (Lipitor) 20 mg PO QHS #30 tabs 02/15/25
== END 2025-02-15 18:50 | disposition home or self-care (01) ==
LOC: ED 17:42 → PCU 20:12
PROVIDERS: Admitting Provider Internal Medicine; Emergency Provider Emergency Medicine; PCP Family Medicine; Visit Provider Internal Medicine
DX: R55 Syncope and collapse (principal); E11.39 Type 2 diabetes mellitus with other diabetic ophthalmic complication; R11.0 Nausea; Z79.899 Other long term (current) drug therapy; R13.10 Dysphagia, unspecified; G89.29 Other chronic pain; R29.898 Other symptoms and signs involving the musculoskeletal system; K59.00 Constipation, unspecified; E78.5 Hyperlipidemia, unspecified; F41.9 Anxiety disorder, unspecified; E55.9 Vitamin D deficiency, unspecified; I07.1 Rheumatic tricuspid insufficiency; H40.9 Unspecified glaucoma; I10 Essential (primary) hypertension; R47.9 Unspecified speech disturbances; F32.A Depression, unspecified; K21.9 Gastro-esophageal reflux disease without esophagitis
CPT/HCPCS: 36415; 70450; 70496; 70498; 70551; 71045; 80048; 80061; 83036; 83735; 84484; 85025; 85610; 85730; 92610; 93005; 93306; 94762; 96360; 96361; 97161; 99221; 99285; Q9967; A4216; G0378